=== PATIENT | male | born 1955 | race Caucasian/White ===

== ENCOUNTER 2016-11-17 07:57 | Day surgery (SDC) | payer MEDICARE, OTHER ==
[2016-10-07 10:50] VITALS: BMI 26.6
[2016-11-17 09:13] LABS: POTASSIUM 5.1 mmol/L (3.6-5.2)
[2016-11-17] MEDS ORDERED: Propofol 10 mg/ml Inj (20 ML) ONE ×3 (10:59→11:56)
[2016-11-17] MEDS ORDERED: Lactated Ringer's 1,000 ML IV ONE (11:00)
[2016-11-17] MEDS ORDERED: Sodium Chloride 0.9% 500 ML IV ONE ×2 (11:00→12:10)
[2016-11-17] MEDS ORDERED: HYDROmorphone 0.5 mg/0.5 ml ISec IVP PRN (11:05)
[2016-11-17] MEDS ORDERED: cefTRIAXone IV 1 gm in Dextros 50 ML IVPB ONE (11:06)
[2016-11-17] MEDS ORDERED: Iohexol 240 (50 ml) ONE (11:07)
[2016-11-17] MEDS ORDERED: Iodixanol 320 MG/ML 200 ML BOTTLE IV ONE (11:13)
[2016-11-17] MEDS: HYDROmorphone 0.5 mg/0.5 ml ISec IVP PRN ×3 (13:05→13:42)
[2016-11-17 13:51] VITALS: O2SAT 100
[2016-11-17 14:24] VITALS: BP 179/80; PULSE 90; RESP 18; TEMP 97.5
--- NOTE | 2016-11-17 14:39 | OP ---
PROCEDURE DATE: 11/17/2016 PREOPERATIVE DIAGNOSIS: Hematuria. POSTOPERATIVE DIAGNOSES: Hematuria, at least hemorrhagic cystitis. SURGEON: Dr. Angel ANESTHESIA: Local anesthesia plus IV sedation with . PROCEDURE: The patient was placed on the cystoscopy table in the dorsal lithotomy position and prepp ed and draped in usual sterile fashion with Betadine solution. Approximately 10 mL of 2% Xylocaine j danish were injected intraurethrally and allowed to be maintained for a few minutes. This was followed by insertion of a #22 Russian Storz cystoscope into the bladder under direct vision using the 30-degr ee lens. Sterile water was used as irrigation solution throughout the entire procedure. The anterio r urethra was completely normal without any stricture formation, foreign bodies, or suspicious lesion s seen. Posterior urethra and prostatic fossa showed a total prostatic length of about 6 cm and a bl adder neck to veru measurement of about 5 cm. The bladder was then examined in all 4 quadrants and w as completely inflamed and with appearance of hemorrhagic cystitis over the entire bladder. There wa s bullous edema around the entire trigone with hemorrhagic areas, making it more difficult to locate the ureteral orifices, which were eventually located and bilateral retrogrades were performed using 1 0 mL of contrast solution. The bilateral retrogrades appeared normal without any filling defects or hydronephrosis. Next, a bladder biopsy was performed after the ureteral 6 Russian open-ended catheter was removed, which was used during the bilateral retrograde pyelogram. Biopsy was taken from the ri ght trigone, which was completely inflamed and placed in a separate specimen cup and sent to patholog y. Also, a bladder irrigation for cytology was also sent to pathology. At the end of the procedure, there was bleeding noted, not only throughout the entire bladder, but also at the bladder neck. Thi s bladder neck area was fulgurated using the coagulating current set at 35 kim. Then, a 22 Russian 2-way Molina catheter was inserted into the bladder. The balloon inflated to about 15 mL and the cath eter was connected to gravity drainage with a light pink return. The patient tolerated the procedure well with about 50 mL of blood loss and was brought to recovery area in satisfactory condition. PLAN: For this patient will be to send the patient home with the Molina catheter for about 5 days and we will give the patient a trial of voiding in about 5 days in the office. The patient will be disc harged home on Ceftin 250 mg daily for 5 days. POSTOPERATIVE DIAGNOSTIC IMPRESSION: 1. Hemorrhagic cystitis. 2. Rule out neoplasm. Agustin Angel MD cc: [id number] TT: 11/17/2016 14:39:06 en
--- NOTE | 2016-11-17 14:59 | RAD ---
HISTORY: HEMATURIA COMPARISON: No prior. FINDINGS: BOWEL: Moderate right colonic stool retention. No obstruction. No free air. Motion artifact present. Left small bowel loops top-normal. BONES: Left L2-3 prominent marginal osteophytes OTHER FINDINGS: Partially visualized is contrast within a L left collecting system of the portions visualized no dilatation is noted. There are multiple nonspecific filling defects present ureter and pelvocaliceal system - correlation with the real-time procedure recommended IMPRESSION: Nonspecific filling defects left collecting system
--- NOTE | 2016-11-17 17:06 | RAD ---
PROCEDURE: HISTORY: Hematuria COMPARISON: None TECHNIQUE: Fluoroscopy of the upper abdomen was performed by the referring clinician for bilateral retrograde . 11 images obtained FINDINGS: Multiple nonspecific filling defects are present in the collecting system Please refer to the procedural report IMPRESSION: Fluoroscopy provided.
== END 2016-11-17 14:38 | disposition home or self-care (01) ==
LOC: C.SDS 07:57
PROVIDERS: ATTEND Urology
DX: N30.81 Other cystitis with hematuria (principal)
CPT/HCPCS: 36415; 52204; 74000; 76000; 80048; 82948; 88104; 88305; C1758; C1769; J0696; J1170; J7040; Q9966

== ENCOUNTER 2016-11-18 20:21 | Emergency (ER) | payer MEDICARE, OTHER ==
[2016-11-18 20:22] VITALS: BMI 26.6
[2016-11-18 20:34] VITALS: RESP 20; O2SAT 95
--- NOTE | 2016-11-18 21:55 | C.PDOC ---
History Of Present Illness Patient presents to the ED with complaints of penile pain following an cystoscopy yesterday. Patient states he wants pain medicine and denies any other physical complaints at this time. Time Seen by Provider: 11/18/16 21:55 Chief Complaint (Nursing): Male Genitourinary History Per: Patient History/Exam Limitations: no limitations Onset/Duration Of Symptoms: Hrs, Waxing/Waning Severity: Mild Pain Scale Rating Of: 4 Quality Of Discomfort: "Pain" Associated Symptoms: denies: Fever, Chills, Nausea, Vomiting, Diarrhea Recent travel outside of the [place]: No Past Medical History Reviewed: Historical Data, Nursing Documentation, Vital Signs Vital Signs: Last Vital Signs Temp 98 F 11/18/16 20:29 Pulse 92 H 11/18/16 20:29 Resp 20 11/18/16 20:29 BP 185/94 H 11/18/16 20:29 Pulse Ox 95 11/18/16 22:23 - Medical History PMH: CAD, Diabetes, HTN, Hypercholesterolemia, End Stage Renal Disease, Chronic Kidney Disease (ESRD on HD) Surgical History: Endoscopy - [place] Procedures ENDOSC POLYPECTOMY OF LG INTEST (10/09/13) PERFORMANCE OF URINARY FILTRATION, MULTIPLE (08/05/16) PERFORMANCE OF URINARY FILTRATION, SINGLE (04/17/16) Family History: States: No Known Family Hx - Social History Hx Tobacco Use: No Hx Alcohol Use: No Hx Substance Use: No - Immunization History Hx Tetanus Toxoid Vaccination: Yes Hx Influenza Vaccination: Yes Hx Pneumococcal Vaccination: Yes Review Of Systems Constitutional: Negative for: Fever, Chills, Sweats Cardiovascular: Negative for: Chest Pain, Palpitations Respiratory: Negative for: Cough, Shortness of Breath Gastrointestinal: Negative for: Nausea, Vomiting, Abdominal Pain, Diarrhea Genitourinary: Positive for: Hematuria, Penile Pain Skin: Negative for: Rash Neurological: Negative for: Weakness Psych: Negative for: Anxiety Physical Exam - Physical Exam Appears: Non-toxic, No Acute Distress Skin: Warm, Dry Head: Atraumatic Oral Mucosa: Moist Neck: Supple Chest: Symmetrical, No Deformity Cardiovascular: Rhythm Regular Respiratory: No Rales, No Rhonchi, No Stridor, No Wheezing Gastrointestinal/Abdominal: Soft, Tenderness (mild abdominal tenderness due to cunningham ), No Distention, No Guarding, No Rebound Male Genital: Other (in-dwelling cunningham draining bloody urine ) Extremity: Normal ROM, No Tenderness Neurological/Psych: Oriented x3 ED Course And Treatment O2 Sat by Pulse Oximetry: 95 Pulse Ox Interpretation: Normal Reevaluation Time: 23:19 Reassessment Condition: Improved Disposition Counseled Patient/Family Regarding: Studies Performed, Diagnosis, Need For Followup, Rx Given - Disposition Referrals: Agustin Angel MD [Staff Provider] - Disposition: HOME/ ROUTINE Disposition Time: 21:55 Condition: FAIR Prescriptions: traMADol [Ultram] 50 mg PO TID PRN #12 tab PRN Reason: Pain, Severe (8-10) Instructions: Urinary Leg Bag (GEN) - Clinical Impression Clinical Impression: Cunningham catheter in place - Scribe Statement The provider has reviewed the documentation as recorded by the Scribe Janice Spears All medical record entries made by the Scribe were at my direction and personally dictated by me. I have reviewed the chart and agree that the record accurately reflects my personal performance of the history, physical exam, medical decision making, and the department course for this patient. I have also personally directed, reviewed, and agree with the discharge instructions and disposition.
[2016-11-18] MEDS ORDERED: Oxycodone/Acetaminophen 5/325 mg Tab PO STA (22:17)
[2016-11-18] MEDS ORDERED: Oxycodone/Acetaminophen 5/325 mg Tab ONE (22:20)
[2016-11-18 23:23] VITALS: BP 172/89; PULSE 99; TEMP 97.9
== END 2016-11-18 23:24 | disposition home or self-care (01) ==
LOC: C.ER 20:21
DX: Z43.6 Encounter for attention to other artificial openings of urinary tract (principal)

== ENCOUNTER 2016-11-22 20:22 | Inpatient (IN) | payer MEDICARE, OTHER ==
[2016-11-22 20:23] VITALS: BMI 26.6
[2016-11-23 00:26] LABS: BASO # 0.1 K/uL (0.0-0.2); BASO % 0.7 % (0.0-2.0); EOS # 0.4 K/uL (0.0-0.7); EOS % 5.8 % (0.0-4.0); HEMATOCRIT 33.6 % (35.0-51.0); LYMPH # 0.7 K/uL (1.0-4.3); LYMPH % 8.9 % (20.0-40.0); MEAN CELL VOLUME 91.8 fL (80.0-94.0); MEAN CORPUSCULAR HEMOGLOBIN 29.8 pg (27.0-31.0); MEAN CORPUSCULAR HGB CONC 32.5 g/dL (33.0-37.0); MEAN PLATELET VOLUME 7.9 fL (7.2-11.7); MONO # 0.8 K/uL (0.0-0.8); MONO % 10.8 % (0.0-10.0); PLATELET COUNT 196 K/uL (130-400); RED CELL DISTRIBUTION WIDTH 18.9 % (11.5-14.5); WHITE BLOOD COUNT 7.7 K/uL (4.8-10.8)
[2016-11-23 00:30] LABS: INR 1.2
[2016-11-23 00:49] LABS: CHLORIDE 90 mmol/L (98-107)
[2016-11-23 00:50] LABS: POTASSIUM 4.8 mmol/L (3.6-5.2); SODIUM 137 mmol/L (132-148)
[2016-11-23 00:51] LABS: ALKALINE PHOSPHATASE 92 U/L (38-126); ALT/SGPT 17 U/L (21-72); AST/SGOT 32 U/L (17-59); BILIRUBIN,TOTAL 1.1 mg/dL (0.2-1.3); BLOOD UREA NITROGEN 39 mg/dL (9-20); CALCIUM 10.5 mg/dl (8.6-10.4); CARBON DIOXIDE 29 mmol/L (22-30); GFR AFRICAN-AMERICAN 10; GLUCOSE,RANDOM 141 mg/dL (75-110); TOTAL PROTEIN 9.2 g/dL (6.3-8.3)
--- NOTE | 2016-11-23 02:19 | C.PDOC ---
History Of Present Illness patient presents with b/l leg edema , some shortness of breath, penis carole from indwelling cunningham catheter. No cp or palpitations. No f/c/n/v. Time Seen by Provider: 11/23/16 02:11 Chief Complaint (Nursing): Male Genitourinary History Per: Patient History/Exam Limitations: no limitations Onset/Duration Of Symptoms: Days Current Symptoms Are (Timing): Still Present Severity: Moderate Pain Scale Rating Of: 4 Context: presents with cunningham cath irritation, shortness of breath an leg edema Past Medical History Reviewed: Historical Data, Nursing Documentation, Vital Signs Vital Signs: Last Vital Signs Temp 98.6 F 11/22/16 20:45 Pulse 81 11/22/16 20:45 Resp 20 11/22/16 20:45 BP 170/78 H 11/22/16 20:45 Pulse Ox 99 11/23/16 02:19 - Medical History PMH: CAD, Diabetes, HTN, Hypercholesterolemia, End Stage Renal Disease, Chronic Kidney Disease (ESRD on HD) Denies: Kidney Stones Surgical History: Endoscopy - [place] Procedures ENDOSC POLYPECTOMY OF LG INTEST (10/09/13) PERFORMANCE OF URINARY FILTRATION, MULTIPLE (08/05/16) PERFORMANCE OF URINARY FILTRATION, SINGLE (04/17/16) Family History: States: No Known Family Hx - Social History Hx Tobacco Use: No Hx Alcohol Use: No Hx Substance Use: No - Immunization History Hx Tetanus Toxoid Vaccination: Yes Hx Influenza Vaccination: Yes Hx Pneumococcal Vaccination: Yes Review Of Systems Constitutional: Negative for: Fever, Chills Eyes: Negative for: Redness ENT: Negative for: Throat Pain Cardiovascular: Negative for: Chest Pain, Palpitations Respiratory: Positive for: Shortness of Breath Gastrointestinal: Negative for: Nausea, Vomiting, Abdominal Pain Genitourinary: Positive for: Hematuria, Penile Pain, Other (indwelling cunningham) Musculoskeletal: Negative for: Back Pain Skin: Negative for: Rash Neurological: Negative for: Weakness Psych: Positive for: Anxiety Physical Exam - Physical Exam Appears: Non-toxic Skin: Warm, Dry Oral Mucosa: Dry Neck: Trachea Midline, Supple Chest: Symmetrical Cardiovascular: Rhythm Regular Respiratory: Decreased Breath Sounds, Rales, No Wheezing Gastrointestinal/Abdominal: Soft, No Tenderness, No Distention Back: No CVA Tenderness Male Genital: Inguinal Tenderness, Other (indwelling cunningham) Extremity: Pedal Edema (b/l) Extremity: Bilateral: Atraumatic Neurological/Psych: Oriented x3, Normal Speech Gait: Unable To Assess ED Course And Treatment - Laboratory Results Result Diagrams: 11/23/16 00:17 11/23/16 00:17 O2 Sat by Pulse Oximetry: 99 Disposition Discussed With : Lauren Rodas Comment: accepted the pt on his service and took over the care at 2:55AM Doctor Will See Patient In The: Hospital Counseled Patient/Family Regarding: Studies Performed, Diagnosis - Disposition Disposition: HOSPITALIZED Disposition Time: 02:15 Condition: FAIR - POA Present On Arrival: Poor Glycemic Control - Clinical Impression Clinical Impression: Dyspnea, CHF exacerbation, Cunningham catheter in place, Diabetes mellitus Decision To Admit - Pt Status Changed To: Hospital Disposition Of: Inpatient - Admit Certification Admit to Inpatient:: After my assessment, the patient will require hospitalization for at least two midnights. This is because of the severity of symptoms shown, intensity of services needed, and/or the medical risk in this patient being treated as an outpatient. - InPatient: Physician Admission Certification: I certify that this patient requires 2 or more midnights of care for the following reason:: After my assessment, the patient will require hospitalization for at least two midnights. This is because of the severity of symptoms shown, intensity of services needed, and/or the medical risk in this patient being treated as an outpatient. - . Bed Request Type: Telemetry Admitting Physician: Lauren Rodas Patient Diagnosis: Dyspnea, CHF exacerbation, Cunningham catheter in place, Diabetes mellitus
[2016-11-23 02:20] LABS: EOSINOPHIL 6 % (0-4); NEUTROPHIL 70 % (50-75); TOTAL CELLS COUNTED 100
[2016-11-23] MEDS: (Novolog) Insulin Aspart, Recombinant 100 u/ml 10 ml vial SC SCH ×2 (08:03→19:14)
--- NOTE | 2016-11-23 10:48 | RAD ---
PROCEDURE: CHEST RADIOGRAPH, 1 VIEW HISTORY: short of breath COMPARISON: Comparison made with prior chest radiograph 09/27/2016 FINDINGS: LUNGS: Pulmonary vascular congestive changes with what may represent early developing bilateral lower lobe alveolar-type infiltrates. PLEURA: No pneumothorax or pleural fluid seen. CARDIOVASCULAR: Sternotomy wires. Cardiomegaly. OSSEOUS STRUCTURES: No significant abnormalities. VISUALIZED UPPER ABDOMEN: Normal. OTHER FINDINGS: None. IMPRESSION: Mild pulmonary vascular congestive changes -pulmonary edema with suspected developing early bilateral lower lobe alveolar-type infiltrates. Cardiomegaly. Findings discussed with 5 anurager Nurse Eladio at approximately 10:45 a.m. with written down and read back verification
[2016-11-23] MEDS: Multiple Vitamins Tab PO SCH (11:03)
[2016-11-23] MEDS: (Lantus) Insulin Glargine, Recombinant SC SCH (11:11)
--- NOTE | 2016-11-23 15:18 | CP.PCM.CON ---
History of Present Illness - History of Present Illness History of Present Illness: 61 Y/O man admitted with gross hematuria, increased dyspnea s/p recent cysto- showed thick bladder wall- path results pending. Has had recurrent CHF- usually maintained on HD. PMH: ESRD OHT CHF RECURRENCES CAD DL HTN DM 2 WILL ARRANGE FOR HD NOW WITH INCREASED UF RATE MCCLOUD REMOVED BY AWAIT FULL RESULTS OF CYSTO CONTINUE IMMUNOSUPRESSANTS FOR HEART TRANSPLANT Past Patient History - Infectious Disease Hx of Infectious Diseases: None - Past Medical History & Family History Past Medical History?: Yes - Past Social History Smoking Status: Former Smoker - CARDIAC Hx Hypertension: Yes - PULMONARY Hx Respiratory Disorders: No - NEUROLOGICAL Hx Neurological Disorder: No - HEENT Hx HEENT Problems: No - RENAL Hx Chronic Kidney Disease: Yes (ESRD on HD) Hx Kidney Stones: No - ENDOCRINE/METABOLIC Hx Endocrine Disorders: Yes Hx Diabetes Mellitus Type 1: Yes - HEMATOLOGICAL/ONCOLOGICAL Hx Blood Disorders: No - INTEGUMENTARY Hx Dermatological Problems: No - MUSCULOSKELETAL/RHEUMATOLOGICAL Hx Musculoskeletal Disorders: No Hx Falls: No - GASTROINTESTINAL Hx Gastrointestinal Disorders: No - GENITOURINARY/GYNECOLOGICAL Hx Genitourinary Disorders: Yes Hx Hematuria: Yes Hx Urinary Tract Infection: Yes - PSYCHIATRIC Hx Substance Use: No - SURGICAL HISTORY Other/Comment: HEART TRANSPLANT - ANESTHESIA Hx Anesthesia: Yes Hx Anesthesia Reactions: No Hx Malignant Hyperthermia: No Meds Allergies/Adverse Reactions: Allergies Allergy/AdvReac Type Severity Reaction Status Date / Time morphine Allergy Verified 11/22/16 20:48 - Medications Medications: Current Medications Amlodipine Besylate (Norvasc) 10 mg PO DAILY [facility] Last Admin: 11/23/16 11:03 Dose: 10 mg Aspirin (Ecotrin) 81 mg PO DAILY [facility] Last Admin: 11/23/16 11:03 Dose: 81 mg Carvedilol (Coreg) 25 mg PO BID [facility] Last Admin: 11/23/16 11:10 Dose: 25 mg Ezetimibe (Zetia) 10 mg PO [facility] Heparin Sodium (Porcine) (Heparin) 5,000 units SC Q12 [facility] Last Admin: 11/23/16 11:11 Dose: 5,000 units Hydralazine HCl (Apresoline) 100 mg PO BID [facility] Last Admin: 11/23/16 11:04 Dose: 100 mg Ceftriaxone Sodium 500 mg/ (Sodium Chloride) 100 mls @ 100 mls/hr IVPB Q24H [facility] Last Admin: 11/23/16 13:11 Dose: 100 mls/hr Insulin Aspart (Novolog) 8 unit SC BIDAC [facility] Last Admin: 11/23/16 08:03 Dose: 8 unit Insulin Glargine (Lantus) 14 unit SC QAM [facility] Last Admin: 11/23/16 11:11 Dose: 14 unit Losartan Potassium (Cozaar) 100 mg PO DAILY [facility] Last Admin: 11/23/16 11:10 Dose: 100 mg Multivitamins (Hexavitamin) 1 tab PO DAILY [facility] Last Admin: 11/23/16 11:03 Dose: 1 tab Rosuvastatin Calcium (Crestor) 10 mg PO HS [facility] Sevelamer Carbonate (Renvela) 0.8 gm PO TIDCC [facility] Tacrolimus (Prograf Cap) 1 mg PO DAILY [facility] Last Admin: 11/23/16 11:03 Dose: 1 mg Tramadol HCl (Ultram) 50 mg PO TID PRN PRN Reason: Pain, severe (8-10) Results - Vital Signs Recent Vital Signs: Last Vital Signs Temp 98.3 F 11/23/16 08:31 Pulse 99 H 11/23/16 12:38 Resp 20 11/23/16 12:36 BP 178/86 H 11/23/16 11:10 Pulse Ox 97 11/23/16 12:38 - Labs Result Diagrams: 11/23/16 00:17 11/23/16 00:17 Labs: Laboratory Results - last 24 hr 11/23/16 11/23/16 07:51 11:49 POC Glucose (mg/dL) 189 H 78
--- NOTE | 2016-11-23 17:48 | CON ---
DATE: 11/23/2016 BRIEF HISTORY: The patient is recently status post cystoscopy, bilateral retrograde pyelograms, bladder biopsy and bladder washing for cytology last week done at [facility] for evaluation of microscopic and gross hematuria in a patient with end-stage renal disease on dialysis 3 times per week. Results are still pending from this procedure. The bilateral retrograde pyelogram however was relatively normal without any obstructive uropathy or filling defects seen in the collecting systems bilaterally. The patient went home with a 22-Ukrainian Molina catheter, which is currently draining luma urine well, but the patient was complaining of lower abdominal pain and bleeding around the penile meatus. The catheter was supposed to be removed in the office today, 11/23/2016, but the patient was admitted last evening with a complaint of lower abdominal pain and bleeding from the penile meatus. The patient is currently resting moderately comfortably at this point in time. PAST MEDICAL HISTORY: Includes hypertension, high cholesterol, GERD, end-stage renal disease on dialysis since 2014 three times per week, diabetes mellitus, and gross and microscopic hematuria. PAST SURGICAL HISTORY: Status post heart transplant in 2003. PREVIOUS HOME MEDICATIONS: Include hydralazine, amlodipine, valsartan, Lipitor , carvedilol, tacrolimus, pantoprazole sodium, Zetia, Catherine-Carmen, Lantus, SoloSTAR 100 units per mL, insulin and 81 mg aspirin daily. PAST SURGICAL HISTORY: Heart transplant in 2003. He is currently a nonsmoker and relatively no alcohol at this time. ALLERGIES: HE IS ALLERGIC TO MORPHINE WHICH CAUSES DIZZINESS AND LOSS OF APPETITE. PHYSICAL EXAMINATION: GENERAL: Today, patient is a well-developed, well-nourished black male. HEENT: Grossly within normal limits. NECK: Supple. Thyroid not palpable. ABDOMEN: Soft, not distended or tender. No CVA tenderness. No suprapubic tenderness. GENITALIA: Testicles are down bilaterally, nontender and a 22-Ukrainian Molina catheter was draining luma urine well without any clots. There was some blood around the penile meatus but only a very small amount. VITAL SIGNS: Today, temperature is 98.3, pulse rate is 101, blood pressure is 178/86. Respiratory rate is 20. Nasal cannula O2 is 94%. LABORATORY EVALUATION: Today 11/23/2016 shows a CBC with a WBC count of 7.7, hemoglobin of 10.9, hematocrit of 33.6 and a platelet count of 196,000. PT, PTT shows a PT of 13.2, INR of 1.2 and PTT of 39. Sodium is 137, potassium 4.8 , chloride 90, CO2 of 29. BUN and creatinine 39 and 7.1 respectively with a GFR of 10. Glucose was 189 early this morning, but currently is 78 at 8:00 a.m. today. Calcium is 10.5. AST is 32, ALT 17, alk phos 92. No urinalysis is on the chart and no urine culture is on the chart at this time. The patient was originally discharged home post-procedure on Ceftin 250 mg daily and we will restart this medication at this time for at least a few days until we get some cultures back. The urine will be sent for analysis and culture and sensitivity today. DIAGNOSTIC IMPRESSION: Gross and microscopic hematuria. Status post cystoscopy with bladder biopsies and bilateral retrograde pyelograms and bladder wash for urine cytology. The patient was noted on cystoscopy to have a grossly hemorrhagic bladder with inflammation consistent with hemorrhagic cystitis. The patient was currently scheduled to have the Ceftin 250 mg daily for 10 days. The patient is currently for a voiding trial today and the catheter was removed at the bedside this morning, roughly at 12 noon. Agustin Angel MD cc: [id number] TT: 11/23/2016 17:47:51 Confirmation # [id number] Dictation # [id number] MTDD
--- NOTE | 2016-11-23 18:35 | CP.PCM.HP ---
Past Patient History - Infectious Disease Hx of Infectious Diseases: None - Past Medical History & Family History Past Medical History?: Yes - Past Social History Smoking Status: Former Smoker - CARDIAC Hx Hypertension: Yes - PULMONARY Hx Respiratory Disorders: No - NEUROLOGICAL Hx Neurological Disorder: No - HEENT Hx HEENT Problems: No - RENAL Hx Chronic Kidney Disease: Yes (ESRD on HD) Hx Kidney Stones: No - ENDOCRINE/METABOLIC Hx Endocrine Disorders: Yes Hx Diabetes Mellitus Type 1: Yes - HEMATOLOGICAL/ONCOLOGICAL Hx Blood Disorders: No - INTEGUMENTARY Hx Dermatological Problems: No - MUSCULOSKELETAL/RHEUMATOLOGICAL Hx Musculoskeletal Disorders: No Hx Falls: No - GASTROINTESTINAL Hx Gastrointestinal Disorders: No - GENITOURINARY/GYNECOLOGICAL Hx Genitourinary Disorders: Yes Hx Hematuria: Yes Hx Urinary Tract Infection: Yes - PSYCHIATRIC Hx Substance Use: No - SURGICAL HISTORY Other/Comment: HEART TRANSPLANT - ANESTHESIA Hx Anesthesia: Yes Hx Anesthesia Reactions: No Hx Malignant Hyperthermia: No Meds Allergies/Adverse Reactions: Allergies Allergy/AdvReac Type Severity Reaction Status Date / Time morphine Allergy Verified 11/22/16 20:48 Results - Vital Signs Recent Vital Signs: Last Vital Signs Temp 98.1 F 11/23/16 15:00 Pulse 95 H 11/23/16 17:30 Resp 16 11/23/16 17:30 BP 177/93 H 11/23/16 17:30 Pulse Ox 98 11/23/16 17:30 - Labs Result Diagrams: 11/23/16 00:17 11/23/16 00:17 Labs: Laboratory Results - last 24 hr 11/23/16 11/23/16 11/23/16 07:51 11:49 15:57 POC Glucose (mg/dL) 189 H 78 123 H
--- NOTE | 2016-11-23 18:55 | CON ---
DATE: 11/23/2016 HISTORY OF PRESENT ILLNESS: The patient is a 61-year-old man admitted with gross hematuria, increas ed dyspnea. He is status post a recent cystoscopy which showed a thick bladder wall. Path results a re pending. He was diagnosed as hemorrhagic cystitis recently. He has had recurrent congestive hear t failure and that is usually managed with hemodialysis. PAST MEDICAL HISTORY: Orthotopic heart transplant in the remote past, I believe in 2003. He has end -stage renal disease due to diabetes mellitus, diabetes mellitus type 2, hypertension, dyslipidemia, coronary artery disease with a transplant kidney and he has CHF recurrences. PAST SURGICAL HISTORY: AV fistula and the aforementioned heart transplant. SOCIAL HISTORY: Negative for smoking, alcohol abuse or illicit drug use. FAMILY HISTORY: Noncontributory. REVIEW OF SYSTEMS: Significant for increasing dyspnea on exertion recently, chronic cough, no rashes . He is orthopneic. He has had moderate chest pains as well accompanying the shortness of breath. He has little urine output. He has got arthralgias and had some gout. He has no new rashes. He has had the bloody urine output recently. No hearing deficits or visual disturbances recently. Other r eview of systems are all negative. PHYSICAL EXAMINATION: GENERAL: He is a well-developed man. When seen he was dyspneic. VITAL SIGNS: Blood pressure 176/91, temp is 98.3, pulse 99, pulse ox 97% on room air. HEENT: He is anicteric. Mouth was clear. NECK: No JVD. LUNGS: Mejia showed increasing rales, but retirement up. HEART: Regular rhythm, no murmur. ABDOMEN: Soft, benign. No mass or organomegaly. He had an AV fistula in place. EXTREMITIES: He had 1+ pedal edema. NEUROLOGIC: No focal deficits. LABORATORY DATA: Blood work showed hemoglobin of 10.9. Sodium 137, potassium 4.8, BUN 39, creatinin e 7.1. ProBNP is 98,200. Chest x-ray showed congestive heart failure. 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 PLAN: Treatment of congestive heart failure. He is to go for dialysis today and will increase the u ltrafiltration rate. He will need more dialysis and he will be followed for this. Results of the cy sto are pending. Will resume his immunosuppressive medications for the maintenance of his heart montez splant. We will follow up. Zane Pulido MD cc: [id number] TT: 11/23/2016 18:54:21 Confirmation # [id number] Dictation # [id number] mn
[2016-11-23] MEDS: Sevelamer Carb 0.8 gm/Packet PO SCH (19:14)
[2016-11-24 08:54] LABS: POTASSIUM 4.7 mmol/L (3.6-5.2)
[2016-11-24 08:56] LABS: BILIRUBIN,TOTAL 0.8 mg/dL (0.2-1.3); PHOSPHOROUS 5.3 mg/dL (2.5-4.5); TOTAL PROTEIN 8.2 g/dL (6.3-8.3)
[2016-11-24 08:57] LABS: CALCIUM 9.4 mg/dl (8.6-10.4)
[2016-11-24] MEDS: (Novolog) Insulin Aspart, Recombinant 100 u/ml 10 ml vial SC SCH ×2 (10:00→16:52)
[2016-11-24] MEDS: Sevelamer Carb 0.8 gm/Packet PO SCH ×3 (10:01→16:52)
[2016-11-24] MEDS: (Lantus) Insulin Glargine, Recombinant SC SCH (10:05)
[2016-11-24] MEDS: Multiple Vitamins Tab PO SCH (10:05)
--- NOTE | 2016-11-24 10:09 | CP.PCM.PN ---
Subjective - Date & Time of Evaluation Date of Evaluation: 11/24/16 Time of Evaluation: 10:06 - Subjective Subjective: s/p dialysis 11/23- UF 3000ml Much less dyspneic, no CPs Molina removed- no more reports of hemsaturia BP still elevated Objective - Vital Signs/Intake and Output Vital Signs (last 24 hours): Temp Pulse Resp BP Pulse Ox 99 F 103 H 20 174/91 H 96 11/24/16 08:00 11/24/16 10:00 11/24/16 08:00 11/24/16 10:04 11/24/16 08:00 Intake and Output: 11/24/16 11/24/16 06:59 18:59 Intake Total 400 Balance 400 - Medications Medications: Current Medications Amlodipine Besylate (Norvasc) 10 mg PO DAILY [facility] Last Admin: 11/24/16 10:05 Dose: 10 mg Aspirin (Ecotrin) 81 mg PO DAILY [facility] Last Admin: 11/24/16 10:04 Dose: 81 mg Carvedilol (Coreg) 25 mg PO BID [facility] Last Admin: 11/24/16 10:04 Dose: 25 mg Ezetimibe (Zetia) 10 mg PO HS [facility] Last Admin: 11/23/16 21:56 Dose: 10 mg Heparin Sodium (Porcine) (Heparin) 5,000 units SC Q12 [facility] Last Admin: 11/24/16 10:05 Dose: 5,000 units Hydralazine HCl (Apresoline) 100 mg PO BID [facility] Last Admin: 11/24/16 10:05 Dose: 100 mg Ceftriaxone Sodium 500 mg/ (Sodium Chloride) 100 mls @ 100 mls/hr IVPB Q24H [facility] Last Admin: 11/23/16 13:11 Dose: 100 mls/hr Insulin Aspart (Novolog) 8 unit SC BIDAC [facility] Last Admin: 11/24/16 10:00 Dose: 8 unit Insulin Glargine (Lantus) 14 unit SC QAM [facility] Last Admin: 11/24/16 10:05 Dose: 14 unit Losartan Potassium (Cozaar) 100 mg PO DAILY [facility] Last Admin: 11/24/16 10:04 Dose: 100 mg Multivitamins (Hexavitamin) 1 tab PO DAILY [facility] Last Admin: 11/24/16 10:05 Dose: 1 tab Rosuvastatin Calcium (Crestor) 10 mg PO HS [facility] Last Admin: 11/23/16 21:57 Dose: 10 mg Sevelamer Carbonate (Renvela) 0.8 gm PO TIDCC [facility] Last Admin: 11/24/16 10:01 Dose: 0.8 gm Tacrolimus (Prograf Cap) 1 mg PO DAILY [facility] Last Admin: 11/24/16 10:04 Dose: 1 mg Tramadol HCl (Ultram) 50 mg PO TID PRN PRN Reason: Pain, severe (8-10) - Labs Labs: 11/24/16 08:20 PT 13.2 SECONDS (9.7-12.2) H 11/23/16 00:17 INR 1.2 11/23/16 00:17 APTT 39 SECONDS (21-34) H 11/23/16 00:17 - Constitutional Appears: No Acute Distress, Chronically Ill - Head Exam Head Exam: ATRAUMATIC, NORMAL INSPECTION - Eye Exam Eye Exam: EOMI, Normal appearance - Neck Exam Neck Exam: Normal Inspection. absent: Tenderness - Respiratory Exam Respiratory Exam: Clear to Ausculation Bilateral, NORMAL BREATHING PATTERN - Cardiovascular Exam Cardiovascular Exam: REGULAR RHYTHM, +S1 - GI/Abdominal Exam GI & Abdominal Exam: Soft. absent: Tenderness - Extremities Exam Extremities Exam: Pedal Edema. absent: Tenderness - Neurological Exam Neurological Exam: Altered, CN II-XII Intact - Skin Skin Exam: Dry, Warm Assessment and Plan (1) Hemorrhagic cystitis Status: Acute (2) CHF exacerbation Status: Acute (3) UTI (urinary tract infection) Status: Acute (4) End stage renal disease Status: Chronic (5) HTN (hypertension) Status: Chronic (6) Hx of heart transplant Status: Chronic - Assessment and Plan (Free Text) Plan: Increase BP meds Dialysis MWF Monitor for hematuria
--- NOTE | 2016-11-24 12:11 | PN ---
DATE: 11/24/2016 TIME OF FOLLOWUP: Roughly 11:45 a.m. The patient is currently voiding luma urine well after removal of his Molina catheter and is very com fortable at this time. He currently denies any dysuria, gross hematuria, renal colic, or abdominal p ain. 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 The patient is currently awaiting dialysis. VITAL SIGNS: He is afebrile, his temperature is 99 this morning, his pulse rate is 103. BLOOD WORK: Show a CBC with a WBC count of 7.7, hemoglobin of 10.9, hematocrit 33.6 and a platelet c ount of 196,000. His chem profile shows a BUN and creatinine of 24 and 5.4 respectively, with a gluc ose of 123. Sodium 135, potassium 4.7, chloride 92 and CO2 29. DIAGNOSTIC IMPRESSION: Hematuria, negative for bladder malignancy at this time, and cystitis. PLAN: Continue the patient on his oral antibiotics at home which will include Ceftin 250 mg p.o. jadon ly. The patient is currently on Rocephin IV 500 mg daily during his hospital stay. This antibiotic regimen was discussed with his orchestrator, Dr. Kristina Pulido, who agrees with the dosages for end-st age renal disease. Agustin Angel MD cc: [phone] TT: 11/24/2016 12:10:29 Confirmation # [id number] Dictation # [id number] mn
[2016-11-24 21:31] LABS: RBC URINE 49210 /hpf (0-3); URINE BACTERIA FEW (<OCC); URINE BILIRUBIN NEGATIVE (NEGATIVE); URINE BLOOD 3+ (NEGATIVE); URINE COLOR Red (YELLOW); URINE GLUCOSE (UA) 2+ mg/dL (Normal); URINE KETONE 1+ mg/dL (NEGATIVE); URINE LEUKOCYTE ESTERASE NEG Leu/uL (Negative); URINE PROTEIN 2+ mg/dL (NEGATIVE); URINE UROBILINOGEN NORMAL mg/dL (0.2-1.0); WBC URINE 2208 /hpf (0-5)
--- NOTE | 2016-11-24 21:37 | CP.PCM.PN ---
Subjective - Date & Time of Evaluation Date of Evaluation: 11/24/16 Time of Evaluation: 21:36 - Subjective Subjective: c/o sob hiccough noted spo2 98% no wheezing no fever episode of hematureia noted cunningham out had bm received HD Objective - Vital Signs/Intake and Output Vital Signs (last 24 hours): Temp Pulse Resp BP Pulse Ox 98.3 F 93 H 20 169/87 H 99 11/24/16 15:49 11/24/16 19:31 11/24/16 15:49 11/24/16 17:55 11/24/16 15:49 Intake and Output: 11/24/16 11/25/16 18:59 06:59 Intake Total 450 Output Total 15 Balance 450 -15 chest good air entry - Medications Medications: Current Medications Amlodipine Besylate (Norvasc) 10 mg PO DAILY [facility] Last Admin: 11/24/16 10:05 Dose: 10 mg Aspirin (Ecotrin) 81 mg PO DAILY [facility] Last Admin: 11/24/16 10:04 Dose: 81 mg Carvedilol (Coreg) 25 mg PO BID [facility] Last Admin: 11/24/16 17:45 Dose: 25 mg Clonidine HCl (Catapres) 0.1 mg PO BID [facility] Last Admin: 11/24/16 17:47 Dose: 0.1 mg Ezetimibe (Zetia) 10 mg PO HS [facility] Last Admin: 11/23/16 21:56 Dose: 10 mg Heparin Sodium (Porcine) (Heparin) 5,000 units SC Q12 [facility] Last Admin: 11/24/16 10:05 Dose: 5,000 units Hydralazine HCl (Apresoline) 100 mg PO BID [facility] Last Admin: 11/24/16 17:45 Dose: 100 mg Ceftriaxone Sodium 500 mg/ (Sodium Chloride) 100 mls @ 100 mls/hr IVPB Q24H [facility] Last Admin: 11/24/16 14:49 Dose: 100 mls/hr Insulin Aspart (Novolog) 8 unit SC BIDAC [facility] Last Admin: 11/24/16 16:52 Dose: 8 unit Insulin Glargine (Lantus) 14 unit SC QAM [facility] Last Admin: 11/24/16 10:05 Dose: 14 unit Losartan Potassium (Cozaar) 100 mg PO DAILY [facility] Last Admin: 11/24/16 10:04 Dose: 100 mg Multivitamins (Hexavitamin) 1 tab PO DAILY [facility] Last Admin: 11/24/16 10:05 Dose: 1 tab Rosuvastatin Calcium (Crestor) 10 mg PO HS [facility] Last Admin: 11/23/16 21:57 Dose: 10 mg Sevelamer Carbonate (Renvela) 0.8 gm PO TIDCC [facility] Last Admin: 11/24/16 16:52 Dose: 0.8 gm Tacrolimus (Prograf Cap) 1 mg PO DAILY [facility] Last Admin: 11/24/16 10:04 Dose: 1 mg Tramadol HCl (Ultram) 50 mg PO TID PRN PRN Reason: Pain, severe (8-10) - Labs Labs: 11/24/16 08:20 PT 13.2 SECONDS (9.7-12.2) H 11/23/16 00:17 INR 1.2 11/23/16 00:17 APTT 39 SECONDS (21-34) H 11/23/16 00:17 Assessment and Plan (1) CHF exacerbation Assessment & Plan: fluid over load getting hd hiccough will add thorazine Status: Acute (2) Cunningham catheter in place Status: Acute (3) Hemorrhagic cystitis Status: Acute (4) Diabetes mellitus Status: Chronic
[2016-11-25] MEDS: (Novolog) Insulin Aspart, Recombinant 100 u/ml 10 ml vial SC SCH ×2 (09:02→17:30)
[2016-11-25] MEDS: Sevelamer Carb 0.8 gm/Packet PO SCH ×4 (09:03→17:28)
[2016-11-25] MEDS: (Lantus) Insulin Glargine, Recombinant SC SCH (11:00)
[2016-11-25] MEDS: Multiple Vitamins Tab PO SCH ×2 (11:00→14:37)
--- NOTE | 2016-11-25 15:20 | CP.PCM.PN ---
Subjective - Date & Time of Evaluation Date of Evaluation: 11/25/16 Time of Evaluation: 15:18 - Subjective Subjective: Seen at dialysis Trying to increase UF rate Reported gross hematuria again Less dyspneic No CPs, n, v, diarrhea, HAs Objective - Vital Signs/Intake and Output Vital Signs (last 24 hours): Temp Pulse Resp BP Pulse Ox 98.5 F 91 H 18 176/83 H 98 11/25/16 14:31 11/25/16 14:31 11/25/16 14:31 11/25/16 14:31 11/25/16 14:31 Intake and Output: 11/25/16 11/25/16 06:59 18:59 Output Total 15 Balance -15 - Medications Medications: Current Medications Amlodipine Besylate (Norvasc) 10 mg PO DAILY [facility] Last Admin: 11/25/16 14:38 Dose: 10 mg Aspirin (Ecotrin) 81 mg PO DAILY [facility] Last Admin: 11/25/16 14:38 Dose: 81 mg Carvedilol (Coreg) 25 mg PO BID [facility] Last Admin: 11/25/16 11:00 Dose: Not Given Clonidine HCl (Catapres) 0.1 mg PO BID [facility] Last Admin: 11/25/16 14:38 Dose: 0.1 mg Ezetimibe (Zetia) 10 mg PO HS [facility] Last Admin: 11/24/16 21:57 Dose: 10 mg Heparin Sodium (Porcine) (Heparin) 5,000 units SC Q12 [facility] Last Admin: 11/25/16 11:00 Dose: Not Given Hydralazine HCl (Apresoline) 100 mg PO BID [facility] Last Admin: 11/25/16 14:38 Dose: 100 mg Ceftriaxone Sodium 500 mg/ (Sodium Chloride) 100 mls @ 100 mls/hr IVPB Q24H [facility] Last Admin: 11/25/16 14:37 Dose: 100 mls/hr Insulin Aspart (Novolog) 8 unit SC BIDAC [facility] Last Admin: 11/25/16 09:02 Dose: 8 unit Insulin Glargine (Lantus) 14 unit SC QAM [facility] Last Admin: 11/25/16 11:00 Dose: Not Given Losartan Potassium (Cozaar) 100 mg PO DAILY [facility] Last Admin: 11/25/16 14:38 Dose: 100 mg Multivitamins (Hexavitamin) 1 tab PO DAILY [facility] Last Admin: 11/25/16 14:37 Dose: 1 tab Rosuvastatin Calcium (Crestor) 10 mg PO HS [facility] Last Admin: 11/24/16 21:57 Dose: 10 mg Sevelamer Carbonate (Renvela) 0.8 gm PO TIDCC [facility] Last Admin: 11/25/16 14:38 Dose: 0.8 gm Tacrolimus (Prograf Cap) 1 mg PO DAILY [facility] Last Admin: 11/25/16 11:00 Dose: Not Given - Labs Labs: 11/24/16 08:20 PT 13.2 SECONDS (9.7-12.2) H 11/23/16 00:17 INR 1.2 11/23/16 00:17 APTT 39 SECONDS (21-34) H 11/23/16 00:17 - Constitutional Appears: No Acute Distress, Chronically Ill - Head Exam Head Exam: ATRAUMATIC, NORMAL INSPECTION - Eye Exam Eye Exam: EOMI, Normal appearance - Neck Exam Neck Exam: Normal Inspection. absent: Tenderness - Respiratory Exam Respiratory Exam: Clear to Ausculation Bilateral, NORMAL BREATHING PATTERN - Cardiovascular Exam Cardiovascular Exam: REGULAR RHYTHM, +S1 - GI/Abdominal Exam GI & Abdominal Exam: Soft. absent: Tenderness - Extremities Exam Extremities Exam: Normal Inspection. absent: Pedal Edema, Tenderness - Neurological Exam Neurological Exam: Alert, Awake, CN II-XII Intact - Skin Skin Exam: Dry, Warm Assessment and Plan (1) Hemorrhagic cystitis Status: Acute (2) CHF exacerbation Status: Acute (3) UTI (urinary tract infection) Status: Acute (4) End stage renal disease Status: Chronic (5) HTN (hypertension) Status: Chronic (6) Hx of heart transplant Status: Chronic - Assessment and Plan (Free Text) Plan: Increase UF with HD Dialysis MWF Same immunosuppressants Repeat UC+S Continue IV ABs
[2016-11-26] MEDS: Sevelamer Carb 0.8 gm/Packet PO SCH ×3 (08:04→18:01)
[2016-11-26] MEDS: (Novolog) Insulin Aspart, Recombinant 100 u/ml 10 ml vial SC SCH ×2 (08:04→18:01)
[2016-11-26] MEDS: Multiple Vitamins Tab PO SCH (09:14)
[2016-11-26] MEDS: (Lantus) Insulin Glargine, Recombinant SC SCH (09:15)
--- NOTE | 2016-11-26 10:01 | CP.PCM.PN ---
Subjective - Date & Time of Evaluation Date of Evaluation: 11/26/16 Time of Evaluation: 10:00 - Subjective Subjective: flat affect tolerated HD yesterday no chest pain no sob no headache no rash no nausea no sinus tenderness no increased thirst Objective - Vital Signs/Intake and Output Vital Signs (last 24 hours): Temp Pulse Resp BP Pulse Ox 98.5 F 101 H 20 170/86 H 94 L 11/26/16 07:00 11/26/16 07:00 11/26/16 07:00 11/26/16 09:13 11/26/16 07:00 Intake and Output: 11/26/16 11/26/16 06:59 18:59 Intake Total 340 Balance 340 - Medications Medications: Current Medications Amlodipine Besylate (Norvasc) 10 mg PO DAILY [facility] Last Admin: 11/26/16 09:13 Dose: 10 mg Aspirin (Ecotrin) 81 mg PO DAILY [facility] Last Admin: 11/26/16 09:14 Dose: 81 mg Carvedilol (Coreg) 25 mg PO BID [facility] Last Admin: 11/26/16 09:13 Dose: 25 mg Clonidine HCl (Catapres) 0.1 mg PO BID [facility] Last Admin: 11/26/16 09:14 Dose: 0.1 mg Ezetimibe (Zetia) 10 mg PO HS [facility] Last Admin: 11/25/16 21:52 Dose: 10 mg Heparin Sodium (Porcine) (Heparin) 5,000 units SC Q12 [facility] Last Admin: 11/26/16 09:15 Dose: 5,000 units Hydralazine HCl (Apresoline) 100 mg PO BID [facility] Last Admin: 11/26/16 09:15 Dose: 100 mg Ceftriaxone Sodium 500 mg/ (Sodium Chloride) 100 mls @ 100 mls/hr IVPB Q24H [facility] Last Admin: 11/25/16 14:37 Dose: 100 mls/hr Insulin Aspart (Novolog) 8 unit SC BIDAC [facility] Last Admin: 11/26/16 08:04 Dose: 8 unit Insulin Glargine (Lantus) 14 unit SC QAM [facility] Last Admin: 11/26/16 09:15 Dose: 14 unit Losartan Potassium (Cozaar) 100 mg PO DAILY [facility] Last Admin: 11/26/16 09:14 Dose: 100 mg Multivitamins (Hexavitamin) 1 tab PO DAILY [facility] Last Admin: 11/26/16 09:14 Dose: 1 tab Rosuvastatin Calcium (Crestor) 10 mg PO HS [facility] Last Admin: 11/25/16 21:52 Dose: 10 mg Sevelamer Carbonate (Renvela) 0.8 gm PO TIDCC [facility] Last Admin: 11/26/16 08:04 Dose: 0.8 gm Tacrolimus (Prograf Cap) 1 mg PO DAILY [facility] Last Admin: 11/26/16 09:13 Dose: 1 mg - Labs Labs: 11/24/16 08:20 PT 13.2 SECONDS (9.7-12.2) H 11/23/16 00:17 INR 1.2 11/23/16 00:17 APTT 39 SECONDS (21-34) H 11/23/16 00:17 - Constitutional Appears: Chronically Ill - Eye Exam Eye Exam: EOMI - ENT Exam ENT Exam: Mucous Membranes Moist - Neck Exam Neck Exam: Full ROM. absent: Lymphadenopathy - Respiratory Exam Respiratory Exam: Clear to Ausculation Bilateral. absent: Accessory Muscle Use - Cardiovascular Exam Cardiovascular Exam: REGULAR RHYTHM. absent: Rubs - GI/Abdominal Exam GI & Abdominal Exam: Distended Additional comments: mild suprapubic tenderness Assessment and Plan - Assessment and Plan (Free Text) Assessment: esrd oht chronic cystitis, Pseudomonas continue IV AB HD maint
[2016-11-27] MEDS: Multiple Vitamins Tab PO SCH (09:09)
[2016-11-27] MEDS: (Lantus) Insulin Glargine, Recombinant SC SCH (09:09)
[2016-11-27] MEDS: (Novolog) Insulin Aspart, Recombinant 100 u/ml 10 ml vial SC SCH ×2 (09:09→18:14)
[2016-11-27] MEDS: Sevelamer Carb 0.8 gm/Packet PO SCH ×3 (09:15→18:13)
--- NOTE | 2016-11-27 18:39 | CP.PCM.PN ---
Subjective - Date & Time of Evaluation Date of Evaluation: 11/26/16 Time of Evaluation: 18:39 Objective - Vital Signs/Intake and Output Vital Signs (last 24 hours): Temp Pulse Resp BP Pulse Ox 97.6 F 89 20 149/75 99 11/27/16 15:39 11/27/16 15:39 11/27/16 15:39 11/27/16 18:14 11/27/16 15:39 Intake and Output: 11/27/16 11/27/16 06:59 18:59 Intake Total 240 Balance 240 - Medications Medications: Current Medications Amlodipine Besylate (Norvasc) 10 mg PO DAILY [facility] Last Admin: 11/27/16 09:09 Dose: 10 mg Aspirin (Ecotrin) 81 mg PO DAILY [facility] Last Admin: 11/27/16 14:09 Dose: 81 mg Carvedilol (Coreg) 25 mg PO BID [facility] Last Admin: 11/27/16 18:14 Dose: 25 mg Clonidine HCl (Catapres) 0.1 mg PO BID [facility] Last Admin: 11/27/16 18:14 Dose: 0.1 mg Ezetimibe (Zetia) 10 mg PO HS [facility] Last Admin: 11/26/16 21:16 Dose: 10 mg Hydralazine HCl (Apresoline) 100 mg PO BID [facility] Last Admin: 11/27/16 18:13 Dose: 100 mg Ceftriaxone Sodium 500 mg/ (Sodium Chloride) 100 mls @ 100 mls/hr IVPB Q24H [facility] Last Admin: 11/27/16 14:01 Dose: 100 mls/hr Insulin Aspart (Novolog) 8 unit SC BIDAC [facility] Last Admin: 11/27/16 18:14 Dose: 8 unit Insulin Glargine (Lantus) 14 unit SC QAM [facility] Last Admin: 11/27/16 09:09 Dose: 14 unit Losartan Potassium (Cozaar) 100 mg PO DAILY [facility] Last Admin: 11/27/16 09:08 Dose: 100 mg Multivitamins (Hexavitamin) 1 tab PO DAILY [facility] Last Admin: 11/27/16 09:09 Dose: 1 tab Rosuvastatin Calcium (Crestor) 10 mg PO HS [facility] Last Admin: 11/26/16 21:16 Dose: 10 mg Sevelamer Carbonate (Renvela) 0.8 gm PO TIDCC [facility] Last Admin: 11/27/16 18:13 Dose: 0.8 gm Tacrolimus (Prograf Cap) 1 mg PO DAILY [facility] Last Admin: 11/27/16 09:15 Dose: 1 mg - Labs Labs: 11/24/16 08:20 PT 13.2 SECONDS (9.7-12.2) H 11/23/16 00:17 INR 1.2 11/23/16 00:17 APTT 39 SECONDS (21-34) H 11/23/16 00:17 Assessment and Plan (1) CHF exacerbation Status: Acute (2) Molina catheter in place Status: Acute (3) Hemorrhagic cystitis Status: Acute (4) Diabetes mellitus Status: Chronic
--- NOTE | 2016-11-27 18:39 | CP.PCM.PN ---
Subjective - Date & Time of Evaluation Date of Evaluation: 11/25/16 Time of Evaluation: 18:38 Objective - Vital Signs/Intake and Output Vital Signs (last 24 hours): Temp Pulse Resp BP Pulse Ox 97.6 F 89 20 149/75 99 11/27/16 15:39 11/27/16 15:39 11/27/16 15:39 11/27/16 18:14 11/27/16 15:39 Intake and Output: 11/27/16 11/27/16 06:59 18:59 Intake Total 240 Balance 240 - Medications Medications: Current Medications Amlodipine Besylate (Norvasc) 10 mg PO DAILY [facility] Last Admin: 11/27/16 09:09 Dose: 10 mg Aspirin (Ecotrin) 81 mg PO DAILY [facility] Last Admin: 11/27/16 14:09 Dose: 81 mg Carvedilol (Coreg) 25 mg PO BID [facility] Last Admin: 11/27/16 18:14 Dose: 25 mg Clonidine HCl (Catapres) 0.1 mg PO BID [facility] Last Admin: 11/27/16 18:14 Dose: 0.1 mg Ezetimibe (Zetia) 10 mg PO HS [facility] Last Admin: 11/26/16 21:16 Dose: 10 mg Hydralazine HCl (Apresoline) 100 mg PO BID [facility] Last Admin: 11/27/16 18:13 Dose: 100 mg Ceftriaxone Sodium 500 mg/ (Sodium Chloride) 100 mls @ 100 mls/hr IVPB Q24H [facility] Last Admin: 11/27/16 14:01 Dose: 100 mls/hr Insulin Aspart (Novolog) 8 unit SC BIDAC [facility] Last Admin: 11/27/16 18:14 Dose: 8 unit Insulin Glargine (Lantus) 14 unit SC QAM [facility] Last Admin: 11/27/16 09:09 Dose: 14 unit Losartan Potassium (Cozaar) 100 mg PO DAILY [facility] Last Admin: 11/27/16 09:08 Dose: 100 mg Multivitamins (Hexavitamin) 1 tab PO DAILY [facility] Last Admin: 11/27/16 09:09 Dose: 1 tab Rosuvastatin Calcium (Crestor) 10 mg PO HS [facility] Last Admin: 11/26/16 21:16 Dose: 10 mg Sevelamer Carbonate (Renvela) 0.8 gm PO TIDCC [facility] Last Admin: 11/27/16 18:13 Dose: 0.8 gm Tacrolimus (Prograf Cap) 1 mg PO DAILY [facility] Last Admin: 11/27/16 09:15 Dose: 1 mg - Labs Labs: 11/24/16 08:20 PT 13.2 SECONDS (9.7-12.2) H 11/23/16 00:17 INR 1.2 11/23/16 00:17 APTT 39 SECONDS (21-34) H 11/23/16 00:17 Assessment and Plan (1) CHF exacerbation Status: Acute (2) Molina catheter in place Status: Acute (3) Hemorrhagic cystitis Status: Acute (4) Diabetes mellitus Status: Chronic
--- NOTE | 2016-11-27 18:39 | CP.PCM.PN ---
Subjective - Date & Time of Evaluation Date of Evaluation: 11/27/16 Time of Evaluation: 18:39 Objective - Vital Signs/Intake and Output Vital Signs (last 24 hours): Temp Pulse Resp BP Pulse Ox 97.6 F 89 20 149/75 99 11/27/16 15:39 11/27/16 15:39 11/27/16 15:39 11/27/16 18:14 11/27/16 15:39 Intake and Output: 11/27/16 11/27/16 06:59 18:59 Intake Total 240 Balance 240 - Medications Medications: Current Medications Amlodipine Besylate (Norvasc) 10 mg PO DAILY [facility] Last Admin: 11/27/16 09:09 Dose: 10 mg Aspirin (Ecotrin) 81 mg PO DAILY [facility] Last Admin: 11/27/16 14:09 Dose: 81 mg Carvedilol (Coreg) 25 mg PO BID [facility] Last Admin: 11/27/16 18:14 Dose: 25 mg Clonidine HCl (Catapres) 0.1 mg PO BID [facility] Last Admin: 11/27/16 18:14 Dose: 0.1 mg Ezetimibe (Zetia) 10 mg PO HS [facility] Last Admin: 11/26/16 21:16 Dose: 10 mg Hydralazine HCl (Apresoline) 100 mg PO BID [facility] Last Admin: 11/27/16 18:13 Dose: 100 mg Ceftriaxone Sodium 500 mg/ (Sodium Chloride) 100 mls @ 100 mls/hr IVPB Q24H [facility] Last Admin: 11/27/16 14:01 Dose: 100 mls/hr Insulin Aspart (Novolog) 8 unit SC BIDAC [facility] Last Admin: 11/27/16 18:14 Dose: 8 unit Insulin Glargine (Lantus) 14 unit SC QAM [facility] Last Admin: 11/27/16 09:09 Dose: 14 unit Losartan Potassium (Cozaar) 100 mg PO DAILY [facility] Last Admin: 11/27/16 09:08 Dose: 100 mg Multivitamins (Hexavitamin) 1 tab PO DAILY [facility] Last Admin: 11/27/16 09:09 Dose: 1 tab Rosuvastatin Calcium (Crestor) 10 mg PO HS [facility] Last Admin: 11/26/16 21:16 Dose: 10 mg Sevelamer Carbonate (Renvela) 0.8 gm PO TIDCC [facility] Last Admin: 11/27/16 18:13 Dose: 0.8 gm Tacrolimus (Prograf Cap) 1 mg PO DAILY [facility] Last Admin: 11/27/16 09:15 Dose: 1 mg - Labs Labs: 11/24/16 08:20 PT 13.2 SECONDS (9.7-12.2) H 11/23/16 00:17 INR 1.2 11/23/16 00:17 APTT 39 SECONDS (21-34) H 11/23/16 00:17 Assessment and Plan (1) CHF exacerbation Status: Acute (2) Molina catheter in place Status: Acute (3) Hemorrhagic cystitis Status: Acute (4) Diabetes mellitus Status: Chronic
[2016-11-28] MEDS: (Novolog) Insulin Aspart, Recombinant 100 u/ml 10 ml vial SC SCH ×2 (08:55→16:49)
[2016-11-28] MEDS: Sevelamer Carb 0.8 gm/Packet PO SCH ×3 (08:55→16:48)
--- NOTE | 2016-11-28 10:48 | CP.PCM.PN ---
Subjective - Date & Time of Evaluation Date of Evaluation: 11/28/16 Time of Evaluation: 10:46 - Subjective Subjective: seen and examined on hd no events no complaints on antibiotics, pseudomonas uti high bp noted Objective - Vital Signs/Intake and Output Vital Signs (last 24 hours): Temp Pulse Resp BP Pulse Ox 97.9 F 89 19 173/91 H 95 11/28/16 07:52 11/28/16 07:52 11/28/16 07:52 11/28/16 07:52 11/28/16 07:52 - Medications Medications: Current Medications Amlodipine Besylate (Norvasc) 10 mg PO DAILY [facility] Last Admin: 11/27/16 09:09 Dose: 10 mg Aspirin (Ecotrin) 81 mg PO DAILY [facility] Last Admin: 11/27/16 14:09 Dose: 81 mg Carvedilol (Coreg) 25 mg PO BID [facility] Last Admin: 11/27/16 18:14 Dose: 25 mg Clonidine HCl (Catapres) 0.2 mg PO BID [facility] Ezetimibe (Zetia) 10 mg PO HS [facility] Last Admin: 11/27/16 22:19 Dose: 10 mg Hydralazine HCl (Apresoline) 100 mg PO BID [facility] Last Admin: 11/27/16 18:13 Dose: 100 mg Ceftriaxone Sodium 500 mg/ (Sodium Chloride) 100 mls @ 100 mls/hr IVPB Q24H [facility] Last Admin: 11/27/16 14:01 Dose: 100 mls/hr Insulin Aspart (Novolog) 8 unit SC BIDAC [facility] Last Admin: 11/28/16 08:55 Dose: 8 unit Insulin Glargine (Lantus) 14 unit SC QAM [facility] Last Admin: 11/27/16 09:09 Dose: 14 unit Losartan Potassium (Cozaar) 100 mg PO DAILY [facility] Last Admin: 11/27/16 09:08 Dose: 100 mg Multivitamins (Hexavitamin) 1 tab PO DAILY [facility] Last Admin: 11/27/16 09:09 Dose: 1 tab Rosuvastatin Calcium (Crestor) 10 mg PO HS [facility] Last Admin: 11/27/16 22:19 Dose: 10 mg Sevelamer Carbonate (Renvela) 0.8 gm PO TIDCC [facility] Last Admin: 11/28/16 08:55 Dose: 0.8 gm Tacrolimus (Prograf Cap) 1 mg PO DAILY [facility] Last Admin: 11/27/16 09:15 Dose: 1 mg - Labs Labs: 11/24/16 08:20 PT 13.2 SECONDS (9.7-12.2) H 11/23/16 00:17 INR 1.2 11/23/16 00:17 APTT 39 SECONDS (21-34) H 11/23/16 00:17 - Constitutional Appears: Non-toxic, No Acute Distress, Chronically Ill - Head Exam Head Exam: NORMAL INSPECTION - Eye Exam Eye Exam: Normal appearance Pupil Exam: NORMAL ACCOMODATION - ENT Exam ENT Exam: Mucous Membranes Moist, Normal Exam - Neck Exam Neck Exam: Normal Inspection - Respiratory Exam Respiratory Exam: Clear to Ausculation Bilateral, NORMAL BREATHING PATTERN - Cardiovascular Exam Cardiovascular Exam: REGULAR RHYTHM, RRR - GI/Abdominal Exam GI & Abdominal Exam: Distended, Soft - Extremities Exam Extremities Exam: Normal Inspection (chronic stasis) Assessment and Plan (1) CHF exacerbation Status: Acute (2) Diabetes mellitus Status: Chronic (3) Anemia Status: Acute (4) End stage renal disease Status: Chronic (5) HTN (hypertension) Status: Chronic (6) Hx of heart transplant Status: Chronic - Assessment and Plan (Free Text) Assessment: esrd oht chronic cystitis, Pseudomonas continue IV AB hd mwf increase cloinidine dose to 0.2mg bid
[2016-11-28] MEDS: Multiple Vitamins Tab PO SCH (14:39)
[2016-11-28] MEDS: (Lantus) Insulin Glargine, Recombinant SC SCH (14:40)
[2016-11-28 14:43] VITALS: RESP 20
[2016-11-28 15:20] VITALS: TEMP 98.2; O2SAT 95
--- NOTE | 2016-11-28 17:26 | PCM.HF ---
Heart Failure Core Measure Beta-Mari Prescribed: Carvedilol Angiotensin II Receptor Mari Prescribed: Yes Hydralazine Nitrate Prescribed: Yes
--- NOTE | 2016-11-28 17:31 | CP.PCM.PN ---
Subjective - Date & Time of Evaluation Date of Evaluation: 11/28/16 Time of Evaluation: 17:31 - Subjective Subjective: Alert, oriented, no sob or distress. Objective - Vital Signs/Intake and Output Vital Signs (last 24 hours): Temp Pulse Resp BP Pulse Ox 98.2 F 96 H 20 175/87 H 95 11/28/16 15:19 11/28/16 15:19 11/28/16 15:19 11/28/16 15:19 11/28/16 15:19 - Medications Medications: Current Medications Amlodipine Besylate (Norvasc) 10 mg PO DAILY [facility] Last Admin: 11/28/16 14:39 Dose: 10 mg Aspirin (Ecotrin) 81 mg PO DAILY [facility] Last Admin: 11/28/16 14:39 Dose: 81 mg Carvedilol (Coreg) 25 mg PO BID [facility] Last Admin: 11/28/16 14:39 Dose: Not Given Clonidine HCl (Catapres) 0.2 mg PO BID [facility] Ezetimibe (Zetia) 10 mg PO HS [facility] Last Admin: 11/27/16 22:19 Dose: 10 mg Hydralazine HCl (Apresoline) 100 mg PO BID [facility] Last Admin: 11/28/16 14:40 Dose: Not Given Insulin Aspart (Novolog) 8 unit SC BIDAC [facility] Last Admin: 11/28/16 16:49 Dose: 8 unit Insulin Glargine (Lantus) 14 unit SC QAM [facility] Last Admin: 11/28/16 14:40 Dose: 14 unit Losartan Potassium (Cozaar) 100 mg PO DAILY [facility] Last Admin: 11/28/16 14:39 Dose: 100 mg Multivitamins (Hexavitamin) 1 tab PO DAILY [facility] Last Admin: 11/28/16 14:39 Dose: 1 tab Rosuvastatin Calcium (Crestor) 10 mg PO HS [facility] Last Admin: 11/27/16 22:19 Dose: 10 mg Sevelamer Carbonate (Renvela) 0.8 gm PO TIDCC [facility] Last Admin: 11/28/16 16:48 Dose: 0.8 gm Tacrolimus (Prograf Cap) 1 mg PO DAILY [facility] Last Admin: 11/28/16 14:39 Dose: 1 mg - Labs Labs: 11/24/16 08:20 PT 13.2 SECONDS (9.7-12.2) H 11/23/16 00:17 INR 1.2 11/23/16 00:17 APTT 39 SECONDS (21-34) H 11/23/16 00:17 Assessment and Plan - Assessment and Plan (Free Text) Assessment: Patient back from HD, doing well , no sob or chest pains. Alert and oriented x3 , NAD, at the bedside. D/W DR Rodas , plan to discharge home today. Advised to follow up in the office in 1 week.
[2016-11-28 18:14] VITALS: BP 176/89
[2016-11-28 19:29] VITALS: PULSE 78
== END 2016-11-28 19:31 | disposition hospice, home (50) | DRG 291 ==
LOC: C.ER 20:22 → C.9E 11-23 02:55 → C.5T 11-23 06:51
PROVIDERS: ADMIT Internal Medicine; ATTEND Internal Medicine
PROC: 5A1D60Z (ICD-10-PCS; principal; 2016-11-23)
PROC: 0TPBX0Z Removal of Drainage Device from Bladder, External Approach (ICD-10-PCS; 2016-11-23)
DX: I13.2 Hypertensive heart and chronic kidney disease with heart failure and with stage 5 chronic kidney disease, or end stage renal disease (principal); N18.6 End stage renal disease; I25.811 Atherosclerosis of native coronary artery of transplanted heart without angina pectoris; Z94.1 Heart transplant status; T83.511A Infection and inflammatory reaction due to indwelling urethral catheter, initial encounter; E11.22 Type 2 diabetes mellitus with diabetic chronic kidney disease; N30.21 Other chronic cystitis with hematuria; B96.5 Pseudomonas (aeruginosa) (mallei) (pseudomallei) as the cause of diseases classified elsewhere; D64.9 Anemia, unspecified; I50.9 Heart failure, unspecified; K21.9 Gastro-esophageal reflux disease without esophagitis; E78.00 Pure hypercholesterolemia, unspecified; E78.5 Hyperlipidemia, unspecified; Z79.4 Long term (current) use of insulin; Z87.891 Personal history of nicotine dependence; Z99.2 Dependence on renal dialysis

== ENCOUNTER 2016-12-27 07:53 | Day surgery (SDC) | payer MEDICARE, OTHER ==
[2016-12-27 08:10] VITALS: BMI 25.0
--- NOTE | 2016-12-27 08:29 | CP.SDSHP ---
Same Day Surgery H & P - History Proposed Procedure: colonoscopy Pre-Op Diagnosis: h/o colon polyps - Previous Medical/Surgical History Cardiac: Hypertension, ASHD/CAD, Hx of CHF, Other (Cardiomyopathy, hyperlipidemia, ) Endocrine/Metabolic: Diabetes, Renal Disease, Other (ESRD on HD) Misc: Other (gerd, hiatal hernia, ) Previous Surgical History: Cardiac transplant - Allergies Allergies: Allergies meropenem Allergy (Verified 12/27/16 08:25) SWELLING GETTING RESTLESS morphine Allergy (Verified 12/27/16 08:25) ANGIOEDEMA - Physical Exam Mental Status: Alert & Oriented x3 Neuro: WNL Heart: Other (thoracotomy scar) Lungs: WNL GI: WNL - {Optional Preform as Required} Other Pertinent Findings: Cardiac clearance obtained from [facility] - Impression Impression: h/o colon polyps Pt. Evaluated Today:Candidate for Anesthesia & Procedure: Yes - Date & Time Date: 12/27/16 Time: 08:30 Short Stay Discharge - Short Stay Discharge Admitting Diagnosis/Reason for Visit: ENCOUNTER FOR OTHER PREPROCEDURAL EXAMINATION Disposition: HOME/ ROUTINE
[2016-12-27 09:42] VITALS: O2SAT 98
[2016-12-27 09:43] VITALS: PULSE 81
[2016-12-27 10:40] VITALS: BP 178/89; RESP 22; TEMP 98.6
== END 2016-12-27 10:30 | disposition home or self-care (01) ==
LOC: C.ENDO 07:53
PROVIDERS: ATTEND Internal Medicine Gastroenterology
DX: K64.1 Second degree hemorrhoids (principal); E78.5 Hyperlipidemia, unspecified; N18.6 End stage renal disease; I25.10 Atherosclerotic heart disease of native coronary artery without angina pectoris; I50.9 Heart failure, unspecified; I13.2 Hypertensive heart and chronic kidney disease with heart failure and with stage 5 chronic kidney disease, or end stage renal disease; Z86.010 Personal history of colon polyps; E11.9 Type 2 diabetes mellitus without complications
CPT/HCPCS: 45378; 82948; J7040

== ENCOUNTER 2016-12-30 15:53 | Emergency (ER) | payer MEDICARE, OTHER ==
[2016-12-30 15:53] VITALS: BMI 25.0
[2016-12-30 16:04] VITALS: BP 170/85; PULSE 80; RESP 20; TEMP 97.5; O2SAT 97
[2016-12-30] MEDS ORDERED: Lidocaine 1% Inj (20ml) INFIL ONE (16:28)
[2016-12-30] MEDS ORDERED: Lidocaine 1% Inj (20ml) ONE (16:46)
--- NOTE | 2016-12-30 17:31 | C.PDOC ---
History Of Present Illness 61 year old male who presents to the ER with a complaint of a dislodged left great toenail. Patient states he took his shoe off at dialysis today and the nail ripped off; he reports he did not feel pain due to his severe peripheral neuropathy. Denies active bleeding or pain. Time Seen by Provider: 12/30/16 16:09 Chief Complaint (Nursing): Abnormal Skin Integrity History Per: Patient History/Exam Limitations: no limitations Onset/Duration Of Symptoms: Hrs Current Symptoms Are (Timing): Still Present Location Of Injury: Left: Foot Quality Of Symptoms: denies: Painful Recent travel outside of the [place]: No Past Medical History Reviewed: Historical Data, Nursing Documentation, Vital Signs Vital Signs: Last Vital Signs Temp 97.5 F L 12/30/16 15:57 Pulse 80 12/30/16 15:57 Resp 20 12/30/16 15:57 BP 170/85 H 12/30/16 15:57 Pulse Ox 97 12/31/16 00:22 - Medical History PMH: CAD, Diabetes, HTN, Hypercholesterolemia, End Stage Renal Disease, Chronic Kidney Disease (ESRD on HD) Surgical History: Endoscopy - [facility] Procedures ENDOSC POLYPECTOMY OF LG INTEST (10/09/13) PERFORMANCE OF URINARY FILTRATION, MULTIPLE (11/23/16) PERFORMANCE OF URINARY FILTRATION, SINGLE (04/17/16) REMOVAL OF DRAINAGE DEVICE FROM BLADDER, EXTERNAL APPROACH (11/23/16) Family History: States: Unknown Family Hx - Social History Hx Tobacco Use: No Hx Alcohol Use: No Hx Substance Use: No - Immunization History Hx Tetanus Toxoid Vaccination: Yes Hx Influenza Vaccination: Yes Hx Pneumococcal Vaccination: Yes Review Of Systems Musculoskeletal: Negative for: Foot Pain Skin: Positive for: Other (Avulsed nail) Physical Exam - Physical Exam Appears: Non-toxic, No Acute Distress Skin: Normal Color, Warm, Dry Head: Atraumatic, Normacephalic Oral Mucosa: Moist Neck: Supple Chest: Symmetrical, No Deformity Cardiovascular: Rhythm Regular Respiratory: Normal Breath Sounds, No Rhonchi, No Wheezing Extremity: Normal ROM, No Tenderness, Capillary Refill (Good), Other (Partially avulsed left great toe nail still attached at matrix) Pulses: Left Dorsalis Pedis: Normal, Right Dorsalis Pedis: Normal Neurological/Psych: Oriented x3, Normal Speech, Normal Cognition ED Course And Treatment O2 Sat by Pulse Oximetry: 97 Procedure: Wound Repair - Consent Obtained Consent obtained: Verbal - Performed by Performed by: Attending Physician - Indications Indication(s):: Avulsion - Location Location:: Left, Foot Toe:: Left, 1 - Anesthetic Technique Anesthetic Technique: Regional block Local/Regional Anesthetic:: Lidocaine 1% - Wound Examination Wound Examination:: Other (Nail avulsion) - Irrigated Irrigated with ml of normal saline: 500 - Complexity Complexity:: Simple (one layer) - Wound repair method Sutures:: # (2), Size (2-0), Type (Nylon), Technique (Nail clipped in half and tacked down with sutures.) - Complications Complications: None - Patient tolerated procedure Patient Tolerated Procedure:: Well Medical Decision Making Medical Decision Making: accidental L great toenail pulled back but not disengaged from nail matrix cleaned and debrided trimmed down and stured in place defer abx for low susp of infection \ Daily bacitracin ointment. Disposition Doctor Will See Patient In The: Office Counseled Patient/Family Regarding: Studies Performed, Diagnosis - Disposition Referrals: Lauren Rodas MD [Staff Provider] - Disposition: HOME/ ROUTINE Disposition Time: 17:31 Condition: GOOD Additional Instructions: follow-up with Dr. Rodas in 2 days for wound re-evaluation keep clean and dry Bacitracin ointment 2x/day. Instructions: Nail Avulsion (ED) - Clinical Impression Clinical Impression: Nailbed avulsion - Scribe Statement The provider has reviewed the documentation as recorded by the Scribe Juaquin Wasserman All medical record entries made by the Scribe were at my direction and personally dictated by me. I have reviewed the chart and agree that the record accurately reflects my personal performance of the history, physical exam, medical decision making, and the department course for this patient. I have also personally directed, reviewed, and agree with the discharge instructions and disposition.
== END 2016-12-30 17:57 | disposition home or self-care (01) ==
LOC: C.ER 15:53
DX: S91.202A Unspecified open wound of left great toe with damage to nail, initial encounter (principal); X58.XXXA Exposure to other specified factors, initial encounter; Y92.89 Other specified places as the place of occurrence of the external cause

== ENCOUNTER 2017-04-01 09:38 | Inpatient (IN) | payer MEDICARE, OTHER ==
[2017-04-01 09:38] VITALS: BMI 25.0
--- NOTE | 2017-04-01 10:33 | C.PDOC ---
History Of Present Illness 61 y/o M c PMHx HTN, HLD, heart transplant, ESRD, DM p/w hypertension. Patient had high blood pressure yesterday after dialysis was completed and uncomplicated. Patient continued to have high blood pressure this morning so came to ED. Patient denies chest pain, dyspnea, abdominal pain, vomiting, headache, vision change, fever. Dr. Rodas spoke with family yesterday to come to ED for further evaluation and as per him, patient stated he felt unwell yesterday. Time Seen by Provider: 04/01/17 10:08 Chief Complaint (Nursing): High Blood Pressure Past Medical History Vital Signs: Last Vital Signs Temp 97.9 F 04/01/17 09:40 Pulse 92 H 04/01/17 12:29 Resp 18 04/01/17 12:29 BP 194/100 H 04/01/17 12:41 Pulse Ox 98 04/01/17 12:29 - Medical History PMH: CAD, Diabetes, HTN, Hypercholesterolemia, End Stage Renal Disease, Chronic Kidney Disease (ESRD on HD) Denies: Kidney Stones Surgical History: Endoscopy - [facility] Procedures ENDOSC POLYPECTOMY OF LG INTEST (10/09/13) PERFORMANCE OF URINARY FILTRATION, MULTIPLE (11/23/16) PERFORMANCE OF URINARY FILTRATION, SINGLE (04/17/16) REMOVAL OF DRAINAGE DEVICE FROM BLADDER, EXTERNAL APPROACH (11/23/16) Family History: States: Unknown Family Hx - Social History Hx Tobacco Use: No Hx Alcohol Use: No Hx Substance Use: No - Immunization History Hx Tetanus Toxoid Vaccination: Yes Hx Influenza Vaccination: Yes Hx Pneumococcal Vaccination: Yes Review Of Systems Except As Marked, All Systems Reviewed And Found Negative. Constitutional: Negative for: Fever Cardiovascular: Negative for: Chest Pain Respiratory: Negative for: Shortness of Breath Physical Exam - Physical Exam Additional Physical Exam Comments: Constitutional: No acute distress. Head: Normocephalic. Atraumatic. Eyes: PERRL. ENT: Moist mucous membranes. Neck: Supple. Cardiovascular: Regular rate. Radial pulse 2+ bilaterally. Chest: No tenderness. Respiratory: Clear to auscultation bilaterally. GI: Soft. Nontender. Non distended. Back: No CVA tenderness. Musculoskeletal: No tenderness or swelling of extremities. R arm fistula with palpable thrill. Skin: No rash. Neurologic: Alert, no focal deficit. ED Course And Treatment - Laboratory Results Result Diagrams: 04/01/17 10:49 04/01/17 10:49 O2 Sat by Pulse Oximetry: 98 Medical Decision Making Medical Decision Making: Dr. Rodas agrees with work up. CXR shows pulmonary congestion, proBNP 100K+. Lasix and nitroglycerin administered. EKG NSR 94 bpm, no ST elevations, nonspecific T wave changes. Dr. Rodas accepts patient to his service. Disposition - Disposition Disposition: HOSPITALIZED Disposition Time: 12:15 Condition: FAIR - Clinical Impression Clinical Impression: CHF exacerbation, Hx of heart transplant, HTN (hypertension)
[2017-04-01 10:53] LABS: BASO # 0.1 K/uL (0.0-0.2); BASO % 1.2 % (0.0-2.0); EOS # 0.2 K/uL (0.0-0.7); EOS % 3.1 % (0.0-4.0); HEMATOCRIT 30.7 % (35.0-51.0); LYMPH # 0.6 K/uL (1.0-4.3); LYMPH % 9.4 % (20.0-40.0); MEAN CELL VOLUME 92.1 fL (80.0-94.0); MEAN CORPUSCULAR HEMOGLOBIN 31.3 pg (27.0-31.0); MEAN PLATELET VOLUME 7.5 fL (7.2-11.7); MONO # 0.8 K/uL (0.0-0.8); MONO % 12.9 % (0.0-10.0); NRBC % 0.1 % (0.0-2.0); PLATELET COUNT 212 K/uL (130-400); RED CELL DISTRIBUTION WIDTH 17.9 % (11.5-14.5); WHITE BLOOD COUNT 6.3 K/uL (4.8-10.8)
[2017-04-01 11:02] LABS: POTASSIUM 3.9 mmol/L (3.6-5.2)
[2017-04-01 11:04] LABS: ALB/GLOB RATIO 0.9 (1.0-2.1); TOTAL PROTEIN 9.7 g/dL (6.3-8.3)
[2017-04-01 11:05] LABS: CALCIUM 10.4 mg/dl (8.6-10.4)
[2017-04-01 11:13] LABS: INR 1.2
[2017-04-01 11:17] LABS: TROPONIN I 0.02 ng/mL (0.00-0.120)
[2017-04-01 11:25] LABS: EOSINOPHIL 3 % (0-4); NEUTROPHIL 71 % (50-75); TOTAL CELLS COUNTED 100
--- NOTE | 2017-04-01 15:25 | RAD ---
HISTORY: HTN COMPARISON: Comparison chest 03/16/2017 FINDINGS: LUNGS: The central pulmonary vasculature is slightly increased ; rule out mild chronic compensated pulmonary edema/CHF. Suspect mild bibasilar atelectasis left greater than right. Questionable small effusion PLEURA: As above. No pneumothorax apparent. CARDIOVASCULAR: Sternotomy wires again noted. Heart remains enlarged. OSSEOUS STRUCTURES: No significant abnormalities. VISUALIZED UPPER ABDOMEN: Normal. OTHER FINDINGS: None. IMPRESSION: The central pulmonary vasculature is slightly increased ; rule out mild chronic compensated pulmonary edema/CHF. Suspect mild bibasilar atelectasis left greater than right. Questionable small effusion Cardiomegaly
[2017-04-02] MEDS: (Novolog) Insulin Aspart, Recombinant 100 u/ml 10 ml vial SC SCH ×2 (08:21→18:47)
[2017-04-02] MEDS: Multiple Vitamins Tab PO SCH (09:11)
[2017-04-02] MEDS: (Lantus) Insulin Glargine, Recombinant SC SCH (09:11)
--- NOTE | 2017-04-03 06:45 | CON ---
DATE: 04/01/2017 ATTENDING PHYSICIAN: Dr. Rodas. HISTORY OF PRESENT ILLNESS: Mr. Matteo Qureshi is a 61-year-old male who has been seen for management of end-stage renal disease. Mr. Matteo Qureshi has a history of diabetes and hypertension, on maintenance dialysis, his last treatment was 03/31/2017. Post dialysis, he was told to go to the emergency room for accelerated hypertension. He came to the emergency room today and was subsequently admitted. His white count was 6300, hemoglobin 10.5, hematocrit 30.7, platelet count 212,000. Sodium 134, potassium 3.9, chloride 91, CO2 of 32, BUN 29, creatinine 4.4. No glucose was reported. Calcium 10.4, total bilirubin 1. AST of 33, ALT of 35, alkaline phosphatase of 64 and CPK of 76. Troponin 0.02 and NT-BNP of 139, 000, albumin 4.5. Chest x-ray shows central pulmonary vasculature was slightly increased, which was compatible with pulmonary edema and bibasilar atelectasis left greater than the right. PAST MEDICAL HISTORY: Recurrent congestive heart failure, coronary artery disease, dyslipidemia, please see the above and heart transplant. ALLERGIES: HE HAS NO ALLERGY. He has been admitted to multiple times. MEDICATIONS: He does not remember his medicines, but old records revealed him to be on Norvasc, aspirin, Coreg, Zetia, Hydralazine, insulin, losartan, multivitamin, Crestor, Renagel and Prograf. FAMILY HISTORY: Positive for diabetes and hypertension. SOCIAL HISTORY: Former smoker. He denies alcohol or drug abuse. REVIEW OF SYSTEMS: He denies chills or fever, chest pain, cough or hemoptysis. He denies abdominal pain, nausea, vomiting or diarrhea and he denied dysuria or gross hematuria. He states that the ecchymosis periorbitally has been there for months and that he continues to have hand tremors. PHYSICAL EXAMINATION GENERAL: He was awake and alert with hand tremors. VITAL SIGNS: His blood pressure was 180/91, temperature was 97.4, his pulse was 79. NECK: There jugular venous distention from the low at 30 degrees. LUNGS: Revealed coarse sounds, prolonged inspiration and expiration and coarse rales mid way up, posterior chest. HEART: Rhythm is regular. ABDOMEN: Soft and nontender. There was no CVA tenderness or presacral edema and he had 2 to 3+ leg edema. IMPRESSION: End-stage renal disease, dialysis dependent. Post open heart surgery for coronary artery disease, hypertension, diabetes, congestive heart failure and uncontrolled hypertension. Tremors, etiology not clear. Recommend, we will schedule dialysis tonight with ultrafiltration. We will maintain present immunosuppression, antihypertensive as needed. Obtain blood and urine cultures. Thank you for your kind referral. We will continue to follow with you. Cooper Mai MD
[2017-04-03] MEDS: (Novolog) Insulin Aspart, Recombinant 100 u/ml 10 ml vial SC SCH ×2 (09:06→19:00)
[2017-04-03 11:12] LABS: HEMATOCRIT 29.4 % (35.0-51.0); MEAN CELL VOLUME 92.5 fL (80.0-94.0); MEAN CORPUSCULAR HEMOGLOBIN 31.1 pg (27.0-31.0); MEAN CORPUSCULAR HGB CONC 33.6 g/dL (33.0-37.0); MEAN PLATELET VOLUME 8.1 fL (7.2-11.7); RED CELL DISTRIBUTION WIDTH 18.3 % (11.5-14.5); WHITE BLOOD COUNT 8.2 K/uL (4.8-10.8)
[2017-04-03 11:22] LABS: CHLORIDE 91 mmol/L (98-107)
[2017-04-03 11:23] LABS: POTASSIUM 4.3 mmol/L (3.6-5.2); SODIUM 132 mmol/L (132-148)
[2017-04-03 11:25] LABS: BILIRUBIN,TOTAL 0.9 mg/dL (0.2-1.3); CARBON DIOXIDE 28 mmol/L (22-30); GFR AFRICAN-AMERICAN 11
--- NOTE | 2017-04-03 11:25 | CP.PCM.CON ---
History of Present Illness - History of Present Illness History of Present Illness: 61 y/o M c PMHx HTN, HLD, heart transplant, ESRD, DM p/w hypertension. Patient had high blood pressure yesterday after dialysis was completed and uncomplicated. Patient continued to have high blood pressure this morning so came to ED. Patient denies chest pain, dyspnea, abdominal pain, vomiting, headache, vision change, fever. Dr. Rodas spoke with family to come to ED for further evaluation and as per him, patient stated he felt unwell yesterday. Seen at dialysis and has uncontroolled HTN, severe CHANG sxs, likely with CHF. PMH: ESRD OHT HTN DM 2 PSH: OHT AV FISTULA Review of Systems - Review of Systems Systems not reviewed;Unavailable: Respiratory Distress Past Patient History - Infectious Disease Hx of Infectious Diseases: None - Past Medical History & Family History Past Medical History?: Yes Past Family History: Reviewed and not pertinent - Past Social History Smoking Status: Never Smoked Chewing Tobacco Use: No Cigar Use: No Alcohol: None Drugs: Denies - CARDIAC Hx Heart Transplant: Yes Hx Hypercholesterolemia: Yes Hx Hypertension: Yes - PULMONARY Hx Respiratory Disorders: No - NEUROLOGICAL Hx Neurological Disorder: No - HEENT Hx HEENT Problems: No - RENAL Hx Chronic Kidney Disease: Yes (ESRD on HD) Hx Kidney Stones: No - ENDOCRINE/METABOLIC Hx Diabetes Mellitus Type 1: Yes - HEMATOLOGICAL/ONCOLOGICAL Hx Blood Disorders: No - INTEGUMENTARY Hx Dermatological Problems: No - MUSCULOSKELETAL/RHEUMATOLOGICAL Hx Musculoskeletal Disorders: No Hx Falls: No - GASTROINTESTINAL Hx Gastrointestinal Disorders: No - GENITOURINARY/GYNECOLOGICAL Hx Genitourinary Disorders: Yes Hx Hematuria: Yes Hx Urinary Tract Infection: Yes - PSYCHIATRIC Hx Substance Use: No - SURGICAL HISTORY Hx Open Heart Surgery: Yes (OHT) Other/Comment: HEART TRANSPLANT - ANESTHESIA Hx Anesthesia: Yes Hx Anesthesia Reactions: No Hx Malignant Hyperthermia: No Meds Allergies/Adverse Reactions: Allergies Allergy/AdvReac Type Severity Reaction Status Date / Time meropenem Allergy Severe SWELLING Verified 04/01/17 09:39 morphine Allergy Severe ANGIOEDEMA Verified 04/01/17 09:39 - Medications Medications: Current Medications Amlodipine Besylate (Norvasc) 10 mg PO DAILY [facility] Last Admin: 04/02/17 09:11 Dose: 10 mg Aspirin (Ecotrin) 81 mg PO DAILY [facility] Last Admin: 04/02/17 09:10 Dose: 81 mg Calcium Acetate (Phoslo) 667 mg PO TIDAC [facility] Last Admin: 04/03/17 09:01 Dose: 667 mg Carvedilol (Coreg) 25 mg PO BID [facility] Last Admin: 04/02/17 18:47 Dose: 25 mg Ezetimibe (Zetia) 10 mg PO HS [facility] Last Admin: 04/02/17 21:59 Dose: 10 mg Hydralazine HCl (Apresoline) 50 mg PO TID [facility] Last Admin: 04/03/17 09:01 Dose: 50 mg Insulin Aspart (Novolog) 8 unit SC BIDAC [facility] Last Admin: 04/03/17 09:06 Dose: 8 unit Insulin Glargine (Lantus) 14 unit SC QAM [facility] Last Admin: 04/02/17 09:11 Dose: 14 unit Losartan Potassium (Cozaar) 100 mg PO DAILY [facility] Last Admin: 04/02/17 09:11 Dose: 100 mg Multivitamins (Hexavitamin) 1 tab PO DAILY [facility] Last Admin: 04/02/17 09:11 Dose: 1 tab Rosuvastatin Calcium (Crestor) 20 mg PO [facility] Last Admin: 04/02/17 21:59 Dose: 20 mg Tacrolimus (Prograf) 5 mg PO QPM [facility] Last Admin: 04/01/17 21:45 Dose: Not Given Tacrolimus (Prograf) 5 mg PO QAM [facility] Last Admin: 04/02/17 10:50 Dose: 5 mg Tacrolimus (Prograf Cap) 0.5 mg PO QAM [facility] Last Admin: 04/02/17 10:50 Dose: 0.5 mg Physical Exam - Constitutional Appears: In Acute Distress, Chronically Ill - Head Exam Head Exam: ATRAUMATIC, NORMAL INSPECTION - Eye Exam Eye Exam: EOMI, PERRL - Neck Exam Neck exam: Positive for: Normal Inspection. Negative for: Tenderness - Respiratory Exam Respiratory Exam: Rhonchi, Respiratory Distress - Cardiovascular Exam Cardiovascular Exam: Tachycardia, +S1 - GI/Abdominal Exam GI & Abdominal Exam: Soft. absent: Tenderness - Extremities Exam Extremities exam: Positive for: normal inspection. Negative for: pedal edema, tenderness - Neurological Exam Neurological exam: Alert, CN II-XII Intact - Skin Skin Exam: Dry, Warm Results - Vital Signs Recent Vital Signs: Last Vital Signs Temp 97.8 F 04/03/17 09:05 Pulse 105 H 04/03/17 09:05 Resp 20 04/03/17 09:05 BP 200/105 H 04/03/17 09:05 Pulse Ox 96 04/03/17 09:05 - Labs Result Diagrams: 04/03/17 11:01 04/01/17 10:49 Labs: Laboratory Results - last 24 hr 04/02/17 04/02/17 04/02/17 11:33 16:49 22:01 WBC RBC Hgb Hct MCV MCH MCHC RDW Plt Count MPV POC Glucose (mg/dL) 142 H 195 H 79 04/03/17 04/03/17 07:40 11:01 WBC 8.2 RBC 3.18 L Hgb 9.9 L Hct 29.4 L MCV 92.5 MCH 31.1 H MCHC 33.6 RDW 18.3 H Plt Count 221 MPV 8.1 POC Glucose (mg/dL) 163 H Assessment & Plan (1) Type 2 diabetes mellitus with diabetic nephropathy Status: Acute (2) CHF exacerbation Status: Acute (3) HTN (hypertension) Status: Chronic (4) Hx of heart transplant Status: Chronic - Assessment and Plan (Free Text) Plan: INCREASE UF WITH DIALYSIS Increase BP meds check tacro level follow up labs
[2017-04-03 11:26] LABS: ALB/GLOB RATIO 0.9 (1.0-2.1); ALKALINE PHOSPHATASE 64 U/L (38-126); ALT/SGPT 31 U/L (21-72); AST/SGOT 29 U/L (17-59); BLOOD UREA NITROGEN 45 mg/dL (9-20); CALCIUM 10.2 mg/dl (8.6-10.4); GLUCOSE,RANDOM 143 mg/dL (75-110)
--- NOTE | 2017-04-03 12:48 | CARD ---
APPROVED REPORT EKG Measurement Heart [id number] <Conclusion> Normal sinus rhythm Nonspecific T wave abnormality Abnormal ECG
[2017-04-03] MEDS: (Lantus) Insulin Glargine, Recombinant SC SCH (15:38)
[2017-04-03] MEDS: Multiple Vitamins Tab PO SCH (15:55)
--- NOTE | 2017-04-03 18:10 | CP.PCM.HP ---
History of Present Illness - History of Present Illness History of Present Illness: Chief complaint: Shortness of breath, elevated blood pressure History present illness: 61-year-old male with history of heart transplant, on immunosuppressive treatment, end-stage renal disease on dialysis, recent had a hematuria, also urinary tract infection, Patient came to the emergency room with recently elevated blood pressure. Also not feeling well. Complains of some chest discomfort. Also he was having increasing leg pain. Preoperative noted. Episodes of chest discomfort noted shortness of breath also present. Past medical history: Heart, transplant on immunosuppressive treatment, end-stage renal disease on dialysis, hypertension, diabetes, hypercholesterolemia, urinary tract infection. Allergy: No known drug allergy but imepenem causes AMS Personal history: Nonsmoker nonalcoholic disabled Family history noncontributory. Review of systems: Currently having some headache, complaining of episodes of hiccups, abdominal pain, shortness of breath and cough noted, bilateral leg swelling and a indwelling Molina catheter. On examination: HEENT PERRLA, neck supple No thyromegaly was noted and no cervical adenopathy noted Bilateral wheezing and rales noted CVS regular heart sound, no murmur Abdomen soft and no organomegaly Bilateral edema noted HEALTH ADVISOR alert awake oriented x3 no functional neurological deficit. Vital signs is stable. Labs reviewed. Chest x-ray CHF pattern noted. Assessment and recommendation: 61-year-old male with history of heart transplant, immunosuppressive treatment, end-stage renal disease on dialysis, hypertension, diabetes, peripheral vascular disease, pedal edema, and urinary tract infection. Patient possibly has uncontrolled hypertension, secondary to cardiomyopathy. Patient has a history of cardiac transplant. Patient is on immunosuppressive treatment. As the patient has hypertensive encephalopathy. Associated with headache. Closely monitor the patient. Monitor the blood pressure. Blood pressure controlled with medications addressed. Patient will be getting the hemodialysis. Nephrology evaluation, and follow-up. Present on Admission - Present on Admission Any Indicators Present on Admission: No History of DVT/PE: No History of Uncontrolled Diabetes: No Urinary Catheter: No Decubitus Ulcer Present: No Past Patient History - Infectious Disease Hx of Infectious Diseases: None - Past Medical History & Family History Past Medical History?: Yes Past Family History: Reviewed and not pertinent - Past Social History Smoking Status: Never Smoked Chewing Tobacco Use: No Cigar Use: No Alcohol: None Drugs: Denies - CARDIAC Hx Heart Transplant: Yes Hx Hypercholesterolemia: Yes Hx Hypertension: Yes - PULMONARY Hx Respiratory Disorders: No - NEUROLOGICAL Hx Neurological Disorder: No - HEENT Hx HEENT Problems: No - RENAL Hx Chronic Kidney Disease: Yes (ESRD on HD) Hx Kidney Stones: No - ENDOCRINE/METABOLIC Hx Diabetes Mellitus Type 1: Yes - HEMATOLOGICAL/ONCOLOGICAL Hx Blood Disorders: No - INTEGUMENTARY Hx Dermatological Problems: No - MUSCULOSKELETAL/RHEUMATOLOGICAL Hx Musculoskeletal Disorders: No Hx Falls: No - GASTROINTESTINAL Hx Gastrointestinal Disorders: No - GENITOURINARY/GYNECOLOGICAL Hx Genitourinary Disorders: Yes Hx Hematuria: Yes Hx Urinary Tract Infection: Yes - PSYCHIATRIC Hx Substance Use: No - SURGICAL HISTORY Hx Open Heart Surgery: Yes (OHT) Other/Comment: HEART TRANSPLANT - ANESTHESIA Hx Anesthesia: Yes Hx Anesthesia Reactions: No Hx Malignant Hyperthermia: No Meds Allergies/Adverse Reactions: Allergies Allergy/AdvReac Type Severity Reaction Status Date / Time meropenem Allergy Severe SWELLING Verified 04/01/17 09:39 morphine Allergy Severe ANGIOEDEMA Verified 04/01/17 09:39 Results - Vital Signs Recent Vital Signs: Last Vital Signs Temp 98.6 F 04/03/17 14:25 Pulse 97 H 04/03/17 15:50 Resp 18 04/03/17 14:25 BP 195/94 H 04/03/17 15:50 Pulse Ox 100 04/03/17 14:25 - Labs Result Diagrams: 04/04/17 07:37 04/04/17 07:37 Labs: Laboratory Results - last 24 hr 04/02/17 04/02/17 04/03/17 08:43 22:01 07:40 WBC RBC Hgb Hct MCV MCH MCHC RDW Plt Count MPV Sodium Potassium Chloride Carbon Dioxide Anion Gap BUN Creatinine Est GFR ( Amer) Est GFR (Non-Af Amer) POC Glucose (mg/dL) 79 163 H Random Glucose Calcium Total Bilirubin AST ALT Alkaline Phosphatase Total Protein Albumin Globulin Albumin/Globulin Ratio Tacrolimus (LC/MS/MS) 4.4 L Hep Bs Antigen 04/03/17 04/03/17 04/03/17 11:01 11:01 12:10 WBC 8.2 RBC 3.18 L Hgb 9.9 L Hct 29.4 L MCV 92.5 MCH 31.1 H MCHC 33.6 RDW 18.3 H Plt Count 221 MPV 8.1 Sodium 132 Potassium 4.3 Chloride 91 L Carbon Dioxide 28 Anion Gap 17 BUN 45 H Creatinine 6.3 H Est GFR ( Amer) 11 Est GFR (Non-Af Amer) 9 POC Glucose (mg/dL) 98 Random Glucose 143 H Calcium 10.2 Total Bilirubin 0.9 AST 29 ALT 31 Alkaline Phosphatase 64 Total Protein 9.0 H Albumin 4.2 Globulin 4.8 H Albumin/Globulin Ratio 0.9 L Tacrolimus (LC/MS/MS) Hep Bs Antigen Negative 04/03/17 16:45 WBC RBC Hgb Hct MCV MCH MCHC RDW Plt Count MPV Sodium Potassium Chloride Carbon Dioxide Anion Gap BUN Creatinine Est GFR ( Amer) Est GFR (Non-Af Amer) POC Glucose (mg/dL) 160 H Random Glucose Calcium Total Bilirubin AST ALT Alkaline Phosphatase Total Protein Albumin Globulin Albumin/Globulin Ratio Tacrolimus (LC/MS/MS) Hep Bs Antigen
--- NOTE | 2017-04-03 22:30 | CP.PCM.PN ---
Subjective - Date & Time of Evaluation Date of Evaluation: 04/03/17 Time of Evaluation: 22:30 - Subjective Subjective: Patient is not feeling well, complaining of abdominal pain. Feeling somewhat nauseated. 2 episodes of vomiting noted. Abdominal pain discomfort noted. He did not have any bowel movements 2 days. Vital signs stable. Chest good air entry regular heart and nontender abdomen Labs reviewed Patient issued hemodialysis today. We'll closely monitor the patient. for bowel movements. Laxative, will follow the patient. Objective - Vital Signs/Intake and Output Vital Signs (last 24 hours): Temp Pulse Resp BP Pulse Ox 98.6 F 97 H 18 195/91 H 100 04/03/17 14:25 04/03/17 15:50 04/03/17 14:25 04/03/17 18:58 04/03/17 14:25 - Medications Medications: Current Medications Amlodipine Besylate (Norvasc) 10 mg PO DAILY [facility] Last Admin: 04/03/17 15:56 Dose: 10 mg Aspirin (Ecotrin) 81 mg PO DAILY [facility] Last Admin: 04/03/17 15:54 Dose: 81 mg Calcium Acetate (Phoslo) 667 mg PO TIDAC [facility] Last Admin: 04/03/17 17:30 Dose: Not Given Carvedilol (Coreg) 25 mg PO BID [facility] Last Admin: 04/03/17 18:58 Dose: 25 mg Chlorpromazine (Thorazine) 25 mg PO BID [facility] Ezetimibe (Zetia) 10 mg PO HS [facility] Last Admin: 04/03/17 21:57 Dose: 10 mg Famotidine (Pepcid) 20 mg IVP Q12 [facility] Last Admin: 04/03/17 21:57 Dose: 20 mg Heparin Sodium (Porcine) (Heparin) 5,000 units SC Q12 [facility] Last Admin: 04/03/17 21:57 Dose: 5,000 units Hydralazine HCl (Apresoline) 100 mg PO TID [facility] Last Admin: 04/03/17 18:59 Dose: 100 mg Insulin Aspart (Novolog) 8 unit SC BIDAC [facility] Last Admin: 04/03/17 19:00 Dose: Not Given Insulin Glargine (Lantus) 14 unit SC QAM [facility] Last Admin: 04/03/17 15:38 Dose: Not Given Losartan Potassium (Cozaar) 100 mg PO DAILY [facility] Last Admin: 04/03/17 12:05 Dose: 100 mg Multivitamins (Hexavitamin) 1 tab PO DAILY [facility] Last Admin: 04/03/17 15:55 Dose: 1 tab Ondansetron HCl (Zofran Inj) 4 mg IVP Q6 PRN PRN Reason: Nausea/Vomiting Last Admin: 04/03/17 16:48 Dose: 4 mg Rosuvastatin Calcium (Crestor) 20 mg PO HS [facility] Last Admin: 04/03/17 21:57 Dose: 20 mg Tacrolimus (Prograf) 5 mg PO QPM [facility] Last Admin: 04/03/17 18:58 Dose: 5 mg Tacrolimus (Prograf) 5 mg PO QAM [facility] Last Admin: 04/03/17 16:17 Dose: 5 mg Tacrolimus (Prograf Cap) 0.5 mg PO QAM [facility] Last Admin: 04/03/17 15:57 Dose: 0.5 mg - Labs Labs: 04/03/17 11:01 04/03/17 11:01 PT 14.1 SECONDS (9.7-12.2) H 04/01/17 10:49 INR 1.2 04/01/17 10:49 APTT 36 SECONDS (21-34) H 04/01/17 10:49
[2017-04-04 08:14] LABS: HEMATOCRIT 30.2 % (35.0-51.0); MEAN CORPUSCULAR HEMOGLOBIN 31.8 pg (27.0-31.0); MEAN CORPUSCULAR HGB CONC 33.8 g/dL (33.0-37.0); MEAN PLATELET VOLUME 8.2 fL (7.2-11.7); RED CELL DISTRIBUTION WIDTH 18.1 % (11.5-14.5); WHITE BLOOD COUNT 7.7 K/uL (4.8-10.8)
[2017-04-04 08:27] LABS: POTASSIUM 4.3 mmol/L (3.6-5.2)
[2017-04-04] MEDS: (Novolog) Insulin Aspart, Recombinant 100 u/ml 10 ml vial SC SCH ×2 (08:30→17:43)
[2017-04-04 09:06] LABS: ALB/GLOB RATIO 0.9 (1.0-2.1); CALCIUM 9.8 mg/dl (8.6-10.4); PHOSPHOROUS 3.8 mg/dL (2.5-4.5); TOTAL PROTEIN 9.3 g/dL (6.3-8.3)
[2017-04-04] MEDS: Multiple Vitamins Tab PO SCH (09:31)
[2017-04-04] MEDS: (Lantus) Insulin Glargine, Recombinant SC SCH (09:33)
--- NOTE | 2017-04-04 11:33 | CT ---
PROCEDURE: CT HEAD WITHOUT CONTRAST. HISTORY: HTN encephalopathy COMPARISON: Unenhanced head CT 08/07/2016. TECHNIQUE: Axial computed tomography images were obtained through the head/brain without intravenous contrast. Radiation dose: Total exam DLP = 833.79 mGy-cm. This CT exam was performed using one or more of the following dose reduction techniques: Automated exposure control, adjustment of the mA and/or kV according to patient size, and/or use of iterative reconstruction technique. FINDINGS: HEMORRHAGE: No intracranial hemorrhage. BRAIN: Diffuse cerebral atrophy and chronic microangiopathy are reiterated appears stable in appearance with a chronic lobar infarction at the left occipital lobe again appreciated. No interval mass effect. No suspicious extra-axial fluid collection. VENTRICLES: Unremarkable. No hydrocephalus. CALVARIUM: Unremarkable. PARANASAL SINUSES: Unremarkable as visualized. No significant inflammatory changes. MASTOID AIR CELLS: Unremarkable as visualized. No inflammatory changes. OTHER FINDINGS: None. IMPRESSION: Stable age related neuro degenerative changes are identified as well as a chronic lobar infarction left occipital lobe. No interval acute findings by standard CT criteria. Follow-up CT or MRI can be performed if clinically warranted.
--- NOTE | 2017-04-04 13:01 | CP.PCM.PN ---
Subjective - Date & Time of Evaluation Date of Evaluation: 04/04/17 Time of Evaluation: 12:59 - Subjective Subjective: denies any chest pain sob dizziness palpitations headache nausea vomiting diarrhea rash fevers chills. hd yesterday bp noted, remain high Objective - Vital Signs/Intake and Output Vital Signs (last 24 hours): Temp Pulse Resp BP Pulse Ox 98.1 F 98 H 20 166/88 H 91 L 04/04/17 08:31 04/04/17 12:18 04/04/17 08:31 04/04/17 12:18 04/04/17 12:18 - Medications Medications: Current Medications Amlodipine Besylate (Norvasc) 10 mg PO DAILY [facility] Last Admin: 04/04/17 09:31 Dose: 10 mg Aspirin (Ecotrin) 81 mg PO DAILY [facility] Last Admin: 04/04/17 11:00 Dose: 81 mg Calcium Acetate (Phoslo) 667 mg PO TIDAC [facility] Last Admin: 04/04/17 11:14 Dose: 667 mg Carvedilol (Coreg) 25 mg PO BID [facility] Last Admin: 04/04/17 09:31 Dose: 25 mg Chlorpromazine (Thorazine) 25 mg PO BID [facility] Last Admin: 04/04/17 09:32 Dose: 25 mg Ezetimibe (Zetia) 10 mg PO HS [facility] Last Admin: 04/03/17 21:57 Dose: 10 mg Famotidine (Pepcid) 20 mg IVP Q12 [facility] Last Admin: 04/04/17 09:32 Dose: 20 mg Heparin Sodium (Porcine) (Heparin) 5,000 units SC Q12 [facility] Last Admin: 04/04/17 09:32 Dose: 5,000 units Hydralazine HCl (Apresoline) 100 mg PO TID [facility] Last Admin: 04/04/17 09:31 Dose: 100 mg Insulin Aspart (Novolog) 8 unit SC BIDAC [facility] Last Admin: 04/04/17 08:30 Dose: 8 unit Insulin Glargine (Lantus) 14 unit SC QAM [facility] Last Admin: 04/04/17 09:33 Dose: 14 unit Losartan Potassium (Cozaar) 100 mg PO DAILY [facility] Last Admin: 04/04/17 09:31 Dose: 100 mg Multivitamins (Hexavitamin) 1 tab PO DAILY [facility] Last Admin: 04/04/17 09:31 Dose: 1 tab Ondansetron HCl (Zofran Inj) 4 mg IVP Q6 PRN PRN Reason: Nausea/Vomiting Last Admin: 04/03/17 16:48 Dose: 4 mg Rosuvastatin Calcium (Crestor) 20 mg PO HS [facility] Last Admin: 04/03/17 21:57 Dose: 20 mg Tacrolimus (Prograf) 5 mg PO QPM [facility] Last Admin: 04/03/17 18:58 Dose: 5 mg Tacrolimus (Prograf) 5 mg PO QAM [facility] Last Admin: 04/04/17 09:34 Dose: 5 mg Tacrolimus (Prograf Cap) 0.5 mg PO QAM [facility] Last Admin: 04/04/17 09:31 Dose: 0.5 mg - Labs Labs: 04/04/17 07:37 04/04/17 07:37 PT 14.1 SECONDS (9.7-12.2) H 04/01/17 10:49 INR 1.2 04/01/17 10:49 APTT 36 SECONDS (21-34) H 04/01/17 10:49 - Constitutional Appears: Non-toxic, No Acute Distress, Chronically Ill - Head Exam Head Exam: NORMAL INSPECTION - Eye Exam Eye Exam: Normal appearance - ENT Exam ENT Exam: Mucous Membranes Moist, Normal Exam - Neck Exam Neck Exam: Normal Inspection - Respiratory Exam Respiratory Exam: Clear to Ausculation Bilateral, NORMAL BREATHING PATTERN - Cardiovascular Exam Cardiovascular Exam: REGULAR RHYTHM, RRR - GI/Abdominal Exam GI & Abdominal Exam: Distended, Soft, Normal Bowel Sounds - Extremities Exam Extremities Exam: Normal Inspection (lue avf w/ thrill) - Neurological Exam Neurological Exam: Alert, Awake, Oriented x3 - Psychiatric Exam Psychiatric exam: Normal Affect, Normal Mood - Skin Skin Exam: Normal Color, Warm Assessment and Plan (1) ESRD (end stage renal disease) Status: Acute (2) Type 2 diabetes mellitus with diabetic nephropathy Status: Acute (3) HTN (hypertension) Status: Chronic (4) Hx of heart transplant Status: Chronic - Assessment and Plan (Free Text) Assessment: hd tomorrow add low dose clonidine for bp
--- NOTE | 2017-04-04 19:49 | CP.PCM.PN ---
Subjective - Date & Time of Evaluation Date of Evaluation: 04/04/17 Time of Evaluation: 19:47 - Subjective Subjective: Patient is feeling well. Nontender abdomen. No nausea or vomiting today. Tolerating the food today Vital signs stable. Chest good air entry bilaterally regular Luis Antonio. Nontender abdomen. Pedal edema 1+ noted Patient's labs. He received hemodialysis yesterday. The blood pressure is better than yesterday. Medication adjusted. Currently on immunosuppressive treatment Assessment/plan: 61 male with a history of heart transplant, diabetes hypertension, end-stage renal disease on dialysis. Doing well at this time. Uncontrolled hypertension. Metabolic encephalopathy, hypertensive encephalopathy improving. Possibly discharge plan tomorrow. Objective - Vital Signs/Intake and Output Vital Signs (last 24 hours): Temp Pulse Resp BP Pulse Ox 97.5 F L 92 H 18 154/78 H 96 04/04/17 16:40 04/04/17 16:40 04/04/17 16:40 04/04/17 17:43 04/04/17 16:40 Intake and Output: 04/04/17 04/05/17 18:59 06:59 Intake Total 320 Balance 320 - Medications Medications: Current Medications Amlodipine Besylate (Norvasc) 10 mg PO DAILY [facility] Last Admin: 04/04/17 09:31 Dose: 10 mg Aspirin (Ecotrin) 81 mg PO DAILY [facility] Last Admin: 04/04/17 11:00 Dose: 81 mg Calcium Acetate (Phoslo) 667 mg PO TIDAC [facility] Last Admin: 04/04/17 17:44 Dose: 667 mg Carvedilol (Coreg) 25 mg PO BID [facility] Last Admin: 04/04/17 17:43 Dose: 25 mg Chlorpromazine (Thorazine) 25 mg PO BID [facility] Last Admin: 04/04/17 09:32 Dose: 25 mg Clonidine HCl (Catapres) 0.1 mg PO BID [facility] Last Admin: 04/04/17 17:44 Dose: 0.1 mg Ezetimibe (Zetia) 10 mg PO HS [facility] Last Admin: 04/03/17 21:57 Dose: 10 mg Famotidine (Pepcid) 20 mg IVP Q12 [facility] Last Admin: 04/04/17 09:32 Dose: 20 mg Heparin Sodium (Porcine) (Heparin) 5,000 units SC Q12 [facility] Last Admin: 04/04/17 09:32 Dose: 5,000 units Hydralazine HCl (Apresoline) 100 mg PO TID [facility] Last Admin: 04/04/17 17:43 Dose: 100 mg Insulin Aspart (Novolog) 8 unit SC BIDAC [facility] Last Admin: 04/04/17 17:43 Dose: 8 unit Insulin Glargine (Lantus) 14 unit SC QAM [facility] Last Admin: 04/04/17 09:33 Dose: 14 unit Losartan Potassium (Cozaar) 100 mg PO DAILY [facility] Last Admin: 04/04/17 09:31 Dose: 100 mg Multivitamins (Hexavitamin) 1 tab PO DAILY [facility] Last Admin: 04/04/17 09:31 Dose: 1 tab Ondansetron HCl (Zofran Inj) 4 mg IVP Q6 PRN PRN Reason: Nausea/Vomiting Last Admin: 04/03/17 16:48 Dose: 4 mg Rosuvastatin Calcium (Crestor) 20 mg PO HS [facility] Last Admin: 04/03/17 21:57 Dose: 20 mg Tacrolimus (Prograf) 5 mg PO QPM [facility] Last Admin: 04/04/17 17:44 Dose: 5 mg Tacrolimus (Prograf) 5 mg PO QAM [facility] Last Admin: 04/04/17 09:34 Dose: 5 mg Tacrolimus (Prograf Cap) 0.5 mg PO QAM [facility] Last Admin: 04/04/17 09:31 Dose: 0.5 mg - Labs Labs: 04/04/17 07:37 04/04/17 07:37 PT 14.1 SECONDS (9.7-12.2) H 04/01/17 10:49 INR 1.2 04/01/17 10:49 APTT 36 SECONDS (21-34) H 04/01/17 10:49
[2017-04-05] MEDS: (Novolog) Insulin Aspart, Recombinant 100 u/ml 10 ml vial SC SCH ×2 (08:42→18:44)
[2017-04-05] MEDS: (Lantus) Insulin Glargine, Recombinant SC SCH (10:25)
[2017-04-05] MEDS: Multiple Vitamins Tab PO SCH ×2 (10:25→15:19)
--- NOTE | 2017-04-05 13:37 | CP.PCM.PN ---
Subjective - Date & Time of Evaluation Date of Evaluation: 04/05/17 Time of Evaluation: 13:35 - Subjective Subjective: More alert Seen at dialysis - to UF 3500ml fluids HTN still uncontrolled Tacro level low for heart transplant recipient No other complaint Objective - Vital Signs/Intake and Output Vital Signs (last 24 hours): Temp Pulse Resp BP Pulse Ox 98.2 F 85 16 175/87 H 95 04/05/17 10:00 04/05/17 12:30 04/05/17 12:30 04/05/17 12:30 04/05/17 12:30 Intake and Output: 04/05/17 04/05/17 06:59 18:59 Intake Total 400 Balance 400 - Medications Medications: Current Medications Amlodipine Besylate (Norvasc) 10 mg PO DAILY [facility] Last Admin: 04/05/17 10:25 Dose: Not Given Aspirin (Ecotrin) 81 mg PO DAILY [facility] Last Admin: 04/05/17 10:25 Dose: Not Given Calcium Acetate (Phoslo) 667 mg PO TIDAC [facility] Last Admin: 04/05/17 06:46 Dose: 667 mg Carvedilol (Coreg) 25 mg PO BID [facility] Last Admin: 04/05/17 10:25 Dose: Not Given Chlorpromazine (Thorazine) 25 mg PO BID [facility] Last Admin: 04/05/17 10:25 Dose: Not Given Ezetimibe (Zetia) 10 mg PO HS [facility] Last Admin: 04/04/17 21:28 Dose: 10 mg Famotidine (Pepcid) 20 mg IVP Q12 [facility] Heparin Sodium (Porcine) (Heparin) 5,000 units SC Q12 [facility] Last Admin: 04/05/17 10:25 Dose: Not Given Hydralazine HCl (Apresoline) 100 mg PO TID [facility] Last Admin: 04/05/17 10:24 Dose: Not Given Insulin Aspart (Novolog) 8 unit SC BIDAC [facility] Last Admin: 04/05/17 08:42 Dose: Not Given Insulin Glargine (Lantus) 14 unit SC QAM [facility] Last Admin: 04/05/17 10:25 Dose: Not Given Losartan Potassium (Cozaar) 100 mg PO DAILY [facility] Last Admin: 04/05/17 10:25 Dose: Not Given Multivitamins (Hexavitamin) 1 tab PO DAILY [facility] Last Admin: 04/05/17 10:25 Dose: Not Given Ondansetron HCl (Zofran Inj) 4 mg IVP Q6 PRN PRN Reason: Nausea/Vomiting Last Admin: 04/03/17 16:48 Dose: 4 mg Rosuvastatin Calcium (Crestor) 20 mg PO HS [facility] Tacrolimus (Prograf) 5 mg PO QPM [facility] Last Admin: 04/04/17 17:44 Dose: 5 mg Tacrolimus (Prograf) 5 mg PO QAM [facility] Last Admin: 04/05/17 10:25 Dose: Not Given Tacrolimus (Prograf Cap) 0.5 mg PO BID [facility] - Labs Labs: 04/04/17 07:37 04/04/17 07:37 PT 14.1 SECONDS (9.7-12.2) H 04/01/17 10:49 INR 1.2 04/01/17 10:49 APTT 36 SECONDS (21-34) H 04/01/17 10:49 - Constitutional Appears: No Acute Distress, Chronically Ill - Head Exam Head Exam: ATRAUMATIC, NORMAL INSPECTION - Eye Exam Eye Exam: EOMI - Neck Exam Neck Exam: Normal Inspection. absent: Tenderness - Respiratory Exam Respiratory Exam: Clear to Ausculation Bilateral, NORMAL BREATHING PATTERN - Cardiovascular Exam Cardiovascular Exam: REGULAR RHYTHM, +S1 - GI/Abdominal Exam GI & Abdominal Exam: Soft. absent: Tenderness - Extremities Exam Extremities Exam: Normal Inspection. absent: Tenderness - Neurological Exam Neurological Exam: Alert, CN II-XII Intact - Skin Skin Exam: Dry, Warm Assessment and Plan (1) Type 2 diabetes mellitus with diabetic nephropathy Status: Acute (2) CHF exacerbation Status: Acute (3) HTN (hypertension) Status: Chronic (4) Hx of heart transplant Status: Chronic - Assessment and Plan (Free Text) Plan: Increase clonidine dose Increase tacro dose UF aggressively at dialysis
--- NOTE | 2017-04-05 16:25 | CP.PCM.PN ---
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 PER RN JAX HE RETURNED FROM HD AND WANDERED INTO ANOTHER PT'S ROOM. PT DENIES PAIN AND ADMITS TO FEELING "TIRED." CT HEAD DONE FEW DAYS AGO (SEE REPORT). IS NOT AT BEDSIDE TODAY TO DISCUSS SAFE D/C PLAN. WILL HOLD D/C FOR TOMORROW MORNING LONG PT'S BEHAVIOR IMPROVES. NOTIFIED DR. MOULTON. NO FURTHER ORDERS. Objective - Vital Signs/Intake and Output Vital Signs (last 24 hours): Temp Pulse Resp BP Pulse Ox 98.2 F 85 16 175/87 H 95 04/05/17 10:00 04/05/17 12:30 04/05/17 12:30 04/05/17 12:30 04/05/17 12:30 Intake and Output: 04/05/17 04/05/17 06:59 18:59 Intake Total 400 Balance 400 - Medications Medications: Current Medications Amlodipine Besylate (Norvasc) 10 mg PO DAILY [facility] Last Admin: 04/05/17 15:19 Dose: 10 mg Aspirin (Ecotrin) 81 mg PO DAILY [facility] Last Admin: 04/05/17 15:19 Dose: 81 mg Calcium Acetate (Phoslo) 667 mg PO TIDAC [facility] Last Admin: 04/05/17 15:11 Dose: Not Given Carvedilol (Coreg) 25 mg PO BID [facility] Last Admin: 04/05/17 10:25 Dose: Not Given Chlorpromazine (Thorazine) 25 mg PO BID [facility] Last Admin: 04/05/17 10:25 Dose: Not Given Clonidine HCl (Catapres) 0.2 mg PO BID [facility] Ezetimibe (Zetia) 10 mg PO HS [facility] Last Admin: 04/04/17 21:28 Dose: 10 mg Famotidine (Pepcid) 20 mg IVP DAILY [facility] Heparin Sodium (Porcine) (Heparin) 5,000 units SC Q12 [facility] Last Admin: 04/05/17 10:25 Dose: Not Given Hydralazine HCl (Apresoline) 100 mg PO TID [facility] Last Admin: 04/05/17 15:18 Dose: 100 mg Insulin Aspart (Novolog) 8 unit SC BIDAC [facility] Last Admin: 04/05/17 08:42 Dose: Not Given Insulin Glargine (Lantus) 14 unit SC QAM [facility] Last Admin: 04/05/17 10:25 Dose: Not Given Losartan Potassium (Cozaar) 100 mg PO DAILY [facility] Last Admin: 04/05/17 15:18 Dose: 100 mg Multivitamins (Hexavitamin) 1 tab PO DAILY [facility] Last Admin: 04/05/17 15:19 Dose: 1 tab Ondansetron HCl (Zofran Inj) 4 mg IVP Q6 PRN PRN Reason: Nausea/Vomiting Last Admin: 04/03/17 16:48 Dose: 4 mg Rosuvastatin Calcium (Crestor) 10 mg PO HS [facility] Tacrolimus (Prograf) 5 mg PO QPM [facility] Last Admin: 04/04/17 17:44 Dose: 5 mg Tacrolimus (Prograf) 5 mg PO QAM [facility] Last Admin: 04/05/17 10:25 Dose: Not Given Tacrolimus (Prograf Cap) 0.5 mg PO BID [facility] - Labs Labs: 04/04/17 07:37 04/04/17 07:37 PT 14.1 SECONDS (9.7-12.2) H 04/01/17 10:49 INR 1.2 04/01/17 10:49 APTT 36 SECONDS (21-34) H 04/01/17 10:49
--- NOTE | 2017-04-06 01:41 | CP.PCM.PN ---
Subjective - Date & Time of Evaluation Date of Evaluation: 04/05/17 Time of Evaluation: 19:00 Objective - Vital Signs/Intake and Output Vital Signs (last 24 hours): Temp Pulse Resp BP Pulse Ox 97.5 F L 83 20 145/72 96 04/05/17 23:56 04/05/17 23:56 04/05/17 23:56 04/05/17 23:56 04/05/17 23:56 Intake and Output: 04/05/17 04/06/17 18:59 06:59 Intake Total 300 400 Balance 300 400 - Medications Medications: Current Medications Amlodipine Besylate (Norvasc) 10 mg PO DAILY [facility] Last Admin: 04/05/17 15:19 Dose: 10 mg Aspirin (Ecotrin) 81 mg PO DAILY [facility] Last Admin: 04/05/17 15:19 Dose: 81 mg Calcium Acetate (Phoslo) 667 mg PO TIDAC [facility] Last Admin: 04/05/17 18:43 Dose: 667 mg Carvedilol (Coreg) 25 mg PO BID [facility] Last Admin: 04/05/17 18:44 Dose: 25 mg Chlorpromazine (Thorazine) 25 mg PO BID [facility] Last Admin: 04/05/17 10:25 Dose: Not Given Clonidine HCl (Catapres) 0.2 mg PO BID [facility] Last Admin: 04/05/17 18:44 Dose: 0.2 mg Ezetimibe (Zetia) 10 mg PO HS [facility] Last Admin: 04/05/17 21:09 Dose: 10 mg Famotidine (Pepcid) 20 mg IVP DAILY [facility] Last Admin: 04/05/17 21:09 Dose: 20 mg Heparin Sodium (Porcine) (Heparin) 5,000 units SC Q12 [facility] Last Admin: 04/05/17 21:15 Dose: Not Given Hydralazine HCl (Apresoline) 100 mg PO TID [facility] Last Admin: 04/05/17 18:43 Dose: 100 mg Insulin Aspart (Novolog) 8 unit SC BIDAC [facility] Last Admin: 04/05/17 18:44 Dose: 8 unit Insulin Glargine (Lantus) 14 unit SC QAM [facility] Last Admin: 04/05/17 10:25 Dose: Not Given Losartan Potassium (Cozaar) 100 mg PO DAILY [facility] Last Admin: 04/05/17 15:18 Dose: 100 mg Multivitamins (Hexavitamin) 1 tab PO DAILY [facility] Last Admin: 04/05/17 15:19 Dose: 1 tab Rosuvastatin Calcium (Crestor) 10 mg PO HS [facility] Last Admin: 04/05/17 21:09 Dose: 10 mg Tacrolimus (Prograf) 5 mg PO QPM [facility] Last Admin: 04/05/17 18:46 Dose: 5 mg Tacrolimus (Prograf) 5 mg PO QAM [facility] Last Admin: 04/05/17 10:25 Dose: Not Given Tacrolimus (Prograf Cap) 0.5 mg PO BID [facility] Last Admin: 04/05/17 18:46 Dose: 0.5 mg - Labs Labs: 04/04/17 07:37 04/04/17 07:37 PT 14.1 SECONDS (9.7-12.2) H 04/01/17 10:49 INR 1.2 04/01/17 10:49 APTT 36 SECONDS (21-34) H 04/01/17 10:49
[2017-04-06] MEDS: (Novolog) Insulin Aspart, Recombinant 100 u/ml 10 ml vial SC SCH ×2 (08:45→17:07)
[2017-04-06] MEDS: Multiple Vitamins Tab PO SCH (09:29)
[2017-04-06] MEDS: (Lantus) Insulin Glargine, Recombinant SC SCH (09:36)
--- NOTE | 2017-04-06 10:55 | CP.PCM.PN ---
Subjective - Date & Time of Evaluation Date of Evaluation: 04/06/17 Time of Evaluation: 10:51 - Subjective Subjective: s/p dialysis 04/05- UF 3200ml arousable now but sleepy BP moderatrely elevated despite several meds Will try to increase fluid removal further with HD Tacro level better- acceptable for heart transplant recipient Objective - Vital Signs/Intake and Output Vital Signs (last 24 hours): Temp Pulse Resp BP Pulse Ox 98.3 F 84 20 172/81 H 93 L 04/06/17 08:55 04/06/17 09:00 04/06/17 08:55 04/06/17 09:28 04/06/17 08:55 Intake and Output: 04/06/17 04/06/17 06:59 18:59 Intake Total 400 Balance 400 - Medications Medications: Current Medications Amlodipine Besylate (Norvasc) 10 mg PO DAILY [facility] Last Admin: 04/06/17 09:29 Dose: 10 mg Aspirin (Ecotrin) 81 mg PO DAILY [facility] Last Admin: 04/06/17 09:36 Dose: 81 mg Calcium Acetate (Phoslo) 667 mg PO TIDAC [facility] Last Admin: 04/06/17 08:45 Dose: 667 mg Carvedilol (Coreg) 25 mg PO BID [facility] Last Admin: 04/06/17 09:28 Dose: 25 mg Chlorpromazine (Thorazine) 25 mg PO BID [facility] Last Admin: 04/05/17 10:25 Dose: Not Given Clonidine HCl (Catapres) 0.2 mg PO BID [facility] Last Admin: 04/06/17 09:29 Dose: 0.2 mg Ezetimibe (Zetia) 10 mg PO HS [facility] Last Admin: 04/05/17 21:09 Dose: 10 mg Famotidine (Pepcid) 20 mg IVP DAILY [facility] Last Admin: 04/06/17 09:29 Dose: 20 mg Heparin Sodium (Porcine) (Heparin) 5,000 units SC Q12 [facility] Last Admin: 04/06/17 09:29 Dose: 5,000 units Hydralazine HCl (Apresoline) 100 mg PO TID [facility] Last Admin: 04/06/17 09:28 Dose: 100 mg Insulin Aspart (Novolog) 8 unit SC BIDAC [facility] Last Admin: 04/06/17 08:45 Dose: 8 unit Insulin Glargine (Lantus) 14 unit SC QAM [facility] Last Admin: 04/06/17 09:36 Dose: 14 unit Losartan Potassium (Cozaar) 100 mg PO DAILY [facility] Last Admin: 04/06/17 09:29 Dose: 100 mg Multivitamins (Hexavitamin) 1 tab PO DAILY [facility] Last Admin: 04/06/17 09:29 Dose: 1 tab Rosuvastatin Calcium (Crestor) 10 mg PO HS [facility] Last Admin: 04/05/17 21:09 Dose: 10 mg Tacrolimus (Prograf) 5 mg PO QPM [facility] Last Admin: 04/05/17 18:46 Dose: 5 mg Tacrolimus (Prograf) 5 mg PO QAM [facility] Last Admin: 04/06/17 09:31 Dose: 5 mg Tacrolimus (Prograf Cap) 0.5 mg PO BID [facility] Last Admin: 04/06/17 09:32 Dose: 0.5 mg - Labs Labs: 04/04/17 07:37 04/04/17 07:37 PT 14.1 SECONDS (9.7-12.2) H 04/01/17 10:49 INR 1.2 04/01/17 10:49 APTT 36 SECONDS (21-34) H 04/01/17 10:49 - Constitutional Appears: No Acute Distress, Chronically Ill - Head Exam Head Exam: ATRAUMATIC, NORMAL INSPECTION - Eye Exam Eye Exam: EOMI, Normal appearance - Neck Exam Neck Exam: Normal Inspection. absent: Tenderness - Respiratory Exam Respiratory Exam: Clear to Ausculation Bilateral, NORMAL BREATHING PATTERN - Cardiovascular Exam Cardiovascular Exam: REGULAR RHYTHM, +S1 - GI/Abdominal Exam GI & Abdominal Exam: Soft. absent: Tenderness - Neurological Exam Neurological Exam: Altered, CN II-XII Intact - Skin Skin Exam: Dry, Warm Assessment and Plan (1) Type 2 diabetes mellitus with diabetic nephropathy Status: Acute (2) CHF exacerbation Status: Acute (3) HTN (hypertension) Status: Chronic (4) Hx of heart transplant Status: Chronic - Assessment and Plan (Free Text) Plan: Monitor sluggishness Can decrease clonidine dose if still sluggish Monitor BP Dialysis MWF with aggressive UF dose Same tacro dose
--- NOTE | 2017-04-06 16:32 | CP.PCM.PN ---
Subjective - Date & Time of Evaluation Date of Evaluation: 04/06/17 Time of Evaluation: 16:32 - Subjective Subjective: PT SEEN SEVERAL TIMES TODAY. SLUGGISH TODAY BUT AROUSABLE AND ANSWERING QUESTIONS. WILL KEEP PT UNTIL TOMORROW TO MONITOR SLUGGISHNESS. IF BACK TO BASELINE WILL D/C AFTER HD TOMORROW. DR. MOULTON AWARE. NO FURTHER ORDERS. Objective - Vital Signs/Intake and Output Vital Signs (last 24 hours): Temp Pulse Resp BP Pulse Ox 98.7 F 78 20 128/66 100 04/06/17 15:43 04/06/17 15:43 04/06/17 15:43 04/06/17 15:43 04/06/17 15:43 Intake and Output: 04/06/17 04/06/17 06:59 18:59 Intake Total 400 Balance 400 - Medications Medications: Current Medications Amlodipine Besylate (Norvasc) 10 mg PO DAILY [facility] Last Admin: 04/06/17 09:29 Dose: 10 mg Aspirin (Ecotrin) 81 mg PO DAILY [facility] Last Admin: 04/06/17 09:36 Dose: 81 mg Calcium Acetate (Phoslo) 667 mg PO TIDAC [facility] Last Admin: 04/06/17 12:41 Dose: 667 mg Carvedilol (Coreg) 25 mg PO BID [facility] Last Admin: 04/06/17 09:28 Dose: 25 mg Chlorpromazine (Thorazine) 25 mg PO BID [facility] Last Admin: 04/05/17 10:25 Dose: Not Given Clonidine HCl (Catapres) 0.2 mg PO BID [facility] Last Admin: 04/06/17 09:29 Dose: 0.2 mg Ezetimibe (Zetia) 10 mg PO HS [facility] Last Admin: 04/05/17 21:09 Dose: 10 mg Famotidine (Pepcid) 20 mg IVP DAILY [facility] Last Admin: 04/06/17 09:29 Dose: 20 mg Heparin Sodium (Porcine) (Heparin) 5,000 units SC Q12 [facility] Last Admin: 04/06/17 09:29 Dose: 5,000 units Hydralazine HCl (Apresoline) 100 mg PO TID [facility] Last Admin: 04/06/17 13:24 Dose: 100 mg Insulin Aspart (Novolog) 8 unit SC BIDAC [facility] Last Admin: 04/06/17 08:45 Dose: 8 unit Insulin Glargine (Lantus) 14 unit SC QAM [facility] Last Admin: 04/06/17 09:36 Dose: 14 unit Losartan Potassium (Cozaar) 100 mg PO DAILY [facility] Last Admin: 04/06/17 09:29 Dose: 100 mg Multivitamins (Hexavitamin) 1 tab PO DAILY [facility] Last Admin: 04/06/17 09:29 Dose: 1 tab Rosuvastatin Calcium (Crestor) 10 mg PO HS [facility] Last Admin: 04/05/17 21:09 Dose: 10 mg Tacrolimus (Prograf) 5 mg PO QPM [facility] Last Admin: 04/05/17 18:46 Dose: 5 mg Tacrolimus (Prograf) 5 mg PO QAM [facility] Last Admin: 04/06/17 09:31 Dose: 5 mg Tacrolimus (Prograf Cap) 0.5 mg PO BID [facility] Last Admin: 04/06/17 09:32 Dose: 0.5 mg - Labs Labs: 04/04/17 07:37 04/04/17 07:37 PT 14.1 SECONDS (9.7-12.2) H 04/01/17 10:49 INR 1.2 04/01/17 10:49 APTT 36 SECONDS (21-34) H 04/01/17 10:49
[2017-04-07] MEDS: (Novolog) Insulin Aspart, Recombinant 100 u/ml 10 ml vial SC SCH (09:00)
[2017-04-07] MEDS: (Lantus) Insulin Glargine, Recombinant SC SCH (10:00)
--- NOTE | 2017-04-07 14:04 | CP.PCM.PN ---
Subjective - Date & Time of Evaluation Date of Evaluation: 04/07/17 Time of Evaluation: 14:01 - Subjective Subjective: seen at dialysis now UF 2700ml BP still moderately elevtaed More alert; better appetite No CPs, nausea, vomiting, CPs, SOB, fever, chills Objective - Vital Signs/Intake and Output Vital Signs (last 24 hours): Temp Pulse Resp BP Pulse Ox 98.3 F 82 20 163/91 H 97 04/07/17 09:55 04/07/17 12:55 04/07/17 09:55 04/07/17 12:55 04/07/17 09:55 Intake and Output: 04/07/17 04/07/17 06:59 18:59 Intake Total 400 Balance 400 - Medications Medications: Current Medications Amlodipine Besylate (Norvasc) 10 mg PO DAILY [facility] Last Admin: 04/06/17 09:29 Dose: 10 mg Aspirin (Ecotrin) 81 mg PO DAILY [facility] Last Admin: 04/06/17 09:36 Dose: 81 mg Calcium Acetate (Phoslo) 667 mg PO TIDAC [facility] Last Admin: 04/07/17 11:41 Dose: Not Given Carvedilol (Coreg) 25 mg PO BID [facility] Last Admin: 04/07/17 10:00 Dose: Not Given Chlorpromazine (Thorazine) 25 mg PO BID [facility] Last Admin: 04/07/17 11:42 Dose: Not Given Clonidine HCl (Catapres) 0.3 mg PO BID [facility] Ezetimibe (Zetia) 10 mg PO HS [facility] Last Admin: 04/06/17 21:15 Dose: 10 mg Famotidine (Pepcid) 20 mg IVP DAILY [facility] Last Admin: 04/06/17 09:29 Dose: 20 mg Heparin Sodium (Porcine) (Heparin) 5,000 units SC Q12 [facility] Last Admin: 04/07/17 10:00 Dose: Not Given Hydralazine HCl (Apresoline) 100 mg PO TID [facility] Last Admin: 04/07/17 10:00 Dose: Not Given Insulin Aspart (Novolog) 8 unit SC BIDAC [facility] Last Admin: 04/07/17 09:00 Dose: 8 unit Insulin Glargine (Lantus) 14 unit SC QAM [facility] Last Admin: 04/07/17 10:00 Dose: Not Given Losartan Potassium (Cozaar) 100 mg PO DAILY [facility] Last Admin: 04/06/17 09:29 Dose: 100 mg Multivitamins (Hexavitamin) 1 tab PO DAILY [facility] Last Admin: 04/06/17 09:29 Dose: 1 tab Rosuvastatin Calcium (Crestor) 10 mg PO HS [facility] Last Admin: 04/06/17 21:15 Dose: 10 mg Tacrolimus (Prograf) 5 mg PO QPM [facility] Last Admin: 04/06/17 18:43 Dose: 5 mg Tacrolimus (Prograf) 5 mg PO QAM [facility] Last Admin: 04/07/17 11:41 Dose: Not Given Tacrolimus (Prograf Cap) 0.5 mg PO BID [facility] Last Admin: 04/07/17 11:42 Dose: Not Given - Labs Labs: 04/04/17 07:37 04/04/17 07:37 PT 14.1 SECONDS (9.7-12.2) H 04/01/17 10:49 INR 1.2 04/01/17 10:49 APTT 36 SECONDS (21-34) H 04/01/17 10:49 - Constitutional Appears: No Acute Distress, Chronically Ill - Head Exam Head Exam: ATRAUMATIC, NORMAL INSPECTION - Eye Exam Eye Exam: EOMI, Normal appearance - Neck Exam Neck Exam: Normal Inspection. absent: Tenderness - Respiratory Exam Respiratory Exam: Clear to Ausculation Bilateral, NORMAL BREATHING PATTERN - Cardiovascular Exam Cardiovascular Exam: REGULAR RHYTHM, +S1 - GI/Abdominal Exam GI & Abdominal Exam: Soft. absent: Tenderness - Extremities Exam Extremities Exam: Normal Inspection. absent: Tenderness - Neurological Exam Neurological Exam: Alert, CN II-XII Intact - Skin Skin Exam: Dry, Warm Assessment and Plan (1) Type 2 diabetes mellitus with diabetic nephropathy Status: Acute (2) CHF exacerbation Status: Acute (3) HTN (hypertension) Status: Chronic (4) Hx of heart transplant Status: Chronic - Assessment and Plan (Free Text) Plan: Increase clonidine dose Can increase UF goal if TN still severe Dialysis MWF Monitor mental status
[2017-04-07 14:19] VITALS: RESP 20
--- NOTE | 2017-04-07 14:30 | CP.PCM.PN ---
Subjective - Date & Time of Evaluation Date of Evaluation: 04/07/17 Time of Evaluation: 14:30 - Subjective Subjective: PT CLEARED FOR D/C HOME TODAY. DR. MOULTON IN AGREEMENT. HAD HD AND TOLERATED WELL. [employer] [employer] [employer] DISCUSSED THIS MORNING D/C PLAN WITH PT AND AND THEY ARE IN AGREEMENT. HE WILL F/U WITH DR. MOULTON IN THE OFFICE AND DR. CHE FOR HD. RX SENT TO PT'S PHARMACY PER NEPHRO RECOMMENDATIONS. PT AND UNDERSTAND CHANGES MADE TO MEDS. SW TO ARRANGE TRANSPORTATION HOME THIS AFTERNOON., NO FURTHER ORDERS. Objective - Vital Signs/Intake and Output Vital Signs (last 24 hours): Temp Pulse Resp BP Pulse Ox 98.4 F 81 20 175/86 H 95 04/07/17 14:18 04/07/17 14:18 04/07/17 14:18 04/07/17 14:18 04/07/17 14:18 Intake and Output: 04/07/17 04/07/17 06:59 18:59 Intake Total 400 Balance 400 - Medications Medications: Current Medications Amlodipine Besylate (Norvasc) 10 mg PO DAILY [facility] Last Admin: 04/06/17 09:29 Dose: 10 mg Aspirin (Ecotrin) 81 mg PO DAILY [facility] Last Admin: 04/06/17 09:36 Dose: 81 mg Calcium Acetate (Phoslo) 667 mg PO TIDAC [facility] Last Admin: 04/07/17 11:41 Dose: Not Given Carvedilol (Coreg) 25 mg PO BID [facility] Last Admin: 04/07/17 10:00 Dose: Not Given Chlorpromazine (Thorazine) 25 mg PO BID [facility] Last Admin: 04/07/17 11:42 Dose: Not Given Clonidine HCl (Catapres) 0.3 mg PO BID [facility] Ezetimibe (Zetia) 10 mg PO HS [facility] Last Admin: 04/06/17 21:15 Dose: 10 mg Famotidine (Pepcid) 20 mg IVP DAILY [facility] Last Admin: 04/06/17 09:29 Dose: 20 mg Heparin Sodium (Porcine) (Heparin) 5,000 units SC Q12 [facility] Last Admin: 04/07/17 10:00 Dose: Not Given Hydralazine HCl (Apresoline) 100 mg PO TID [facility] Last Admin: 04/07/17 10:00 Dose: Not Given Insulin Aspart (Novolog) 8 unit SC BIDAC [facility] Last Admin: 04/07/17 09:00 Dose: 8 unit Insulin Glargine (Lantus) 14 unit SC QAM [facility] Last Admin: 04/07/17 10:00 Dose: Not Given Losartan Potassium (Cozaar) 100 mg PO DAILY [facility] Last Admin: 04/06/17 09:29 Dose: 100 mg Multivitamins (Hexavitamin) 1 tab PO DAILY [facility] Last Admin: 04/06/17 09:29 Dose: 1 tab Rosuvastatin Calcium (Crestor) 10 mg PO HS [facility] Last Admin: 04/06/17 21:15 Dose: 10 mg Tacrolimus (Prograf) 5 mg PO QPM [facility] Last Admin: 04/06/17 18:43 Dose: 5 mg Tacrolimus (Prograf) 5 mg PO QAM [facility] Last Admin: 04/07/17 11:41 Dose: Not Given Tacrolimus (Prograf Cap) 0.5 mg PO BID [facility] Last Admin: 04/07/17 11:42 Dose: Not Given - Labs Labs: 04/04/17 07:37 04/04/17 07:37 PT 14.1 SECONDS (9.7-12.2) H 04/01/17 10:49 INR 1.2 04/01/17 10:49 APTT 36 SECONDS (21-34) H 04/01/17 10:49
--- NOTE | 2017-04-07 14:30 | PCM.HF ---
Heart Failure Core Measure - Heart Failure Ejection Fraction: 40 % or Greater (RECENT ECHO DONE OP) BRIANA Inhibitor Prescribed: No Contraindication/Reason for not providing: ON ARB Beta-Mari Prescribed: Carvedilol Angiotensin II Receptor Mari Prescribed: Yes AnticoagulationTherapy for Atrial Fibrillation/Atrialflutter: No Contraindication/Reason for not providing: NO AFIB Aldosterone Antagonist Prescribed: No Contraindication/Reason for not providing: ESRD Hydralazine Nitrate Prescribed: Yes Implantable Cardioverter Defibrillator Therapy: No Contraindication/Reason for not providing: HEART TRANSPLANT; EF > 40 Cardiac Resynchronization Therapy Prescribed: No Contraindication/Reason for not providing: HEART TRANSPLANT; EF > 40 - Follow up Will be discharged to: Home Follow Up Date (must be within 7 days from discharge): 04/13/17 Follow Up Time: 09:00
[2017-04-07] MEDS: Multiple Vitamins Tab PO SCH (14:38)
[2017-04-07 16:28] VITALS: BP 148/79; PULSE 89; TEMP 98.8; O2SAT 96
== END 2017-04-07 17:25 | disposition home or self-care (01) | DRG 77 ==
LOC: C.ER 09:38 → C.9E 12:27 → C.5S 16:21
PROVIDERS: ADMIT Internal Medicine; ATTEND Internal Medicine
PROC: 5A1D70Z Performance of Urinary Filtration, Intermittent, Less than 6 Hours Per Day (ICD-10-PCS; principal; 2017-04-03)
DX: I67.4 Hypertensive encephalopathy (principal); N18.6 End stage renal disease; I13.2 Hypertensive heart and chronic kidney disease with heart failure and with stage 5 chronic kidney disease, or end stage renal disease; I42.9 Cardiomyopathy, unspecified; Z94.1 Heart transplant status; E11.22 Type 2 diabetes mellitus with diabetic chronic kidney disease; I50.9 Heart failure, unspecified; Z99.2 Dependence on renal dialysis; I25.10 Atherosclerotic heart disease of native coronary artery without angina pectoris; E78.00 Pure hypercholesterolemia, unspecified; Z87.891 Personal history of nicotine dependence; R25.1 Tremor, unspecified

== ENCOUNTER 2017-06-27 05:35 | Day surgery (SDC) | payer MEDICARE, OTHER ==
[2017-06-27] MEDS ORDERED: Phenylephrine 2.5% Opht Soln OS SCH (06:00)
[2017-06-27] MEDS ORDERED: Lactated Ringer's 500 ML IV ONE (06:00)
[2017-06-27] MEDS ORDERED: Tropicamide 1% Opht SOLUTION OS SCH (06:00)
[2017-06-27] MEDS ORDERED: Ciprofloxacin 0.3% OPTH SOLN OS SCH (06:00)
[2017-06-27] MEDS ORDERED: Flurbiprofen 0.03% Opht SOLN OS SCH (06:00)
[2017-06-27] MEDS ORDERED: Cyclopentolate 1% Opth (2 ml) OS SCH (06:00)
[2017-06-27] MEDS ORDERED: Dextrose 5%/0.45% NS 500 ML IV ONE (06:46)
[2017-06-27 07:13] LABS: CALCIUM 9.2 mg/dl (8.6-10.4)
[2017-06-27] MEDS ORDERED: Povidone Iodine Ophthalmic 5% Soln ONE (07:33)
[2017-06-27] MEDS ORDERED: Tetracaine 0.5% Ophth (OR ONLY) ONE (07:34)
[2017-06-27] MEDS ORDERED: Tobramycin/Dexamethasone OPHT OINT ONE (07:34)
[2017-06-27] MEDS ORDERED: Lidocaine 2% Inj (20ml) ONE (07:34)
[2017-06-27] MEDS ORDERED: Carbachol 0.01% IO ONE (07:34)
[2017-06-27] MEDS ORDERED: Chondroitin/Hyaluronate Opth Syringe KIT (0.55 ml-0.5 ml) IO ONE (07:35)
[2017-06-27] MEDS ORDERED: Hyaluronidase Human, Recombi 150 U/ML VIAL ONE (07:35)
[2017-06-27] MEDS ORDERED: Midazolam 2 MG/2 ML VIAL ONE (07:59)
[2017-06-27] MEDS ORDERED: Chondroitin/Hyaluronate 40 mg/ml-30 mg/ml Ophth Syringe (0.5 ml) IO ONE (08:40)
[2017-06-27] MEDS ORDERED: Triamcinolone Acetonide 40 mg/mL Inj ONE (09:01)
[2017-06-27] MEDS ORDERED: Propofol 10 mg/ml Inj (20 ML) ONE (09:03)
[2017-06-27 09:56] VITALS: RESP 20
[2017-06-27 10:01] VITALS: O2SAT 95
[2017-06-27 11:24] VITALS: BP 145/75; PULSE 91; TEMP 98.4
--- NOTE | 2017-06-30 07:38 | OP ---
PROCEDURE DATE: 06/27/2017 PROCEDURE: Complex cataract extraction with anterior vitrectomy. COMPLICATIONS: Include a capsular rupture and vitreous prolapse. DESCRIPTION OF PROCEDURE: The procedure is as follows. The patient was premedicated and brought to the operating room and placed on the operating table in the supine position. Topical tetracaine was instilled. After adequate anesthesia, the eye was prepped and draped in the usual sterile ophthalmic fashion. A lid speculum was inserted and the microscope was positioned. A temporal paracentesis was created followed by injection of intracameral solution. There was noted to be a poor red reflex, so Trypan blue was instilled to stain the anterior capsule followed by BSS. Viscoat was then injected into the eye. A temporal biplanar clear corneal incision was then created. A complete curvilinear capsulorhexis was created with a Utrata forceps. Balanced salt solution hydrodissection was then performed. The lens was phacoemulsified. At the end of the phacoemulsification, and vitreous was visualized in the anterior chamber. Viscoat was then injected into the eye, and the anterior vitrectomy was performed. Miostat was injected into the eye. The pupil constricted, and at the end of the case it was small and round. The wounds were hydrated, and the main wound was closed using a 10-0 nylon suture. There was noted to be no leakage and no vitreous in the anterior chamber. The eyelid speculum removed, antibiotic and several drops of ointment to the eye. The eye was patched and shielded, and the patient was wheeled to the recovery room in stable condition. Jacky Matias MD
== END 2017-06-27 11:23 | disposition home or self-care (01) ==
LOC: C.SDS 05:35
PROVIDERS: ATTEND Ophthalmology
DX: H26.9 Unspecified cataract (principal)
CPT/HCPCS: 36415; 66984; 80048; 82948; J1120; J2250; J2704; J3010; J3470; J7042

== ENCOUNTER 2017-12-11 18:42 | Observation (INO) | payer MEDICARE, OTHER ==
[2017-12-11 18:42] VITALS: BMI 25.0
[2017-12-11 21:34] LABS: BASO # 0.1 K/uL (0.0-0.2); BASO % 1.2 % (0.0-2.0); EOS # 0.1 K/uL (0.0-0.7); EOS % 1.1 % (0.0-4.0); HEMOGLOBIN 11.1 g/dL (12.0-18.0); LYMPH # 0.6 K/uL (1.0-4.3); MEAN CELL VOLUME 89.6 fL (80.0-94.0); MEAN CORPUSCULAR HEMOGLOBIN 30.1 pg (27.0-31.0); MEAN CORPUSCULAR HGB CONC 33.6 g/dL (33.0-37.0); MEAN PLATELET VOLUME 7.3 fL (7.2-11.7); MONO # 0.9 K/uL (0.0-0.8); MONO % 10.9 % (0.0-10.0); NEUT # 6.9 K/uL (1.8-7.0); NEUT % 79.8 % (50.0-75.0); NRBC % 0.1 % (0.0-2.0); PLATELET COUNT 232 K/uL (130-400); RED CELL DISTRIBUTION WIDTH 16.4 % (11.5-14.5); WHITE BLOOD COUNT 8.7 K/uL (4.8-10.8)
--- NOTE | 2017-12-11 21:39 | C.PDOC ---
History Of Present Illness 62 y/o male presents to ED with c/o not having bowel movement today. As per he rectalized him and noticed hard stool. Patient denies fever, chills, nausea, vomiting, back pain or any other complaints at this time. Time Seen by Provider: 12/11/17 20:07 Chief Complaint (Nursing): GI Problem History Per: Patient History/Exam Limitations: no limitations Onset/Duration Of Symptoms: Days Current Symptoms Are (Timing): Still Present Past Medical History Reviewed: Historical Data, Nursing Documentation, Vital Signs Vital Signs: Last Vital Signs Temp 98.6 F 12/11/17 21:30 Pulse 86 12/11/17 21:30 Resp 20 12/11/17 21:30 BP 190/87 H 12/11/17 21:39 Pulse Ox 95 12/11/17 22:15 - Medical History PMH: CAD, Diabetes, HTN, Hypercholesterolemia, End Stage Renal Disease, Chronic Kidney Disease (ESRD on HD) Surgical History: Endoscopy - [facility] Procedures (04/01/17) ENDOSC POLYPECTOMY OF LG INTEST (10/09/13) PERFORMANCE OF URINARY FILTRATION, MULTIPLE (11/23/16) PERFORMANCE OF URINARY FILTRATION, SINGLE (04/17/16) REMOVAL OF DRAINAGE DEVICE FROM BLADDER, EXTERNAL APPROACH (11/23/16) Family History: States: No Known Family Hx - Social History Hx Tobacco Use: No Hx Alcohol Use: No Hx Substance Use: No - Immunization History Hx Tetanus Toxoid Vaccination: Yes Hx Influenza Vaccination: Yes Hx Pneumococcal Vaccination: Yes Review Of Systems Constitutional: Negative for: Fever, Chills Gastrointestinal: Positive for: Constipation. Negative for: Nausea, Vomiting Skin: Negative for: Rash Physical Exam - Physical Exam Appears: Non-toxic, No Acute Distress Skin: Warm, Dry, No Rash Head: Atraumatic, Normacephalic Eye(s): bilateral: Normal Inspection Oral Mucosa: Moist Neck: Normal ROM, Supple Cardiovascular: Rhythm Regular Respiratory: Normal Breath Sounds, No Rales, No Rhonchi, No Wheezing Gastrointestinal/Abdominal: Soft, No Tenderness, No Guarding, No Rebound Back: No CVA Tenderness, No Paraspinal Tenderness Extremity: Normal ROM, Capillary Refill (<2 seconds) Neurological/Psych: Oriented x3, Normal Speech, Normal Cognition ED Course And Treatment - Laboratory Results Result Diagrams: 12/11/17 21:30 12/11/17 21:30 Lab Interpretation: Abnormal (c/w ESRD) ECG: Interpreted By Me ECG Rhythm: Sinus Rhythm ECG Interpretation: Normal Rate From EC O2 Sat by Pulse Oximetry: 95 (RA) Pulse Ox Interpretation: Normal - Radiology CXR: Interpreted by Me CXR Interpretation: Yes: Other (+ moderate L pleural effusion) Progress Note: Fleets Enema with large voume hard julián-like formed stools. No disempaction required. Reevaluation Time: 22:13 Reassessment Condition: Improved - Physician Consult Information Outcome Of Conversation: 2119 and 2214, d/w Dr. Varner- PMD, ok to adm Medical Decision Making Medical Decision Making: constipation, +FOS moderate L pleural effusion Disposition Doctor Will See Patient In The: Hospital Counseled Patient/Family Regarding: Studies Performed, Diagnosis - Disposition Disposition: HOSPITALIZED Disposition Time: 22:14 Condition: GOOD - Clinical Impression Clinical Impression: Pleural effusion, Constipation - Scribe Statement The provider has reviewed the documentation as recorded by the Sendy Bravo All medical record entries made by the Sendy were at my direction and personally dictated by me. I have reviewed the chart and agree that the record accurately reflects my personal performance of the history, physical exam, medical decision making, and the department course for this patient. I have also personally directed, reviewed, and agree with the discharge instructions and disposition.
[2017-12-11 21:56] LABS: ALB/GLOB RATIO 0.8 (1.0-2.1); ALBUMIN 4.6 g/dL (3.5-5.0)
[2017-12-11 22:03] LABS: TROPONIN I 0.022 ng/mL (0.00-0.120)
[2017-12-11] MEDS ORDERED: Lidocaine 2% Jelly (Uro-Jet) TOP ONE (23:06)
[2017-12-12 00:13] LABS: LYMPHOCYTE 9 % (20-40); MONOCYTE 12 % (0-10); NEUTROPHIL 79 % (50-75); TOTAL CELLS COUNTED 100
[2017-12-12 00:14] LABS: ANISOCYTOSIS SLIGHT
[2017-12-12 00:21] LABS: PLATELET ESTIMATE NORMAL (NORMAL)
--- NOTE | 2017-12-12 10:26 | RAD ---
PROCEDURE: Radiographs of the chest and abdomen (obstructive series) HISTORY: no bm ? rectal impacted COMPARISON: Chest radiograph dated 04/01/2017; abdominal radiograph dated 11/17/2016. TECHNIQUE: AP radiograph of the chest, with upright and supine radiographs of the abdomen. FINDINGS: CHEST: Lungs: Pulmonary vascular congestion. Bibasilar atelectasis. Cardiovascular: Prior sternotomy with sternal wires and surgical clips redemonstrated. Atherosclerotic aortic calcifications. Cardiomediastinal silhouette stably prominent. Pleura: Small to moderate left and trace right pleural effusions. No pneumothorax. Other findings: Unchanged. ABDOMEN AND PELVIS: Bowel: Unremarkable bowel gas pattern. Prominent amount of retained colonic stool. No evidence of mechanical obstruction. Free air: None. Bones: Unchanged. Other findings: None. IMPRESSION: Pulmonary vascular congestion with small to moderate left and trace right pleural effusions. Prominent amount of retained colonic stool.
--- NOTE | 2017-12-12 11:02 | CP.PCM.CON ---
History of Present Illness - History of Present Illness History of Present Illness: 62 y/o man admitted via ED with AMS. Cannot provide hx as pt very lethargic; CXR shows CHF. PMH: ESRD OHT CARDIOMYOPATHY HTN DL PSH: HEART TRANSPLANT AV FISTULA Review of Systems - Constitutional Constitutional: Fatigue, Weight Gain, Weakness - EENT Eyes: Blurred Vision Ears: absent: As Per HPI, Decreased Hearing, Ear Discharge, Ear Pain, Tinnitus, Abnormal Hearing, Disequilibrium, Dizziness, Other Nose/Mouth/Throat: absent: As Per HPI, Epistaxis, Nasal Congestion, Nasal Discharge, Nasal Obstruction, Nasal Trauma, Nose Pain, Post Nasal Drip, Sinus Pain, Sinus Pressure, Bleeding Gums, Change in Voice, Dental Pain, Dry Mouth, Dysphagia, Halitosis, Hoarsness, Lip Swelling, Mouth Lesions, Mouth Pain, Odynophagia, Sore Throat, Throat Swelling, Tongue Swelling, Facial Pain, Neck Pain, Neck Mass, Other - Cardiovascular Cardiovascular: Dyspnea on Exertion, Pedal Edema - Respiratory Respiratory: Cough, Dyspnea on Exertion - Gastrointestinal Gastrointestinal: Constipation - Genitourinary Genitourinary: As Per HPI - Musculoskeletal Musculoskeletal: Muscle Cramps, Muscle Weakness, Myalgias - Neurological Neurological: Weakness Past Patient History - Infectious Disease Hx of Infectious Diseases: None - Past Medical History & Family History Past Medical History?: Yes Past Family History: Reviewed and not pertinent - Past Social History Smoking Status: Never Smoked Chewing Tobacco Use: No Cigar Use: No Alcohol: None Drugs: Denies - CARDIAC Hx Hypercholesterolemia: Yes Hx Hypertension: Yes - PULMONARY Hx Respiratory Disorders: No - NEUROLOGICAL Hx Neurological Disorder: No - HEENT Hx HEENT Problems: Yes Hx Cataracts: Yes - RENAL Hx Chronic Kidney Disease: Yes (ESRD on HD) - ENDOCRINE/METABOLIC Hx Endocrine Disorders: Yes Hx Diabetes Mellitus Type 1: Yes - HEMATOLOGICAL/ONCOLOGICAL Hx Blood Disorders: No - INTEGUMENTARY Hx Dermatological Problems: No - MUSCULOSKELETAL/RHEUMATOLOGICAL Hx Musculoskeletal Disorders: No Hx Falls: No - GASTROINTESTINAL Hx Gastrointestinal Disorders: No - GENITOURINARY/GYNECOLOGICAL Hx Genitourinary Disorders: Yes Hx Hematuria: Yes Hx Urinary Tract Infection: Yes - PSYCHIATRIC Hx Substance Use: No - SURGICAL HISTORY Hx Surgeries: Yes Hx Arteriovenous Shunt: Yes (right arm) Hx Open Heart Surgery: Yes (OHT) Other/Comment: HEART TRANSPLANT - ANESTHESIA Hx Anesthesia: Yes Hx Anesthesia Reactions: No Hx Malignant Hyperthermia: No Meds Allergies/Adverse Reactions: Allergies Allergy/AdvReac Type Severity Reaction Status Date / Time meropenem Allergy Severe SWELLING Verified 04/01/17 09:39 morphine Allergy Severe ANGIOEDEMA Verified 04/01/17 09:39 - Medications Medications: Current Medications Amlodipine Besylate (Norvasc) 10 mg PO DAILY [facility] Last Admin: 12/12/17 09:12 Dose: 10 mg Calcium Acetate (Phoslo) 667 mg PO TIDCC [facility] Last Admin: 12/12/17 08:49 Dose: 667 mg Docusate Sodium (Colace) 100 mg PO BID [facility] Last Admin: 12/12/17 09:11 Dose: 100 mg Ezetimibe (Zetia) 10 mg PO HS [facility] Lactulose (Enulose) 20 gm PO HS [facility] Rosuvastatin Calcium (Crestor) 20 mg PO HS [facility] Tacrolimus (Prograf) 5 mg PO QAM [facility] Last Admin: 12/12/17 09:12 Dose: 5 mg Tacrolimus (Prograf) 5 mg PO QPM [facility] Physical Exam - Constitutional Appears: Confused, Chronically Ill - Head Exam Head Exam: ATRAUMATIC, NORMAL INSPECTION - Eye Exam Eye Exam: EOMI, Normal appearance - Neck Exam Neck exam: Positive for: Normal Inspection. Negative for: Tenderness - Respiratory Exam Respiratory Exam: Rhonchi, NORMAL BREATHING PATTERN - Cardiovascular Exam Cardiovascular Exam: REGULAR RHYTHM, +S1 - GI/Abdominal Exam GI & Abdominal Exam: Soft. absent: Tenderness - Extremities Exam Extremities exam: Positive for: pedal edema, tenderness - Neurological Exam Neurological exam: Alert, CN II-XII Intact - Skin Skin Exam: Dry, Warm Results - Vital Signs Recent Vital Signs: Last Vital Signs Temp 97.8 F 12/12/17 07:00 Pulse 93 H 12/12/17 09:10 Resp 20 12/12/17 07:00 BP 177/83 H 12/12/17 09:10 Pulse Ox 96 12/12/17 07:00 - Labs Result Diagrams: 12/11/17 21:30 12/11/17 21:30 Labs: Laboratory Results - last 24 hr 12/11/17 12/11/17 12/12/17 21:30 21:30 06:45 WBC 8.7 RBC 3.70 L Hgb 11.1 L Hct 33.2 L MCV 89.6 D MCH 30.1 MCHC 33.6 RDW 16.4 H Plt Count 232 MPV 7.3 Neut % (Auto) 79.8 H Lymph % (Auto) 7.0 L [place] % (Auto) 10.9 H Eos % (Auto) 1.1 Baso % (Auto) 1.2 Neut # (Auto) 6.9 Lymph # (Auto) 0.6 L [place] # (Auto) 0.9 H Eos # (Auto) 0.1 Baso # (Auto) 0.1 Neutrophils % (Manual) 79 H Lymphocytes % (Manual) 9 L Monocytes % (Manual) 12 H Platelet Estimate Normal Anisocytosis (manual) Slight Sodium 140 Potassium 3.9 Chloride 94 L Carbon Dioxide 33 H Anion Gap 17 BUN 20 Creatinine 4.2 H Est GFR ( Amer) 17 Est GFR (Non-Af Amer) 14 POC Glucose (mg/dL) 180 H Random Glucose 134 H Calcium 10.0 Total Bilirubin 1.3 AST 49 ALT 28 Alkaline Phosphatase 108 Troponin I 0.0220 NT-Pro-B Natriuret Pep 37950 H Total Protein 10.0 H Albumin 4.6 Globulin 5.4 H Albumin/Globulin Ratio 0.8 L Assessment & Plan (1) CHF (congestive heart failure) Status: Acute (2) Heart transplant recipient Status: Acute (3) ESRD (end stage renal disease) Status: Acute (4) Cardiomyopathy Status: Acute (5) HTN (hypertension) Status: Acute - Assessment and Plan (Free Text) Plan: DIALYSIS ANURADHA EXTRA UF CONTINUE [employer]MM[employer]OSUPPRESSANTS- CHECK FK LEVELS
--- NOTE | 2017-12-12 21:05 | CP.PCM.HP ---
History of Present Illness - History of Present Illness History of Present Illness: Chief complaint: Constipation History present illness: 61-year-old male with history of heart transplant, on immunosuppressive treatment, end-stage renal disease on dialysis, recent had a hematuria, also urinary tract infection, Patient came to the emergency room with the significant problem and going to the bathroom. He was not having BM at all, obstipation noted for almost a few days. He was trying to go to the bathroom, but unable to do it. So he came into the emergency room because of the severe constipation. While he was being evaluated in the emergency room, she he was noted to have large pleural effusion on the left lung, neither monitoring, and management. Patient was evaluated, and manually disimpacted large stools last night, following that he started having bowel movements. This morning he was having regular bowel movement. He is feeling slightly better now. He received hemodialysis today. He denies any chest pain, no shortness of breath noted, no cough noted, no fever. Past medical history: Heart, transplant on immunosuppressive treatment, end-stage renal disease on dialysis, hypertension, diabetes, hypercholesterolemia, urinary tract infection. Allergy: No known drug allergy but imepenem causes AMS Personal history: Nonsmoker nonalcoholic disabled Family history noncontributory. Review of systems: Currently having some headache, complaining of episodes of hiccups, abdominal pain, shortness of breath and cough noted, bilateral leg swelling On examination: HEENT PERRLA, neck supple No thyromegaly was noted and no cervical adenopathy noted Bilateral wheezing and rales noted CVS regular heart sound, no murmur Abdomen soft and no organomegaly Bilateral edema noted [employer] alert awake oriented x3 no functional neurological deficit. Vital signs is stable. Labs reviewed. Chest x-ray CHF pattern noted. Assessment and recommendation: 61-year-old male with history of heart transplant, immunosuppressive treatment, end-stage renal disease on dialysis, hypertension, diabetes, peripheral vascular disease, pedal edema, and urinary tract infection. Nephrology evaluation, and follow-up. Patient possibly has acute severe constipation. We will get a GI evaluation. Continue the Colace, and lactulose. The patient is currently having also large moderate to large pleural effusion on the left lung. Underlying atelectasis, and pneumonia cannot be ruled out. But will hold off antibiotic as the patient does not have any signs of infection at this time. We will get a CAT scan of the chest. If needed may need a thoracentesis. We will follow the patient. DVT GI prophylaxis Present on Admission - Present on Admission Any Indicators Present on Admission: No History of DVT/PE: No History of Uncontrolled Diabetes: No Urinary Catheter: No Decubitus Ulcer Present: No Past Patient History - Infectious Disease Hx of Infectious Diseases: None - Past Medical History & Family History Past Medical History?: Yes Past Family History: Reviewed and not pertinent - Past Social History Smoking Status: Never Smoked Chewing Tobacco Use: No Cigar Use: No Alcohol: None Drugs: Denies - CARDIAC Hx Hypercholesterolemia: Yes Hx Hypertension: Yes - PULMONARY Hx Respiratory Disorders: No - NEUROLOGICAL Hx Neurological Disorder: No - HEENT Hx HEENT Problems: Yes Hx Cataracts: Yes - RENAL Hx Chronic Kidney Disease: Yes (ESRD on HD) - ENDOCRINE/METABOLIC Hx Endocrine Disorders: Yes Hx Diabetes Mellitus Type 1: Yes - HEMATOLOGICAL/ONCOLOGICAL Hx Blood Disorders: No - INTEGUMENTARY Hx Dermatological Problems: No - MUSCULOSKELETAL/RHEUMATOLOGICAL Hx Musculoskeletal Disorders: No Hx Falls: No - GASTROINTESTINAL Hx Gastrointestinal Disorders: No - GENITOURINARY/GYNECOLOGICAL Hx Genitourinary Disorders: Yes Hx Hematuria: Yes Hx Urinary Tract Infection: Yes - PSYCHIATRIC Hx Substance Use: No - SURGICAL HISTORY Hx Surgeries: Yes Hx Arteriovenous Shunt: Yes (right arm) Hx Open Heart Surgery: Yes (OHT) Other/Comment: HEART TRANSPLANT - ANESTHESIA Hx Anesthesia: Yes Hx Anesthesia Reactions: No Hx Malignant Hyperthermia: No Meds Allergies/Adverse Reactions: Allergies Allergy/AdvReac Type Severity Reaction Status Date / Time meropenem Allergy Severe SWELLING Verified 04/01/17 09:39 morphine Allergy Severe ANGIOEDEMA Verified 04/01/17 09:39 Results - Vital Signs Recent Vital Signs: Last Vital Signs Temp 97.9 F 12/12/17 19:59 Pulse 84 12/12/17 19:59 Resp 20 12/12/17 19:59 BP 176/91 H 12/12/17 19:59 Pulse Ox 96 12/12/17 19:59 - Labs Result Diagrams: 12/11/17 21:30 12/11/17 21:30 Labs: Laboratory Results - last 24 hr 12/11/17 12/11/17 12/12/17 21:30 21:30 06:45 WBC 8.7 RBC 3.70 L Hgb 11.1 L Hct 33.2 L MCV 89.6 D MCH 30.1 MCHC 33.6 RDW 16.4 H Plt Count 232 MPV 7.3 Neut % (Auto) 79.8 H Lymph % (Auto) 7.0 L [place] % (Auto) 10.9 H Eos % (Auto) 1.1 Baso % (Auto) 1.2 Neut # (Auto) 6.9 Lymph # (Auto) 0.6 L [place] # (Auto) 0.9 H Eos # (Auto) 0.1 Baso # (Auto) 0.1 Neutrophils % (Manual) 79 H Lymphocytes % (Manual) 9 L Monocytes % (Manual) 12 H Platelet Estimate Normal Anisocytosis (manual) Slight Sodium 140 Potassium 3.9 Chloride 94 L Carbon Dioxide 33 H Anion Gap 17 BUN 20 Creatinine 4.2 H Est GFR ( Amer) 17 Est GFR (Non-Af Amer) 14 POC Glucose (mg/dL) 180 H Random Glucose 134 H Calcium 10.0 Total Bilirubin 1.3 AST 49 ALT 28 Alkaline Phosphatase 108 Troponin I 0.0220 NT-Pro-B Natriuret Pep 30489 H Total Protein 10.0 H Albumin 4.6 Globulin 5.4 H Albumin/Globulin Ratio 0.8 L 12/12/17 12/12/17 11:48 17:24 WBC RBC Hgb Hct MCV MCH MCHC RDW Plt Count MPV Neut % (Auto) Lymph % (Auto) [place] % (Auto) Eos % (Auto) Baso % (Auto) Neut # (Auto) Lymph # (Auto) [place] # (Auto) Eos # (Auto) Baso # (Auto) Neutrophils % (Manual) Lymphocytes % (Manual) Monocytes % (Manual) Platelet Estimate Anisocytosis (manual) Sodium Potassium Chloride Carbon Dioxide Anion Gap BUN Creatinine Est GFR ( Amer) Est GFR (Non-Af Amer) POC Glucose (mg/dL) 309 H 205 H Random Glucose Calcium Total Bilirubin AST ALT Alkaline Phosphatase Troponin I NT-Pro-B Natriuret Pep Total Protein Albumin Globulin Albumin/Globulin Ratio
--- NOTE | 2017-12-12 23:22 | CARD ---
APPROVED REPORT EKG Measurement Heart [id number] DC [id number] <Conclusion> Normal sinus rhythm Nonspecific ST and T wave abnormality Abnormal ECG
--- NOTE | 2017-12-13 08:53 | CP.PCM.PN ---
Subjective - Date & Time of Evaluation Date of Evaluation: 12/13/17 Time of Evaluation: 08:50 - Subjective Subjective: s/p dialysis 7/3- UF 2500ml feels much better less dypnea; no CPs, f, chills, n, v HTN still uncontrolled Objective - Vital Signs/Intake and Output Vital Signs (last 24 hours): Temp Pulse Resp BP Pulse Ox 98.1 F 94 H 20 180/69 H 97 12/13/17 07:00 12/13/17 07:00 12/13/17 07:00 12/13/17 07:00 12/13/17 08:02 - Medications Medications: Current Medications Amlodipine Besylate (Norvasc) 10 mg PO DAILY [facility] Last Admin: 12/12/17 09:12 Dose: 10 mg Calcium Acetate (Phoslo) 667 mg PO TIDCC [facility] Last Admin: 12/13/17 07:56 Dose: 667 mg Carvedilol (Coreg) 6.25 mg PO BID [facility] Last Admin: 12/13/17 07:56 Dose: 6.25 mg Docusate Sodium (Colace) 100 mg PO BID [facility] Last Admin: 12/12/17 19:35 Dose: 100 mg Ezetimibe (Zetia) 10 mg PO [facility] Last Admin: 12/12/17 21:13 Dose: 10 mg Lactulose (Enulose) 20 gm PO [facility] Last Admin: 12/12/17 21:13 Dose: 20 gm Rosuvastatin Calcium (Crestor) 20 mg PO [facility] Last Admin: 12/12/17 21:14 Dose: 20 mg Tacrolimus (Prograf) 5 mg PO QAM [facility] Last Admin: 12/12/17 09:12 Dose: 5 mg Tacrolimus (Prograf) 5 mg PO QPM [facility] Last Admin: 12/12/17 19:35 Dose: 5 mg - Labs Labs: 12/11/17 21:30 12/11/17 21:30 - Constitutional Appears: No Acute Distress, Chronically Ill - Head Exam Head Exam: ATRAUMATIC, NORMAL INSPECTION - Eye Exam Eye Exam: EOMI, Normal appearance - Neck Exam Neck Exam: Normal Inspection. absent: Tenderness - Respiratory Exam Respiratory Exam: Clear to Ausculation Bilateral, NORMAL BREATHING PATTERN - Cardiovascular Exam Cardiovascular Exam: REGULAR RHYTHM, +S1 - GI/Abdominal Exam GI & Abdominal Exam: Soft. absent: Tenderness - Extremities Exam Extremities Exam: Normal Inspection. absent: Tenderness - Neurological Exam Neurological Exam: Alert, CN II-XII Intact - Skin Skin Exam: Dry, Warm Assessment and Plan (1) CHF (congestive heart failure) Status: Acute (2) Heart transplant recipient Status: Acute (3) ESRD (end stage renal disease) Status: Acute (4) Cardiomyopathy Status: Acute (5) HTN (hypertension) Status: Acute - Assessment and Plan (Free Text) Plan: increase BP meds HD TTS with adequate UF check phos, PTH check FK level
--- NOTE | 2017-12-13 12:06 | CT ---
PROCEDURE: CT Chest without contrast HISTORY: empyema COMPARISON: Chest radiograph dated 12/11/2017. TECHNIQUE: Contiguous axial images were obtained through the chest without intravenous contrast enhancement. Sagittal and coronal reconstructions were performed. Radiation dose (DLP): 454.8 mGy-cm. This CT exam was performed using one or more of the following dose reduction techniques: Automated exposure control, adjustment of the mA and/or kV according to patient size, and/or use of iterative reconstruction technique. FINDINGS: LUNGS: Left lower lobe, lingula and right lower lobe subsegmental atelectasis. Visualized airway clear. MEDIASTINUM: Unremarkable thoracic aorta. No aneurysm. Prior CABG. Normal sized heart. Main pulmonary artery unremarkable. No vascular congestion. No lymphadenopathy. PLEURA: Large left and small right pleural effusion. No pneumothorax. BONES: No fracture. No destructive lesion. UPPER ABDOMEN: Atrophic kidneys. OTHER FINDINGS: None. IMPRESSION: Large left and small right pleural effusions with subjacent atelectasis. Lingula subsegmental atelectasis.
[2017-12-13] MEDS: (Novolog) Insulin Aspart, Recombinant 100 u/ml 10 ml vial SC SCH ×2 (12:13→17:24)
--- NOTE | 2017-12-14 00:11 | CP.PCM.PN ---
Subjective - Date & Time of Evaluation Date of Evaluation: 12/13/17 Time of Evaluation: 22:00 - Subjective Subjective: Patient today feeling slightly better. Blood pressure on the high side. Last night the patient had an episode of shortness of breath, palpitation. Chest pain negative On examination: Vital signs stable. Chest good air entry bilaterally, especially on the left lower lung decreased air entry noted irregular heart sound nontender abdomen no pedal edema CAT scan of the chest is showing evidence of bilateral pleural effusion, but large effusion on the left side noted Assessment and recommendation: 62-year-old male with a history of hypertension diabetes hypercholesteremia end- stage renal disease on dialysis of heart transplant. Patient is now having localized to pleural effusion involving the left lung. Hypoxia noted. In my opinion patient will need a thoracentesis, after that will follow the patient for possible discharge plan if stable tomorrow. Objective - Vital Signs/Intake and Output Vital Signs (last 24 hours): Temp Pulse Resp BP Pulse Ox 98.5 F 94 H 20 180/86 H 96 12/13/17 23:25 12/13/17 23:25 12/13/17 23:25 12/13/17 23:25 12/13/17 23:25 - Medications Medications: Current Medications Amlodipine Besylate (Norvasc) 10 mg PO DAILY [facility] Last Admin: 12/13/17 09:25 Dose: 10 mg Calcium Acetate (Phoslo) 667 mg PO TIDCC [facility] Last Admin: 12/13/17 17:23 Dose: 667 mg Carvedilol (Coreg) 12.5 mg PO BID [facility] Last Admin: 12/13/17 17:24 Dose: 12.5 mg Docusate Sodium (Colace) 100 mg PO BID [facility] Last Admin: 12/13/17 17:23 Dose: 100 mg Ezetimibe (Zetia) 10 mg PO HS [facility] Last Admin: 12/13/17 21:47 Dose: 10 mg Insulin Aspart (Novolog) 0 unit SC ACTID [facility] PRN Reason: Protocol Last Admin: 12/13/17 17:24 Dose: 2 u Lactulose (Enulose) 20 gm PO HS [facility] Last Admin: 12/13/17 21:48 Dose: Not Given Rosuvastatin Calcium (Crestor) 20 mg PO HS [facility] Last Admin: 12/13/17 21:46 Dose: 20 mg Tacrolimus (Prograf) 5 mg PO QAM [facility] Last Admin: 12/13/17 09:26 Dose: 5 mg Tacrolimus (Prograf) 5 mg PO QPM [facility] Last Admin: 12/13/17 17:23 Dose: 5 mg - Labs Labs: 12/11/17 21:30 12/11/17 21:30
[2017-12-14 07:52] LABS: HEMOGLOBIN 12.1 g/dL (12.0-18.0); MEAN CELL VOLUME 89.6 fL (80.0-94.0); MEAN CORPUSCULAR HEMOGLOBIN 30.8 pg (27.0-31.0); MEAN CORPUSCULAR HGB CONC 34.4 g/dL (33.0-37.0); MEAN PLATELET VOLUME 8.5 fL (7.2-11.7); RBC 3.92 Mil/uL (4.40-5.90); RED CELL DISTRIBUTION WIDTH 16.1 % (11.5-14.5); WHITE BLOOD COUNT 8.4 K/uL (4.8-10.8)
[2017-12-14 08:01] LABS: INR 1.3; PROTHROMBIN TIME 14.6 SECONDS (9.7-12.2)
[2017-12-14 08:14] LABS: ALBUMIN 4.9 g/dL (3.5-5.0); CALCIUM 10.7 mg/dl (8.6-10.4)
[2017-12-14 08:42] LABS: ALB/GLOB RATIO 0.8 (1.0-2.1)
[2017-12-14] MEDS: (Novolog) Insulin Aspart, Recombinant 100 u/ml 10 ml vial SC SCH ×3 (08:43→16:30)
--- NOTE | 2017-12-14 09:52 | CP.PCM.PN ---
Subjective - Date & Time of Evaluation Date of Evaluation: 12/14/17 Time of Evaluation: 09:50 - Subjective Subjective: less dypneic stable dialysis 12/13- 2500ml fluid removed possible thoracentesis planned Ca elevated- on phoslo Objective - Vital Signs/Intake and Output Vital Signs (last 24 hours): Temp Pulse Resp BP Pulse Ox 98.7 F 100 H 20 199/99 H 96 12/14/17 08:00 12/14/17 08:00 12/14/17 08:00 12/14/17 08:44 12/14/17 08:00 - Medications Medications: Current Medications Amlodipine Besylate (Norvasc) 10 mg PO DAILY [facility] Last Admin: 12/13/17 09:25 Dose: 10 mg Carvedilol (Coreg) 12.5 mg PO BID [facility] Last Admin: 12/14/17 08:44 Dose: 12.5 mg Docusate Sodium (Colace) 100 mg PO BID [facility] Last Admin: 12/13/17 17:23 Dose: 100 mg Ezetimibe (Zetia) 10 mg PO [facility] Last Admin: 12/13/17 21:47 Dose: 10 mg Insulin Aspart (Novolog) 0 unit SC ACTID [facility] PRN Reason: Protocol Last Admin: 12/14/17 08:43 Dose: 4 u Lactulose (Enulose) 20 gm PO [facility] Last Admin: 12/13/17 21:48 Dose: Not Given Rosuvastatin Calcium (Crestor) 20 mg PO HS [facility] Last Admin: 12/13/17 21:46 Dose: 20 mg Tacrolimus (Prograf) 5 mg PO QAM [facility] Last Admin: 12/13/17 09:26 Dose: 5 mg Tacrolimus (Prograf) 5 mg PO QPM [facility] Last Admin: 12/13/17 17:23 Dose: 5 mg - Labs Labs: 12/14/17 07:15 12/14/17 07:15 PT 14.6 SECONDS (9.7-12.2) H 12/14/17 07:15 INR 1.3 12/14/17 07:15 APTT 38 SECONDS (21-34) H 12/14/17 07:15 - Constitutional Appears: No Acute Distress, Chronically Ill - Head Exam Head Exam: ATRAUMATIC, NORMAL INSPECTION - Eye Exam Eye Exam: EOMI, Normal appearance - Neck Exam Neck Exam: Normal Inspection. absent: Tenderness - Respiratory Exam Respiratory Exam: Decreased Breath Sounds, Clear to Ausculation Bilateral, NORMAL BREATHING PATTERN - Cardiovascular Exam Cardiovascular Exam: REGULAR RHYTHM, +S1 - GI/Abdominal Exam GI & Abdominal Exam: Soft. absent: Tenderness - Extremities Exam Extremities Exam: Normal Inspection. absent: Tenderness - Neurological Exam Neurological Exam: Awake, CN II-XII Intact - Skin Skin Exam: Dry, Warm Assessment and Plan (1) CHF (congestive heart failure) Status: Acute (2) Heart transplant recipient Status: Acute (3) ESRD (end stage renal disease) Status: Acute (4) Cardiomyopathy Status: Acute (5) HTN (hypertension) Status: Acute - Assessment and Plan (Free Text) Plan: dialysis MWF, adequate UF possible thoracentesis stop ca acetate- change to renvela; check PTH monitor BP
--- NOTE | 2017-12-14 11:53 | PCM.SURG1 ---
Surgeon's Initial Post Op Note - Surgeon's Notes Surgeon: Johan Walker MD Dot Compliance Manager: NONE Type of Anesthesia: Local Pre-Operative Diagnosis: Left pleural effusion Operative Findings: US showed large left effusion Post-Operative Diagnosis: Left pleural effusion Operation Performed: US guided left thoracentesis Specimen/Specimens Removed: 1100 cc of luma colored fluid Estimated Blood Loss: EBL {In ML}: 0 Blood Products Given: N/A Drains Used: No Drains Post-Op Condition: Fair Date of Surgery/Procedure: 12/14/17 Time of Surgery/Procedure: 11:50
--- NOTE | 2017-12-14 12:14 | RAD ---
HISTORY: Status post left thoracentesis COMPARISON: CT chest dated 12/13/2017. FINDINGS: LUNGS: Pulmonary vascular congestion and bibasilar atelectasis. Superimposed left lower lobe consolidation not excluded. PLEURA: Small residual left pleural effusion post thoracentesis. Stable small right pleural effusion. No pneumothorax apparent. CARDIOVASCULAR: Prior sternotomy with sternal wires and surgical clips redemonstrated. Atherosclerotic aortic calcifications. Cardiomediastinal silhouette stably enlarged. OSSEOUS STRUCTURES: Unchanged. VISUALIZED UPPER ABDOMEN: Normal. OTHER FINDINGS: None. IMPRESSION: Small residual left pleural effusion post thoracentesis. Stable small right pleural effusion. No appreciable pneumothorax.
--- NOTE | 2017-12-14 12:29 | US ---
PROCEDURE: Date of procedure: 12/14/2017 Procedure: 1. Ultrasound-guided left thoracentesis, CPT 75205 Medications: 3cc 1% Lidocaine HISTORY: Left pleural effusion, shortness of breath TECHNIQUE: Following informed consent ,the Patients' left chest was marked. Procedure time-out was called, and the patient was placed in the sitting position and limited ultrasound showed a large left effusion. The patient's left back was prepped and draped in the usual sterile fashion. After the skin was anesthetized with lidocaine, a drainage catheter was advanced under ultrasound guidance into the pleural space. Ultrasound-guided thoracentesis was performed. A total of 1000 cubic centimeters of straw-colored fluid removed without complication. A Xeroform dressing was applied. IMPRESSION: Ultrasound guided left thoracentesis. There were no immediate complications.
--- NOTE | 2017-12-14 19:32 | CP.PCM.PN ---
Subjective - Date & Time of Evaluation Date of Evaluation: 12/14/17 Time of Evaluation: 19:30 - Subjective Subjective: Patient is awake this morning. Comfortable. But some confusion noted. Patient was asking about the procedure. Patient underwent a left-sided thoracentesis, 1.1 L of luma colored fluid removed. Postoperatively patient is doing well. He received hemodialysis On examination: Vital signs stable. Oxygen saturation is 96%. Chest bilateral good air entry. Regular heart sound. Abdomen tenderness negative Chest x-ray initial post thoracentesis negative for pneumothorax Assessment and recognition: 62-year-old male with a history of diabetes hypertension hypercholesterolemia end-stage renal disease on dialysis status post heart transplant. Currently underwent a left-sided thoracentesis, for nonhealing pleural effusion. Most likely transudative pleural fluid. We will continue the current treatment. If stable tomorrow will be discharged home Objective - Vital Signs/Intake and Output Vital Signs (last 24 hours): Temp Pulse Resp BP Pulse Ox 98.2 F 83 20 142/89 96 12/14/17 18:45 12/14/17 18:45 12/14/17 18:45 12/14/17 18:45 12/14/17 18:45 - Medications Medications: Current Medications Amlodipine Besylate (Norvasc) 10 mg PO DAILY [facility] Last Admin: 12/14/17 10:41 Dose: 10 mg Carvedilol (Coreg) 25 mg PO BID [facility] Last Admin: 12/14/17 12:56 Dose: Not Given Docusate Sodium (Colace) 100 mg PO BID [facility] Last Admin: 12/14/17 10:41 Dose: 100 mg Ezetimibe (Zetia) 10 mg PO [facility] Last Admin: 12/13/17 21:47 Dose: 10 mg Insulin Aspart (Novolog) 0 unit SC ACTID [facility] PRN Reason: Protocol Last Admin: 12/14/17 16:30 Dose: Not Given Lactulose (Enulose) 20 gm PO [facility] Last Admin: 12/13/17 21:48 Dose: Not Given Rosuvastatin Calcium (Crestor) 20 mg PO [facility] Last Admin: 12/13/17 21:46 Dose: 20 mg Sevelamer Carbonate (Renvela) 800 mg PO TIDCC [facility] Last Admin: 12/14/17 12:58 Dose: 800 mg Tacrolimus (Prograf) 5 mg PO QAM [facility] Last Admin: 12/14/17 10:42 Dose: 5 mg Tacrolimus (Prograf) 5 mg PO QPM [facility] Last Admin: 12/13/17 17:23 Dose: 5 mg - Labs Labs: 12/14/17 07:15 12/14/17 07:15 PT 14.6 SECONDS (9.7-12.2) H 12/14/17 07:15 INR 1.3 12/14/17 07:15 APTT 38 SECONDS (21-34) H 12/14/17 07:15
[2017-12-15 06:23] LABS: MEAN CELL VOLUME 89.5 fL (80.0-94.0); MEAN CORPUSCULAR HEMOGLOBIN 30.1 pg (27.0-31.0); MEAN CORPUSCULAR HGB CONC 33.6 g/dL (33.0-37.0); MEAN PLATELET VOLUME 8.8 fL (7.2-11.7); RBC 3.97 Mil/uL (4.40-5.90); RED CELL DISTRIBUTION WIDTH 16.3 % (11.5-14.5); WHITE BLOOD COUNT 6.8 K/uL (4.8-10.8)
[2017-12-15 06:47] LABS: ALB/GLOB RATIO 0.9 (1.0-2.1); ALBUMIN 4.6 g/dL (3.5-5.0); CALCIUM 10.1 mg/dl (8.6-10.4)
--- NOTE | 2017-12-15 08:25 | RAD ---
HISTORY: PTX COMPARISON: 12/14/2017 at 11:55 a.m.. FINDINGS: LUNGS: There is moderate pulmonary venous congestion. Left lower lobe airspace disease. PLEURA: Small pleural effusions, larger on the left. No pneumothorax apparent. CARDIOVASCULAR: The heart is enlarged. Status post CABG. OSSEOUS STRUCTURES: No significant abnormalities. VISUALIZED UPPER ABDOMEN: Normal. OTHER FINDINGS: None. IMPRESSION: Bilateral small pleural effusions, larger on the left. Left lower lobe airspace disease may represent atelectasis or pneumonia. No appreciable pneumothorax.
[2017-12-15] MEDS: (Novolog) Insulin Aspart, Recombinant 100 u/ml 10 ml vial SC SCH ×3 (12:31→17:27)
--- NOTE | 2017-12-15 14:05 | CP.PCM.PN ---
Subjective - Date & Time of Evaluation Date of Evaluation: 12/15/17 Time of Evaluation: 14:03 - Subjective Subjective: s/p thoracentesis- 1100ml fluid drained s/p dialysis 7/5- UF 3000ml HTN still elevated feels better; less dyspneic; no CPs Objective - Vital Signs/Intake and Output Vital Signs (last 24 hours): Temp Pulse Resp BP Pulse Ox 97.7 F 98 H 20 185/92 H 98 12/15/17 07:20 12/15/17 07:20 12/15/17 07:20 12/15/17 11:24 12/15/17 07:20 - Medications Medications: Current Medications Amlodipine Besylate (Norvasc) 10 mg PO DAILY [facility] Last Admin: 12/15/17 11:23 Dose: 10 mg Carvedilol (Coreg) 25 mg PO BID [facility] Last Admin: 12/15/17 11:24 Dose: 25 mg Docusate Sodium (Colace) 100 mg PO BID [facility] Last Admin: 12/15/17 11:24 Dose: 100 mg Ezetimibe (Zetia) 10 mg PO [facility] Last Admin: 12/14/17 23:21 Dose: Not Given Insulin Aspart (Novolog) 0 unit SC ACTID [facility] PRN Reason: Protocol Last Admin: 12/15/17 12:32 Dose: Not Given Lactulose (Enulose) 20 gm PO [facility] Last Admin: 12/14/17 23:18 Dose: Not Given Rosuvastatin Calcium (Crestor) 20 mg PO HS [facility] Last Admin: 12/14/17 23:18 Dose: Not Given Sevelamer Carbonate (Renvela) 800 mg PO TIDCC [facility] Last Admin: 12/15/17 12:31 Dose: 800 mg Tacrolimus (Prograf) 5 mg PO QAM [facility] Last Admin: 12/15/17 11:25 Dose: 5 mg Tacrolimus (Prograf) 5 mg PO QPM [facility] Last Admin: 12/14/17 19:38 Dose: 5 mg - Labs Labs: 12/15/17 06:11 12/15/17 06:11 PT 14.6 SECONDS (9.7-12.2) H 12/14/17 07:15 INR 1.3 12/14/17 07:15 APTT 38 SECONDS (21-34) H 12/14/17 07:15 - Constitutional Appears: No Acute Distress, Chronically Ill - Head Exam Head Exam: ATRAUMATIC, NORMAL INSPECTION - Eye Exam Eye Exam: EOMI, Normal appearance - Neck Exam Neck Exam: Normal Inspection. absent: Tenderness - Respiratory Exam Respiratory Exam: Decreased Breath Sounds, Clear to Ausculation Bilateral, NORMAL BREATHING PATTERN - Cardiovascular Exam Cardiovascular Exam: REGULAR RHYTHM, +S1 - GI/Abdominal Exam GI & Abdominal Exam: Soft. absent: Tenderness - Extremities Exam Extremities Exam: Normal Inspection. absent: Tenderness - Neurological Exam Neurological Exam: Awake, CN II-XII Intact - Skin Skin Exam: Dry, Warm Assessment and Plan (1) CHF (congestive heart failure) Status: Acute (2) Heart transplant recipient Status: Acute (3) ESRD (end stage renal disease) Status: Acute (4) Cardiomyopathy Status: Acute (5) HTN (hypertension) Status: Acute - Assessment and Plan (Free Text) Plan: repeat dialysis in AM; then revert to MWF- his regular schedule add clonidine same other meds
--- NOTE | 2017-12-15 22:11 | CP.PCM.PN ---
Subjective - Date & Time of Evaluation Date of Evaluation: 12/15/17 Time of Evaluation: 22:11 - Subjective Subjective: Patient is morning was awake and responding. He was having slight confusion. His comfortable otherwise. The blood pressure was noted to be elevated On examination: Vital signs noted, elevated blood pressure noted. Oxygen saturation is 98% room air. Chest bilateral expiratory wheezing noted. Regular heart sound noted. Abdominal tenderness negative Chest x-ray showing no evidence of any pneumothorax Assessment/recommendation: 62-year-old male with history of diabetes, hypertension, hypercholesterolemia, end-stage renal disease on dialysis, status post heart transplant. Status post left-sided thoracentesis. Patient is currently feeling better. We will possibly discharge him home tomorrow after the dialysis. Will follow- up the patient Objective - Vital Signs/Intake and Output Vital Signs (last 24 hours): Temp Pulse Resp BP Pulse Ox 97.9 F 85 20 172/83 H 98 12/15/17 16:00 12/15/17 16:00 12/15/17 16:00 12/15/17 18:40 12/15/17 16:00 - Medications Medications: Current Medications Amlodipine Besylate (Norvasc) 10 mg PO DAILY [facility] Last Admin: 12/15/17 11:23 Dose: 10 mg Carvedilol (Coreg) 25 mg PO BID [facility] Last Admin: 12/15/17 18:40 Dose: 25 mg Clonidine HCl (Catapres) 0.1 mg PO BID [facility] Last Admin: 12/15/17 18:37 Dose: 0.1 mg Docusate Sodium (Colace) 100 mg PO BID [facility] Last Admin: 12/15/17 18:37 Dose: 100 mg Ezetimibe (Zetia) 10 mg PO [facility] Last Admin: 12/15/17 21:39 Dose: 10 mg Insulin Aspart (Novolog) 0 unit SC ACTID [facility] PRN Reason: Protocol Last Admin: 12/15/17 17:27 Dose: Not Given Lactulose (Enulose) 20 gm PO [facility] Last Admin: 12/15/17 21:44 Dose: Not Given Rosuvastatin Calcium (Crestor) 20 mg PO [facility] Last Admin: 12/15/17 21:39 Dose: 20 mg Sevelamer Carbonate (Renvela) 800 mg PO TIDCC [facility] Last Admin: 12/15/17 17:38 Dose: 800 mg Tacrolimus (Prograf) 5 mg PO QAM [facility] Last Admin: 12/15/17 11:25 Dose: 5 mg Tacrolimus (Prograf) 5 mg PO QPM [facility] Last Admin: 12/15/17 18:38 Dose: 5 mg - Labs Labs: 12/15/17 06:11 12/15/17 06:11 PT 14.6 SECONDS (9.7-12.2) H 12/14/17 07:15 INR 1.3 12/14/17 07:15 APTT 38 SECONDS (21-34) H 12/14/17 07:15
[2017-12-16] MEDS: (Novolog) Insulin Aspart, Recombinant 100 u/ml 10 ml vial SC SCH ×2 (08:30→12:30)
--- NOTE | 2017-12-16 10:16 | CP.PCM.PN ---
Subjective - Date & Time of Evaluation Date of Evaluation: 12/16/17 Time of Evaluation: 10:13 - Subjective Subjective: alert; in NAD BP still elevated, better though for dialysis now tacro level acceptable Objective - Vital Signs/Intake and Output Vital Signs (last 24 hours): Temp Pulse Resp BP Pulse Ox 98.0 F 91 H 20 163/81 H 96 12/16/17 07:20 12/16/17 07:20 12/16/17 07:20 12/16/17 07:20 12/16/17 07:20 - Medications Medications: Current Medications Amlodipine Besylate (Norvasc) 10 mg PO DAILY [facility] Last Admin: 12/15/17 11:23 Dose: 10 mg Carvedilol (Coreg) 25 mg PO BID [facility] Last Admin: 12/15/17 18:40 Dose: 25 mg Clonidine HCl (Catapres) 0.1 mg PO BID [facility] Last Admin: 12/15/17 18:37 Dose: 0.1 mg Docusate Sodium (Colace) 100 mg PO BID [facility] Last Admin: 12/15/17 18:37 Dose: 100 mg Ezetimibe (Zetia) 10 mg PO [facility] Last Admin: 12/15/17 21:39 Dose: 10 mg Insulin Aspart (Novolog) 0 unit SC ACTID [facility] PRN Reason: Protocol Last Admin: 12/15/17 17:27 Dose: Not Given Lactulose (Enulose) 20 gm PO [facility] Last Admin: 12/15/17 21:44 Dose: Not Given Rosuvastatin Calcium (Crestor) 20 mg PO HS [facility] Last Admin: 12/15/17 21:39 Dose: 20 mg Sevelamer Carbonate (Renvela) 800 mg PO TIDCC [facility] Last Admin: 12/15/17 17:38 Dose: 800 mg Tacrolimus (Prograf) 5 mg PO QAM [facility] Last Admin: 12/15/17 11:25 Dose: 5 mg Tacrolimus (Prograf) 5 mg PO QPM [facility] Last Admin: 12/15/17 18:38 Dose: 5 mg - Labs Labs: 12/15/17 06:11 12/15/17 06:11 PT 14.6 SECONDS (9.7-12.2) H 12/14/17 07:15 INR 1.3 12/14/17 07:15 APTT 38 SECONDS (21-34) H 12/14/17 07:15 - Constitutional Appears: No Acute Distress, Chronically Ill - Head Exam Head Exam: ATRAUMATIC, NORMAL INSPECTION - Eye Exam Eye Exam: EOMI, Normal appearance - Neck Exam Neck Exam: Normal Inspection. absent: Tenderness - Respiratory Exam Respiratory Exam: Clear to Ausculation Bilateral, NORMAL BREATHING PATTERN - Cardiovascular Exam Cardiovascular Exam: REGULAR RHYTHM, +S1 - GI/Abdominal Exam GI & Abdominal Exam: Soft. absent: Tenderness - Extremities Exam Extremities Exam: Normal Inspection. absent: Tenderness - Neurological Exam Neurological Exam: Alert, CN II-XII Intact - Skin Skin Exam: Dry, Warm Assessment and Plan (1) CHF (congestive heart failure) Status: Acute (2) Heart transplant recipient Status: Acute (3) ESRD (end stage renal disease) Status: Acute (4) Cardiomyopathy Status: Acute (5) HTN (hypertension) Status: Acute - Assessment and Plan (Free Text) Plan: dialysis now then return to [facility] dialysis schedule monitor HTN
--- NOTE | 2017-12-16 15:55 | CP.PCM.DIS ---
Provider - Provider Date of Admission: 12/11/17 22:12 Attending physician: Lauren Rodas MD Time Spent in preparation of Discharge (in minutes): 45 Hospital Course - Lab Results Lab Results: Most Recent Lab Values WBC 6.8 K/uL (4.8-10.8) 12/15/17 06:11 RBC 3.97 Mil/uL (4.40-5.90) L 12/15/17 06:11 Hgb 12.0 g/dL (12.0-18.0) 12/15/17 06:11 Hct 35.5 % (35.0-51.0) 12/15/17 06:11 MCV 89.5 fL (80.0-94.0) 12/15/17 06:11 MCH 30.1 pg (27.0-31.0) 12/15/17 06:11 MCHC 33.6 g/dL (33.0-37.0) 12/15/17 06:11 RDW 16.3 % (11.5-14.5) H 12/15/17 06:11 Plt Count 235 K/uL (130-400) 12/15/17 06:11 MPV 8.8 fL (7.2-11.7) 12/15/17 06:11 Neut % (Auto) 79.8 % (50.0-75.0) H 12/11/17 21:30 Lymph % (Auto) 7.0 % (20.0-40.0) L 12/11/17 21:30 [place] % (Auto) 10.9 % (0.0-10.0) H 12/11/17 21:30 Eos % (Auto) 1.1 % (0.0-4.0) 12/11/17 21:30 Baso % (Auto) 1.2 % (0.0-2.0) 12/11/17 21:30 Neut # (Auto) 6.9 K/uL (1.8-7.0) 12/11/17 21:30 Lymph # (Auto) 0.6 K/uL (1.0-4.3) L 12/11/17 21:30 [place] # (Auto) 0.9 K/uL (0.0-0.8) H 12/11/17 21:30 Eos # (Auto) 0.1 K/uL (0.0-0.7) 12/11/17 21:30 Baso # (Auto) 0.1 K/uL (0.0-0.2) 12/11/17 21:30 Neutrophils % (Manual) 79 % (50-75) H 12/11/17 21:30 Lymphocytes % (Manual) 9 % (20-40) L 12/11/17 21:30 Monocytes % (Manual) 12 % (0-10) H 12/11/17 21:30 Platelet Estimate Normal (NORMAL) 12/11/17 21:30 Anisocytosis (manual) Slight 12/11/17 21:30 PT 14.6 SECONDS (9.7-12.2) H 12/14/17 07:15 INR 1.3 12/14/17 07:15 APTT 38 SECONDS (21-34) H 12/14/17 07:15 Sodium 143 mmol/L (132-148) 12/15/17 06:11 Potassium 4.3 mmol/L (3.6-5.2) 12/15/17 06:11 Chloride 96 mmol/L (98-107) L 12/15/17 06:11 Carbon Dioxide 31 mmol/L (22-30) H 12/15/17 06:11 Anion Gap 20 (10-20) 12/15/17 06:11 BUN 26 mg/dL (9-20) H 12/15/17 06:11 Creatinine 4.3 mg/dL (0.8-1.5) H 12/15/17 06:11 Est GFR ( Amer) 17 12/15/17 06:11 Est GFR (Non-Af Amer) 14 12/15/17 06:11 POC Glucose (mg/dL) 181 mg/dL (65-110) H 12/16/17 11:59 Random Glucose 259 mg/dL (75-110) H 12/15/17 06:11 Calcium 10.1 mg/dl (8.6-10.4) 12/15/17 06:11 Phosphorus 3.1 mg/dL (2.5-4.5) 12/15/17 06:11 Total Bilirubin 1.5 mg/dL (0.2-1.3) H 12/15/17 06:11 AST 36 U/L (17-59) 12/15/17 06:11 ALT 22 U/L (21-72) 12/15/17 06:11 Alkaline Phosphatase 113 U/L (38-126) 12/15/17 06:11 Troponin I 0.0220 ng/mL (0.00-0.120) 12/11/17 21:30 NT-Pro-B Natriuret Pep 04623 pg/mL (0-900) H 12/11/17 21:30 Total Protein 9.9 g/dL (6.3-8.3) H 12/15/17 06:11 Total Protein (PEP) 10.2 g/dL (6.1-8.1) H 12/15/17 10:16 Albumin 4.6 g/dL (3.5-5.0) 12/15/17 06:11 Globulin 5.3 gm/dL (2.2-3.9) H 12/15/17 06:11 Albumin/Globulin Ratio 0.9 (1.0-2.1) L 12/15/17 06:11 PTH Intact Whole Molec 103 pg/mL (14-64) H 12/14/17 07:15 Tacrolimus (LC/MS/MS) 6.8 mcg/L (5.0-20.0) 12/13/17 06:51 Hep Bs Antigen Negative (NEGATIVE) 12/14/17 18:49 - Hospital Course Hospital Course: Chief complaint: Constipation History present illness: 61-year-old male with history of heart transplant, on immunosuppressive treatment, end-stage renal disease on dialysis, recent had a hematuria, also urinary tract infection, Patient came to the emergency room with the significant problem and going to the bathroom. He was not having BM at all, obstipation noted for almost a few days. He was trying to go to the bathroom, but unable to do it. So he came into the emergency room because of the severe constipation. While he was being evaluated in the emergency room, she he was noted to have large pleural effusion on the left lung, neither monitoring, and management. Patient was evaluated, and manually disimpacted large stools last night, following that he started having bowel movements. This morning he was having regular bowel movement. He is feeling slightly better now. He received hemodialysis today. He denies any chest pain, no shortness of breath noted, no cough noted, no fever. Past medical history: Heart, transplant on immunosuppressive treatment, end-stage renal disease on dialysis, hypertension, diabetes, hypercholesterolemia, urinary tract infection. Allergy: No known drug allergy but imepenem causes AMS Personal history: Nonsmoker nonalcoholic disabled Family history noncontributory. Review of systems: Currently having some headache, complaining of episodes of hiccups, abdominal pain, shortness of breath and cough noted, bilateral leg swelling On examination: HEENT PERRLA, neck supple No thyromegaly was noted and no cervical adenopathy noted Bilateral wheezing and rales noted CVS regular heart sound, no murmur Abdomen soft and no organomegaly Bilateral edema noted [employer] alert awake oriented x3 no functional neurological deficit. Vital signs is stable. Labs reviewed. Chest x-ray CHF pattern noted. Assessment and recommendation: 61-year-old male with history of heart transplant, immunosuppressive treatment, end-stage renal disease on dialysis, hypertension, diabetes, peripheral vascular disease, pedal edema, and urinary tract infection. Nephrology evaluation, and follow-up. Patient possibly has acute severe constipation. We will get a GI evaluation. Continue the Colace, and lactulose. The patient is currently having also large moderate to large pleural effusion on the left lung. Underlying atelectasis, and pneumonia cannot be ruled out. But will hold off antibiotic as the patient does not have any signs of infection at this time. We will get a CAT scan of the chest. If needed may need a thoracentesis. We will follow the patient. DVT GI prophylaxis Course in the hospital: Patient admitted to the hospital. Enema was given Disimpacted. Patient started having BM now. Patient also having some shortness of breath. Patient underwent left lung thoracentesis on 12/14/2017. Patient tolerated the procedure well. He had 1.1 L of luma colored fluid was removed from the left chest. He did have a dialysis yesterday. Today again he got dialysis. He is feeling much better. He will be discharged home. He will continue his home medication. He will continue his immunosuppressive treatment. We will follow the patient as an outpatient. Final diagnosis: Acute respiratory failure, secondary to pleural effusion, most likely fluid overload state and heart failure. Patient also has a history of transplant for the heart. End-stage renal disease on dialysis. Hypertension. We will follow the patient. Discharge Exam - Head Exam Head Exam: ATRAUMATIC, NORMAL INSPECTION Discharge Plan - Follow Up Plan Condition: GOOD Disposition: HOME/ ROUTINE Instructions: Dialysis Diet , Heart Failure, Adult (DC), Constipation, Adult ( DC), Pleural Effusion (DC), End Stage Kidney Disease (DC), Thoracentesis (DC) Referrals: Lauren Rodas MD [Staff Provider] -
--- NOTE | 2017-12-16 16:58 | RAD ---
HISTORY: fever, r/o pneumonia COMPARISON: Comparison chest dated 12/14/2017 the TECHNIQUE: Chest PA and lateral FINDINGS: LUNGS: Mild pulmonary vascular congestive changes with bilateral lower lobe alveolar-type infiltrates and bilateral effusions left larger than right. . PLEURA: No significant pleural effusion identified. No pneumothorax apparent. CARDIOVASCULAR: Cardiomegaly OSSEOUS STRUCTURES: No significant abnormalities. VISUALIZED UPPER ABDOMEN: Normal. OTHER FINDINGS: None. IMPRESSION: Mild pulmonary vascular congestive changes with bilateral lower lobe alveolar-type infiltrates and bilateral effusions left larger than right. .
[2017-12-16 17:27] VITALS: BP 191/93; PULSE 91; RESP 20; TEMP 99; O2SAT 94
[2017-12-19 05:06] LABS: ALBUMIN (PEP) 4.6 g/dL (3.8-4.8); ALPHA-1-GLOBULIN (PEP) 0.5 g/dL (0.2-0.3)
== END 2017-12-16 20:30 | disposition home or self-care (01) ==
LOC: C.ER 18:42 → C.9E 22:12 → C.6T 12-12 00:54
PROVIDERS: ADMIT Internal Medicine; ATTEND Internal Medicine
DX: I13.2 Hypertensive heart and chronic kidney disease with heart failure and with stage 5 chronic kidney disease, or end stage renal disease (principal); J96.01 Acute respiratory failure with hypoxia; K59.09 Other constipation; J90 Pleural effusion, not elsewhere classified; E11.22 Type 2 diabetes mellitus with diabetic chronic kidney disease; I50.9 Heart failure, unspecified; N18.6 End stage renal disease; Z99.2 Dependence on renal dialysis; E78.00 Pure hypercholesterolemia, unspecified; I25.10 Atherosclerotic heart disease of native coronary artery without angina pectoris; Z94.1 Heart transplant status; I42.9 Cardiomyopathy, unspecified; N39.0 Urinary tract infection, site not specified; E11.51 Type 2 diabetes mellitus with diabetic peripheral angiopathy without gangrene; Z79.4 Long term (current) use of insulin
CPT/HCPCS: 32555; 36415; 71045; 71046; 71250; 74022; 80053; 80197; 82948; 83880; 83970; 84100; 84155; 84165; 84484; 85025; 85027; 85610; 85730; 87340; 90970; 93005; 99285; G0257; G0378; J7507

== ENCOUNTER 2018-02-13 13:51 | Inpatient (IN) | payer MEDICARE, OTHER ==
[2018-02-13 14:18] VITALS: BMI 24.1
--- NOTE | 2018-02-13 14:53 | RAD ---
Date of service: 02/13/2018 PROCEDURE: CHEST RADIOGRAPH, 1 VIEW HISTORY: SOB COMPARISON: 02/01/2018 FINDINGS: LUNGS: Left pleural effusion with inferred compressive left basal atelectasis. Concomitant underlying infiltrate not excluded. PLEURA: Left pleural effusion as above. No pneumothorax appreciated CARDIOVASCULAR: Cardiomegaly-midline sternotomy.Mild-moderate pulmonary venous congestion -similar. OSSEOUS STRUCTURES: No significant abnormalities. VISUALIZED UPPER ABDOMEN: Normal. OTHER FINDINGS: None. IMPRESSION: Left pleural effusion with inferred compressive passive atelectasis. Concomitant underlying infiltrate left lung base not excluded. No significant change in degree appreciated. Cardiomegaly and pulmonary venous congestion also both similar.
[2018-02-13 15:02] LABS: BASO # 0.1 K/uL (0.0-0.2); BASO % 1.3 % (0.0-2.0); EOS # 0.2 K/uL (0.0-0.7); EOS % 3.4 % (0.0-4.0); HEMOGLOBIN 10.7 g/dL (12.0-18.0); LYMPH # 0.4 K/uL (1.0-4.3); LYMPH % 9.6 % (20.0-40.0); MEAN CORPUSCULAR HEMOGLOBIN 31.1 pg (27.0-31.0); MEAN CORPUSCULAR HGB CONC 33.4 g/dL (33.0-37.0); MEAN PLATELET VOLUME 7.7 fL (7.2-11.7); MONO # 0.6 K/uL (0.0-0.8); MONO % 12.2 % (0.0-10.0); NEUT # 3.3 K/uL (1.8-7.0); NEUT % 73.5 % (50.0-75.0); NRBC % 0.1 % (0.0-2.0); PLATELET COUNT 207 K/uL (130-400); RBC 3.42 Mil/uL (4.40-5.90); RED CELL DISTRIBUTION WIDTH 17.2 % (11.5-14.5); WHITE BLOOD COUNT 4.5 K/uL (4.8-10.8)
[2018-02-13 15:05] LABS: MEAN CELL VOLUME 93.3 fL (80.0-94.0)
[2018-02-13 15:09] LABS: INR 1.4; PROTHROMBIN TIME 15.5 SECONDS (9.7-12.2)
--- NOTE | 2018-02-13 15:29 | C.PDOC ---
History Of Present Illness 62yo male with history of CAD, Diabetes, HTN, Hypercholesterolemia, End Stage Renal Disease, Chronic Kidney Disease, sent to ER by Dr. Rodas for evaluation due to possible fluid retention and increasing shortness of breath. Patient denies any associated chest pain. He had a dialysis session yesterday which he completed. Patient denies any associated cough, fever or chills. Time Seen by Provider: 02/13/18 14:20 Chief Complaint (Nursing): Lower Extremity Problem/Injury History Per: Patient History/Exam Limitations: no limitations Onset/Duration Of Symptoms: Days Current Symptoms Are (Timing): Still Present Additional History Per: Patient Past Medical History Reviewed: Historical Data, Nursing Documentation, Vital Signs Vital Signs: Last Vital Signs Temp 98.5 F 02/15/18 15:00 Pulse 86 02/15/18 15:00 Resp 18 02/15/18 15:00 BP 163/80 H 02/15/18 15:00 Pulse Ox 98 02/15/18 15:00 - Medical History PMH: CAD, Diabetes, HTN, Hypercholesterolemia, End Stage Renal Disease, Chronic Kidney Disease (ESRD on HD) Denies: Kidney Stones Surgical History: Endoscopy - [facility] Procedures (04/01/17) ENDOSC POLYPECTOMY OF LG INTEST (10/09/13) PERFORMANCE OF URINARY FILTRATION, MULTIPLE (11/23/16) PERFORMANCE OF URINARY FILTRATION, SINGLE (04/17/16) REMOVAL OF DRAINAGE DEVICE FROM BLADDER, EXTERNAL APPROACH (11/23/16) Family History: States: No Known Family Hx - Social History Hx Tobacco Use: No Hx Alcohol Use: No Hx Substance Use: No - Immunization History Hx Tetanus Toxoid Vaccination: Yes Hx Influenza Vaccination: Yes Hx Pneumococcal Vaccination: Yes Review Of Systems Except As Marked, All Systems Reviewed And Found Negative. Constitutional: Negative for: Fever, Chills Cardiovascular: Negative for: Chest Pain Respiratory: Positive for: Shortness of Breath. Negative for: Cough Musculoskeletal: Positive for: Other (lower extremity swelling) Physical Exam - Physical Exam Appears: Non-toxic Skin: Normal Color, Warm Head: Atraumatic, Normacephalic Eye(s): bilateral: Normal Inspection, EOMI Neck: Normal ROM, Supple Chest: Symmetrical Cardiovascular: Rhythm Regular, No Murmur Respiratory: Decreased Breath Sounds (bases bilaterally), No Wheezing Extremity: Pedal Edema (2+ pitting edema bilateral lower extremities), No Calf Tenderness, No Deformity, Other (Right arm with AV fistula) Neurological/Psych: Oriented x3 ED Course And Treatment - Laboratory Results Result Diagrams: 02/13/18 14:55 02/13/18 14:55 ECG: Interpreted By Me, Viewed By Me ECG Rhythm: Sinus Rhythm ECG Interpretation: Normal Interpretation Of ECG: Normal axis, normal intervals, nonspecific T-wave changes Rate From EC Medical Decision Making Medical Decision Making: Assessment: Fluid overload Plan: * EKG * Labs * CXR [address] Rodas and patient admitted under his service. Disposition - Disposition Disposition: HOSPITALIZED Disposition Time: 16:37 Condition: GOOD - Clinical Impression Clinical Impression: Fluid overload, ESRD (end stage renal disease) - Scribe Statement The provider has reviewed the documentation as recorded by the Sendy Larsen Provider Attestation: All medical record entries made by the Analisaibselwyn were at my direction and personally dictated by me. I have reviewed the chart and agree that the record accurately reflects my personal performance of the history, physical exam, medical decision making, and the department course for this patient. I have also personally directed, reviewed, and agree with the discharge instructions and disposition.
[2018-02-13 15:33] LABS: ANISOCYTOSIS SLIGHT; EOSINOPHIL 3 % (0-4); HYPOCHROMIC SLIGHT; LYMPHOCYTE 11 % (20-40); MONOCYTE 13 % (0-10); NEUTROPHIL 73 % (50-75); PLATELET ESTIMATE NORMAL (NORMAL); POIKILOCYTOSIS SLIGHT; TOTAL CELLS COUNTED 100
[2018-02-13 15:37] LABS: TARGET CELLS SLIGHT
[2018-02-13 15:42] LABS: ALB/GLOB RATIO 0.9 (1.0-2.1); ALBUMIN 4.2 g/dL (3.5-5.0); CALCIUM 9.6 mg/dl (8.6-10.4)
[2018-02-13 15:54] LABS: TROPONIN I 0.015 ng/mL (0.00-0.120)
[2018-02-13] MEDS ORDERED: Pantoprazole 40 mg EC Tab PO PRN (19:43)
--- NOTE | 2018-02-13 19:43 | CP.PCM.HP ---
History of Present Illness - History of Present Illness History of Present Illness: Came to the office with the shortness of breath bilateral leg swelling patient was sent emergency room with hypoxia History present illness: 61-year-old male with history of heart transplant, on immunosuppressive treatment, end-stage renal disease on dialysis, recent had a hematuria, also urinary tract infection, Patient had a few hospitalization in the past. Recently hospitalized with the pleural effusion, underwent a thoracentesis, and also evaluation and management, especially for the heart disease and heart failure. Patient came to the office today, comparing of bilateral worsening leg swelling. Swelling got more worse recently. Also he was having severe exertional dyspnea. Cough noted. No mucus noted. No fever or chills. But worsening in the leg swelling, and SOB. Patient had few days ago x-ray chest which was showing increasing left lung fluids noted And also in my office patient was hypoxic SPO2 was 86 saturation in room air Past medical history: Heart, transplant on immunosuppressive treatment, end-stage renal disease on dialysis, hypertension, diabetes, hypercholesterolemia, urinary tract infection. Allergy: No known drug allergy but imepenem causes AMS Personal history: Nonsmoker nonalcoholic disabled Family history noncontributory. Review of systems: Currently having some headache, complaining of episodes of hiccups, abdominal pain, shortness of breath and cough noted, bilateral leg swelling On examination: HEENT PERRLA, neck supple No thyromegaly was noted and no cervical adenopathy noted Bilateral wheezing and rales noted CVS regular heart sound, no murmur Abdomen soft and no organomegaly Bilateral edema noted [employer] WORKER alert awake oriented x3 no functional neurological deficit. Labs reviewed Chest x-ray showing worsening left lower lung pleural effusion. Also pleural effusion tracking in the major fissure Assessment and recommendation: 61-year-old male with history of heart transplant, immunosuppressive treatment, end-stage renal disease on dialysis, hypertension, diabetes, peripheral vascular disease, pedal edema, and urinary tract infection. Now admitted with the worsening congestive heart failure. Diastolic heart failure possible. Pleural effusion. Worsening pulmonary edema. Nephrology evaluation, and follow-up. The patient is currently having also large moderate to large pleural effusion on the left lung. Underlying atelectasis, and pneumonia cannot be ruled out. We will get a CAT scan of the chest. If needed may need a thoracentesis. We will follow the patient. DVT GI prophylaxis Present on Admission - Present on Admission Any Indicators Present on Admission: No History of DVT/PE: No History of Uncontrolled Diabetes: No Urinary Catheter: No Decubitus Ulcer Present: No Past Patient History - Infectious Disease Hx of Infectious Diseases: None - Past Medical History & Family History Past Medical History?: Yes - Past Social History Smoking Status: Never Smoked - CARDIAC Hx Hypercholesterolemia: Yes Hx Hypertension: Yes - PULMONARY Hx Respiratory Disorders: No - NEUROLOGICAL Hx Neurological Disorder: No - HEENT Hx HEENT Problems: Yes Hx Cataracts: Yes - RENAL Hx Chronic Kidney Disease: Yes (ESRD on HD) Hx Kidney Stones: No - ENDOCRINE/METABOLIC Hx Endocrine Disorders: Yes Hx Diabetes Mellitus Type 1: Yes - HEMATOLOGICAL/ONCOLOGICAL Hx Blood Disorders: No - INTEGUMENTARY Hx Dermatological Problems: No - MUSCULOSKELETAL/RHEUMATOLOGICAL Hx Musculoskeletal Disorders: No Hx Falls: No - GASTROINTESTINAL Hx Gastrointestinal Disorders: No - GENITOURINARY/GYNECOLOGICAL Hx Genitourinary Disorders: Yes Hx Hematuria: Yes Hx Urinary Tract Infection: Yes - PSYCHIATRIC Hx Substance Use: No - SURGICAL HISTORY Hx Surgeries: Yes Hx Arteriovenous Shunt: Yes (right arm) Hx Open Heart Surgery: Yes (OHT) Other/Comment: HEART TRANSPLANT - ANESTHESIA Hx Anesthesia: Yes Hx Anesthesia Reactions: No Hx Malignant Hyperthermia: No Meds Allergies/Adverse Reactions: Allergies Allergy/AdvReac Type Severity Reaction Status Date / Time meropenem Allergy Severe SWELLING Verified 02/13/18 14:14 morphine Allergy Severe ANGIOEDEMA Verified 02/13/18 14:14 Results - Vital Signs Recent Vital Signs: Last Vital Signs Temp Pulse 78 02/13/18 18:55 Resp 22 02/13/18 18:55 BP 168/81 H 02/13/18 18:55 Pulse Ox 96 02/13/18 18:55 - Labs Result Diagrams: 02/13/18 14:55 02/13/18 14:55 Labs: Laboratory Results - last 24 hr 02/13/18 02/13/18 02/13/18 14:55 14:55 14:55 WBC 4.5 L RBC 3.42 L Hgb 10.7 L Hct 31.9 L MCV 93.3 D MCH 31.1 H MCHC 33.4 RDW 17.2 H Plt Count 207 MPV 7.7 Neut % (Auto) 73.5 Lymph % (Auto) 9.6 L Grimes % (Auto) 12.2 H Eos % (Auto) 3.4 Baso % (Auto) 1.3 Neut # (Auto) 3.3 Lymph # (Auto) 0.4 L Grimes # (Auto) 0.6 Eos # (Auto) 0.2 Baso # (Auto) 0.1 Neutrophils % (Manual) 73 Lymphocytes % (Manual) 11 L Monocytes % (Manual) 13 H Eosinophils % (Manual) 3 Platelet Estimate Normal Hypochromasia (manual) Slight Poikilocytosis (manual Slight Anisocytosis (manual) Slight Target Cells Slight PT 15.5 H INR 1.4 APTT 40 H Sodium 137 Potassium 5.0 Chloride 91 L Carbon Dioxide 32 H Anion Gap 19 BUN 25 H Creatinine 5.0 H Est GFR ( Amer) 14 Est GFR (Non-Af Amer) 12 Random Glucose 305 H Calcium 9.6 Magnesium 2.1 Total Bilirubin 0.9 AST 33 ALT 30 Alkaline Phosphatase 88 Troponin I 0.0150 NT-Pro-B Natriuret Pep 83715 H Total Protein 8.8 H Albumin 4.2 Globulin 4.6 H Albumin/Globulin Ratio 0.9 L
[2018-02-14] MEDS: Albuterol-Ipratrop 3 mg / 0.5 (3 ml) UD INH SCH ×4 (02:25→20:00)
--- NOTE | 2018-02-14 09:36 | PCM.SURG1 ---
Surgeon's Initial Post Op Note - Surgeon's Notes Surgeon: Johan Walker MD Software Configuration Specialist: NONE Type of Anesthesia: Local Pre-Operative Diagnosis: Left pleural effusion Operative Findings: US showed large left effusion Post-Operative Diagnosis: Left pleural effusion Operation Performed: US guided left thoracentesis Specimen/Specimens Removed: 1 liter of luma colored fluid Estimated Blood Loss: EBL {In ML}: 0 Drains Used: No Drains Post-Op Condition: Fair Date of Surgery/Procedure: 02/14/18 Time of Surgery/Procedure: 09:35
[2018-02-14] MEDS: (Lantus) Insulin Glargine, Recombinant SC SCH (10:50)
--- NOTE | 2018-02-14 11:56 | RAD ---
Date of service: 02/14/2018 PROCEDURE: CHEST RADIOGRAPH, 1 VIEW HISTORY: Status post left thoracentesis. COMPARISON: 02/13/2018. FINDINGS: LUNGS: There is moderate pulmonary venous congestion. PLEURA: No pneumothorax. Small right and moderate left pleural effusions. No change in moderate left pleural effusion CARDIOVASCULAR: Severe cardiomegaly. Status post CABG. OSSEOUS STRUCTURES: No significant abnormalities. VISUALIZED UPPER ABDOMEN: Normal. OTHER FINDINGS: None. IMPRESSION: Worsening congestive heart failure. Persistent moderate left pleural effusion and interval development of small right pleural effusion.
--- NOTE | 2018-02-14 12:33 | CT ---
Date of Service: 02/13/18 CT chest without IV contrast Indication: Effusion Technique: Contiguous axial images were obtained through the chest without intravenous contrast enhancement. Sagittal and coronal reconstructions were generated and reviewed. This CT exam was performed using 1 or more of the following dose reduction techniques: Automated exposure control, adjustment of the MAA and/or kV according to patient size, and/or use of iterative reconstruction technique. Radiation dose (DLP): 279.06 MGy-cm. Comparison: Chest x-ray performed 02/13/18 Findings: Examination limited by motion. Visualized portions of the inferior thyroid gland appear unremarkable. The unenhanced mediastinal and hilar vascular structures appear grossly unremarkable. Cardiomegaly. Dense coronary artery calcifications. Atherosclerotic calcifications of the aorta and branches. Prominent sub cm mediastinal lymph nodes, nonspecific. Moderate left pleural effusion and associated compressive consolidation. Small right pleural effusion and right scattered atelectasis. Suspect partial loculation of the effusions. No pneumothorax. Marked distal esophageal wall thickening. Small hiatal hernia. Limited visualization of the noncontrast upper abdomen appears grossly unremarkable. Median sternotomy wires. Degenerative changes of the spine. Impression: Moderate left pleural effusion and associated compressive consolidation. Small right pleural effusion and right scattered atelectasis. Suspect partial loculation of the effusions. Marked distal esophageal wall thickening. Small hiatal hernia. Preliminary impression was provided by virtual radiologic.
--- NOTE | 2018-02-14 14:08 | US ---
PROCEDURE: Date of procedure: 02/14/2018 Procedure: 1. Ultrasound-guided left thoracentesis, CPT 11419 Medications: 5cc 1% Lidocaine HISTORY: Left pleural effusion, shortness of breath TECHNIQUE: Following informed consent ,the Patients' left chest was marked. Procedure time-out was called, and the patient was placed in the sitting position and limited ultrasound showed a large left effusion. The patient's left back was prepped and draped in the usual sterile fashion. After the skin was anesthetized with lidocaine, a drainage catheter was advanced under ultrasound guidance into the pleural space. Ultrasound-guided thoracentesis was performed. A total of 1000 cubic centimeters of straw-colored fluid removed without complication. A Xeroform dressing was applied. IMPRESSION: Ultrasound guided left thoracentesis. There were no immediate complications.
--- NOTE | 2018-02-14 14:14 | CP.PCM.CON ---
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 Has h/o fluid overload managed with dialysis ultrafiltration. Admitted post thoracentesis Recently hospitalized with the pleural effusion, underwent a thoracentesis, and also evaluation and management, especially for the heart disease and heart failure. Patient came toPMD, comparing of bilateral worsening leg swelling. Swelling got more worse recently. Also he was having severe exertional dyspnea. Cough worsened. No mucus noted. No fever or chills. But worsening in the leg swelling, and SOB. Patient had few days ago x-ray chest which was showing increasing left lung fluids noted Due for dialysis MWF Review of Systems - Constitutional Constitutional: Fatigue, Weakness - EENT Eyes: Blurred Vision, Change in Vision Ears: absent: As Per HPI, Decreased Hearing, Ear Discharge, Ear Pain, Tinnitus, Abnormal Hearing, Disequilibrium, Dizziness, Other Nose/Mouth/Throat: absent: As Per HPI, Epistaxis, Nasal Congestion, Nasal Discharge, Nasal Obstruction, Nasal Trauma, Nose Pain, Post Nasal Drip, Sinus Pain, Sinus Pressure, Bleeding Gums, Change in Voice, Dental Pain, Dry Mouth, Dysphagia, Halitosis, Hoarsness, Lip Swelling, Mouth Lesions, Mouth Pain, Odynophagia, Sore Throat, Throat Swelling, Tongue Swelling, Facial Pain, Neck Pain, Neck Mass, Other - Cardiovascular Cardiovascular: Dyspnea on Exertion, Orthopnea - Respiratory Respiratory: Cough, Dyspnea on Exertion - Gastrointestinal Gastrointestinal: absent: As Per HPI, Abdominal Pain, Belching, Bloating, Change in Bowel Habits, Change in Stool Character, Coffee Ground Emesis, Constipation, Cramping, Diarrhea, Dyspepsia, Dysphagia, Early Satiety, Excessive Flatus, Fecal Incontinence, Heartburn, Hematemesis, Hematochezia, Loose Stools, Melena, Nausea, Odynophagia, Temesmus, Vomiting, Other - Genitourinary Genitourinary: As Per HPI - Musculoskeletal Musculoskeletal: Muscle Cramps, Muscle Weakness, Myalgias - Neurological Neurological: Weakness Past Patient History - Infectious Disease Hx of Infectious Diseases: None - Past Medical History & Family History Past Medical History?: Yes - Past Social History Smoking Status: Former Smoker Chewing Tobacco Use: No Cigar Use: No Alcohol: None Drugs: Denies Home Situation {Lives}: With Family - CARDIAC Hx Cardiac Disorders: Yes Hx Congestive Heart Failure: Yes Hx Hypercholesterolemia: Yes Hx Hypertension: Yes - PULMONARY Hx Respiratory Disorders: No - NEUROLOGICAL Hx Neurological Disorder: No - HEENT Hx HEENT Problems: Yes Hx Cataracts: Yes - RENAL Hx Chronic Kidney Disease: Yes (ESRD on HD) Hx Dialysis: Yes Date of Last Dialysis Treatment: 02/12/18 - ENDOCRINE/METABOLIC Hx Endocrine Disorders: Yes Hx Diabetes Mellitus Type 1: Yes - HEMATOLOGICAL/ONCOLOGICAL Hx Blood Disorders: No - INTEGUMENTARY Hx Dermatological Problems: No - MUSCULOSKELETAL/RHEUMATOLOGICAL Hx Musculoskeletal Disorders: No Hx Falls: No - GASTROINTESTINAL Hx Gastrointestinal Disorders: No - GENITOURINARY/GYNECOLOGICAL Hx Genitourinary Disorders: Yes Hx Hematuria: Yes Hx Urinary Tract Infection: Yes - PSYCHIATRIC Hx Psychophysiologic Disorder: No Hx Substance Use: No - SURGICAL HISTORY Hx Surgeries: Yes Hx Arteriovenous Shunt: Yes (right arm) Hx Open Heart Surgery: Yes (OHT) Other/Comment: HEART TRANSPLANT - ANESTHESIA Hx Anesthesia: Yes Hx Anesthesia Reactions: No Hx Malignant Hyperthermia: No Has any member of the family had a problem w/ anesthesia?: No Meds Allergies/Adverse Reactions: Allergies Allergy/AdvReac Type Severity Reaction Status Date / Time meropenem Allergy Severe SWELLING Verified 02/13/18 14:14 morphine Allergy Severe ANGIOEDEMA Verified 02/13/18 14:14 - Medications Medications: Current Medications Albuterol/Ipratropium (Duoneb 3 Mg/0.5 Mg (3 Ml) Ud) 3 ml INH RQ6 [facility] Last Admin: 02/14/18 07:54 Dose: 3 ml Amlodipine Besylate (Norvasc) 10 mg PO DAILY [facility] Aspirin (Ecotrin) 81 mg PO DAILY [facility] Last Admin: 02/14/18 10:57 Dose: 81 mg Calcium Acetate (Phoslo) 667 mg PO TIDAC [facility] Last Admin: 02/14/18 12:30 Dose: 667 mg Carvedilol (Coreg) 25 mg PO BID [facility] Last Admin: 02/14/18 10:49 Dose: 25 mg Clonidine HCl (Catapres) 0.2 mg PO BID [facility] Last Admin: 02/14/18 10:49 Dose: 0.2 mg Ezetimibe (Zetia) 10 mg PO HS [facility] Last Admin: 02/13/18 22:37 Dose: 10 mg Heparin Sodium (Porcine) (Heparin) 5,000 units SC Q12 [facility] Last Admin: 02/14/18 10:49 Dose: 5,000 units Hydralazine HCl (Apresoline) 50 mg PO TID [facility] Last Admin: 02/14/18 13:21 Dose: 50 mg Insulin Glargine (Lantus) 14 unit SC QAM [facility] Last Admin: 02/14/18 10:50 Dose: 14 units Pantoprazole Sodium (Protonix Ec Tab) 40 mg PO DAILY PRN PRN Reason: Indigestion Last Admin: 02/14/18 10:49 Dose: 40 mg Rosuvastatin Calcium (Crestor) 20 mg PO HS [facility] Last Admin: 02/13/18 22:37 Dose: 20 mg Tacrolimus (Prograf) 5 mg PO QAM [facility] Last Admin: 02/14/18 10:48 Dose: 5 mg Tacrolimus (Prograf) 5 mg PO QPM [facility] Physical Exam - Constitutional Appears: No Acute Distress, Chronically Ill - Head Exam Head Exam: ATRAUMATIC, NORMAL INSPECTION - Eye Exam Eye Exam: EOMI, Normal appearance - Neck Exam Neck exam: Positive for: Normal Inspection. Negative for: Tenderness - Respiratory Exam Respiratory Exam: Rhonchi, NORMAL BREATHING PATTERN - Cardiovascular Exam Cardiovascular Exam: REGULAR RHYTHM, +S1 - GI/Abdominal Exam GI & Abdominal Exam: Soft. absent: Tenderness - Extremities Exam Extremities exam: Positive for: normal inspection. Negative for: tenderness - Neurological Exam Neurological exam: Alert, CN II-XII Intact - Skin Skin Exam: Dry, Warm Results - Vital Signs Recent Vital Signs: Last Vital Signs Temp 98.5 F 02/14/18 10:44 Pulse 78 02/14/18 13:20 Resp 18 02/14/18 10:44 BP 169/85 H 02/14/18 13:20 Pulse Ox 95 02/14/18 10:44 - Labs Result Diagrams: 02/13/18 14:55 02/13/18 14:55 Labs: Laboratory Results - last 24 hr 02/13/18 02/13/18 02/13/18 14:55 14:55 14:55 WBC 4.5 L RBC 3.42 L Hgb 10.7 L Hct 31.9 L MCV 93.3 D MCH 31.1 H MCHC 33.4 RDW 17.2 H Plt Count 207 MPV 7.7 Neut % (Auto) 73.5 Lymph % (Auto) 9.6 L Barren % (Auto) 12.2 H Eos % (Auto) 3.4 Baso % (Auto) 1.3 Neut # (Auto) 3.3 Lymph # (Auto) 0.4 L Barren # (Auto) 0.6 Eos # (Auto) 0.2 Baso # (Auto) 0.1 Neutrophils % (Manual) 73 Lymphocytes % (Manual) 11 L Monocytes % (Manual) 13 H Eosinophils % (Manual) 3 Platelet Estimate Normal Hypochromasia (manual) Slight Poikilocytosis (manual Slight Anisocytosis (manual) Slight Target Cells Slight PT 15.5 H INR 1.4 APTT 40 H Sodium 137 Potassium 5.0 Chloride 91 L Carbon Dioxide 32 H Anion Gap 19 BUN 25 H Creatinine 5.0 H Est GFR ( Amer) 14 Est GFR (Non-Af Amer) 12 POC Glucose (mg/dL) Random Glucose 305 H Calcium 9.6 Magnesium 2.1 Total Bilirubin 0.9 AST 33 ALT 30 Alkaline Phosphatase 88 Troponin I 0.0150 NT-Pro-B Natriuret Pep 39014 H Total Protein 8.8 H Albumin 4.2 Globulin 4.6 H Albumin/Globulin Ratio 0.9 L 02/13/18 02/14/18 02/14/18 21:43 06:23 11:14 WBC RBC Hgb Hct MCV MCH MCHC RDW Plt Count MPV Neut % (Auto) Lymph % (Auto) Barren % (Auto) Eos % (Auto) Baso % (Auto) Neut # (Auto) Lymph # (Auto) Barren # (Auto) Eos # (Auto) Baso # (Auto) Neutrophils % (Manual) Lymphocytes % (Manual) Monocytes % (Manual) Eosinophils % (Manual) Platelet Estimate Hypochromasia (manual) Poikilocytosis (manual Anisocytosis (manual) Target Cells PT INR APTT Sodium Potassium Chloride Carbon Dioxide Anion Gap BUN Creatinine Est GFR ( Amer) Est GFR (Non-Af Amer) POC Glucose (mg/dL) 260 H 121 H 248 H Random Glucose Calcium Magnesium Total Bilirubin AST ALT Alkaline Phosphatase Troponin I NT-Pro-B Natriuret Pep Total Protein Albumin Globulin Albumin/Globulin Ratio Assessment & Plan (1) Heart recipient Status: Acute (2) ESRD (end stage renal disease) Status: Acute (3) CHF (congestive heart failure) Status: Acute (4) Pleural effusion Status: Acute - Assessment and Plan (Free Text) Plan: dialysis with adequate fluid removal
--- NOTE | 2018-02-14 16:59 | CARD ---
APPROVED REPORT Date of service: 02/13/2018 EKG Measurement Heart [id number] <Conclusion> Normal sinus rhythm Nonspecific T wave abnormality Prolonged QT Abnormal ECG
--- NOTE | 2018-02-14 23:07 | CP.PCM.PN ---
Subjective - Date & Time of Evaluation Date of Evaluation: 02/14/18 Time of Evaluation: 23:07 Objective - Vital Signs/Intake and Output Vital Signs (last 24 hours): Temp Pulse Resp BP Pulse Ox 98.4 F 83 20 173/89 H 95 02/14/18 19:09 02/14/18 21:29 02/14/18 18:15 02/14/18 19:18 02/14/18 19:09 Intake and Output: 02/14/18 02/15/18 18:59 06:59 Intake Total 120 Balance 120 - Medications Medications: Current Medications Albuterol/Ipratropium (Duoneb 3 Mg/0.5 Mg (3 Ml) Ud) 3 ml INH RQ6 [facility] Last Admin: 02/14/18 20:00 Dose: Not Given Amlodipine Besylate (Norvasc) 10 mg PO DAILY [facility] Aspirin (Ecotrin) 81 mg PO DAILY [facility] Last Admin: 02/14/18 10:57 Dose: 81 mg Calcium Acetate (Phoslo) 667 mg PO TIDAC [facility] Last Admin: 02/14/18 19:19 Dose: 667 mg Carvedilol (Coreg) 25 mg PO BID [facility] Last Admin: 02/14/18 19:18 Dose: 25 mg Clonidine HCl (Catapres) 0.2 mg PO BID [facility] Last Admin: 02/14/18 19:20 Dose: 0.2 mg Ezetimibe (Zetia) 10 mg PO HS [facility] Last Admin: 02/14/18 21:15 Dose: 10 mg Heparin Sodium (Porcine) (Heparin) 5,000 units SC Q12 [facility] Last Admin: 02/14/18 21:16 Dose: 5,000 units Hydralazine HCl (Apresoline) 50 mg PO TID [facility] Last Admin: 02/14/18 19:19 Dose: 50 mg Insulin Glargine (Lantus) 14 unit SC QAM [facility] Last Admin: 02/14/18 10:50 Dose: 14 units Pantoprazole Sodium (Protonix Ec Tab) 40 mg PO DAILY PRN PRN Reason: Indigestion Last Admin: 02/14/18 10:49 Dose: 40 mg Rosuvastatin Calcium (Crestor) 20 mg PO [facility] Last Admin: 02/14/18 21:15 Dose: 20 mg Tacrolimus (Prograf) 5 mg PO QAM [facility] Last Admin: 02/14/18 10:48 Dose: 5 mg Tacrolimus (Prograf) 5 mg PO QPM [facility] Last Admin: 02/14/18 19:19 Dose: 5 mg - Labs Labs: 02/13/18 14:55 02/13/18 14:55 PT 15.5 SECONDS (9.7-12.2) H 02/13/18 14:55 INR 1.4 02/13/18 14:55 APTT 40 SECONDS (21-34) H 02/13/18 14:55
[2018-02-15] MEDS: Albuterol-Ipratrop 3 mg / 0.5 (3 ml) UD INH SCH ×3 (01:32→13:31)
--- NOTE | 2018-02-15 09:15 | CP.PCM.PN ---
Subjective - Date & Time of Evaluation Date of Evaluation: 02/15/18 Time of Evaluation: 09:12 - Subjective Subjective: Stable dialysis 02/14- UF 2800ml Not dyspneic now c/o back pain- near site thoracentesis No noted back lesions BP elevated still labs acceptable Objective - Vital Signs/Intake and Output Vital Signs (last 24 hours): Temp Pulse Resp BP Pulse Ox 98.0 F 92 H 20 172/88 H 95 02/15/18 07:00 02/15/18 07:32 02/15/18 07:00 02/15/18 07:00 02/15/18 07:00 Intake and Output: 02/15/18 02/15/18 06:59 18:59 Intake Total 120 Balance 120 - Medications Medications: Current Medications Albuterol/Ipratropium (Duoneb 3 Mg/0.5 Mg (3 Ml) Ud) 3 ml INH RQ6 [facility] Last Admin: 02/15/18 07:43 Dose: Not Given Amlodipine Besylate (Norvasc) 10 mg PO DAILY [facility] Aspirin (Ecotrin) 81 mg PO DAILY [facility] Last Admin: 02/14/18 10:57 Dose: 81 mg Calcium Acetate (Phoslo) 667 mg PO TIDAC [facility] Last Admin: 02/15/18 08:16 Dose: 667 mg Carvedilol (Coreg) 25 mg PO BID [facility] Last Admin: 02/14/18 19:18 Dose: 25 mg Clonidine HCl (Catapres) 0.2 mg PO BID [facility] Last Admin: 02/14/18 19:20 Dose: 0.2 mg Ezetimibe (Zetia) 10 mg PO HS [facility] Last Admin: 02/14/18 21:15 Dose: 10 mg Heparin Sodium (Porcine) (Heparin) 5,000 units SC Q12 [facility] Last Admin: 02/14/18 21:16 Dose: 5,000 units Hydralazine HCl (Apresoline) 100 mg PO TID [facility] Insulin Glargine (Lantus) 14 unit SC QAM [facility] Last Admin: 02/14/18 10:50 Dose: 14 units Pantoprazole Sodium (Protonix Ec Tab) 40 mg PO DAILY PRN PRN Reason: Indigestion Last Admin: 02/14/18 10:49 Dose: 40 mg Rosuvastatin Calcium (Crestor) 20 mg PO HS [facility] Tacrolimus (Prograf) 5 mg PO QAM [facility] Last Admin: 02/14/18 10:48 Dose: 5 mg Tacrolimus (Prograf) 5 mg PO QPM [facility] Last Admin: 02/14/18 19:19 Dose: 5 mg - Labs Labs: 02/13/18 14:55 02/13/18 14:55 PT 15.5 SECONDS (9.7-12.2) H 02/13/18 14:55 INR 1.4 02/13/18 14:55 APTT 40 SECONDS (21-34) H 02/13/18 14:55 - Constitutional Appears: No Acute Distress, Chronically Ill - Head Exam Head Exam: NORMAL INSPECTION, NORMOCEPHALIC - Eye Exam Eye Exam: EOMI, Normal appearance - Neck Exam Neck Exam: Normal Inspection. absent: Tenderness - Respiratory Exam Respiratory Exam: Decreased Breath Sounds, NORMAL BREATHING PATTERN - Cardiovascular Exam Cardiovascular Exam: REGULAR RHYTHM, +S1 - GI/Abdominal Exam GI & Abdominal Exam: Soft. absent: Tenderness - Extremities Exam Extremities Exam: Normal Inspection. absent: Tenderness - Neurological Exam Neurological Exam: Awake, CN II-XII Intact - Skin Skin Exam: Dry, Warm Assessment and Plan (1) Heart recipient Status: Acute (2) ESRD (end stage renal disease) Status: Acute (3) CHF (congestive heart failure) Status: Acute (4) Pleural effusion Status: Acute - Assessment and Plan (Free Text) Plan: Increase BP meds Dialysis MWF with adequate UF rate check phos
[2018-02-15] MEDS: (Lantus) Insulin Glargine, Recombinant SC SCH (09:18)
--- NOTE | 2018-02-15 12:51 | CP.PCM.PN ---
Subjective - Date & Time of Evaluation Date of Evaluation: 02/15/18 Time of Evaluation: 12:50 Objective - Vital Signs/Intake and Output Vital Signs (last 24 hours): Temp Pulse Resp BP Pulse Ox 98.0 F 92 H 20 169/87 H 95 02/15/18 07:00 02/15/18 07:32 02/15/18 07:00 02/15/18 09:17 02/15/18 07:00 Intake and Output: 02/15/18 02/15/18 06:59 18:59 Intake Total 120 Balance 120 - Medications Medications: Current Medications Albuterol/Ipratropium (Duoneb 3 Mg/0.5 Mg (3 Ml) Ud) 3 ml INH RQ6 [facility] Last Admin: 02/15/18 07:43 Dose: Not Given Amlodipine Besylate (Norvasc) 10 mg PO DAILY [facility] Last Admin: 02/15/18 09:36 Dose: 10 mg Aspirin (Ecotrin) 81 mg PO DAILY [facility] Last Admin: 02/15/18 09:17 Dose: 81 mg Calcium Acetate (Phoslo) 667 mg PO TIDAC [facility] Last Admin: 02/15/18 12:30 Dose: 667 mg Carvedilol (Coreg) 25 mg PO BID [facility] Last Admin: 02/15/18 09:17 Dose: 25 mg Clonidine HCl (Catapres) 0.2 mg PO BID [facility] Last Admin: 02/15/18 09:16 Dose: 0.2 mg Ezetimibe (Zetia) 10 mg PO [facility] Last Admin: 02/14/18 21:15 Dose: 10 mg Heparin Sodium (Porcine) (Heparin) 5,000 units SC Q12 [facility] Last Admin: 02/15/18 09:17 Dose: 5,000 units Hydralazine HCl (Apresoline) 100 mg PO TID [facility] Last Admin: 02/15/18 09:32 Dose: 100 mg Insulin Glargine (Lantus) 14 [facility] [place] [facility] Last Admin: 02/15/18 09:18 Dose: 14 units Pantoprazole Sodium (Protonix Ec Tab) 40 mg PO DAILY PRN PRN Reason: Indigestion Last Admin: 02/14/18 10:49 Dose: 40 mg Rosuvastatin Calcium (Crestor) 20 mg PO [facility] Tacrolimus (Prograf) 5 mg PO QAM [facility] Last Admin: 02/15/18 09:16 Dose: 5 mg Tacrolimus (Prograf) 5 mg PO QPM [facility] Last Admin: 02/14/18 19:19 Dose: 5 mg - Labs Labs: 02/13/18 14:55 02/13/18 14:55 PT 15.5 SECONDS (9.7-12.2) H 02/13/18 14:55 INR 1.4 02/13/18 14:55 APTT 40 SECONDS (21-34) H 02/13/18 14:55 Assessment and Plan - Assessment and Plan (Free Text) Assessment: FOLLOW UP WITH DR MOULTON IN HIS OFFICE IN 1-2 WEEKS ---CALL FOR APPOINTMENT FOLLOW UP WITH DR CHE IN HIS OFFICE -----CALL FOR APPOINTMENT CONTINUE TAKING HOME MEDICATION NEW PRESCRIPTION GIVEN HYDRALAZINE DOSE INCREASE TO 100 MG PO TID CHLORPROMAZINE 25 MG PO TWICE A DAY FOR HICCUPS ACTIVITY TOLERATED CALL DR MOULTON OR GO TO THE EMERGENCY ROOM IF SYMPTOMS RETURN OR WORSENING
[2018-02-15 16:01] VITALS: BP 163/80; PULSE 86; RESP 18; TEMP 98.5; O2SAT 98
== END 2018-02-15 16:16 | disposition home or self-care (01) | DRG 291 ==
LOC: C.ER 13:51 → C.9E 16:37 → C.5S 20:15
PROVIDERS: ADMIT Internal Medicine; ATTEND Internal Medicine
PROC: 0W9B3ZX Drainage of Left Pleural Cavity, Percutaneous Approach, Diagnostic (ICD-10-PCS; principal; 2018-02-14)
PROC: 5A1D70Z Performance of Urinary Filtration, Intermittent, Less than 6 Hours Per Day (ICD-10-PCS; 2018-02-14)
DX: I13.2 Hypertensive heart and chronic kidney disease with heart failure and with stage 5 chronic kidney disease, or end stage renal disease (principal); N18.6 End stage renal disease; Z94.1 Heart transplant status; I50.30 Unspecified diastolic (congestive) heart failure; J98.11 Atelectasis; J90 Pleural effusion, not elsewhere classified; E11.22 Type 2 diabetes mellitus with diabetic chronic kidney disease; Z99.2 Dependence on renal dialysis; E78.00 Pure hypercholesterolemia, unspecified; E11.51 Type 2 diabetes mellitus with diabetic peripheral angiopathy without gangrene; R09.02 Hypoxemia; I25.10 Atherosclerotic heart disease of native coronary artery without angina pectoris; Z79.4 Long term (current) use of insulin

== ENCOUNTER 2018-03-24 06:04 | Inpatient (IN) | payer MEDICARE, OTHER ==
[2018-03-24 06:05] VITALS: BMI 25.0
--- NOTE | 2018-03-24 06:24 | C.PDOC ---
Addendum entered and electronically signed by Linda Medina MD 03/24/18 08:14: ED Course And Treatment - Laboratory Results Result Diagrams: 03/24/18 06:33 03/24/18 06:33 ECG: Interpreted By Me ECG Rhythm: Sinus Rhythm ECG Interpretation: Abnormal Interpretation Of ECG: NEW TWI V2-V4 NO ST CHANGES. NEW COMPARED TO PRIOR Rate From EC O2 Sat by Pulse Oximetry: 96 Pulse Ox Interpretation: Normal Addendum entered and electronically signed by Linda Medina MD 03/24/18 08:07: Progress Note - Review of Symptoms Events since last encounter: PERSIST HYPOTHERMIA. MS UNCH PRIOR EVAL. VSS D/W PMD WILL ADMIT Disposition Counseled Patient/Family Regarding: Studies Performed, Diagnosis Clinical Impression: Hypoglycemia, Hypothermia Disposition: HOSPITALIZED Disposition Time: 08:07 Condition: SERIOUS - POA Present On Arrival: Poor Glycemic Control Addendum entered and electronically signed by Linda Medina MD 03/24/18 07:42: Radiology Interpretation - Computational Mathematician Computational Mathematician:: ED Physician - Study type Study type:: Plain films - Body Region Body Region:: Chest - Interpretation Interpretation:: Normal, Unchanged from prior Addendum entered and electronically signed by Linda Medina MD 03/24/18 07:23: Progress Note - Review of Symptoms Events since last encounter: AWAKE ALERT INTERACTIVE. PER , PT NOW AT BASELINE TOOK ROUTINE INSULIN AND HAD DINNER LAST NIGHT BUT PER "HE DIDNT WAKE UP TO HAVE HIS 10 PM SNACK". LAST HD YEST. DENIES PT W RECENT ILLNESS, OTHERWISE AT BASELINE. MAKES "VERY LITTLE" URINE. VSS, +JEAN CARLOS HUGGER NEURO INTACT NO FOCAL DEF. CXR, VBG PENDING Original Note: History Of Present Illness found patient diaphoretic , confused in bed. Pt is an insulin dependent diabetic. ems found a very low accucheck, a amp D50 given, with return to baseline. No cp or palpitations. Pt is on -- HD Time Seen by Provider: 03/24/18 06:23 Chief Complaint (Nursing): Altered Mental Status History Per: EMS, Family History/Exam Limitations: Clinical Condition Onset/Duration Of Symptoms: Unknown Onset Of Symptoms: Cannot Confirm Onset Current Symptoms Are (Timing): Better Usual Baseline: Alert Oriented Exacerbating Factor(s): Diabetic Use Of Anticoag/Antiplatelets: Yes Speech Is: Normal Severity: Moderate Pain Scale Rating Of: 4 Recent travel outside of the [place]: No Additional History Per: EMS, Family Associated Symptoms: Chills, Sweating. denies: Fever, Chest Pain Past Medical History Reviewed: Historical Data, Nursing Documentation, Vital Signs Vital Signs: Last Vital Signs Temp 87.7 F L 03/24/18 06:10 Pulse 111 H 03/24/18 06:10 Resp 16 03/24/18 06:10 BP Pulse Ox 95 03/24/18 06:10 - Medical History PMH: CAD, CHF, Diabetes, HTN, Hypercholesterolemia, End Stage Renal Disease, Chronic Kidney Disease (ESRD on HD) Denies: Kidney Stones Surgical History: Endoscopy - [facility] Procedures (02/13/18) DRAINAGE OF LEFT PLEURAL CAVITY, PERC APPROACH, DIAGN (02/13/18) ENDOSC POLYPECTOMY OF LG INTEST (10/09/13) PERFORMANCE OF URINARY FILTRATION, MULTIPLE (11/23/16) PERFORMANCE OF URINARY FILTRATION, SINGLE (04/17/16) REMOVAL OF DRAINAGE DEVICE FROM BLADDER, EXTERNAL APPROACH (11/23/16) Family History: States: No Known Family Hx - Social History Hx Tobacco Use: No Hx Alcohol Use: No Hx Substance Use: No - Immunization History Hx Tetanus Toxoid Vaccination: Yes Hx Influenza Vaccination: Yes Hx Pneumococcal Vaccination: Yes Review Of Systems Constitutional: Positive for: Chills. Negative for: Fever ENT: Negative for: Throat Pain Cardiovascular: Negative for: Chest Pain Respiratory: Negative for: Shortness of Breath Gastrointestinal: Negative for: Nausea, Vomiting, Abdominal Pain Musculoskeletal: Negative for: Back Pain Skin: Negative for: Rash Neurological: Positive for: Weakness, Confusion Psych: Negative for: Anxiety Physical Exam - Physical Exam Appears: In Acute Distress Skin: Warm, Dry, Other (cold) Head: Normacephalic Eye(s): bilateral: Normal Inspection Oral Mucosa: Moist Neck: Supple Chest: Symmetrical Cardiovascular: Rhythm Regular Respiratory: No Rales, Rhonchi, No Wheezing Gastrointestinal/Abdominal: Soft, No Tenderness, No Distention Back: No CVA Tenderness Extremity: Normal ROM, Other (hd graft right arm with good thrill and bruit) Extremity: Bilateral: Atraumatic Pulses: Left Dorsalis Pedis: Normal, Right Dorsalis Pedis: Normal Neurological/Psych: Oriented x3 (now) ED Course And Treatment ECG: Interpreted By Me, Viewed By Me O2 Sat by Pulse Oximetry: 95 Pulse Ox Interpretation: Normal Progress Note: pt found to be hypothermic and placed unde a warming blanket Critical Care Time - Critical Care Note Total Time (in mins): 30 Documented critical care: time excludes all time spent performing seperately billable procedures. Disposition Counseled Patient/Family Regarding: Studies Performed, Diagnosis - Disposition Disposition Time: 06:24 Condition: GUARDED Forms: [employer] (Georgian) - Clinical Impression Clinical Impression: Hypoglycemia, Hypothermia Physician Patient Turnover Patient Signed Over To: Linda Medina Handoff Comments: pending labs, re-eval and disposition
[2018-03-24 06:36] LABS: BASO # 0.1 K/uL (0.0-0.2); BASO % 1.1 % (0.0-2.0); EOS # 0.2 K/uL (0.0-0.7); EOS % 4.2 % (0.0-4.0); HEMOGLOBIN 12.7 g/dL (12.0-18.0); LYMPH # 0.5 K/uL (1.0-4.3); LYMPH % 8.9 % (20.0-40.0); MEAN CELL VOLUME 91.9 fL (80.0-94.0); MEAN CORPUSCULAR HEMOGLOBIN 30.4 pg (27.0-31.0); MEAN CORPUSCULAR HGB CONC 33.1 g/dL (33.0-37.0); MEAN PLATELET VOLUME 7.9 fL (7.2-11.7); MONO # 0.6 K/uL (0.0-0.8); MONO % 10.2 % (0.0-10.0); NEUT # 4.1 K/uL (1.8-7.0); NEUT % 75.6 % (50.0-75.0); NRBC % 0.1 % (0.0-2.0); PLATELET COUNT 272 K/uL (130-400); RBC 4.18 Mil/uL (4.40-5.90); RED CELL DISTRIBUTION WIDTH 18.6 % (11.5-14.5); WHITE BLOOD COUNT 5.4 K/uL (4.8-10.8)
[2018-03-24 06:54] LABS: BLOOD UREA NITROGEN 21 mg/dL (9-20); CALCIUM 10.3 mg/dl (8.6-10.4); GFR NON-AFRICAN AMERICAN 17; LIPASE 286 U/L (23-300)
[2018-03-24 06:58] LABS: ALB/GLOB RATIO 0.8 (1.0-2.1); ALBUMIN 4.6 g/dL (3.5-5.0); ALT/SGPT < 6 U/L (21-72); AST/SGOT 51 U/L (17-59)
[2018-03-24 07:32] LABS: VENOUS BLOOD GAS BASE EXCESS 7.6 mmol/L (0.0-2.0); VENOUS BLOOD GAS PCO2 57 mmHg (40-60); VENOUS BLOOD GAS PO2 29 mm/Hg (30-55); VENOUS BLOOD PH 7.39 (7.32-7.43)
--- NOTE | 2018-03-24 09:18 | RAD ---
HISTORY: Diabetic COMPARISON: Chest x-ray performed 02/14/18 TECHNIQUE: Chest, one view. FINDINGS: Examination limited by habitus. LUNGS: Mild pulmonary venous congestion. Patchy left lower lobe consolidation and/or pleural effusion. No definite pneumothorax. Please note that chest x-ray has limited sensitivity for the detection of pulmonary masses. CARDIOVASCULAR: Median sternotomy wires. Marked cardiomegaly. Dense atherosclerotic calcifications of the aorta. OSSEOUS STRUCTURES: Degenerative changes. High-riding humeral heads may be seen in the setting of chronic rotator cuff injuries. VISUALIZED UPPER ABDOMEN: Unremarkable. OTHER FINDINGS: None. IMPRESSION: Patchy left lower lobe consolidation and/or pleural effusion. Mild pulmonary venous congestion. Median sternotomy wires. Cardiomegaly. Atherosclerotic calcification of the aorta. Study marked for PA review.
[2018-03-24 09:35] LABS: ANISOCYTOSIS MODERATE; EOSINOPHIL 3 % (0-4); LYMPHOCYTE 9 % (20-40); MONOCYTE 7 % (0-10); NEUTROPHIL 81 % (50-75); PLATELET ESTIMATE NORMAL (NORMAL); TOTAL CELLS COUNTED 100
[2018-03-24 09:36] LABS: HYPOCHROMIC SLIGHT; LARGE PLATELETS PRESENT; POLYCHROMIC SLIGHT; SCHISTOCYTES SLIGHT; TOXIC GRANULATION PRESENT
[2018-03-24 09:37] LABS: GIANT PLATELETS PRESENT
[2018-03-24 10:37] LABS: VENOUS BLOOD GAS BASE EXCESS 10.6 mmol/L (0.0-2.0); VENOUS BLOOD GAS PCO2 51 mmHg (40-60); VENOUS BLOOD GAS PO2 42 mm/Hg (30-55); VENOUS BLOOD PH 7.46 (7.32-7.43)
[2018-03-24] MEDS ORDERED: (Novolog) Insulin Aspart, Recombinant 100 u/ml 10 ml vial ONE (16:21)
[2018-03-24] MEDS: (Novolog) Insulin Aspart, Recombinant 100 u/ml 10 ml vial SC SCH (16:33)
[2018-03-25] MEDS: (Novolog) Insulin Aspart, Recombinant 100 u/ml 10 ml vial SC SCH ×2 (08:27→16:30)
[2018-03-25] MEDS: Pantoprazole 40 mg EC Tab PO PRN (10:47)
--- NOTE | 2018-03-25 18:26 | CP.PCM.HP ---
History of Present Illness - History of Present Illness History of Present Illness: The patient's who brought the patient to the emergency room because of the increasing lethargic, very low blood sugar, and patient was not arousable. Patient yesterday went to the dialysis. He came from dialysis, he was THE time. But the night he was sleeping, not clear he become more lethargic and weak. Patient's called ambulance. While the ambulance was checking the blood sugar it was less than 50. Patient was brought to the emergency room, at the time he was also hypothermic, unarousable, very low blood sugar noted. He was immediately treated for hypoglycemia. Hyperthermic blanket was applied. Slowly patient condition got better. Now patient is more awake and responding. He has no chest pain, but complaining of cough. Chills. Weakness. History present illness: 61-year-old male with history of heart transplant, on immunosuppressive treatment, end-stage renal disease on dialysis, recent had a hematuria, also urinary tract infection, Patient was evaluated, and manually disimpacted large stools last night, following that he started having bowel movements. This morning he was having regular bowel movement. He is feeling slightly better now. He received hemodialysis today. He denies any chest pain, no shortness of breath noted, no cough noted, no fever. Past medical history: Heart, transplant on immunosuppressive treatment, end-stage renal disease on dialysis, hypertension, diabetes, hypercholesterolemia, urinary tract infection. Allergy: No known drug allergy but imepenem causes AMS Personal history: Nonsmoker nonalcoholic disabled Family history noncontributory. Review of systems: Currently having some headache, complaining of episodes of hiccups, abdominal pain, shortness of breath and cough noted, bilateral leg swelling On examination: HEENT PERRLA, neck supple No thyromegaly was noted and no cervical adenopathy noted Bilateral wheezing and rales noted CVS regular heart sound, no murmur Abdomen soft and no organomegaly Bilateral edema noted [employer] alert awake oriented x3 no functional neurological deficit. Vital signs is stable. Labs reviewed. Chest x-ray CHF pattern noted. Assessment and recommendation: 61-year-old male with history of heart transplant, immunosuppressive treatment, end-stage renal disease on dialysis, hypertension, diabetes, peripheral vascular disease, pedal edema, and urinary tract infection. He'll admitted to the hospital with the acute hypoglycemia, acute hypoglycemic shock. Severe hypothermia. Secondary to possibly low blood sugar. Patient currently improving. Underlying infection cannot be ruled out. Continue to monitor for any fever. Blood cultures are pending. We will closely monitor blood glucose. Renal evaluation. Possible dialysis. Will continue the current treatment. Present on Admission - Present on Admission Any Indicators Present on Admission: No History of DVT/PE: No History of Uncontrolled Diabetes: No Urinary Catheter: No Decubitus Ulcer Present: No Past Patient History - Infectious Disease Hx of Infectious Diseases: None - Past Medical History & Family History Past Medical History?: Yes - Past Social History Smoking Status: Former Smoker - CARDIAC Hx Congestive Heart Failure: Yes Hx Hypercholesterolemia: Yes Hx Hypertension: Yes - PULMONARY Hx Respiratory Disorders: No - NEUROLOGICAL Hx Neurological Disorder: No - HEENT Hx HEENT Problems: Yes Hx Cataracts: Yes - RENAL Hx Chronic Kidney Disease: Yes (ESRD on HD) Hx Kidney Stones: No - ENDOCRINE/METABOLIC Hx Diabetes Mellitus Type 2: Yes - HEMATOLOGICAL/ONCOLOGICAL Hx Blood Disorders: No - INTEGUMENTARY Hx Dermatological Problems: No - MUSCULOSKELETAL/RHEUMATOLOGICAL Hx Musculoskeletal Disorders: No Hx Falls: No - GASTROINTESTINAL Hx Gastrointestinal Disorders: No - GENITOURINARY/GYNECOLOGICAL Hx Genitourinary Disorders: Yes Hx Hematuria: Yes Hx Urinary Tract Infection: Yes - PSYCHIATRIC Hx Substance Use: No - SURGICAL HISTORY Other/Comment: Heart transplant 2013 - ANESTHESIA Hx Anesthesia: Yes Hx Anesthesia Reactions: No Hx Malignant Hyperthermia: No Meds Allergies/Adverse Reactions: Allergies Allergy/AdvReac Type Severity Reaction Status Date / Time meropenem Allergy Severe SWELLING Verified 02/13/18 14:14 morphine Allergy Severe ANGIOEDEMA Verified 02/13/18 14:14 Results - Vital Signs Recent Vital Signs: Last Vital Signs Temp 98 F 03/25/18 15:00 Pulse 71 03/25/18 16:59 Resp 20 03/25/18 15:00 BP 149/65 03/25/18 18:04 Pulse Ox 96 03/25/18 17:00 - Labs Result Diagrams: 03/24/18 06:33 03/24/18 06:33 Labs: Laboratory Results - last 24 hr 03/24/18 03/25/18 03/25/18 20:44 06:30 11:41 POC Glucose (mg/dL) 142 H 245 H 75
--- NOTE | 2018-03-25 18:30 | CP.PCM.PN ---
Subjective - Date & Time of Evaluation Date of Evaluation: 03/25/18 Time of Evaluation: 18:29 - Subjective Subjective: Patient is a 62-year-old male with a history of heart transplant. End-stage renal disease on dialysis. Diabetes. Patient admitted to the hospital with the hypothermia, hypoglycemia. Now the blood culture showing evidence of gram-positive, staph coagulase negative. But given the patient's immunocompromised status, and also on transplant treatment. I suggested that patient will need antibiotic. Will give the antibiotic during the dialysis. Labs tomorrow. Will follow the patient Objective - Vital Signs/Intake and Output Vital Signs (last 24 hours): Temp Pulse Resp BP Pulse Ox 98 F 71 20 149/65 96 03/25/18 15:00 03/25/18 16:59 03/25/18 15:00 03/25/18 18:04 03/25/18 17:00 - Medications Medications: Current Medications Amlodipine Besylate (Norvasc) 10 mg PO DAILY [facility] Last Admin: 03/25/18 10:47 Dose: 10 mg Aspirin (Ecotrin) 81 mg PO DAILY [facility] Last Admin: 03/25/18 10:56 Dose: 81 mg Calcium Acetate (Phoslo) 667 mg PO TIDAC [facility] Last Admin: 03/25/18 18:01 Dose: 667 mg Carvedilol (Coreg) 25 mg PO BID [facility] Last Admin: 03/25/18 18:04 Dose: 25 mg Clonidine HCl (Catapres) 0.2 mg PO BID [facility] Last Admin: 03/25/18 18:02 Dose: Not Given Ezetimibe (Zetia) 10 mg PO HS [facility] Last Admin: 03/24/18 21:50 Dose: 10 mg Heparin Sodium (Porcine) (Heparin) 5,000 units SC Q12 [facility] Hydralazine HCl (Apresoline) 100 mg PO TID [facility] Last Admin: 03/25/18 18:01 Dose: 100 mg Insulin Aspart (Novolog) 8 unit SC BIDAC [facility] Last Admin: 03/25/18 08:27 Dose: 8 units Pantoprazole Sodium (Protonix Ec Tab) 40 mg PO DAILY PRN PRN Reason: Indigestion Last Admin: 03/25/18 10:47 Dose: 40 mg Rosuvastatin Calcium (Crestor) 20 mg PO [facility] Last Admin: 03/24/18 21:50 Dose: 20 mg Tacrolimus (Prograf) 5 mg PO QAM [facility] Last Admin: 03/25/18 10:49 Dose: 5 mg Tacrolimus (Prograf) 5 mg PO QPM [facility] Last Admin: 03/25/18 18:01 Dose: 5 mg - Labs Labs: 03/24/18 06:33 03/24/18 06:33
[2018-03-25] MEDS ORDERED: Vancomycin 500mg/D5W 100 ml 500 MG/100 ML BAG IVPB STA (18:31)
[2018-03-26 06:27] LABS: BASO % 0.8 % (0.0-2.0); EOS # 0.3 K/uL (0.0-0.7); EOS % 5.1 % (0.0-4.0); HEMOGLOBIN 10.8 g/dL (12.0-18.0); LYMPH # 0.4 K/uL (1.0-4.3); LYMPH % 7.2 % (20.0-40.0); MEAN CELL VOLUME 90.6 fL (80.0-94.0); MEAN CORPUSCULAR HEMOGLOBIN 29.9 pg (27.0-31.0); MEAN PLATELET VOLUME 7.5 fL (7.2-11.7); MONO # 0.8 K/uL (0.0-0.8); NEUT # 4.3 K/uL (1.8-7.0); NEUT % 73.9 % (50.0-75.0); NRBC % 0.1 % (0.0-2.0); PLATELET COUNT 236 K/uL (130-400); RBC 3.63 Mil/uL (4.40-5.90); RED CELL DISTRIBUTION WIDTH 17.9 % (11.5-14.5); WHITE BLOOD COUNT 5.8 K/uL (4.8-10.8)
[2018-03-26 06:51] LABS: ALB/GLOB RATIO 0.9 (1.0-2.1); ALBUMIN 3.6 g/dL (3.5-5.0); CALCIUM 9.3 mg/dl (8.6-10.4)
[2018-03-26] MEDS: (Novolog) Insulin Aspart, Recombinant 100 u/ml 10 ml vial SC SCH ×2 (08:30→18:49)
[2018-03-26 09:23] LABS: BANDS 1 % (0-2); EOSINOPHIL 2 % (0-4); LYMPHOCYTE 4 % (20-40); MONOCYTE 11 % (0-10); NEUTROPHIL 82 % (50-75); TOTAL CELLS COUNTED 100
[2018-03-26 09:24] LABS: ANISOCYTOSIS SLIGHT; HYPOCHROMIC SLIGHT; PLATELET ESTIMATE NORMAL (NORMAL); POLYCHROMIC SLIGHT
[2018-03-26] MEDS: Pantoprazole 40 mg EC Tab PO PRN (11:05)
--- NOTE | 2018-03-26 12:23 | CP.PCM.CON ---
History of Present Illness - History of Present Illness History of Present Illness: 62 yo male w/ hx of esrd on hd mwf, hx of heart transplant, htn, dm, brought in by for ams/ lethargy. Found to be hypoglycemic and hypothermic. Pts symptoms imptovement once hypoglycemia treated. still tremulous, shaking Blood cultures growing [facility] Last HD monday Past medical history: Heart, transplant on immunosuppressive treatment, end-stage renal disease on dialysis, hypertension, diabetes, hypercholesterolemia, urinary tract infection. Allergy: No known drug allergy but imepenem causes AMS Personal history: Nonsmoker nonalcoholic disabled Family history noncontributory. Review of Systems - Review of Systems All systems: reviewed and no additional remarkable complaints except (as per HPI) Past Patient History - Infectious Disease Hx of Infectious Diseases: None - Past Medical History & Family History Past Medical History?: Yes - Past Social History Smoking Status: Former Smoker - CARDIAC Hx Cardiac Disorders: Yes Hx Congestive Heart Failure: Yes Hx Hypercholesterolemia: Yes Hx Hypertension: Yes - PULMONARY Hx Respiratory Disorders: No - NEUROLOGICAL Hx Neurological Disorder: No - HEENT Hx HEENT Problems: Yes Hx Cataracts: Yes - RENAL Hx Chronic Kidney Disease: Yes (ESRD on HD) Hx Kidney Stones: No - ENDOCRINE/METABOLIC Hx Diabetes Mellitus Type 2: Yes - HEMATOLOGICAL/ONCOLOGICAL Hx Blood Disorders: No - INTEGUMENTARY Hx Dermatological Problems: No - MUSCULOSKELETAL/RHEUMATOLOGICAL Hx Musculoskeletal Disorders: No Hx Falls: No - GASTROINTESTINAL Hx Gastrointestinal Disorders: No - GENITOURINARY/GYNECOLOGICAL Hx Genitourinary Disorders: Yes Hx Hematuria: Yes Hx Urinary Tract Infection: Yes - PSYCHIATRIC Hx Substance Use: No - SURGICAL HISTORY Other/Comment: Heart transplant 2014 - ANESTHESIA Hx Anesthesia: Yes Hx Anesthesia Reactions: No Hx Malignant Hyperthermia: No Meds Allergies/Adverse Reactions: Allergies Allergy/AdvReac Type Severity Reaction Status Date / Time meropenem Allergy Severe SWELLING Verified 02/13/18 14:14 morphine Allergy Severe ANGIOEDEMA Verified 02/13/18 14:14 - Medications Medications: Current Medications Amlodipine Besylate (Norvasc) 10 mg PO DAILY [facility] Last Admin: 03/26/18 11:05 Dose: 10 mg Aspirin (Ecotrin) 81 mg PO DAILY [facility] Last Admin: 03/26/18 11:05 Dose: 81 mg Calcium Acetate (Phoslo) 667 mg PO TIDAC [facility] Last Admin: 03/26/18 08:30 Dose: 667 mg Carvedilol (Coreg) 25 mg PO BID [facility] Last Admin: 03/26/18 11:05 Dose: 25 mg Clonidine HCl (Catapres) 0.2 mg PO BID [facility] Last Admin: 03/26/18 11:05 Dose: 0.2 mg Ezetimibe (Zetia) 10 mg PO [facility] Last Admin: 03/25/18 21:58 Dose: 10 mg Heparin Sodium (Porcine) (Heparin) 5,000 units SC Q12 [facility] Last Admin: 03/26/18 11:05 Dose: 5,000 units Hydralazine HCl (Apresoline) 100 mg PO TID [facility] Last Admin: 03/26/18 11:05 Dose: 100 mg Insulin Aspart (Novolog) 8 unit SC BIDAC [facility] Last Admin: 03/26/18 08:30 Dose: 8 units Pantoprazole Sodium (Protonix Ec Tab) 40 mg PO DAILY PRN PRN Reason: Indigestion Last Admin: 03/26/18 11:05 Dose: 40 mg Rosuvastatin Calcium (Crestor) 20 mg PO [facility] Last Admin: 03/25/18 21:58 Dose: 20 mg Tacrolimus (Prograf) 5 mg PO QAM [facility] Last Admin: 03/26/18 11:05 Dose: 5 mg Tacrolimus (Prograf) 5 mg PO QPM [facility] Last Admin: 03/25/18 18:01 Dose: 5 mg Physical Exam - Constitutional Appears: In Acute Distress, Confused, Chronically Ill - Head Exam Head Exam: NORMAL INSPECTION, NORMOCEPHALIC - Eye Exam Eye Exam: Normal appearance, PERRL - ENT Exam ENT Exam: Mucous Membranes Moist, Normal Exam - Neck Exam Neck exam: Positive for: Normal Inspection - Respiratory Exam Respiratory Exam: Clear to Auscultation Bilateral, NORMAL BREATHING PATTERN - Cardiovascular Exam Cardiovascular Exam: REGULAR RHYTHM, RRR - GI/Abdominal Exam GI & Abdominal Exam: Distended, Normal Bowel Sounds, Soft - Extremities Exam Extremities exam: Positive for: normal inspection (lue avf w/ thrill) - Neurological Exam Neurological exam: Alert, Oriented x3 - Psychiatric Exam Psychiatric exam: Normal Affect, Normal Mood - Skin Skin Exam: Dry, Intact Results - Vital Signs Recent Vital Signs: Last Vital Signs Temp 98.4 F 03/26/18 08:10 Pulse 72 03/26/18 08:10 Resp 20 03/26/18 08:10 BP 127/63 03/26/18 11:05 Pulse Ox 95 03/26/18 08:10 - Labs Result Diagrams: 03/26/18 06:23 03/26/18 06:23 Labs: Laboratory Results - last 24 hr 03/25/18 03/25/18 03/25/18 06:30 11:41 17:45 WBC RBC Hgb Hct MCV MCH MCHC RDW Plt Count MPV Neut % (Auto) Lymph % (Auto) [place] % (Auto) Eos % (Auto) Baso % (Auto) Neut # (Auto) Lymph # (Auto) [place] # (Auto) Eos # (Auto) Baso # (Auto) Neutrophils % (Manual) Band Neutrophils % Lymphocytes % (Manual) Monocytes % (Manual) Eosinophils % (Manual) Platelet Estimate Polychromasia Hypochromasia (manual) Anisocytosis (manual) Sodium Potassium Chloride Carbon Dioxide Anion Gap BUN Creatinine Est GFR ( Amer) Est GFR (Non-Af Amer) POC Glucose (mg/dL) 245 H 75 224 H Random Glucose Calcium Phosphorus Magnesium Total Bilirubin AST ALT Alkaline Phosphatase Total Protein Albumin Globulin Albumin/Globulin Ratio 03/26/18 03/26/18 06:23 06:23 WBC 5.8 RBC 3.63 L Hgb 10.8 L Hct 32.9 L MCV 90.6 MCH 29.9 MCHC 33.0 RDW 17.9 H Plt Count 236 MPV 7.5 Neut % (Auto) 73.9 Lymph % (Auto) 7.2 L [place] % (Auto) 13.0 H Eos % (Auto) 5.1 H Baso % (Auto) 0.8 Neut # (Auto) 4.3 Lymph # (Auto) 0.4 L [place] # (Auto) 0.8 Eos # (Auto) 0.3 Baso # (Auto) 0.0 Neutrophils % (Manual) 82 H Band Neutrophils % 1 Lymphocytes % (Manual) 4 L Monocytes % (Manual) 11 H Eosinophils % (Manual) 2 Platelet Estimate Normal Polychromasia Slight Hypochromasia (manual) Slight Anisocytosis (manual) Slight Sodium 130 L Potassium 5.7 H Chloride 90 L Carbon Dioxide 28 Anion Gap 18 BUN 56 H Creatinine 6.7 H Est GFR ( Amer) 10 Est GFR (Non-Af Amer) 8 POC Glucose (mg/dL) Random Glucose 261 H Calcium 9.3 Phosphorus 3.9 Magnesium 2.2 Total Bilirubin 0.6 AST 18 ALT 14 L D Alkaline Phosphatase 99 Total Protein 7.6 Albumin 3.6 Globulin 4.0 H Albumin/Globulin Ratio 0.9 L Assessment & Plan (1) Hypoglycemia Status: Acute (2) Hypothermia Status: Acute (3) Acute metabolic encephalopathy Status: Acute (4) Anemia Status: Acute (5) Constipation Status: Acute (6) ESRD (end stage renal disease) Status: Acute (7) HTN (hypertension) Status: Acute (8) Heart transplant recipient Status: Acute - Assessment and Plan (Free Text) Assessment: hd today and mwf on vancomycin, recommend ID evaluation. bp acceptable maintain prograf for immunosuppression, check trough levels
--- NOTE | 2018-03-26 21:40 | CARD ---
APPROVED REPORT Date of service: 03/24/2018 EKG Measurement Heart [id number] <Conclusion> Normal sinus rhythm ST & T wave abnormality, consider anterior ischemia Prolonged QT Abnormal ECG
[2018-03-27] MEDS: (Novolog) Insulin Aspart, Recombinant 100 u/ml 10 ml vial SC SCH ×2 (08:46→17:26)
[2018-03-27] MEDS: Pantoprazole 40 mg EC Tab PO PRN (09:33)
--- NOTE | 2018-03-27 09:59 | CP.PCM.PN ---
Subjective - Date & Time of Evaluation Date of Evaluation: 03/27/18 Time of Evaluation: 09:57 - Subjective Subjective: s/p hd yesterday unremarkable blood cx x 1 set - coag neg staph bp stable, afebrile appears comfortable denies any pain, n/v/d/dizziness/sob/cough/rash/headache Objective - Vital Signs/Intake and Output Vital Signs (last 24 hours): Temp Pulse Resp BP Pulse Ox 98.5 F 80 20 140/75 100 03/27/18 08:14 03/27/18 08:14 03/27/18 08:14 03/27/18 09:33 03/27/18 08:14 - Medications Medications: Current Medications Amlodipine Besylate (Norvasc) 10 mg PO DAILY [facility] Last Admin: 03/27/18 09:33 Dose: 10 mg Aspirin (Ecotrin) 81 mg PO DAILY [facility] Last Admin: 03/27/18 09:34 Dose: 81 mg Calcium Acetate (Phoslo) 667 mg PO TIDAC [facility] Last Admin: 03/27/18 08:47 Dose: 667 mg Carvedilol (Coreg) 25 mg PO BID [facility] Last Admin: 03/27/18 09:33 Dose: 25 mg Clonidine HCl (Catapres) 0.2 mg PO BID [facility] Last Admin: 03/27/18 09:34 Dose: 0.2 mg Ezetimibe (Zetia) 10 mg PO HS [facility] Last Admin: 03/26/18 23:07 Dose: 10 mg Heparin Sodium (Porcine) (Heparin) 5,000 units SC Q12 [facility] Last Admin: 03/27/18 09:34 Dose: 5,000 units Hydralazine HCl (Apresoline) 100 mg PO TID [facility] Last Admin: 03/27/18 09:33 Dose: 100 mg Insulin Aspart (Novolog) 8 unit SC BIDAC [facility] Last Admin: 03/27/18 08:46 Dose: 8 units Pantoprazole Sodium (Protonix Ec Tab) 40 mg PO DAILY PRN PRN Reason: Indigestion Last Admin: 03/27/18 09:33 Dose: 40 mg Rosuvastatin Calcium (Crestor) 20 mg PO HS [facility] Last Admin: 03/26/18 23:07 Dose: 20 mg Tacrolimus (Prograf) 5 mg PO BID [facility] Last Admin: 03/27/18 09:34 Dose: 5 mg Tacrolimus (Prograf Cap) 0.5 mg PO BID [facility] Last Admin: 03/27/18 09:34 Dose: 0.5 mg - Labs Labs: 03/26/18 06:23 03/26/18 06:23 - Constitutional Appears: No Acute Distress, Older Than Stated Age, Chronically Ill - Head Exam Head Exam: NORMAL INSPECTION, NORMOCEPHALIC - Eye Exam Eye Exam: Normal appearance, PERRL - ENT Exam ENT Exam: Mucous Membranes Moist, Normal Exam, Normal Oropharynx - Neck Exam Neck Exam: Full ROM, Normal Inspection - Respiratory Exam Respiratory Exam: Clear to Ausculation Bilateral, NORMAL BREATHING PATTERN - Cardiovascular Exam Cardiovascular Exam: REGULAR RHYTHM, RRR - GI/Abdominal Exam GI & Abdominal Exam: Distended, Soft, Normal Bowel Sounds - Extremities Exam Extremities Exam: Full ROM, Normal Inspection (rue avf w/ thrill) - Neurological Exam Neurological Exam: Alert, Awake, Oriented x3 - Psychiatric Exam Psychiatric exam: Normal Affect, Normal Mood - Skin Skin Exam: Dry, Intact Assessment and Plan (1) Hypoglycemia Status: Acute (2) Hypothermia Status: Acute (3) Acute metabolic encephalopathy Status: Acute (4) Anemia Status: Acute (5) Constipation Status: Acute (6) ESRD (end stage renal disease) Status: Acute (7) HTN (hypertension) Status: Acute (8) Heart transplant recipient Status: Acute - Assessment and Plan (Free Text) Assessment: maintain HD MWF repeat blood cultures, recommend ID evaluation maintain prograf, level pending bp acceptable
--- NOTE | 2018-03-27 19:56 | CP.PCM.PN ---
Subjective - Date & Time of Evaluation Date of Evaluation: 03/27/18 Time of Evaluation: 19:55 - Subjective Subjective: feeling well cough no sugar better eating better no chest pain vitals noted Temp Pulse Resp BP Pulse Ox 98.4 F 72 20 123/56 L 96 03/27/18 15:02 03/27/18 15:02 03/27/18 15:02 03/27/18 18:19 03/27/18 15:02 chest good air entry regular hs abd soft pt will get HD in am no need for antibiotic possible d/c in am after hd if sugar stable and no fever Objective - Vital Signs/Intake and Output Vital Signs (last 24 hours): Temp Pulse Resp BP Pulse Ox 98.4 F 72 20 123/56 L 96 03/27/18 15:02 03/27/18 15:02 03/27/18 15:02 03/27/18 18:19 03/27/18 15:02 Intake and Output: 03/27/18 03/28/18 18:59 06:59 Intake Total 400 Balance 400 - Medications Medications: Current Medications Amlodipine Besylate (Norvasc) 10 mg PO DAILY [facility] Last Admin: 03/27/18 09:33 Dose: 10 mg Aspirin (Ecotrin) 81 mg PO DAILY [facility] Last Admin: 03/27/18 09:34 Dose: 81 mg Calcium Acetate (Phoslo) 667 mg PO TIDAC [facility] Last Admin: 03/27/18 17:27 Dose: 667 mg Carvedilol (Coreg) 25 mg PO BID [facility] Last Admin: 03/27/18 18:19 Dose: 25 mg Clonidine HCl (Catapres) 0.2 mg PO BID [facility] Last Admin: 03/27/18 17:27 Dose: 0.2 mg Ezetimibe (Zetia) 10 mg PO HS [facility] Last Admin: 03/26/18 23:07 Dose: 10 mg Heparin Sodium (Porcine) (Heparin) 5,000 units SC Q12 [facility] Last Admin: 03/27/18 09:34 Dose: 5,000 units Hydralazine HCl (Apresoline) 100 mg PO TID [facility] Last Admin: 03/27/18 17:27 Dose: 100 mg Insulin Aspart (Novolog) 8 unit SC BIDAC [facility] Last Admin: 03/27/18 17:26 Dose: 8 units Pantoprazole Sodium (Protonix Ec Tab) 40 mg PO DAILY PRN PRN Reason: Indigestion Last Admin: 03/27/18 09:33 Dose: 40 mg Rosuvastatin Calcium (Crestor) 20 mg PO HS [facility] Last Admin: 03/26/18 23:07 Dose: 20 mg Tacrolimus (Prograf) 5 mg PO BID [facility] Last Admin: 03/27/18 17:27 Dose: 5 mg Tacrolimus (Prograf Cap) 0.5 mg PO BID [facility] Last Admin: 03/27/18 17:27 Dose: 0.5 mg - Labs Labs: 03/26/18 06:23 03/26/18 06:23
--- NOTE | 2018-03-28 07:28 | CP.PCM.PN ---
Subjective - Date & Time of Evaluation Date of Evaluation: 03/28/18 Time of Evaluation: 07:26 - Subjective Subjective: more alert knows he is in hospital flat affect HD today unable to obtain ROS due to above Objective - Vital Signs/Intake and Output Vital Signs (last 24 hours): Temp Pulse Resp BP Pulse Ox 98.7 F 71 20 132/64 96 03/27/18 23:35 03/28/18 04:12 03/27/18 23:35 03/27/18 23:35 03/27/18 23:35 Intake and Output: 03/28/18 03/28/18 06:59 18:59 Intake Total 450 Balance 450 - Medications Medications: Current Medications Amlodipine Besylate (Norvasc) 10 mg PO DAILY [facility] Last Admin: 03/27/18 09:33 Dose: 10 mg Aspirin (Ecotrin) 81 mg PO DAILY [facility] Last Admin: 03/27/18 09:34 Dose: 81 mg Calcium Acetate (Phoslo) 667 mg PO TIDAC [facility] Last Admin: 03/27/18 17:27 Dose: 667 mg Carvedilol (Coreg) 25 mg PO BID [facility] Last Admin: 03/27/18 18:19 Dose: 25 mg Clonidine HCl (Catapres) 0.2 mg PO BID [facility] Last Admin: 03/27/18 17:27 Dose: 0.2 mg Ezetimibe (Zetia) 10 mg PO HS [facility] Last Admin: 03/27/18 21:22 Dose: 10 mg Heparin Sodium (Porcine) (Heparin) 5,000 units SC Q12 [facility] Last Admin: 03/27/18 21:22 Dose: 5,000 units Hydralazine HCl (Apresoline) 100 mg PO TID [facility] Last Admin: 03/27/18 17:27 Dose: 100 mg Insulin Aspart (Novolog) 8 unit SC BIDAC [facility] Last Admin: 03/27/18 17:26 Dose: 8 units Pantoprazole Sodium (Protonix Ec Tab) 40 mg PO DAILY PRN PRN Reason: Indigestion Last Admin: 03/27/18 09:33 Dose: 40 mg Rosuvastatin Calcium (Crestor) 20 mg PO HS [facility] Last Admin: 03/27/18 21:22 Dose: 20 mg Tacrolimus (Prograf) 5 mg PO BID [facility] Last Admin: 03/27/18 17:27 Dose: 5 mg Tacrolimus (Prograf Cap) 0.5 mg PO BID [facility] Last Admin: 03/27/18 17:27 Dose: 0.5 mg - Labs Labs: 03/26/18 06:23 03/26/18 06:23 - Constitutional Appears: Non-toxic, No Acute Distress, Chronically Ill - Head Exam Head Exam: ATRAUMATIC, NORMAL INSPECTION - Eye Exam Eye Exam: EOMI, Periorbital swelling - ENT Exam ENT Exam: Mucous Membranes Moist - Neck Exam Neck Exam: Full ROM. absent: Lymphadenopathy - Respiratory Exam Respiratory Exam: Decreased Breath Sounds, Rales - Cardiovascular Exam Cardiovascular Exam: REGULAR RHYTHM. absent: Rubs - GI/Abdominal Exam GI & Abdominal Exam: Distended, Soft. absent: Tenderness - Extremities Exam Extremities Exam: absent: Pedal Edema - Neurological Exam Neurological Exam: Alert. absent: Oriented x3 - Psychiatric Exam Psychiatric exam: Flat Affect Assessment and Plan - Assessment and Plan (Free Text) Assessment: maint HD, scheduled for today UF for fluid overload monitor glucose one +blood cx, staph epi, ?contaminant ?ID eval
--- NOTE | 2018-03-28 11:09 | CP.PCM.PN ---
Subjective - Date & Time of Evaluation Date of Evaluation: 03/28/18 Time of Evaluation: 11:08 - Subjective Subjective: PER DR. MOULTON PT CAN BE D/C HOME TODAY AFTER HD. NO NEW RX; NO ABX. PT TO F/U WITH DR. MAE IN THE OFFICE WITHIN 5-7 DAYS. TO CONTINUE USUAL HD SCHEDULE. NO FURTHER ORDERS. -FOLLOW UP WITH DR. MOULTON IN THE OFFICE WITHIN 5-7 DAYS---CALL FOR AN APPOINTMENT TIME. -CONTINUE HOME MEDICATIONS USUAL. STOP TAKING [place] ([place]AN). -NO NEW PRESCRIPTIONS. -FOR FURTHER QUESTIONS OR CONCERNS, CONTACT DR. MOULTON'S OFFICE. Objective - Vital Signs/Intake and Output Vital Signs (last 24 hours): Temp Pulse Resp BP Pulse Ox 97.5 F L 76 18 144/77 95 03/28/18 09:20 03/28/18 09:20 03/28/18 09:10 03/28/18 09:50 03/28/18 08:16 Intake and Output: 03/28/18 03/28/18 06:59 18:59 Intake Total 450 Balance 450 - Medications Medications: Current Medications Amlodipine Besylate (Norvasc) 10 mg PO DAILY [facility] Last Admin: 03/27/18 09:33 Dose: 10 mg Aspirin (Ecotrin) 81 mg PO DAILY [facility] Last Admin: 03/27/18 09:34 Dose: 81 mg Calcium Acetate (Phoslo) 667 mg PO TIDAC [facility] Last Admin: 03/27/18 17:27 Dose: 667 mg Carvedilol (Coreg) 25 mg PO BID [facility] Last Admin: 03/27/18 18:19 Dose: 25 mg Clonidine HCl (Catapres) 0.2 mg PO BID [facility] Last Admin: 03/27/18 17:27 Dose: 0.2 mg Ezetimibe (Zetia) 10 mg PO HS [facility] Last Admin: 03/27/18 21:22 Dose: 10 mg Heparin Sodium (Porcine) (Heparin) 5,000 units SC Q12 [facility] Last Admin: 03/27/18 21:22 Dose: 5,000 units Hydralazine HCl (Apresoline) 100 mg PO TID [facility] Last Admin: 03/27/18 17:27 Dose: 100 mg Insulin Aspart (Novolog) 8 unit SC BIDAC [facility] Last Admin: 03/27/18 17:26 Dose: 8 units Pantoprazole Sodium (Protonix Ec Tab) 40 mg PO DAILY PRN PRN Reason: Indigestion Last Admin: 03/27/18 09:33 Dose: 40 mg Rosuvastatin Calcium (Crestor) 20 mg PO HS [facility] Last Admin: 03/27/18 21:22 Dose: 20 mg Tacrolimus (Prograf) 5 mg PO BID [facility] Last Admin: 03/27/18 17:27 Dose: 5 mg Tacrolimus (Prograf Cap) 0.5 mg PO BID [facility] Last Admin: 03/27/18 17:27 Dose: 0.5 mg - Labs Labs: 03/26/18 06:23 03/26/18 06:23
[2018-03-28] MEDS: (Novolog) Insulin Aspart, Recombinant 100 u/ml 10 ml vial SC SCH (12:01)
[2018-03-28 13:20] VITALS: O2SAT 97
[2018-03-28 16:21] VITALS: BP 147/73; PULSE 88; RESP 18; TEMP 98.4
== END 2018-03-28 16:45 | disposition home or self-care (01) | DRG 637 ==
LOC: C.ER 06:04 → C.9E 08:53 → C.6T 19:42 → OBSVTOIN 03-26 16:32
PROVIDERS: ADMIT Internal Medicine; ATTEND Internal Medicine
PROC: 5A1D70Z Performance of Urinary Filtration, Intermittent, Less than 6 Hours Per Day (ICD-10-PCS; principal; 2018-03-26)
PROC: 5A1D70Z Performance of Urinary Filtration, Intermittent, Less than 6 Hours Per Day (ICD-10-PCS; 2018-03-28)
DX: E11.649 Type 2 diabetes mellitus with hypoglycemia without coma (principal); G93.41 Metabolic encephalopathy; I25.811 Atherosclerosis of native coronary artery of transplanted heart without angina pectoris; I13.2 Hypertensive heart and chronic kidney disease with heart failure and with stage 5 chronic kidney disease, or end stage renal disease; R57.9 Shock, unspecified; Z94.1 Heart transplant status; N18.6 End stage renal disease; I50.9 Heart failure, unspecified; Z79.4 Long term (current) use of insulin; E11.22 Type 2 diabetes mellitus with diabetic chronic kidney disease; Z87.891 Personal history of nicotine dependence; Z99.2 Dependence on renal dialysis; D64.9 Anemia, unspecified; K59.00 Constipation, unspecified; E11.51 Type 2 diabetes mellitus with diabetic peripheral angiopathy without gangrene

== ENCOUNTER 2018-05-07 09:35 | Inpatient (IN) | payer MEDICARE, OTHER ==
[2018-05-07 09:36] VITALS: BMI 25.0
--- NOTE | 2018-05-07 11:57 | C.PDOC ---
History Of Present Illness 63 years old male presents to ED for complaint of right leg pain that began today s/p slipping and falling while trying to get on his wheel chair before his dialysis appointment today. Patient reports pain worsens when trying to str aighten his right leg. Denies LOC, head injury, or any other complaints. Time Seen by Provider: 05/07/18 09:40 Chief Complaint (Nursing): Trauma History Per: Patient History/Exam Limitations: no limitations Onset/Duration Of Symptoms: Hrs Current Symptoms Are (Timing): Still Present Recent travel outside of the [place]: No Past Medical History Reviewed: Historical Data, Nursing Documentation, Vital Signs Vital Signs: Last Vital Signs Temp 98.5 F 05/07/18 11:23 Pulse 68 05/07/18 11:23 Resp 19 05/07/18 11:23 BP 194/95 H 05/07/18 11:23 Pulse Ox 98 05/07/18 11:23 - Medical History PMH: CAD, CHF, Diabetes, HTN, Hypercholesterolemia, End Stage Renal Disease, Chronic Kidney Disease (ESRD on HD) Surgical History: Cholecystectomy, Endoscopy - [facility] Procedures (03/26/18) DRAINAGE OF LEFT PLEURAL CAVITY, PERC APPROACH, DIAGN (02/13/18) ENDOSC POLYPECTOMY OF LG INTEST (10/09/13) PERFORMANCE OF URINARY FILTRATION, MULTIPLE (11/23/16) PERFORMANCE OF URINARY FILTRATION, SINGLE (04/17/16) REMOVAL OF DRAINAGE DEVICE FROM BLADDER, EXTERNAL APPROACH (11/23/16) Family History: States: Unknown Family Hx - Social History Hx Tobacco Use: No Hx Alcohol Use: No Hx Substance Use: No - Immunization History Hx Tetanus Toxoid Vaccination: No Hx Influenza Vaccination: Yes Hx Pneumococcal Vaccination: Yes Review Of Systems Constitutional: Negative for: Fever, Chills ENT: Negative for: Ear Pain Cardiovascular: Negative for: Chest Pain, Edema, Light Headedness Gastrointestinal: Negative for: Nausea, Vomiting, Diarrhea Genitourinary: Negative for: Dysuria Musculoskeletal: Positive for: Leg Pain (Right ). Negative for: Neck Pain Skin: Negative for: Rash Neurological: Negative for: Weakness, Numbness Physical Exam - Physical Exam Appears: Non-toxic, No Acute Distress Skin: Normal Color, Warm, Dry, No Rash Head: Atraumatic, Normacephalic Eye(s): bilateral: Normal Inspection, PERRL, EOMI Oral Mucosa: Moist Neck: Normal ROM, Supple Chest: Symmetrical, No Tenderness Cardiovascular: Rhythm Regular, No Murmur Respiratory: Normal Breath Sounds, No Rales, No Rhonchi, No Wheezing Gastrointestinal/Abdominal: Normal Exam, Bowel Sounds (Active), Soft, No Tenderness, No Distention, No Guarding, No Rebound Extremity: Tenderness (Right leg, hip, and knee ), Capillary Refill (< 2 sec), No Deformity, No Swelling, Other ((+) contracted hip and knee. Both in flexion) Extremity: Bilateral: Normal Color And Temperature Pulses: Left Radial: Normal, Right Radial: Normal, Left Dorsalis Pedis: Normal, Right Dorsalis Pedis: Normal Neurological/Psych: Oriented x3, Normal Speech ED Course And Treatment - Laboratory Results Result Diagrams: 05/07/18 13:25 05/07/18 13:25 O2 Sat by Pulse Oximetry: 98 (RA) Pulse Ox Interpretation: Normal - Other Rad Femur X-Ray X-Ray: Viewed By Me, Read By Radiologist Interpretation: Date of service: 05/07/2018. PROCEDURE: Right Femur Radiographs. HISTORY: fall, injury. COMPARISON: None. TECHNIQUE: AP and Lateral Radiographs of the right femur. FINDINGS: FEMUR: Normal. No fracture. SOFT TISSUES: Femoral arterial calcification is noted. OTHER FINDINGS: None. IMPRESSION: No acute fracture. Him/Pelvis X-Ray X-Ray: Viewed By Me, Read By Radiologist Interpretation: PROCEDURE: Right Hip Radiographs. HISTORY: fall, pain. COMPARISON: None. FINDINGS: BONES: Normal. No fracture. JOINTS: Normal. SOFT TISSUES: Normal. OTHER FINDINGS: None. IMPRESSION: Normal radiographs of right hip. Knee X-Ray X-Ray: Viewed By Me, Read By Radiologist Interpretation: Date of service: 05/07/2018. PROCEDURE: Right Knee Radiographs. HISTORY: Status post fall with knee pain. COMPARISON: Correlation made with concurrent radiographs of the left femur. FINDINGS: BONES: No evidence of acute displaced fracture nor dislocation. The osseous structures appear intact. JOINTS: Small anterior superior patella enthesophyte. JOINT EFFUSION: No significant joint effusion is identified. OTHER FINDINGS: Fairly extensive vascular calcifications again seen. IMPRESSION: No evidence of acute displaced fracture nor dislocation Medical Decision Making Medical Decision Making: Plan: * Tylenol * Knee X-Ray * Femur X-Ray * Hip X-Ray The patient was also found to have low O2 sat. Was 86-88% on RA. Patient was placed on 2L NC. The case was discussed with Dr. Rodas who states that the patient has decreased O2 sat when the patient is due or misses dialysis. Patient fell out of bed and missed dialysis. 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 - Scribe Statement The provider has reviewed the documentation as recorded by the Scribe Lea Lara All medical record entries made by the Sendy were at my direction and personally dictated by me. I have reviewed the chart and agree that the record accurately reflects my personal performance of the history, physical exam, medical decision making, and the department course for this patient. I have also personally directed, reviewed, and agree with the discharge instructions and di sposition.
--- NOTE | 2018-05-07 12:30 | RAD ---
Date of service: 05/07/2018 PROCEDURE: Right Femur Radiographs. HISTORY: fall, injury COMPARISON: None. TECHNIQUE: AP and Lateral Radiographs of the right femur. FINDINGS: FEMUR: Normal. No fracture. SOFT TISSUES: Femoral arterial calcification is noted. OTHER FINDINGS: None. IMPRESSION: No acute fracture.
--- NOTE | 2018-05-07 13:25 | RAD ---
Date of service: 05/07/2018 PROCEDURE: Right Knee Radiographs. HISTORY: Status post fall with knee pain. COMPARISON: Correlation made with concurrent radiographs of the left femur. FINDINGS: BONES: No evidence of acute displaced fracture nor dislocation. The osseous structures appear intact. JOINTS: Small anterior superior patella enthesophyte. JOINT EFFUSION: No significant joint effusion is identified. OTHER FINDINGS: Fairly extensive vascular calcifications again seen IMPRESSION: No evidence of acute displaced fracture nor dislocation
[2018-05-07 13:30] LABS: BASO # 0.1 K/uL (0.0-0.2); BASO % 1.2 % (0.0-2.0); EOS # 0.2 K/uL (0.0-0.7); EOS % 2.6 % (0.0-4.0); HEMOGLOBIN 12.5 g/dL (12.0-18.0); LYMPH # 0.5 K/uL (1.0-4.3); LYMPH % 7.7 % (20.0-40.0); MEAN CELL VOLUME 89.2 fL (80.0-94.0); MEAN CORPUSCULAR HEMOGLOBIN 29.6 pg (27.0-31.0); MEAN CORPUSCULAR HGB CONC 33.2 g/dL (33.0-37.0); MEAN PLATELET VOLUME 8.2 fL (7.2-11.7); MONO # 0.5 K/uL (0.0-0.8); MONO % 9.1 % (0.0-10.0); NEUT # 4.8 K/uL (1.8-7.0); NEUT % 79.4 % (50.0-75.0); PLATELET COUNT 142 K/uL (130-400); RBC 4.22 Mil/uL (4.40-5.90); RED CELL DISTRIBUTION WIDTH 20.3 % (11.5-14.5)
--- NOTE | 2018-05-07 13:30 | RAD ---
PROCEDURE: Right Hip Radiographs. HISTORY: fall, pain COMPARISON: None. FINDINGS: BONES: Normal. No fracture. JOINTS: Normal. SOFT TISSUES: Normal. OTHER FINDINGS: None. IMPRESSION: Normal radiographs of right hip.
--- NOTE | 2018-05-07 13:39 | CP.PCM.CON ---
History of Present Illness - History of Present Illness History of Present Illness: laint of right leg pain that began today s/p slipping and falling while trying to get on his wheel chair before his dialysis appointment today. Patient reports pain worsens when trying to straighten his right leg. Denies LOC, head injury, or any other complaints. XRs negative will need HD today for fluid overload - Medical History PMH: CAD, CHF, Diabetes, HTN, Hypercholesterolemia, End Stage Renal Disease, Chronic Kidney Disease (ESRD on HD), orthotopic heart transplant Surgical History: Cholecystectomy, Endoscopy, heart transplant - [facility] Procedures (03/26/18) DRAINAGE OF LEFT PLEURAL CAVITY, PERC APPROACH, DIAGN (02/13/18) ENDOSC POLYPECTOMY OF LG INTEST (10/09/13) PERFORMANCE OF URINARY FILTRATION, MULTIPLE (11/23/16) PERFORMANCE OF URINARY FILTRATION, SINGLE (04/17/16) REMOVAL OF DRAINAGE DEVICE FROM BLADDER, EXTERNAL APPROACH (11/23/16) Family History: States: Unknown Family Hx - Social History Hx Tobacco Use: No Hx Alcohol Use: No Hx Substance Use: No - Immunization History Hx Tetanus Toxoid Vaccination: No Hx Influenza Vaccination: Yes Hx Pneumococcal Vaccination: Yes Review Of Systems Constitutional: Negative for: Fever, Chills Gastrointestinal: Negative for: Nausea, Vomiting, Diarrhea Musculoskeletal: Positive for: Leg Pain (Right ) Skin: Negative for: Rash Neurological: Negative for: Weakness, Numbness Physical Exam - Physical Exam Appears: Non-toxic, No Acute Distress Skin: Normal Color, Warm, Dry, No Rash Head: Atraumatic, Normacephalic Eye(s): bilateral: Normal Inspection, PERRL, EOMI Oral Mucosa: Moist Neck: Normal ROM, Supple Chest: Symmetrical, No Tenderness Cardiovascular: Rhythm Regular, No Murmur Respiratory: Normal Breath Sounds, No Rales, No Rhonchi, No Wheezing Gastrointestinal/Abdominal: Normal Exam, Bowel Sounds (Active), Soft, No Tenderness, No Distention, No Guarding, No Rebound Extremity: Tenderness (Right leg, hip, and knee ), No Deformity, No Swelling, Other (Positive contracted inflection of hip and knee ) Extremity: Bilateral: Normal Color And Temperature Pulses: Left Radial: Normal, Right Radial: Normal Neurological/Psych: Oriented x3, Normal Speech Review of Systems - Constitutional Constitutional: Frequent Falls, Weakness - EENT Eyes: Blurred Vision Ears: absent: As Per HPI, Decreased Hearing, Ear Discharge, Ear Pain, Tinnitus, Abnormal Hearing, Disequilibrium, Dizziness, Other Nose/Mouth/Throat: absent: As Per HPI, Epistaxis, Nasal Congestion, Nasal Discharge, Nasal Obstruction, Nasal Trauma, Nose Pain, Post Nasal Drip, Sinus Pain, Sinus Pressure, Bleeding Gums, Change in Voice, Dental Pain, Dry Mouth, Dysphagia, Halitosis, Hoarsness, Lip Swelling, Mouth Lesions, Mouth Pain, Odynophagia, Sore Throat, Throat Swelling, Tongue Swelling, Facial Pain, Neck Pain, Neck Mass, Other - Cardiovascular Cardiovascular: Dyspnea on Exertion, Edema - Respiratory Respiratory: Cough, Dyspnea - Gastrointestinal Gastrointestinal: absent: As Per HPI, Abdominal Pain, Belching, Bloating, Change in Bowel Habits, Change in Stool Character, Coffee Ground Emesis, Constipation, Cramping, Diarrhea, Dyspepsia, Dysphagia, Early Satiety, Excessive Flatus, Fecal Incontinence, Heartburn, Hematemesis, Hematochezia, Loose Stools, Melena, Na usea, Odynophagia, Temesmus, Vomiting, Other - Genitourinary Genitourinary: As Per HPI - Musculoskeletal Musculoskeletal: Muscle Weakness, Myalgias - Neurological Neurological: Weakness Past Patient History - Infectious Disease Hx of Infectious Diseases: None - Past Medical History & Family History Past Medical History?: Yes Past Family History: Reviewed and not pertinent - Past Social History Smoking Status: Never Smoked Chewing Tobacco Use: No Cigar Use: No Alcohol: None Drugs: Denies Home Situation {Lives}: Alone - CARDIAC Hx Congestive Heart Failure: Yes Hx Hypercholesterolemia: Yes Hx Hypertension: Yes - PULMONARY Hx Respiratory Disorders: No - NEUROLOGICAL Hx Neurological Disorder: No - HEENT Hx HEENT Problems: Yes Hx Cataracts: Yes - RENAL Hx Chronic Kidney Disease: Yes (ESRD on HD) - ENDOCRINE/METABOLIC Hx Endocrine Disorders: Yes Hx Diabetes Mellitus Type 2: Yes - HEMATOLOGICAL/ONCOLOGICAL Hx Blood Disorders: No - INTEGUMENTARY Hx Dermatological Problems: No - MUSCULOSKELETAL/RHEUMATOLOGICAL Hx Falls: No - GASTROINTESTINAL Hx Gastrointestinal Disorders: No - GENITOURINARY/GYNECOLOGICAL Hx Genitourinary Disorders: Yes Hx Hematuria: Yes Hx Urinary Tract Infection: Yes - PSYCHIATRIC Hx Substance Use: No - SURGICAL HISTORY Hx Cholecystectomy: Yes - ANESTHESIA Hx Anesthesia: Yes Hx Anesthesia Reactions: No Hx Malignant Hyperthermia: No Meds Allergies/Adverse Reactions: Allergies Allergy/AdvReac Type Severity Reaction Status Date / Time meropenem Allergy Severe SWELLING Verified 05/07/18 09:52 morphine Allergy Severe ANGIOEDEMA Verified 05/07/18 09:52 Physical Exam - Constitutional Appears: No Acute Distress, Chronically Ill - Head Exam Head Exam: ATRAUMATIC, NORMAL INSPECTION - Eye Exam Eye Exam: EOMI, Normal appearance - Neck Exam Neck exam: Positive for: Normal Inspection. Negative for: Tenderness - Respiratory Exam Respiratory Exam: Clear to Auscultation Bilateral, NORMAL BREATHING PATTERN - Cardiovascular Exam Cardiovascular Exam: REGULAR RHYTHM, +S1 - GI/Abdominal Exam GI & Abdominal Exam: Soft. absent: Tenderness - Extremities Exam Extremities exam: Positive for: normal inspection. Negative for: tenderness - Neurological Exam Neurological exam: Alert, CN II-XII Intact - Skin Skin Exam: Dry, Warm Results - Vital Signs Recent Vital Signs: Last Vital Signs Temp 98.5 F 05/07/18 11:23 Pulse 68 05/07/18 11:23 Resp 19 05/07/18 11:23 BP 194/95 H 05/07/18 11:23 Pulse Ox 98 05/07/18 13:34 - Labs Result Diagrams: 05/07/18 13:25 Labs: Laboratory Results - last 24 hr 05/07/18 13:25 WBC 6.0 RBC 4.22 L Hgb 12.5 Hct 37.7 MCV 89.2 MCH 29.6 MCHC 33.2 RDW 20.3 H Plt Count 142 MPV 8.2 Neut % (Auto) 79.4 H Lymph % (Auto) 7.7 L [place] % (Auto) 9.1 Eos % (Auto) 2.6 Baso % (Auto) 1.2 Neut # (Auto) 4.8 Lymph # (Auto) 0.5 L [place] # (Auto) 0.5 Eos # (Auto) 0.2 Baso # (Auto) 0.1 Assessment & Plan (1) Contusion, hip and thigh Status: Acute (2) Heart transplant recipient Status: Acute (3) Fluid overload Status: Acute (4) Type 2 diabetes mellitus with diabetic nephropathy Status: Acute (5) End stage renal disease Status: Chronic - Assessment and Plan (Free Text) Plan: schedule dialysis today
[2018-05-07 14:00] LABS: ALB/GLOB RATIO 0.8 (1.0-2.1); ALBUMIN 4.1 g/dL (3.5-5.0); CALCIUM 9.5 mg/dl (8.6-10.4)
[2018-05-07 14:01] LABS: LYMPHOCYTE 9 % (20-40); MONOCYTE 11 % (0-10); NEUTROPHIL 78 % (50-75); PLATELET ESTIMATE NORMAL (NORMAL); TOTAL CELLS COUNTED 100
[2018-05-07 14:02] LABS: EOSINOPHIL 2 % (0-4)
--- NOTE | 2018-05-07 14:02 | RAD ---
Date of service: 05/07/2018 HISTORY: SOB COMPARISON: None available. FINDINGS: LUNGS: Mild pulmonary venous congestive changes with bilateral lower lobe alveolar-type infiltrates and bilateral effusions left larger than right. PLEURA: As above. No pneumothorax apparent. CARDIOVASCULAR: Aortic atherosclerotic calcification present. Sternotomy wires again noted. Marked cardiomegaly.. OSSEOUS STRUCTURES: No significant abnormalities. VISUALIZED UPPER ABDOMEN: Normal. OTHER FINDINGS: None. IMPRESSION: Mild pulmonary venous congestive changes with bilateral lower lobe alveolar-type infiltrates and bilateral effusions left larger than right. Marked cardiomegaly.
--- NOTE | 2018-05-07 20:36 | CP.PCM.HP ---
History of Present Illness - History of Present Illness History of Present Illness: Chief complaint: Fall HPI: Patient is a 63-year-old male with a history of heart transplant on immunosuppressive treatment end-stage renal disease on dialysis and diabetes. This morning he was about to get dressed and go to the dialysis Center further hemodialysis. But a he was trying to get out of the bed to the chair he was not able to, he was sliding and fell on the floor, unable to get a by the . And called ambulance. And he was picked up from the floor and brought him to the emergency room. In the emergency room patient underwent extensive skeletal survey as the patient does not have a clear idea what happened. He is complaining of pain in the right leg. Also some pain in the right calf. Patient denies any chest pain or shortness of breath. Currently he is getting the hemodialysis. He is awake and responding and comfortable otherwise. Blood sugar is stable. He has no chest pain minimal shortness of breath noted, in the emergency room patient was also noted to have hypoxia. History present illness: 61-year-old male with history of heart transplant, on immunosuppressive treatment, end-stage renal disease on dialysis, recent had a hematuria, also urinary tract infection, Past medical history: Heart, transplant on immunosuppressive treatment, end-stage renal disease on dialysis, hypertension, diabetes, hypercholesterolemia, urinary tract infection. Allergy: No known drug allergy but imepenem causes AMS Personal history: Nonsmoker nonalcoholic disabled Family history noncontributory. Review of systems: Currently having some headache, complaining of episodes of hiccups, abdominal pain, shortness of breath and cough noted, bilateral leg swelling On examination: HEENT PERRLA, neck supple No thyromegaly was noted and no cervical adenopathy noted Bilateral wheezing and rales noted CVS regular heart sound, no murmur Abdomen soft and no organomegaly Bilateral edema noted [employer] alert awake oriented x3 no functional neurological deficit. CXR: bilateral effusion noted Assessment and recommendation: 61-year-old male with history of heart transplant, immunosuppressive treatment, end-stage renal disease on dialysis, hypertension, diabetes, peripheral vascular disease, pedal edema, and urinary tract infection. Patient had a recurrent fall, likely secondary to weakness. Hypoxia can't be ruled out. Patient has a worsening bilateral pleural effusion. Suggested renal consultation for possible effective dialysis. Patient may need a thoracentesis. Will get the CAT scan and ABG. Patient may need oxygen at home. Will monitor and will follow-up the patient Present on Admission - Present on Admission Any Indicators Present on Admission: No History of DVT/PE: No History of Uncontrolled Diabetes: No Urinary Catheter: No Decubitus Ulcer Present: No Past Patient History - Infectious Disease Hx of Infectious Diseases: None - Past Medical History & Family History Past Medical History?: Yes Past Family History: Reviewed and not pertinent - Past Social History Smoking Status: Never Smoked Chewing Tobacco Use: No Cigar Use: No Alcohol: None Drugs: Denies Home Situation {Lives}: Alone - CARDIAC Hx Congestive Heart Failure: Yes Hx Hypercholesterolemia: Yes Hx Hypertension: Yes - PULMONARY Hx Respiratory Disorders: No - NEUROLOGICAL Hx Neurological Disorder: No - HEENT Hx HEENT Problems: Yes Hx Cataracts: Yes - RENAL Hx Chronic Kidney Disease: Yes (ESRD on HD) - ENDOCRINE/METABOLIC Hx Endocrine Disorders: Yes Hx Diabetes Mellitus Type 2: Yes - HEMATOLOGICAL/ONCOLOGICAL Hx Blood Disorders: No - INTEGUMENTARY Hx Dermatological Problems: No - MUSCULOSKELETAL/RHEUMATOLOGICAL Hx Falls: No - GASTROINTESTINAL Hx Gastrointestinal Disorders: No - GENITOURINARY/GYNECOLOGICAL Hx Genitourinary Disorders: Yes Hx Hematuria: Yes Hx Urinary Tract Infection: Yes - PSYCHIATRIC Hx Substance Use: No - SURGICAL HISTORY Hx Cholecystectomy: Yes - ANESTHESIA Hx Anesthesia: Yes Hx Anesthesia Reactions: No Hx Malignant Hyperthermia: No Meds Allergies/Adverse Reactions: Allergies Allergy/AdvReac Type Severity Reaction Status Date / Time meropenem Allergy Severe SWELLING Verified 05/07/18 09:52 morphine Allergy Severe ANGIOEDEMA Verified 05/07/18 09:52 Results - Vital Signs Recent Vital Signs: Last Vital Signs Temp 97.6 F 05/07/18 20:33 Pulse 75 05/07/18 20:33 Resp 18 05/07/18 20:33 BP 192/92 H 05/07/18 20:33 Pulse Ox 91 L 05/07/18 20:33 - Labs Result Diagrams: 05/07/18 13:25 05/07/18 13:25 Labs: Laboratory Results - last 24 hr 05/07/18 05/07/18 05/07/18 13:25 13:25 16:05 WBC 6.0 RBC 4.22 L Hgb 12.5 Hct 37.7 MCV 89.2 MCH 29.6 MCHC 33.2 RDW 20.3 H Plt Count 142 MPV 8.2 Neut % (Auto) 79.4 H Lymph % (Auto) 7.7 L [place] % (Auto) 9.1 Eos % (Auto) 2.6 Baso % (Auto) 1.2 Neut # (Auto) 4.8 Lymph # (Auto) 0.5 L [place] # (Auto) 0.5 Eos # (Auto) 0.2 Baso # (Auto) 0.1 Neutrophils % (Manual) 78 H Lymphocytes % (Manual) 9 L Monocytes % (Manual) 11 H Eosinophils % (Manual) 2 Platelet Estimate Normal Sodium 133 Potassium 4.6 Chloride 89 L Carbon Dioxide 29 Anion Gap 19 BUN 51 H Creatinine 7.5 H* Est GFR ( Amer) 9 Est GFR (Non-Af Amer) 7 Random Glucose 174 H Calcium 9.5 Total Bilirubin 1.5 H AST 32 ALT 13 L Alkaline Phosphatase 124 Total Protein 9.0 H Albumin 4.1 Globulin 4.9 H Albumin/Globulin Ratio 0.8 L Hep Bs Antigen Negative
--- NOTE | 2018-05-08 10:11 | CP.PCM.PN ---
Subjective - Date & Time of Evaluation Date of Evaluation: 05/08/18 Time of Evaluation: 10:09 - Subjective Subjective: patient seen and examined s/p hd yesterday high bp noted c/o pain in left entire leg, unable to move it Objective - Vital Signs/Intake and Output Vital Signs (last 24 hours): Temp Pulse Resp BP Pulse Ox 97.9 F 72 18 197/92 H 96 05/08/18 07:00 05/08/18 07:00 05/08/18 07:00 05/08/18 07:00 05/08/18 07:00 - Medications Medications: Current Medications Amlodipine Besylate (Norvasc) 10 mg PO DAILY [facility] Aspirin (Ecotrin) 81 mg PO DAILY [facility] Calcium Acetate (Phoslo) 667 mg PO TIDAC [facility] Last Admin: 05/08/18 08:30 Dose: 667 mg Carvedilol (Coreg) 25 mg PO BID [facility] Clonidine HCl (Catapres) 0.2 mg PO BID [facility] Ezetimibe (Zetia) 10 mg PO HS [facility] Last Admin: 05/07/18 21:56 Dose: 10 mg Heparin Sodium (Porcine) (Heparin) 5,000 units SC Q12 [facility] Last Admin: 05/07/18 21:56 Dose: 5,000 units Hydralazine HCl (Apresoline) 100 mg PO TID [facility] Insulin Glargine (Lantus) 14 unit SC QAM [facility] Losartan Potassium (Cozaar) 25 mg PO DAILY [facility] Pantoprazole Sodium (Protonix Ec Tab) 40 mg PO DAILY PRN PRN Reason: Indigestion Rosuvastatin Calcium (Crestor) 20 mg PO HS [facility] Last Admin: 05/07/18 21:56 Dose: 20 mg Tacrolimus (Prograf) 5 mg PO QAM [facility] Tacrolimus (Prograf) 5 mg PO QPM [facility] - Labs Labs: 05/07/18 13:25 05/07/18 13:25 - Constitutional Appears: Non-toxic, No Acute Distress, Chronically Ill - Head Exam Head Exam: NORMAL INSPECTION, NORMOCEPHALIC - Eye Exam Eye Exam: Normal appearance, PERRL - ENT Exam ENT Exam: Mucous Membranes Moist, Normal Exam - Neck Exam Neck Exam: Full ROM, Normal Inspection - Respiratory Exam Respiratory Exam: Decreased Breath Sounds (bases), Clear to Ausculation Bilateral, NORMAL BREATHING PATTERN - Cardiovascular Exam Cardiovascular Exam: REGULAR RHYTHM, RRR - GI/Abdominal Exam GI & Abdominal Exam: Distended, Soft - Extremities Exam Extremities Exam: Normal Inspection - Neurological Exam Neurological Exam: Alert, Awake, Oriented x3 - Psychiatric Exam Psychiatric exam: Normal Affect, Normal Mood - Skin Skin Exam: Dry, Intact Assessment and Plan (1) Contusion, hip Status: Acute (2) Fluid overload Status: Acute (3) Heart transplant recipient Status: Acute (4) Anemia Status: Acute (5) CHF (congestive heart failure) Status: Acute (6) ESRD (end stage renal disease) Status: Acute - Assessment and Plan (Free Text) Assessment: maintain hd mwf fluid restriction increase clonidine dose, add low dose losartan pt/ot
[2018-05-08] MEDS: (Lantus) Insulin Glargine, Recombinant SC SCH (11:00)
[2018-05-08] MEDS ORDERED: Losartan 12.5 MG TAB PO SCH (11:30)
[2018-05-08] MEDS: (Novolog) Insulin Aspart, Recombinant 100 u/ml 10 ml vial SC SCH ×3 (12:59→21:36)
--- NOTE | 2018-05-08 17:53 | CP.PCM.PN ---
Subjective - Date & Time of Evaluation Date of Evaluation: 05/08/18 Time of Evaluation: 17:53 - Subjective Subjective: see note Objective - Vital Signs/Intake and Output Vital Signs (last 24 hours): Temp Pulse Resp BP Pulse Ox 98.0 F 75 18 162/75 H 96 05/08/18 15:00 05/08/18 16:00 05/08/18 15:00 05/08/18 15:00 05/08/18 15:00 - Medications Medications: Current Medications Amlodipine Besylate (Norvasc) 10 mg PO DAILY [facility] Last Admin: 05/08/18 10:55 Dose: 10 mg Aspirin (Ecotrin) 81 mg PO DAILY [facility] Last Admin: 05/08/18 11:00 Dose: 81 mg Calcium Acetate (Phoslo) 667 mg PO TIDAC [facility] Last Admin: 05/08/18 11:14 Dose: 667 mg Carvedilol (Coreg) 25 mg PO BID [facility] Last Admin: 05/08/18 10:50 Dose: 25 mg Clonidine HCl (Catapres) 0.2 mg PO BID [facility] Last Admin: 05/08/18 11:00 Dose: 0.2 mg Ezetimibe (Zetia) 10 mg PO HS [facility] Last Admin: 05/07/18 21:56 Dose: 10 mg Heparin Sodium (Porcine) (Heparin) 5,000 units SC Q12 [facility] Last Admin: 05/08/18 11:00 Dose: 5,000 units Hydralazine HCl (Apresoline) 100 mg PO TID [facility] Last Admin: 05/08/18 13:00 Dose: 100 mg Insulin Aspart (Novolog) 0 unit SC [facility]; Protocol Last Admin: 05/08/18 12:59 Dose: 6 units [facility]ulin [facility]argine (Lantus) [facility] Last Admin: 05/08/18 11:00 Dose: 14 units Losartan Potassium (Cozaar) 25 mg PO DAILY [facility] Last Admin: 05/08/18 11:40 Dose: 25 mg Pantoprazole Sodium (Protonix Ec Tab) 40 mg PO DAILY PRN PRN Reason: Indigestion Rosuvastatin Calcium (Crestor) 20 mg PO HS [facility] Last Admin: 05/07/18 21:56 Dose: 20 mg Tacrolimus (Prograf) 5 mg PO QAM [facility] Last Admin: 11/27/18 11:00 Dose: 5 mg Tacrolimus (Prograf) 5 mg PO QPM [facility] - Labs Labs: 05/07/18 13:25 05/07/18 13:25
--- NOTE | 2018-05-08 23:15 | PN ---
DATE: 05/08/2018 TIME: 5:30 p.m. SUBJECTIVE: The patient is now feeling slightly cold. He has some shivering, but temperature is normal. The room is also slightly on the cold side. He has no chest pain. He has hemodialysis done yesterday. The patient's at bedside. Spoke to the patient's in detail. PHYSICAL EXAMINATION: VITAL SIGNS: Temperature is 98, pulse 78, blood pressure 162/75, nasal cannula oxygen 96%. CHEST: Bilateral minimal expiratory wheezing noted. ABDOMEN: Soft. Right arm AV fistula noted. EXTREMITIES: Legs, in the right calf, the patient has a tender calf noted, but less than before. Patient underwent Doppler of the lower extremities. Results are pending, but unlikely there is any DVT noted. Mild hypoxia noted. Supplemented oxygen is improving. ASSESSMENT AND PLAN: A 63-year-old male with history of kidney transplant, end-stage renal disease, on dialysis, on immunosuppressive treatment, diabetes, admitted with fall, weakness, debility. The patient probably has a hypoxia. We will get a CT scan of the chest to rule out underlying worsening pleural effusion which may need thoracentesis. We will repeat the blood gas analysis. If low, we will arrange for home oxygen. Lauren Rodas MD
[2018-05-09] MEDS: (Novolog) Insulin Aspart, Recombinant 100 u/ml 10 ml vial SC SCH ×4 (08:38→21:50)
--- NOTE | 2018-05-09 11:13 | CT ---
Date of service: 05/08/2018 CT chest without IV contrast Indication: pleural effusion Technique: Contiguous axial images were obtained through the chest without intravenous contrast enhancement. Sagittal and coronal reconstructions were generated and reviewed. This CT exam was performed using 1 or more of the following dose reduction techniques: Automated exposure control, adjustment of the MAA and/or kV according to patient size, and/or use of iterative reconstruction technique. Radiation dose (DLP): 294.88 MGy-cm. Comparison: Chest x-ray performed 05/07/18, CT chest without IV contrast performed 02/13/18 Findings: Examination limited by respiratory artifact. Visualized portions of the inferior thyroid gland appear unremarkable. The unenhanced mediastinal and hilar vascular structures appear grossly unremarkable. Cardiomegaly. Dense coronary artery calcifications. Dense atherosclerotic calcifications of the aorta. Sub cm mediastinal adenopathy, nonspecific. Bilateral small to moderate pleural effusions evident. Left-sided pleural fluid contains air fluid collections, debris, and air worrisome for loculated hydropneumothorax versus empyema. On the right, fluid tracks along the fissure. Bilateral dependent consolidations. Thick-walled esophagus which contains fluid likely related to gastroesophageal reflux. Fluid also evident within the trachea. Limited visualization of the noncontrast upper abdomen; gallbladder wall thickening versus pericholecystic edema. Right upper quadrant mesenteric edema; peripancreatic nam hepatis inflammatory stranding. Correlate clinically including amylase and lipase in order to exclude possibility of pancreatitis. Sub cm upper mediastinal adenopathy, nonspecific. Median sternotomy wires. Mild degenerative changes. Impression: Bilateral small to moderate pleural effusions evident. Left-sided pleural fluid contains air fluid collections, debris, and air worrisome for loculated hydropneumothorax versus empyema. On the right, fluid tracks along the fissure. Bilateral dependent consolidations. Thick-walled esophagus which contains fluid likely related to gastroesophageal reflux. Fluid also evident within the trachea. Limited visualization of the noncontrast upper abdomen; gallbladder wall thickening versus pericholecystic edema. Right upper quadrant mesenteric edema; peripancreatic nam hepatis inflammatory stranding. Correlate clinically including amylase and lipase in order to exclude possibility of pancreatitis. Sub cm upper mediastinal adenopathy, nonspecific. Cardiomegaly. Additional findings as above. Preliminary impression was provided by [facility]. Findings discussed with the patient's RN Michelle on 05/09/18 at 10:55 a.m.
[2018-05-09] MEDS: (Lantus) Insulin Glargine, Recombinant SC SCH (11:14)
--- NOTE | 2018-05-09 11:43 | VASCLAB ---
Date of service: 05/08/2018 PROCEDURE: Lower Extremity Venous Duplex Exam. HISTORY: DVT PRIORS: None. TECHNIQUE: Bilateral common femoral, femoral, popliteal and posterior tibial, peroneal and great saphenous veins were evaluated. Flow was assessed with color Doppler, compressibility, assessment of phasic flow and augmentation response. Report prepared by EUGENIO Telles, RVT FINDINGS: RIGHT: 1. Common Femoral Vein: 1.1. Compressibility - Fully compressible: Thrombus - None : Flow - Phasic: Augmentation -Normal: Reflux - None. 2. Femoral Vein: 2.1. Compressibility - Fully compressible: Thrombus - None : Flow - Phasic: Augmentation -Normal: Reflux - None. 3. Popliteal Vein: 3.1. Compressibility - Fully compressible: Thrombus - None : Flow - Phasic: Augmentation -Normal: Reflux - None. 4. Posterior Tibial Vein: 4.1. Compressibility - Fully compressible: Thrombus - None: Flow - Phasic: Augmentation -Normal: Reflux - None. 5. Peroneal Vein: 5.1. Compressibility - Fully compressible: Thrombus - None: Flow - Phasic: Augmentation -Normal: Reflux - None. 6. Great Saphenous Vein: 6.1. Compressibility - Fully compressible: Thrombus - None: Flow - Phasic: Augmentation - Normal: Reflux - None. LEFT: 1. Common Femoral Vein: 1.1. Compressibility - Fully compressible: Thrombus - None: Flow - Phasic: Augmentation -Normal: Reflux - None. 2. Femoral Vein: 2.1. Compressibility - Fully compressible: Thrombus - None: Flow - Phasic: Augmentation -Normal: Reflux - None. 3. Popliteal Vein: 3.1. Compressibility - Fully compressible: Thrombus - None : Flow - Phasic: Augmentation -Normal: Reflux - None. 4. Posterior Tibial Vein: 4.1. Compressibility - Fully compressible: Thrombus - None: Flow - Phasic: Augmentation -Normal: Reflux - None. 5. Peroneal Vein: 5.1. Compressibility - Fully compressible: Thrombus - None: Flow - Phasic: Augmentation -Normal: Reflux - None. 6. Great Saphenous Vein: 6.1. Compressibility - Fully compressible: Thrombus - None: Flow - Phasic: Augmentation - Normal: Reflux - None. OTHER FINDINGS: Right: None significant. Left: None significant. IMPRESSION: Right: No evidence of deep or superficial vein thrombosis of the right lower extremity. Normal valve function noted of the right side. Left: No evidence of deep or superficial vein thrombosis of the left lower extremity. Normal valve function noted of the left side.
[2018-05-09 12:06] LABS: ABG ALLEN TEST PO; ARTERIAL BLOOD GAS HCO3 29.2 mmol/L (21-28); ARTERIAL BLOOD GAS HEMOGLOBIN 11.7 g/dL (11.7-17.4); ARTERIAL BLOOD GAS O2 SAT 90.6 % (95-98); ARTERIAL BLOOD GAS PCO2 40 mm/Hg (35-45); ARTERIAL BLOOD GAS PH 7.48 (7.35-7.45); ARTERIAL BLOOD GAS PO2 59 mm/Hg (80-100)
--- NOTE | 2018-05-09 12:44 | PN ---
DATE: 05/09/2018 SUBJECTIVE: The patient was seen by me today on 05/09/2018 at 08:16 a.m. The patient is sitting up comfortably. He is eating his breakfast at this time. He has no chest pain. Mild wheezing noted. Coughing was slightly present. PHYSICAL EXAMINATION: VITAL SIGNS: Blood pressure is 173/77, pulse 71, saturation is 94% in nasal cannula 2 L. CHEST: Bilateral diffuse wheezing and rhonchi in the lower lung scott noted. HEART: Regular heart sound. ABDOMEN: Soft. EXTREMITIES: Edema noted. Minimal tenderness in the right calf noted. LABORATORY DATA: The patient had a venous Doppler done yesterday, which was reported as no evidence of any DVT, but official report currently pending. CT scan of the chest was done last night, which was showing evidence of bilateral pleural effusion, but small amount. No need for any thoracentesis. ASSESSMENT: A 63-year-old male with a history of heart transplant, history of end-stage renal disease, on dialysis, admitted with fall, hypoxia. PLAN: I recommended to get an ABG today. The patient may need home oxygen. We will get the blood gas analysis in the room air. He will be getting the hemodialysis and the possible discharge plan after that. Lauren Rodas MD
--- NOTE | 2018-05-09 13:59 | CP.PCM.PN ---
Subjective - Date & Time of Evaluation Date of Evaluation: 05/09/18 Time of Evaluation: 13:56 - Subjective Subjective: Seen at dialysis Feels better To UF 3500ml with HD No sequella from fall HTN elevated Objective - Vital Signs/Intake and Output Vital Signs (last 24 hours): Temp Pulse Resp BP Pulse Ox 98 F 73 18 173/77 H 94 L 05/09/18 07:57 05/09/18 08:00 05/09/18 07:57 05/09/18 07:57 05/09/18 07:57 Intake and Output: 05/09/18 05/09/18 06:59 18:59 Intake Total 120 Balance 120 - Medications Medications: Current Medications Amlodipine Besylate (Norvasc) 10 mg PO DAILY [facility] Last Admin: 05/09/18 12:30 Dose: Not Given Aspirin (Ecotrin) 81 mg PO DAILY [facility] Last Admin: 05/09/18 10:04 Dose: 81 mg Calcium Acetate (Phoslo) 667 mg PO TIDAC [facility] Last Admin: 05/09/18 12:33 Dose: 667 mg Carvedilol (Coreg) 25 mg PO BID [facility] Last Admin: 05/09/18 12:29 Dose: Not Given Clonidine HCl (Catapres) 0.2 mg PO BID [facility] Last Admin: 05/09/18 12:29 Dose: Not Given Ezetimibe (Zetia) 10 mg PO HS [facility] Last Admin: 05/08/18 21:36 Dose: 10 mg Heparin Sodium (Porcine) (Heparin) 5,000 units SC Q12 [facility] Last Admin: 05/09/18 10:04 Dose: 5,000 units Hydralazine HCl (Apresoline) 100 mg PO TID [facility] Last Admin: 05/09/18 10:04 Dose: Not Given Insulin Aspart (Novolog) 0 unit SC ACHS [facility]; Protocol Last Admin: 05/09/18 12:33 Dose: 2 units Insulin Glargine (Lantus) 14 unit SC QAM [facility] Last Admin: 05/09/18 11:14 Dose: 14 units Losartan Potassium (Cozaar) 25 mg PO DAILY [facility] Last Admin: 05/09/18 12:30 Dose: Not Given Pantoprazole Sodium (Protonix Ec Tab) 40 mg PO DAILY PRN PRN Reason: Indigestion Rosuvastatin Calcium (Crestor) 20 mg PO [facility] Last Admin: 05/08/18 21:36 Dose: 20 mg Tacrolimus (Prograf) 5 mg PO QAM [facility] Last Admin: 05/09/18 10:03 Dose: 5 mg Tacrolimus (Prograf) 5 mg PO QPM [facility] Last Admin: 05/08/18 18:34 Dose: 5 mg - Labs Labs: 05/07/18 13:25 05/07/18 13:25 - Constitutional Appears: No Acute Distress, Chronically Ill - Head Exam Head Exam: ATRAUMATIC, NORMAL INSPECTION - Eye Exam Eye Exam: EOMI, Normal appearance - Neck Exam Neck Exam: Normal Inspection. absent: Tenderness - Respiratory Exam Respiratory Exam: Clear to Ausculation Bilateral, NORMAL BREATHING PATTERN - Cardiovascular Exam Cardiovascular Exam: REGULAR RHYTHM, +S1 - GI/Abdominal Exam GI & Abdominal Exam: Soft. absent: Tenderness - Extremities Exam Extremities Exam: Normal Inspection. absent: Tenderness - Neurological Exam Neurological Exam: Awake, CN II-XII Intact - Skin Skin Exam: Dry, Warm Assessment and Plan (1) Contusion, hip and thigh Status: Acute (2) Heart transplant recipient Status: Acute (3) Fluid overload Status: Acute (4) Type 2 diabetes mellitus with diabetic nephropathy Status: Acute (5) End stage renal disease Status: Chronic - Assessment and Plan (Free Text) Plan: Increase BP meds UF as much as possible follow up labs
[2018-05-10] MEDS: (Novolog) Insulin Aspart, Recombinant 100 u/ml 10 ml vial SC SCH ×4 (08:30→21:24)
[2018-05-10 09:24] LABS: HEMOGLOBIN 12.6 g/dL (12.0-18.0); MEAN CELL VOLUME 88.2 fL (80.0-94.0); MEAN CORPUSCULAR HEMOGLOBIN 29.8 pg (27.0-31.0); MEAN CORPUSCULAR HGB CONC 33.8 g/dL (33.0-37.0); MEAN PLATELET VOLUME 8.7 fL (7.2-11.7); RBC 4.25 Mil/uL (4.40-5.90); WHITE BLOOD COUNT 5.7 K/uL (4.8-10.8)
[2018-05-10 09:41] LABS: ALB/GLOB RATIO 0.8 (1.0-2.1); ALBUMIN 4.5 g/dL (3.5-5.0); CALCIUM 9.6 mg/dl (8.6-10.4)
[2018-05-10] MEDS: (Lantus) Insulin Glargine, Recombinant SC SCH (09:58)
[2018-05-10] MEDS: Pantoprazole 40 mg EC Tab PO PRN (09:59)
--- NOTE | 2018-05-10 10:38 | CP.PCM.PN ---
Subjective - Date & Time of Evaluation Date of Evaluation: 05/10/18 Time of Evaluation: 10:36 - Subjective Subjective: Stable HD 05/09- UF 3400ml HTN still elevated appears same otherwise not dyspneic Objective - Vital Signs/Intake and Output Vital Signs (last 24 hours): Temp Pulse Resp BP Pulse Ox 98.8 F 70 21 176/87 H 96 05/10/18 08:08 05/10/18 09:57 05/10/18 08:08 05/10/18 09:59 05/10/18 08:08 - Medications Medications: Current Medications Amlodipine Besylate (Norvasc) 10 mg PO DAILY [facility] Last Admin: 05/10/18 09:59 Dose: 10 mg Aspirin (Ecotrin) 81 mg PO DAILY [facility] Last Admin: 05/10/18 09:58 Dose: 81 mg Calcium Acetate (Phoslo) 667 mg PO TIDAC [facility] Last Admin: 05/10/18 08:30 Dose: 667 mg Carvedilol (Coreg) 25 mg PO BID [facility] Last Admin: 05/10/18 09:59 Dose: 25 mg Clonidine HCl (Catapres) 0.2 mg PO TID [facility] Last Admin: 05/10/18 09:59 Dose: 0.2 mg Ezetimibe (Zetia) 10 mg PO HS [facility] Last Admin: 05/09/18 21:53 Dose: 10 mg Heparin Sodium (Porcine) (Heparin) 5,000 units SC Q12 [facility] Last Admin: 05/10/18 09:59 Dose: 5,000 units Hydralazine HCl (Apresoline) 100 mg PO TID [facility] Last Admin: 05/10/18 09:59 Dose: 100 mg Insulin Aspart (Novolog) 0 unit SC ACHS [facility]; Protocol Last Admin: 05/10/18 08:30 Dose: 2 units Insulin Glargine (Lantus) 14 unit SC QAM [facility] Last Admin: 05/10/18 09:58 Dose: 14 units Losartan Potassium (Cozaar) 100 mg PO DAILY [facility] Pantoprazole Sodium (Protonix Ec Tab) 40 mg PO DAILY PRN PRN Reason: Indigestion Last Admin: 05/10/18 09:59 Dose: 40 mg Rosuvastatin Calcium (Crestor) 10 mg PO HS [facility] Last Admin: 05/09/18 21:52 Dose: 10 mg Tacrolimus (Prograf) 5 mg PO QAM [facility] Last Admin: 05/10/18 09:58 Dose: 5 mg Tacrolimus (Prograf) 5 mg PO QPM [facility] Last Admin: 05/09/18 17:19 Dose: 5 mg - Labs Labs: 05/10/18 08:58 05/10/18 08:58 - Constitutional Appears: No Acute Distress, Cachectic, Chronically Ill - Head Exam Head Exam: ATRAUMATIC, NORMAL INSPECTION - Eye Exam Eye Exam: EOMI, Normal appearance - Neck Exam Neck Exam: Normal Inspection. absent: Tenderness - Respiratory Exam Respiratory Exam: Clear to Ausculation Bilateral, NORMAL BREATHING PATTERN - Cardiovascular Exam Cardiovascular Exam: REGULAR RHYTHM, +S1 - GI/Abdominal Exam GI & Abdominal Exam: Soft. absent: Tenderness - Extremities Exam Extremities Exam: Normal Inspection. absent: Tenderness - Neurological Exam Neurological Exam: Awake, CN II-XII Intact - Skin Skin Exam: Dry, Warm Assessment and Plan (1) Contusion, hip and thigh Status: Acute (2) Heart transplant recipient Status: Acute (3) Fluid overload Status: Acute (4) Type 2 diabetes mellitus with diabetic nephropathy Status: Acute (5) End stage renal disease Status: Chronic - Assessment and Plan (Free Text) Plan: Dialysis MWF Adequate UF Increase BP meds
[2018-05-11] MEDS: (Novolog) Insulin Aspart, Recombinant 100 u/ml 10 ml vial SC SCH ×4 (08:50→22:36)
[2018-05-11] MEDS: (Lantus) Insulin Glargine, Recombinant SC SCH (09:53)
--- NOTE | 2018-05-11 13:56 | CP.PCM.PN ---
Subjective - Date & Time of Evaluation Date of Evaluation: 05/11/18 Time of Evaluation: 13:54 - Subjective Subjective: s/p dialysis now- UF 3200ml feels better overall still lethargic most of time BP better controlled now Objective - Vital Signs/Intake and Output Vital Signs (last 24 hours): Temp Pulse Resp BP Pulse Ox 98.5 F 75 16 155/78 H 100 05/11/18 12:55 05/11/18 12:55 05/11/18 12:55 05/11/18 12:55 05/11/18 12:55 Intake and Output: 05/11/18 05/11/18 06:59 18:59 Intake Total 240 Balance 240 - Medications Medications: Current Medications Amlodipine Besylate (Norvasc) 10 mg PO DAILY [facility] Last Admin: 05/11/18 09:54 Dose: Not Given Aspirin (Ecotrin) 81 mg PO DAILY [facility] Last Admin: 05/11/18 09:53 Dose: Not Given Calcium Acetate (Phoslo) 667 mg PO TIDAC [facility] Last Admin: 05/11/18 11:32 Dose: Not Given Carvedilol (Coreg) 25 mg PO BID [facility] Last Admin: 05/11/18 09:53 Dose: Not Given Clonidine HCl (Catapres) 0.2 mg PO TID [facility] Last Admin: 05/11/18 13:49 Dose: 0.2 mg Ezetimibe (Zetia) 10 mg PO HS [facility] Last Admin: 05/10/18 22:16 Dose: 10 mg Heparin Sodium (Porcine) (Heparin) 5,000 units SC Q12 [facility] Last Admin: 05/11/18 09:53 Dose: Not Given Hydralazine HCl (Apresoline) 100 mg PO TID [facility] Last Admin: 05/11/18 13:49 Dose: 100 mg Insulin Aspart (Novolog) 0 unit SC ACHS [facility]; Protocol Last Admin: 05/11/18 11:32 Dose: Not Given Insulin Glargine (Lantus) 14 unit SC QAM [facility] Last Admin: 05/11/18 09:53 Dose: Not Given Losartan Potassium (Cozaar) 100 mg PO DAILY [facility] Last Admin: 05/11/18 09:53 Dose: Not Given Pantoprazole Sodium (Protonix Ec Tab) 40 mg PO DAILY PRN PRN Reason: Indigestion Last Admin: 05/10/18 09:59 Dose: 40 mg Rosuvastatin Calcium (Crestor) 10 mg PO HS [facility] Last Admin: 05/10/18 22:16 Dose: 10 mg Tacrolimus (Prograf) 5 mg PO QAM [facility] Last Admin: 05/11/18 09:54 Dose: Not Given Tacrolimus (Prograf) 5 mg PO QPM [facility] Last Admin: 05/10/18 17:06 Dose: 5 mg - Labs Labs: 05/10/18 08:58 05/10/18 08:58 - Constitutional Appears: No Acute Distress, Chronically Ill - Head Exam Head Exam: ATRAUMATIC, NORMAL INSPECTION - Eye Exam Eye Exam: EOMI, Normal appearance, Periorbital swelling - Neck Exam Neck Exam: Normal Inspection. absent: Tenderness - Respiratory Exam Respiratory Exam: Clear to Ausculation Bilateral, NORMAL BREATHING PATTERN - Cardiovascular Exam Cardiovascular Exam: REGULAR RHYTHM, +S1 - GI/Abdominal Exam GI & Abdominal Exam: Soft. absent: Tenderness - Extremities Exam Extremities Exam: Normal Inspection. absent: Tenderness - Neurological Exam Neurological Exam: Awake, CN II-XII Intact - Skin Skin Exam: Dry, Warm Assessment and Plan (1) Contusion, hip and thigh Status: Acute (2) Heart transplant recipient Status: Acute (3) Fluid overload Status: Acute (4) Type 2 diabetes mellitus with diabetic nephropathy Status: Acute (5) End stage renal disease Status: Chronic - Assessment and Plan (Free Text) Plan: Dialysis MWF Same meds Monitor HTN
--- NOTE | 2018-05-11 22:40 | CP.PCM.PN ---
Subjective - Date & Time of Evaluation Date of Evaluation: 05/11/18 Time of Evaluation: 22:40 - Subjective Subjective: Patient is currently feeling weak. Tightness present. Comparing of right calf pain. But DVT study is negative On examination: Vital signs stable. Chest good air entry. Regular heart sound. Patient will possibly getting the dialysis tomorrow. Oxygen. Physical therapy. Rehabilitation evaluation. Will follow-up the patient Objective - Vital Signs/Intake and Output Vital Signs (last 24 hours): Temp Pulse Resp BP Pulse Ox 98.5 F 76 20 148/75 96 05/11/18 15:00 05/11/18 15:00 05/11/18 15:00 05/11/18 18:10 05/11/18 15:00 - Medications Medications: Current Medications Amlodipine Besylate (Norvasc) 10 mg PO DAILY [facility] Last Admin: 05/11/18 09:54 Dose: Not Given Aspirin (Ecotrin) 81 mg PO DAILY [facility] Last Admin: 05/11/18 09:53 Dose: Not Given Calcium Acetate (Phoslo) 667 mg PO TIDAC [facility] Last Admin: 05/11/18 18:08 Dose: 667 mg Carvedilol (Coreg) 25 mg PO BID [facility] Last Admin: 05/11/18 18:10 Dose: 25 mg Clonidine HCl (Catapres) 0.2 mg PO TID [facility] Last Admin: 05/11/18 18:09 Dose: 0.2 mg Ezetimibe (Zetia) 10 mg PO HS [facility] Last Admin: 05/11/18 21:26 Dose: 10 mg Heparin Sodium (Porcine) (Heparin) 5,000 units SC Q12 [facility] Last Admin: 05/11/18 21:26 Dose: 5,000 units Hydralazine HCl (Apresoline) 100 mg PO TID [facility] Last Admin: 05/11/18 18:09 Dose: 100 mg Insulin Aspart (Novolog) 0 unit SC ACHS [facility]; Protocol Last Admin: 05/11/18 22:36 Dose: Not Given Insulin Glargine (Lantus) 14 unit SC QAM [facility] Last Admin: 05/11/18 09:53 Dose: Not Given Losartan Potassium (Cozaar) 100 mg PO DAILY [facility] Last Admin: 05/11/18 09:53 Dose: Not Given Pantoprazole Sodium (Protonix Ec Tab) 40 mg PO DAILY PRN PRN Reason: Indigestion Last Admin: 05/10/18 09:59 Dose: 40 mg Rosuvastatin Calcium (Crestor) 10 mg PO HS [facility] Last Admin: 05/11/18 21:26 Dose: 10 mg Tacrolimus (Prograf) 5 mg PO QAM [facility] Last Admin: 05/11/18 09:54 Dose: Not Given Tacrolimus (Prograf) 5 mg PO QPM [facility] Last Admin: 05/11/18 18:09 Dose: 5 mg - Labs Labs: 05/10/18 08:58 05/10/18 08:58
[2018-05-12 09:10] LABS: BASO # 0.1 K/uL (0.0-0.2); BASO % 1.1 % (0.0-2.0); EOS # 0.2 K/uL (0.0-0.7); EOS % 5.1 % (0.0-4.0); HEMOGLOBIN 10.9 g/dL (12.0-18.0); LYMPH # 0.4 K/uL (1.0-4.3); MEAN CORPUSCULAR HEMOGLOBIN 29.6 pg (27.0-31.0); MEAN CORPUSCULAR HGB CONC 33.3 g/dL (33.0-37.0); MEAN PLATELET VOLUME 8.6 fL (7.2-11.7); MONO # 0.6 K/uL (0.0-0.8); MONO % 13.1 % (0.0-10.0); NEUT # 3.3 K/uL (1.8-7.0); NEUT % 71.7 % (50.0-75.0); PLATELET COUNT 143 K/uL (130-400); RBC 3.68 Mil/uL (4.40-5.90); RED CELL DISTRIBUTION WIDTH 19.6 % (11.5-14.5); WHITE BLOOD COUNT 4.6 K/uL (4.8-10.8)
[2018-05-12 09:22] LABS: ALB/GLOB RATIO 0.8 (1.0-2.1); ALBUMIN 3.7 g/dL (3.5-5.0); CALCIUM 9.1 mg/dl (8.6-10.4)
[2018-05-12] MEDS: (Lantus) Insulin Glargine, Recombinant SC SCH (09:37)
[2018-05-12] MEDS: (Novolog) Insulin Aspart, Recombinant 100 u/ml 10 ml vial SC SCH ×4 (09:38→21:07)
[2018-05-12] MEDS: Pantoprazole 40 mg EC Tab PO PRN (09:39)
--- NOTE | 2018-05-12 09:50 | CP.PCM.PN ---
Subjective - Date & Time of Evaluation Date of Evaluation: 05/12/18 Time of Evaluation: 09:50 - Subjective Subjective: bp mildly elevated afebrile comfortable in bed ROS no sob no chest pain no abd pain,no n/v/d anuric Objective - Vital Signs/Intake and Output Vital Signs (last 24 hours): Temp Pulse Resp BP Pulse Ox 97.4 F L 72 20 197/91 H 92 L 05/12/18 07:30 05/12/18 07:30 05/12/18 07:30 05/12/18 09:40 05/12/18 07:30 - Medications Medications: Current Medications Amlodipine Besylate (Norvasc) 10 mg PO DAILY [facility] Last Admin: 05/12/18 09:39 Dose: 10 mg Aspirin (Ecotrin) 81 mg PO DAILY [facility] Last Admin: 05/12/18 09:39 Dose: 81 mg Calcium Acetate (Phoslo) 667 mg PO TIDAC [facility] Last Admin: 05/12/18 09:39 Dose: 667 mg Carvedilol (Coreg) 25 mg PO BID [facility] Last Admin: 05/12/18 09:40 Dose: 25 mg Clonidine HCl (Catapres) 0.2 mg PO TID [facility] Last Admin: 05/12/18 09:39 Dose: 0.2 mg Ezetimibe (Zetia) 10 mg PO HS [facility] Last Admin: 05/11/18 21:26 Dose: 10 mg Heparin Sodium (Porcine) (Heparin) 5,000 units SC Q12 [facility] Last Admin: 05/11/18 21:26 Dose: 5,000 units Hydralazine HCl (Apresoline) 100 mg PO TID [facility] Last Admin: 05/12/18 09:39 Dose: 100 mg Insulin Aspart (Novolog) 0 unit SC ACHS [facility]; Protocol Last Admin: 05/12/18 09:38 Dose: 4 units Insulin Glargine (Lantus) 14 unit SC QAM [facility] Last Admin: 05/12/18 09:37 Dose: 14 units Losartan Potassium (Cozaar) 100 mg PO DAILY [facility] Last Admin: 05/12/18 09:40 Dose: 100 mg Pantoprazole Sodium (Protonix Ec Tab) 40 mg PO DAILY PRN PRN Reason: Indigestion Last Admin: 05/12/18 09:39 Dose: 40 mg Rosuvastatin Calcium (Crestor) 10 mg PO HS [facility] Last Admin: 05/11/18 21:26 Dose: 10 mg Tacrolimus (Prograf) 5 mg PO QAM [facility] Last Admin: 05/12/18 09:38 Dose: 5 mg Tacrolimus (Prograf) 5 mg PO QPM [facility] Last Admin: 05/11/18 18:09 Dose: 5 mg - Labs Labs: 05/12/18 08:57 05/12/18 08:57 - Constitutional Appears: No Acute Distress - ENT Exam ENT Exam: Mucous Membranes Moist - Respiratory Exam Respiratory Exam: Clear to Ausculation Bilateral, NORMAL BREATHING PATTERN - Cardiovascular Exam Cardiovascular Exam: REGULAR RHYTHM, JVD - GI/Abdominal Exam GI & Abdominal Exam: Soft. absent: Distended, Tenderness - Extremities Exam Extremities Exam: absent: Calf Tenderness - Back Exam Back Exam: absent: CVA tenderness (L), CVA tenderness (R) - Psychiatric Exam Psychiatric exam: Depressed - Skin Skin Exam: Dry Assessment and Plan (1) Fluid overload Status: Acute (2) Heart transplant recipient Status: Acute (3) CHF (congestive heart failure) Status: Acute (4) ESRD (end stage renal disease) Status: Acute - Assessment and Plan (Free Text) Plan: next dialysis tentatively 05/14 contniue supportive care
[2018-05-12 11:06] LABS: LYMPHOCYTE 9 % (20-40); MONOCYTE 15 % (0-10); NEUTROPHIL 76 % (50-75); PLATELET ESTIMATE NORMAL (NORMAL); TOTAL CELLS COUNTED 100
[2018-05-12 11:07] LABS: ANISOCYTOSIS MODERATE; HYPOCHROMIC SLIGHT; POIKILOCYTOSIS SLIGHT; POLYCHROMIC SLIGHT; SCHISTOCYTES SLIGHT; TOXIC GRANULATION PRESENT
[2018-05-12 11:09] LABS: LARGE PLATELETS PRESENT
[2018-05-13] MEDS: (Novolog) Insulin Aspart, Recombinant 100 u/ml 10 ml vial SC SCH ×4 (08:09→22:01)
[2018-05-13] MEDS: (Lantus) Insulin Glargine, Recombinant SC SCH (09:20)
[2018-05-13] MEDS: Pantoprazole 40 mg EC Tab PO PRN (09:21)
--- NOTE | 2018-05-13 23:59 | CP.PCM.PN ---
Subjective - Date & Time of Evaluation Date of Evaluation: 05/12/18 Time of Evaluation: 23:59 - Subjective Subjective: eating very poorly feeling weak no chest pain no distress needs pt c/o rt calf pain but study for dvt negative continue the bp med for possible rehab Objective - Vital Signs/Intake and Output Vital Signs (last 24 hours): Temp Pulse Resp BP Pulse Ox 98.3 F 65 20 111/58 L 97 05/13/18 16:00 05/13/18 16:00 05/13/18 16:00 05/13/18 19:44 05/13/18 16:00 Intake and Output: 05/13/18 05/14/18 18:59 06:59 Intake Total 500 Balance 500 - Medications Medications: Current Medications Amlodipine Besylate (Norvasc) 10 mg PO DAILY [facility] Last Admin: 05/13/18 09:24 Dose: 10 mg Aspirin (Ecotrin) 81 mg PO DAILY [facility] Last Admin: 05/13/18 09:21 Dose: 81 mg Calcium Acetate (Phoslo) 667 mg PO TIDAC [facility] Last Admin: 05/13/18 17:24 Dose: 667 mg Carvedilol (Coreg) 25 mg PO BID [facility] Last Admin: 05/13/18 17:26 Dose: 25 mg Clonidine HCl (Catapres) 0.2 mg PO TID [facility] Last Admin: 05/13/18 19:46 Dose: Not Given Ezetimibe (Zetia) 10 mg PO HS [facility] Last Admin: 05/13/18 21:42 Dose: 10 mg Heparin Sodium (Porcine) (Heparin) 5,000 units SC Q12 [facility] Last Admin: 05/13/18 21:42 Dose: 5,000 units Hydralazine HCl (Apresoline) 100 mg PO TID [facility] Last Admin: 05/13/18 17:26 Dose: 100 mg Insulin Aspart (Novolog) 0 unit SC ACHS [facility]; Protocol Last Admin: 05/13/18 22:01 Dose: Not Given Insulin Glargine (Lantus) 14 unit SC QAM [facility] Last Admin: 05/13/18 09:20 Dose: 14 units Losartan Potassium (Cozaar) 100 mg PO DAILY [facility] Last Admin: 05/13/18 09:22 Dose: 100 mg Pantoprazole Sodium (Protonix Ec Tab) 40 mg PO DAILY PRN PRN Reason: Indigestion Last Admin: 05/13/18 09:21 Dose: 40 mg Rosuvastatin Calcium (Crestor) 10 mg PO HS [facility] Last Admin: 05/13/18 21:42 Dose: 10 mg Tacrolimus (Prograf) 5 mg PO QAM [facility] Last Admin: 05/13/18 09:23 Dose: 5 mg Tacrolimus (Prograf) 5 mg PO QPM [facility] Last Admin: 05/13/18 17:25 Dose: 5 mg - Labs Labs: 05/12/18 08:57 05/12/18 08:57
--- NOTE | 2018-05-13 23:59 | CP.PCM.PN ---
Subjective - Date & Time of Evaluation Date of Evaluation: 05/13/18 Time of Evaluation: 23:59 - Subjective Subjective: pt vitals stable but feeling hot nause noted did not eat much at bed side sitting up with some distress nurse notice c/o nausea but no vomiting no abd pain will get ct abd zofran labs in am will f/u Objective - Vital Signs/Intake and Output Vital Signs (last 24 hours): Temp Pulse Resp BP Pulse Ox 98.3 F 65 20 111/58 L 97 05/13/18 16:00 05/13/18 16:00 05/13/18 16:00 05/13/18 19:44 05/13/18 16:00 Intake and Output: 05/13/18 05/14/18 18:59 06:59 Intake Total 500 Balance 500 - Medications Medications: Current Medications Amlodipine Besylate (Norvasc) 10 mg PO DAILY [facility] Last Admin: 05/13/18 09:24 Dose: 10 mg Aspirin (Ecotrin) 81 mg PO DAILY [facility] Last Admin: 05/13/18 09:21 Dose: 81 mg Calcium Acetate (Phoslo) 667 mg PO TIDAC [facility] Last Admin: 05/13/18 17:24 Dose: 667 mg Carvedilol (Coreg) 25 mg PO BID [facility] Last Admin: 05/13/18 17:26 Dose: 25 mg Clonidine HCl (Catapres) 0.2 mg PO TID [facility] Last Admin: 05/13/18 19:46 Dose: Not Given Ezetimibe (Zetia) 10 mg PO HS [facility] Last Admin: 05/13/18 21:42 Dose: 10 mg Heparin Sodium (Porcine) (Heparin) 5,000 units SC Q12 [facility] Last Admin: 05/13/18 21:42 Dose: 5,000 units Hydralazine HCl (Apresoline) 100 mg PO TID [facility] Last Admin: 05/13/18 17:26 Dose: 100 mg Insulin Aspart (Novolog) 0 unit SC ACHS [facility]; Protocol Last Admin: 05/13/18 22:01 Dose: Not Given Insulin Glargine (Lantus) 14 unit SC QAM [facility] Last Admin: 05/13/18 09:20 Dose: 14 units Losartan Potassium (Cozaar) 100 mg PO DAILY [facility] Last Admin: 05/13/18 09:22 Dose: 100 mg Pantoprazole Sodium (Protonix Ec Tab) 40 mg PO DAILY PRN PRN Reason: Indigestion Last Admin: 05/13/18 09:21 Dose: 40 mg Rosuvastatin Calcium (Crestor) 10 mg PO HS [facility] Last Admin: 05/13/18 21:42 Dose: 10 mg Tacrolimus (Prograf) 5 mg PO QAM [facility] Last Admin: 05/13/18 09:23 Dose: 5 mg Tacrolimus (Prograf) 5 mg PO QPM [facility] Last Admin: 05/13/18 17:25 Dose: 5 mg - Labs Labs: 05/12/18 08:57 05/12/18 08:57
--- NOTE | 2018-05-14 02:35 | CP.PCM.PCO ---
<Kennedy Bailon - Last Filed: 05/14/18 02:35> Physician Communication Note - Physician Communication Note Physician Communication Note: please see note above <Jamie Ty - Last Filed: 06/05/18 12:20> Attending/Attestation - Attestation I have personally seen and examined this patient.: Yes I have fully participated in the care of the patient.: Yes I have reviewed all pertinent clinical information: Yes
[2018-05-14] MEDS: (Novolog) Insulin Aspart, Recombinant 100 u/ml 10 ml vial SC SCH ×4 (08:41→21:52)
[2018-05-14] MEDS: (Lantus) Insulin Glargine, Recombinant SC SCH (09:51)
[2018-05-14 11:18] LABS: BASO # 0.1 K/uL (0.0-0.2); BASO % 1.3 % (0.0-2.0); EOS # 0.3 K/uL (0.0-0.7); EOS % 5.9 % (0.0-4.0); HEMOGLOBIN 10.4 g/dL (12.0-18.0); LYMPH # 0.4 K/uL (1.0-4.3); LYMPH % 8.2 % (20.0-40.0); MEAN CELL VOLUME 87.6 fL (80.0-94.0); MEAN CORPUSCULAR HEMOGLOBIN 29.2 pg (27.0-31.0); MEAN CORPUSCULAR HGB CONC 33.3 g/dL (33.0-37.0); MEAN PLATELET VOLUME 8.9 fL (7.2-11.7); MONO # 0.4 K/uL (0.0-0.8); MONO % 8.8 % (0.0-10.0); NEUT # 3.5 K/uL (1.8-7.0); NEUT % 75.8 % (50.0-75.0); PLATELET COUNT 140 K/uL (130-400); RBC 3.56 Mil/uL (4.40-5.90); RED CELL DISTRIBUTION WIDTH 18.7 % (11.5-14.5); WHITE BLOOD COUNT 4.6 K/uL (4.8-10.8)
--- NOTE | 2018-05-14 11:37 | CP.PCM.PN ---
Subjective - Date & Time of Evaluation Date of Evaluation: 05/14/18 Time of Evaluation: 11:35 - Subjective Subjective: seen in dialysis To UF 3500ml BP controlled had prior abdominal pains- better now No fevers, chills, n, v Objective - Vital Signs/Intake and Output Vital Signs (last 24 hours): Temp Pulse Resp BP Pulse Ox 97.8 F 69 22 166/58 H 98 05/14/18 09:40 05/14/18 09:40 05/14/18 09:40 05/14/18 11:10 05/14/18 08:00 - Medications Medications: Current Medications Amlodipine Besylate (Norvasc) 10 mg PO DAILY [facility] Last Admin: 05/14/18 09:51 Dose: Not Given Aspirin (Ecotrin) 81 mg PO DAILY [facility] Last Admin: 05/14/18 09:51 Dose: Not Given Calcium Acetate (Phoslo) 667 mg PO TIDAC [facility] Last Admin: 05/14/18 11:23 Dose: Not Given Carvedilol (Coreg) 25 mg PO BID [facility] Last Admin: 05/14/18 09:50 Dose: Not Given Clonidine HCl (Catapres) 0.2 mg PO TID [facility] Last Admin: 05/14/18 09:50 Dose: Not Given Ezetimibe (Zetia) 10 mg PO HS [facility] Last Admin: 05/13/18 21:42 Dose: 10 mg Heparin Sodium (Porcine) (Heparin) 5,000 units SC Q12 [facility] Last Admin: 05/14/18 09:51 Dose: Not Given Hydralazine HCl (Apresoline) 100 mg PO TID [facility] Last Admin: 05/14/18 09:50 Dose: Not Given Insulin Aspart (Novolog) 0 unit SC ACHS [facility]; Protocol Last Admin: 05/14/18 11:22 Dose: Not Given Insulin Glargine (Lantus) 14 unit SC QAM [facility] Last Admin: 05/14/18 09:51 Dose: Not Given Losartan Potassium (Cozaar) 100 mg PO DAILY [facility] Last Admin: 05/14/18 09:51 Dose: Not Given Pantoprazole Sodium (Protonix Ec Tab) 40 mg PO DAILY PRN PRN Reason: Indigestion Last Admin: 05/13/18 09:21 Dose: 40 mg Rosuvastatin Calcium (Crestor) 10 mg PO HS [facility] Last Admin: 05/13/18 21:42 Dose: 10 mg Tacrolimus (Prograf) 5 mg PO QAM [facility] Last Admin: 05/14/18 09:51 Dose: Not Given Tacrolimus (Prograf) 5 mg PO QPM [facility] Last Admin: 05/13/18 17:25 Dose: 5 mg - Labs Labs: 05/14/18 11:01 05/12/18 08:57 - Constitutional Appears: No Acute Distress, Chronically Ill - Head Exam Head Exam: ATRAUMATIC, NORMAL INSPECTION - Eye Exam Eye Exam: EOMI, Normal appearance - Neck Exam Neck Exam: Normal Inspection. absent: Tenderness - Respiratory Exam Respiratory Exam: Clear to Ausculation Bilateral, NORMAL BREATHING PATTERN - Cardiovascular Exam Cardiovascular Exam: REGULAR RHYTHM, +S1 - GI/Abdominal Exam GI & Abdominal Exam: Soft. absent: Tenderness - Extremities Exam Extremities Exam: Normal Inspection. absent: Tenderness - Neurological Exam Neurological Exam: Awake, CN II-XII Intact - Skin Skin Exam: Dry, Warm Assessment and Plan (1) Contusion, hip and thigh Status: Acute (2) Heart transplant recipient Status: Acute (3) Fluid overload Status: Acute (4) Type 2 diabetes mellitus with diabetic nephropathy Status: Acute (5) End stage renal disease Status: Chronic - Assessment and Plan (Free Text) Plan: dialysis MWF Adequate UF Monitor abdominal pains
[2018-05-14 11:42] LABS: ALB/GLOB RATIO 0.8 (1.0-2.1); ALBUMIN 3.7 g/dL (3.5-5.0); CALCIUM 8.9 mg/dl (8.6-10.4)
[2018-05-14 11:45] LABS: EOSINOPHIL 6 % (0-4); LYMPHOCYTE 6 % (20-40); MONOCYTE 4 % (0-10); NEUTROPHIL 84 % (50-75); TOTAL CELLS COUNTED 100
[2018-05-14 11:46] LABS: ANISOCYTOSIS SLIGHT; PLATELET ESTIMATE NORMAL (NORMAL)
[2018-05-14 11:48] LABS: HYPOCHROMIC SLIGHT
[2018-05-14 11:49] LABS: POLYCHROMIC SLIGHT
--- NOTE | 2018-05-14 13:38 | CT ---
PROCEDURE: CT Abdomen and Pelvis without Oral or IV contrast. HISTORY: abd pain COMPARISON: CT abdomen and pelvis without contrast performed 08/04/16 TECHNIQUE: Contiguous axial images of the abdomen and pelvis. No oral or IV contrast administered. Coronal and Sagittal reformats generated and reviewed. Radiation dose: Total exam DLP = 462.98 mGy-cm. This CT exam was performed using one or more of the following dose reduction techniques: Automated exposure control, adjustment of the mA and/or kV according to patient size, and/or use of iterative reconstruction technique. FINDINGS: There is limited evaluation of the solid organs without the administration of IV contrast. LOWER THORAX: Small bilateral pleural effusions and associated consolidations. Improving left hydropneumothorax versus empyema. Partially imaged cardiomegaly. Dense coronary artery calcifications. Median sternotomy wires. Thick-walled distal esophagus/small hiatal hernia. LIVER: Hepatomegaly. GALLBLADDER AND BILE DUCTS: Pericholecystic edema/gallbladder-wall thickening. PANCREAS: The pancreas appears edematous. Mild peripancreatic inflammatory stranding. SPLEEN: Unremarkable unenhanced appearance. ADRENALS: Unremarkable unenhanced appearance. KIDNEYS AND URETERS: No hydronephrosis or obstructing renal calculus. Bilateral cortical thinning. BLADDER: Diffuse thickening of the urinary bladder. Associated inflammatory changes. REPRODUCTIVE: The prostate gland measures approximately 3.9 x 4.6 cm. Prostate calcifications. APPENDIX: No secondary signs of acute appendicitis. BOWEL: The stomach is nondistended. Lack of oral contrast limits evaluation for bowel pathology. The bowel loops appear within normal limits of caliber without evidence of intestinal obstruction. Moderate constipation. Mild rectal wall thickening. PERITONEUM: No significant free fluid. No definite free air. LYMPH NODES: No bulky lymphadenopathy identified. VASCULATURE: Dilated supra hepatic IVC. Dense atherosclerotic calcifications of the aorta. BONES: Degenerative changes. OTHER FINDINGS: Subcutaneous edema and soft tissue nodularity within the anterior soft tissues of the abdomen. IMPRESSION: The pancreas appears edematous. Mild peripancreatic inflammatory stranding. Appearance consistent with acute pancreatitis. Correlate clinically including amylase and lipase. Generalized anasarca. Gallbladder wall thickening/pericholecystic edema. Correlate clinically. Suggest right upper quadrant ultrasound if indicated. Multifocal changes involving the anterior abdominal wall subcutaneous fat/panniculitis. Thick-walled urinary bladder with associated inflammatory changes. Correlate clinically including urinalysis. Prostate gland enlargement and calcifications. Recommend correlation with PSA. Mild rectal wall thickening. Bilateral renal cortical thinning. Hepatomegaly. Thick-walled distal esophagus/small hiatal hernia. Bilateral gynecomastia. Small bilateral pleural effusions and associated consolidations. Improving left hydropneumothorax versus empyema. Additional findings as above. Preliminary impression was provided by [email or web address]. Findings discussed with MATA Funk on 05/14/18 at 1:33 p.m.
--- NOTE | 2018-05-14 23:16 | PN ---
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 He was eating lunch with his . The patient is having some hard time in swallowing. He has no vomiting today. He has no abdominal pain noted. Bowel movements were okay today. The patient had a CAT scan of the abdomen and pelvis last night, showing evidence of diffuse anasarca, edema, cholelithiasis, and also possibility of pancreatic inflammation, but we will get the labs also. We will get a sonogram of the abdomen again. We will get a GI evaluation if needed. ASSESSMENT AND PLAN: The patient is a 63-year-old male with multiple medical problems, admitted with weakness and fall, now having generalized anasarca, fluid overload, renal failure, on dialysis, heart transplant and we will continue the current treatment and we will follow up the patient. Lauren Rodas MD
[2018-05-15] MEDS: (Novolog) Insulin Aspart, Recombinant 100 u/ml 10 ml vial SC SCH ×4 (08:41→22:26)
--- NOTE | 2018-05-15 09:47 | CP.PCM.CON ---
History of Present Illness - History of Present Illness History of Present Illness: 63 yo I male well known to me from many years with CHF, CRF, S/P Cardiac transplant who I have been following for GERD and colon polyps, Gastritis and GI blood loss. Admitted and found to have diffuse abdominal pain and some vomiting. Appears to be much better today with less pain and no vomiting after last dialysis session. No bleeding or melena. LFTS and Lipase, amylase are normal. CT SCan shows edema of pancreas, GB, GB bed as well as ascites and anasarca. No definite stones. No h/o hepatitis or known liver disease. Review of Systems - Review of Systems Systems not reviewed;Unavailable: Dementia, Altered Mental Status - Cardiovascular Cardiovascular: Dyspnea on Exertion, Edema. absent: Chest Pain - Respiratory Respiratory: Cough - Gastrointestinal Gastrointestinal: As Per HPI Past Patient History - Infectious Disease Hx of Infectious Diseases: None - Past Medical History & Family History Past Medical History?: Yes - Past Social History Smoking Status: Never Smoked Alcohol: None Drugs: Denies - CARDIAC Hx Cardiac Disorders: Yes Hx Congestive Heart Failure: Yes Hx Hypercholesterolemia: Yes Hx Hypertension: Yes - PULMONARY Hx Respiratory Disorders: No - NEUROLOGICAL Hx Neurological Disorder: No - HEENT Hx HEENT Problems: Yes Hx Cataracts: Yes - RENAL Hx Dialysis: Yes Date of Last Dialysis Treatment: 05/09/18 - ENDOCRINE/METABOLIC Hx Diabetes Mellitus Type 2: Yes - HEMATOLOGICAL/ONCOLOGICAL Hx Blood Disorders: No Hx Cirrhosis: No Hx Hepatitis A: No Hx Hepatitis B: No Hx Hepatitis C: No Hx Human Immunodeficiency Virus (HIV): No - INTEGUMENTARY Hx Dermatological Problems: No - MUSCULOSKELETAL/RHEUMATOLOGICAL Hx Musculoskeletal Disorders: Yes Hx Falls: Yes - GASTROINTESTINAL Hx Gastrointestinal Disorders: Yes Hx Diverticulitis: Yes Hx Gastritis: Yes Hx Gastroesophageal Reflux: Yes Other/Comment: colon polyps - GENITOURINARY/GYNECOLOGICAL Hx Genitourinary Disorders: Yes Hx Hematuria: Yes Hx Urinary Tract Infection: Yes - PSYCHIATRIC Hx Substance Use: No - SURGICAL HISTORY Hx Surgeries: Yes Hx Arteriovenous Shunt: Yes Hx Cholecystectomy: Yes - ANESTHESIA Hx Anesthesia: Yes Hx Anesthesia Reactions: No Hx Malignant Hyperthermia: No Has any member of the family had a problem w/ anesthesia?: No Meds Allergies/Adverse Reactions: Allergies Allergy/AdvReac Type Severity Reaction Status Date / Time meropenem Allergy Severe SWELLING Verified 05/07/18 09:52 morphine Allergy Severe ANGIOEDEMA Verified 05/07/18 09:52 - Medications Medications: Current Medications Acetaminophen (Tylenol 325mg Tab) 650 mg PO Q6 PRN PRN Reason: Pain, moderate (4-7) Last Admin: 05/14/18 21:21 Dose: 650 mg Amlodipine Besylate (Norvasc) 10 mg PO DAILY [facility] Last Admin: 05/14/18 09:51 Dose: Not Given Aspirin (Ecotrin) 81 mg PO DAILY [facility] Last Admin: 05/14/18 09:51 Dose: Not Given Calcium Acetate (Phoslo) 667 mg PO TIDAC [facility] Last Admin: 05/15/18 08:43 Dose: 667 mg Carvedilol (Coreg) 25 mg PO BID [facility] Clonidine HCl (Catapres) 0.2 mg PO TID [facility] Last Admin: 05/14/18 17:45 Dose: 0.2 mg Ezetimibe (Zetia) 10 mg PO HS [facility] Last Admin: 05/14/18 21:21 Dose: 10 mg Heparin Sodium (Porcine) (Heparin) 5,000 units SC Q12 [facility] Last Admin: 05/14/18 21:21 Dose: 5,000 units Hydralazine HCl (Apresoline) 100 mg PO TID [facility] Last Admin: 05/14/18 17:45 Dose: 100 mg Insulin Aspart (Novolog) 0 unit SC [facility]; Protocol Last Admin: 05/15/18 08:41 Dose: 2 units Insulin Glargine (Lantus) [facility] [place] Last Admin: 05/14/18 09:51 Dose: Not Given Losartan Potassium (Cozaar) 100 mg PO DAILY [facility] Last Admin: 05/14/18 09:51 Dose: Not Given Pantoprazole Sodium (Protonix Ec Tab) 40 mg PO DAILY PRN PRN Reason: Indigestion Last Admin: 05/13/18 09:21 Dose: 40 mg Rosuvastatin Calcium (Crestor) 10 mg PO HS [facility] Last Admin: 05/14/18 21:20 Dose: 10 mg Tacrolimus (Prograf) 5 mg PO QAM [facility] Last Admin: 05/14/18 09:51 Dose: Not Given Tacrolimus (Prograf) 5 mg PO QPM [facility] Last Admin: 05/14/18 17:44 Dose: 5 mg Physical Exam - Constitutional Appears: No Acute Distress - Head Exam Head Exam: ATRAUMATIC, NORMOCEPHALIC - Eye Exam Eye Exam: EOMI, PERRL - Respiratory Exam Respiratory Exam: Decreased Breath Sounds - Cardiovascular Exam Cardiovascular Exam: REGULAR RHYTHM, +S1 - GI/Abdominal Exam GI & Abdominal Exam: Distended, Normal Bowel Sounds, Soft. absent: Mass, Rebound, Rigid, Tenderness - Rectal Exam Rectal Exam: Deferred - Extremities Exam Extremities exam: Positive for: pedal edema - Neurological Exam Neurological exam: Alert Additional comments: oriented to person and place only - Psychiatric Exam Psychiatric exam: Depressed - Skin Skin Exam: Dry, Warm Results - Vital Signs Recent Vital Signs: Last Vital Signs Temp 98.0 F 05/15/18 07:00 Pulse 77 05/15/18 07:00 Resp 18 05/15/18 07:00 BP 177/81 H 05/15/18 07:00 Pulse Ox 98 05/15/18 07:00 - Labs Result Diagrams: 05/14/18 11:01 05/14/18 11:01 Labs: Laboratory Results - last 24 hr 05/14/18 05/14/18 05/14/18 11:01 11:01 11:46 WBC 4.6 L RBC 3.56 L Hgb 10.4 L Hct 31.2 L MCV 87.6 MCH 29.2 MCHC 33.3 RDW 18.7 H Plt Count 140 MPV 8.9 Neut % (Auto) 75.8 H Lymph % (Auto) 8.2 L [place] % (Auto) 8.8 Eos % (Auto) 5.9 H Baso % (Auto) 1.3 Neut # (Auto) 3.5 Lymph # (Auto) 0.4 L [place] # (Auto) 0.4 Eos # (Auto) 0.3 Baso # (Auto) 0.1 Neutrophils % (Manual) 84 H Lymphocytes % (Manual) 6 L Monocytes % (Manual) 4 Eosinophils % (Manual) 6 H Platelet Estimate Normal Polychromasia Slight Hypochromasia (manual) Slight Anisocytosis (manual) Slight Sodium 129 L Potassium 4.9 Chloride 89 L Carbon Dioxide 27 Anion Gap 18 BUN 54 H Creatinine 5.9 H Est GFR ( Amer) 12 Est GFR (Non-Af Amer) 10 POC Glucose (mg/dL) 221 H Random Glucose 279 H Calcium 8.9 Phosphorus 3.1 Magnesium 1.9 Total Bilirubin 0.9 AST 36 ALT 24 Alkaline Phosphatase 131 H D Total Protein 8.2 Albumin 3.7 Globulin 4.5 H Albumin/Globulin Ratio 0.8 L Lipase 64 05/14/18 05/14/18 05/15/18 16:27 21:05 06:27 WBC RBC Hgb Hct MCV MCH MCHC RDW Plt Count MPV Neut % (Auto) Lymph % (Auto) [place] % (Auto) Eos % (Auto) Baso % (Auto) Neut # (Auto) Lymph # (Auto) [place] # (Auto) Eos # (Auto) Baso # (Auto) Neutrophils % (Manual) Lymphocytes % (Manual) Monocytes % (Manual) Eosinophils % (Manual) Platelet Estimate Polychromasia Hypochromasia (manual) Anisocytosis (manual) Sodium Potassium Chloride Carbon Dioxide Anion Gap BUN Creatinine Est GFR ( Amer) Est GFR (Non-Af Amer) POC Glucose (mg/dL) 279 H 241 H 246 H Random Glucose Calcium Phosphorus Magnesium Total Bilirubin AST ALT Alkaline Phosphatase Total Protein Albumin Globulin Albumin/Globulin Ratio Lipase Assessment & Plan (1) Abdominal pain Assessment and Plan: abdominal pain could be related to fluid collection noted on CT which appears to be from fluid overload due to CHF/Renal failure on dialysis. No clinical or laboratory evidence to suggest pancreatitis or biliary obstruction. Edema of GB wall and around GB may also be due to diffuse organ edema from fluid status. Can also be due to vascular insufficiency, abdominal angina. Doubt mesenteric occlusion. Agree with Ultrasound Repeat LFTs, Amylase, Lipase. Consider HIDA and / or arterial Dopplers of mesenteric vessels if symptoms persist/recur. Doubt SBP Status: Acute (2) Abnormal CT scan, gastrointestinal tract Assessment and Plan: as above Status: Acute (3) Chronic kidney disease with end stage renal failure on dialysis Status: Chronic (4) Hx of heart transplant Status: Chronic
[2018-05-15] MEDS: (Lantus) Insulin Glargine, Recombinant SC SCH (10:10)
[2018-05-15 11:27] LABS: BASO % 0.8 % (0.0-2.0); EOS # 0.2 K/uL (0.0-0.7); EOS % 3.3 % (0.0-4.0); HEMOGLOBIN 10.7 g/dL (12.0-18.0); LYMPH # 0.3 K/uL (1.0-4.3); LYMPH % 5.1 % (20.0-40.0); MEAN CELL VOLUME 88.7 fL (80.0-94.0); MEAN CORPUSCULAR HEMOGLOBIN 29.4 pg (27.0-31.0); MEAN CORPUSCULAR HGB CONC 33.2 g/dL (33.0-37.0); MONO # 0.7 K/uL (0.0-0.8); MONO % 12.2 % (0.0-10.0); NEUT # 4.5 K/uL (1.8-7.0); NEUT % 78.6 % (50.0-75.0); PLATELET COUNT 150 K/uL (130-400); RBC 3.63 Mil/uL (4.40-5.90); RED CELL DISTRIBUTION WIDTH 19.2 % (11.5-14.5); WHITE BLOOD COUNT 5.7 K/uL (4.8-10.8)
[2018-05-15 11:38] LABS: CALCIUM 9.7 mg/dl (8.6-10.4)
[2018-05-15 11:39] LABS: ALB/GLOB RATIO 0.8 (1.0-2.1); BILIRUBIN,DIRECT 0.9 mg/dL (0.0-0.4)
[2018-05-15 12:08] LABS: BANDS 4 % (0-2); EOSINOPHIL 3 % (0-4); LYMPHOCYTE 4 % (20-40); MONOCYTE 4 % (0-10); NEUTROPHIL 85 % (50-75); TOTAL CELLS COUNTED 100
[2018-05-15 12:09] LABS: ANISOCYTOSIS SLIGHT; HYPOCHROMIC SLIGHT; PLATELET ESTIMATE NORMAL (NORMAL); POLYCHROMIC SLIGHT
--- NOTE | 2018-05-15 12:41 | CP.PCM.PN ---
Subjective - Date & Time of Evaluation Date of Evaluation: 05/15/18 Time of Evaluation: 12:39 - Subjective Subjective: seen and examined anasarca on imaging pt appears comfortable in bed, doesnt want to answer questions. denies anydyspnea chest pain doesnt want extra hd today Objective - Vital Signs/Intake and Output Vital Signs (last 24 hours): Temp Pulse Resp BP Pulse Ox 98.0 F 77 18 177/81 H 98 05/15/18 07:00 05/15/18 07:00 05/15/18 07:00 05/15/18 10:10 05/15/18 07:00 - Medications Medications: Current Medications Acetaminophen (Tylenol 325mg Tab) 650 mg PO Q6 PRN PRN Reason: Pain, moderate (4-7) Last Admin: 05/14/18 21:21 Dose: 650 mg Amlodipine Besylate (Norvasc) 10 mg PO DAILY [facility] Last Admin: 05/15/18 10:12 Dose: 10 mg Aspirin (Ecotrin) 81 mg PO DAILY [facility] Last Admin: 05/15/18 10:12 Dose: 81 mg Calcium Acetate (Phoslo) 667 mg PO TIDAC [facility] Last Admin: 05/15/18 11:51 Dose: 667 mg Carvedilol (Coreg) 25 mg PO BID [facility] Last Admin: 05/15/18 10:10 Dose: 25 mg Clonidine HCl (Catapres) 0.2 mg PO TID [facility] Last Admin: 05/15/18 10:12 Dose: 0.2 mg Ezetimibe (Zetia) 10 mg PO HS [facility] Last Admin: 05/14/18 21:21 Dose: 10 mg Heparin Sodium (Porcine) (Heparin) 5,000 units SC Q12 [facility] Last Admin: 05/15/18 10:12 Dose: 5,000 units Hydralazine HCl (Apresoline) 100 mg PO TID [facility] Last Admin: 05/15/18 10:11 Dose: 100 mg Insulin Aspart (Novolog) 0 unit SC [facility]; Protocol Last Admin: 05/15/18 11:38 Dose: Not Given Insulin Glargine (Lantus) 14 unit SC QAM [facility] Last Admin: 05/15/18 10:10 Dose: 14 units Losartan Potassium (Cozaar) 100 mg PO DAILY [facility] Last Admin: 12/04/18 10:12 Dose: 100 mg Pantoprazole Sodium (Protonix Ec Tab) 40 mg PO DAILY PRN PRN Reason: Indigestion Last Admin: 05/13/18 09:21 Dose: 40 mg Rosuvastatin Calcium (Crestor) 10 mg PO HS [facility] Last Admin: 05/14/18 21:20 Dose: 10 mg Tacrolimus (Prograf) 5 mg PO QAM [facility] Last Admin: 05/15/18 10:12 Dose: 5 mg Tacrolimus (Prograf) 5 mg PO QPM [facility] Last Admin: 05/14/18 17:44 Dose: 5 mg - Labs Labs: 05/15/18 11:17 05/15/18 11:17 - Constitutional Appears: Non-toxic, No Acute Distress, Chronically Ill - Head Exam Head Exam: NORMAL INSPECTION, NORMOCEPHALIC - Eye Exam Eye Exam: Normal appearance, PERRL Pupil Exam: PERRL - ENT Exam ENT Exam: Mucous Membranes Moist, Normal Exam - Neck Exam Neck Exam: Full ROM, Normal Inspection - Respiratory Exam Respiratory Exam: Decreased Breath Sounds (b/l bases), NORMAL BREATHING PATTERN - Cardiovascular Exam Cardiovascular Exam: REGULAR RHYTHM, RRR - GI/Abdominal Exam GI & Abdominal Exam: Distended, Soft - Extremities Exam Extremities Exam: Full ROM, Normal Inspection - Neurological Exam Neurological Exam: Alert, Awake, Oriented x3 - Psychiatric Exam Psychiatric exam: Normal Affect, Normal Mood - Skin Skin Exam: Dry, Intact, Warm Assessment and Plan (1) Contusion, hip Status: Acute (2) Fluid overload Status: Acute (3) Heart transplant recipient Status: Acute (4) Anemia Status: Acute (5) CHF (congestive heart failure) Status: Acute (6) ESRD (end stage renal disease) Status: Acute - Assessment and Plan (Free Text) Assessment: hyperkalemia esrd abdominal pain - r/o mesenteric ischemia anasarca heart transplant plan: offered extra hd today, pt refused. plan for hd tomorrow w/ uf as tolerated low k diet check LDH follow GI recs
--- NOTE | 2018-05-15 13:30 | US ---
Date of service: 05/15/2018 HISTORY: pancreatitis COMPARISON: 06/16/2016 renal ultrasound. May 14, 2018. CT abdomen and pelvis TECHNIQUE: Sonographic evaluation of the abdomen. FINDINGS: LIVER: Measures 16.7 cm. Patent portal vein. Portal venous flow: Hepatopetal. Unremarkable echogenicity of the liver parenchyma. No mass. No intrahepatic bile duct dilatation. GALLBLADDER: Unremarkable. No gallstones. COMMON BILE DUCT: Measures 4.3 mm. No stones. No dilatation. PANCREAS: Evidence of pancreatitis apparent on recent CT cannot be duplicated on the ultrasound although the pancreas is incompletely visualized. RIGHT KIDNEY: Measures 3.4 x 7.9cm. Increased echogenicity, mild renal cortical atrophy. Stable right renal cysts compared to prior ultrasound. LEFT KIDNEY: Measures 3.8 x 8.7cm. Symmetric appearance of the left kidney compared to right including atrophy/cortical thinning. SPLEEN: Normal in size and contour. No mass. AORTA: No aneurysmal dilatation. IVC: Unremarkable. OTHER FINDINGS: Bilateral pleural effusions. Trace pericholecystic fluid. IMPRESSION: Limited assessment of the pancreas without overt signs of acute pancreatitis. Additional benign and/or incidental findings described above.
--- NOTE | 2018-05-16 01:59 | PN ---
DATE: 05/15/2018 SUBJECTIVE: The patient is seen by me around 09:04 p.m. today. The patient is currently sleeping, lying down on the right side, but he is more awake and responding, verbalizing, following simple commands, not in any distress at this time. The patient is able to eat slightly better today. No chest pain noted. He is not in any distress at this time. PHYSICAL EXAMINATION VITAL SIGNS: Temperature 98.2, pulse 68, blood pressure 152/72, respirations 20, saturation is 100%. CHEST: Good air entry. Minimal wheezing noted. ABDOMEN: Soft and nontender. EXTREMITIES: Edema bilaterally present. ASSESSMENT AND PLAN: Sonogram of the abdomen today showing evidence of no acute overt evidence of pancreatitis. The patient was seen by block press operator, recommended HIDA scan, and mesenteric arterial Doppler is needed. Currently, he is on hemodialysis. The patient will be getting hemodialysis tomorrow. He is on Prograf. Even though CAT scan of the abdomen showing evidence of inflammatory gallbladder and pancreatic inflammation, no sonographic evidence noted also, clinically there is no abdominal pain noted. We will get a HIDA scan possibly tomorrow after the dialysis. Continue the current treatment. 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 The patient may need home oxygen, physical therapy needed. Meanwhile, we will get a HIDA scan evaluation and we will follow up the patient. Lauren Rodas MD
[2018-05-16] MEDS: (Novolog) Insulin Aspart, Recombinant 100 u/ml 10 ml vial SC SCH ×4 (08:37→21:37)
--- NOTE | 2018-05-16 12:32 | CP.PCM.PN ---
Subjective - Date & Time of Evaluation Date of Evaluation: 05/16/18 Time of Evaluation: 12:30 - Subjective Subjective: Reports he is comfortable today but still confused. (Didn't know who I was in spite of caring for him for 20 years) No pain or bleeding. Sono shows no cholecystitis or PVT. Objective - Vital Signs/Intake and Output Vital Signs (last 24 hours): Temp Pulse Resp BP Pulse Ox 97.7 F 68 18 161/97 H 98 05/16/18 10:00 05/16/18 10:00 05/16/18 10:00 05/16/18 11:13 05/16/18 10:00 Intake and Output: 05/16/18 05/16/18 06:59 18:59 Intake Total 0 Balance 0 - Medications Medications: Current Medications Acetaminophen (Tylenol 325mg Tab) 650 mg PO Q6 PRN PRN Reason: Pain, moderate (4-7) Last Admin: 05/14/18 21:21 Dose: 650 mg Amlodipine Besylate (Norvasc) 10 mg PO DAILY [facility] Last Admin: 05/15/18 10:12 Dose: 10 mg Aspirin (Ecotrin) 81 mg PO DAILY [facility] Last Admin: 05/15/18 10:12 Dose: 81 mg Calcium Acetate (Phoslo) 667 mg PO TIDAC [facility] Last Admin: 05/16/18 08:38 Dose: Not Given Carvedilol (Coreg) 25 mg PO BID [facility] Last Admin: 05/16/18 10:30 Dose: Not Given Clonidine HCl (Catapres) 0.2 mg PO TID [facility] Last Admin: 05/16/18 10:30 Dose: Not Given Ezetimibe (Zetia) 10 mg PO HS [facility] Last Admin: 05/15/18 22:20 Dose: 10 mg Heparin Sodium (Porcine) (Heparin) 5,000 units SC Q12 [facility] Last Admin: 05/16/18 10:30 Dose: Not Given Hydralazine HCl (Apresoline) 100 mg PO TID [facility] Last Admin: 05/16/18 10:30 Dose: Not Given Insulin Aspart (Novolog) 0 unit SC [facility]; Protocol Last Admin: 05/16/18 08:37 Dose: Not Given Insulin Glargine (Lantus) 14 unit SC QAM [facility] Last Admin: 05/15/18 10:10 Dose: 14 units Losartan Potassium (Cozaar) 100 mg PO DAILY [facility] Last Admin: 05/15/18 10:12 Dose: 100 mg Pantoprazole Sodium (Protonix Ec Tab) 40 mg PO DAILY PRN PRN Reason: Indigestion Last Admin: 05/13/18 09:21 Dose: 40 mg Rosuvastatin Calcium (Crestor) 10 mg PO HS [facility] Last Admin: 05/15/18 22:20 Dose: 10 mg Tacrolimus (Prograf) 5 mg PO QAM [facility] Last Admin: 05/15/18 10:12 Dose: 5 mg Tacrolimus (Prograf) 5 mg PO QPM [facility] Last Admin: 05/15/18 19:34 Dose: 5 mg - Labs Labs: 05/15/18 11:17 05/15/18 11:17 - Constitutional Appears: No Acute Distress, Chronically Ill - Head Exam Head Exam: ATRAUMATIC, NORMOCEPHALIC - Eye Exam Eye Exam: EOMI, PERRL. absent: Scleral icterus - Respiratory Exam Respiratory Exam: Decreased Breath Sounds - Cardiovascular Exam Cardiovascular Exam: REGULAR RHYTHM - GI/Abdominal Exam GI & Abdominal Exam: Distended, Soft, Normal Bowel Sounds. absent: Tenderness, Mass - Extremities Exam Extremities Exam: Pedal Edema Assessment and Plan (1) Abdominal pain Assessment & Plan: Clinically improved. r/o mesenteric ischemia/abdominal angina No pancreatitis clinically or by laboratory evaluation. Doppler of mesenteric vessels in absence of CTA (IV contrast needed) Status: Acute (2) Abnormal CT scan, gastrointestinal tract Assessment & Plan: Likely gross anasarca resulting in organ edema from renal insufficiency Extra dialysis refused by patient as noted by Renal loss control consultant. Status: Acute (3) Chronic kidney disease with end stage renal failure on dialysis Status: Chronic (4) Hx of heart transplant Status: Chronic
--- NOTE | 2018-05-16 12:51 | NM ---
Date of service: 05/16/2018 PROCEDURE: Nuclear Medicine Hepatobiliary Scan HISTORY: cholecystitis COMPARISON: May 15, 2018. Abdominal ultrasound 05/14/2018 CT abdomen and pelvis TECHNIQUE: 6.1 mCi of technetium 99m Mebrofenin was administered intravenously. Planar images of the abdomen were obtained at 5 min intervals to 60 mins. Delayed images were also obtained. FINDINGS: LIVER: Timely and homogenous uptake. COMMON BILE DUCT: identified at 10 mins. GALLBLADDER: identified at 15 mins. SMALL BOWEL: Identified at 15 mins. IMPRESSION: Normal Hepatobiliary Scan. The cystic duct is patent.
--- NOTE | 2018-05-16 13:06 | CP.PCM.PN ---
Subjective - Date & Time of Evaluation Date of Evaluation: 05/16/18 Time of Evaluation: 13:04 - Subjective Subjective: seen on HD chronically ill does not interact 3 kg uf BP mildly elevated Gi note seen ROS cannot be obtained due to clinical condition Objective - Vital Signs/Intake and Output Vital Signs (last 24 hours): Temp Pulse Resp BP Pulse Ox 97.7 F 68 18 161/97 H 98 05/16/18 10:00 05/16/18 10:00 05/16/18 10:00 05/16/18 11:13 05/16/18 10:00 Intake and Output: 05/16/18 05/16/18 06:59 18:59 Intake Total 0 Balance 0 - Medications Medications: Current Medications Acetaminophen (Tylenol 325mg Tab) 650 mg PO Q6 PRN PRN Reason: Pain, moderate (4-7) Last Admin: 05/14/18 21:21 Dose: 650 mg Amlodipine Besylate (Norvasc) [address] [facility] Last Admin: 05/15/18 10:12 Dose: 10 mg Aspirin (Ecotrin) [address] [facility] Last Admin: 05/15/18 10:12 Dose: 81 mg Calcium Acetate (Phoslo) [address] [facility] Last Admin: 05/16/18 08:38 Dose: Not Given Carvedilol (Coreg) [address] [facility] Last Admin: 05/16/18 10:30 Dose: Not Given Clonidine HCl (Catapres) 0.[address] [facility] Last Admin: 05/16/18 10:30 Dose: Not Given Ezetimibe (Zetia) [address] [facility] Last Admin: 05/15/18 22:20 Dose: 10 mg Heparin Sodium (Porcine) (Heparin) 5,[address] [facility] Last Admin: 05/16/18 10:30 Dose: Not Given Hydralazine HCl (Apresoline) [address] [facility] Last Admin: 05/16/18 10:30 Dose: Not Given Insulin Aspart (Novolog) [address] [facility]; Protocol Last Admin: 05/16/18 08:37 Dose: Not Given Insulin Glargine (Lantus) [address] [facility] Last Admin: 05/15/18 10:10 Dose: 14 units Losartan Potassium (Cozaar) [address] [facility] Last Admin: 05/15/18 10:12 Dose: 100 mg Pantoprazole Sodium (Protonix Ec Tab) 40 mg PO DAILY PRN PRN Reason: Indigestion Last Admin: 05/13/18 09:21 Dose: 40 mg Rosuvastatin Calcium (Crestor) [address] [facility] Last Admin: 05/15/18 22:20 Dose: 10 mg Tacrolimus (Prograf) [address] [facility] Last Admin: 05/15/18 10:12 Dose: 5 mg Tacrolimus (Prograf) [address] [facility] Last Admin: 05/15/18 19:34 Dose: 5 mg - Labs Labs: 05/15/18 11:17 05/15/18 11:17 - Constitutional Appears: No Acute Distress, Chronically Ill - Head Exam Head Exam: ATRAUMATIC, NORMAL INSPECTION - Eye Exam Eye Exam: EOMI, Normal appearance - ENT Exam ENT Exam: Mucous Membranes Moist - Neck Exam Neck Exam: Full ROM. absent: Lymphadenopathy - Respiratory Exam Respiratory Exam: Decreased Breath Sounds. absent: Accessory Muscle Use - Cardiovascular Exam Cardiovascular Exam: REGULAR RHYTHM. absent: Rubs - GI/Abdominal Exam GI & Abdominal Exam: Distended, Tenderness. absent: Guarding, Rebound - Extremities Exam Extremities Exam: Pedal Edema - Neurological Exam Neurological Exam: Awake. absent: Oriented x3 Assessment and Plan - Assessment and Plan (Free Text) Assessment: esrd htn dm heart transplant dementia chronic fluid overload abdominal pain and edema of pancreas s/p HIDA scan F/u Gi recommendations continue UF
[2018-05-16] MEDS: (Lantus) Insulin Glargine, Recombinant SC SCH (14:37)
--- NOTE | 2018-05-17 00:36 | PN ---
DATE: 05/16/2018 TIME: 10 p.m. SUBJECTIVE: The patient is now more awake and responding. He had a hemodialysis today done. He is actually looking better than yesterday. Not in any distress. Still having swelling and anasarca, generalized. PHYSICAL EXAMINATION: VITAL SIGNS: Temperature 97.2, pulse 83, blood pressure 175/86, respirations 18, saturation is 95% with 2 L of nasal cannula. CHEST: Good air entry bilaterally. HEART: Regular heart sound. ABDOMEN: Nontender abdomen. EXTREMITIES: Pedal edema, negative. ASSESSMENT AND PLAN: The patient has a blood gas analysis done few days ago showing saturations 88% on room air. The patient was seen by stock parts fabricator today. The patient is clinically improving from gastroenterology point of view. There is no evidence of pancreatitis or pancholecystitis noted. Abdomen is otherwise stable. We will continue the hemodialysis. The patient definitely will need home oxygen. Possibly, we will plan tomorrow. If cleared by Gastroenterology, we can plan for discharge tomorrow. Lauren Rodas MD
[2018-05-17] MEDS: (Novolog) Insulin Aspart, Recombinant 100 u/ml 10 ml vial SC SCH ×4 (09:16→21:38)
--- NOTE | 2018-05-17 09:51 | CP.PCM.PN ---
Subjective - Date & Time of Evaluation Date of Evaluation: 05/17/18 Time of Evaluation: 09:48 - Subjective Subjective: Alert; no new complaint Stable dialysis 05/16 No new complaint; generally confused HTN still elevated Objective - Vital Signs/Intake and Output Vital Signs (last 24 hours): Temp Pulse Resp BP Pulse Ox 99.1 F 71 20 163/79 H 20 L 05/17/18 07:35 05/17/18 07:35 05/17/18 07:35 05/17/18 07:35 05/17/18 07:35 - Medications Medications: Current Medications Acetaminophen (Tylenol 325mg Tab) 650 mg PO Q6 PRN PRN Reason: Pain, moderate (4-7) Last Admin: 05/14/18 21:21 Dose: 650 mg Amlodipine Besylate (Norvasc) 10 mg PO DAILY [facility] Last Admin: 05/16/18 14:40 Dose: 10 mg Aspirin (Ecotrin) 81 mg PO DAILY [facility] Last Admin: 05/16/18 14:40 Dose: 81 mg Calcium Acetate (Phoslo) 667 mg PO TIDAC [facility] Last Admin: 05/17/18 09:16 Dose: Not Given Carvedilol (Coreg) 25 mg PO BID [facility] Last Admin: 05/16/18 18:18 Dose: 25 mg Clonidine HCl (Catapres) 0.2 mg PO TID [facility] Last Admin: 05/16/18 18:18 Dose: 0.2 mg Ezetimibe (Zetia) 10 mg PO HS [facility] Last Admin: 05/16/18 22:00 Dose: 10 mg Heparin Sodium (Porcine) (Heparin) 5,000 units SC Q12 [facility] Last Admin: 05/16/18 22:01 Dose: 5,000 units Hydralazine HCl (Apresoline) 100 mg PO TID [facility] Last Admin: 05/16/18 18:18 Dose: 100 mg Insulin Aspart (Novolog) 0 unit SC ACHS [facility]; Protocol Last Admin: 05/17/18 09:16 Dose: Not Given Insulin Glargine (Lantus) 14 unit SC QAM [facility] Last Admin: 05/16/18 14:37 Dose: 14 units Losartan Potassium (Cozaar) 100 mg PO DAILY [facility] Last Admin: 05/16/18 14:40 Dose: 100 mg Pantoprazole Sodium (Protonix Ec Tab) 40 mg PO DAILY PRN PRN Reason: Indigestion Last Admin: 05/13/18 09:21 Dose: 40 mg Rosuvastatin Calcium (Crestor) 10 mg PO HS [facility] Last Admin: 05/16/18 22:00 Dose: 10 mg Tacrolimus (Prograf) 5 mg PO QAM [facility] Last Admin: 05/16/18 10:30 Dose: Not Given Tacrolimus (Prograf) 5 mg PO QPM [facility] Last Admin: 05/16/18 18:18 Dose: 5 mg - Labs Labs: 05/15/18 11:17 05/15/18 11:17 - Constitutional Appears: No Acute Distress, Chronically Ill - Head Exam Head Exam: ATRAUMATIC, NORMAL INSPECTION - Eye Exam Eye Exam: EOMI, Periorbital swelling - Neck Exam Neck Exam: Normal Inspection. absent: Tenderness - Respiratory Exam Respiratory Exam: Clear to Ausculation Bilateral, NORMAL BREATHING PATTERN - Cardiovascular Exam Cardiovascular Exam: REGULAR RHYTHM, +S1 - GI/Abdominal Exam GI & Abdominal Exam: Soft. absent: Tenderness - Extremities Exam Extremities Exam: Normal Inspection. absent: Tenderness - Neurological Exam Neurological Exam: Awake, CN II-XII Intact - Skin Skin Exam: Dry, Warm Assessment and Plan (1) Contusion, hip and thigh Status: Acute (2) Heart transplant recipient Status: Acute (3) Fluid overload Status: Acute (4) Type 2 diabetes mellitus with diabetic nephropathy Status: Acute (5) End stage renal disease Status: Chronic - Assessment and Plan (Free Text) Plan: Dialysis MWF Increase UF goal Monitor BP- adjust meds accordingly
--- NOTE | 2018-05-17 10:18 | CP.PCM.PN ---
Subjective - Date & Time of Evaluation Date of Evaluation: 05/17/18 Time of Evaluation: 10:16 - Subjective Subjective: Patient awaiting vascular study No pain, N/V, fever or chills Objective - Vital Signs/Intake and Output Vital Signs (last 24 hours): Temp Pulse Resp BP Pulse Ox 99.1 F 71 20 163/79 H 20 L 05/17/18 07:35 05/17/18 07:35 05/17/18 07:35 05/17/18 07:35 05/17/18 07:35 - Medications Medications: Current Medications Acetaminophen (Tylenol 325mg Tab) 650 mg PO Q6 PRN PRN Reason: Pain, moderate (4-7) Last Admin: 05/14/18 21:21 Dose: 650 mg Amlodipine Besylate (Norvasc) 10 mg PO DAILY [facility] Last Admin: 05/16/18 14:40 Dose: 10 mg Aspirin (Ecotrin) 81 mg PO DAILY [facility] Last Admin: 05/16/18 14:40 Dose: 81 mg Calcium Acetate (Phoslo) 667 mg PO TIDAC [facility] Last Admin: 05/17/18 09:16 Dose: Not Given Carvedilol (Coreg) 25 mg PO BID [facility] Last Admin: 05/16/18 18:18 Dose: 25 mg Clonidine HCl (Catapres) 0.2 mg PO TID [facility] Last Admin: 05/16/18 18:18 Dose: 0.2 mg Ezetimibe (Zetia) 10 mg PO HS [facility] Last Admin: 05/16/18 22:00 Dose: 10 mg Heparin Sodium (Porcine) (Heparin) 5,000 units SC Q12 [facility] Last Admin: 05/16/18 22:01 Dose: 5,000 units Hydralazine HCl (Apresoline) 100 mg PO TID [facility] Last Admin: 05/16/18 18:18 Dose: 100 mg Insulin Aspart (Novolog) 0 unit SC ACHS [facility]; Protocol Last Admin: 05/17/18 09:16 Dose: Not Given Insulin Glargine (Lantus) 14 unit SC QAM [facility] Last Admin: 05/16/18 14:37 Dose: 14 units Losartan Potassium (Cozaar) 100 mg PO DAILY [facility] Last Admin: 05/16/18 14:40 Dose: 100 mg Pantoprazole Sodium (Protonix Ec Tab) 40 mg PO DAILY PRN PRN Reason: Indigestion Last Admin: 05/13/18 09:21 Dose: 40 mg Rosuvastatin Calcium (Crestor) 10 mg PO HS [facility] Last Admin: 05/16/18 22:00 Dose: 10 mg Tacrolimus (Prograf) 5 mg PO QAM [facility] Last Admin: 05/16/18 10:30 Dose: Not Given Tacrolimus (Prograf) 5 mg PO QPM [facility] Last Admin: 05/16/18 18:18 Dose: 5 mg - Labs Labs: 05/15/18 11:17 05/15/18 11:17 - Constitutional Appears: No Acute Distress, Chronically Ill - Respiratory Exam Respiratory Exam: Decreased Breath Sounds - Cardiovascular Exam Cardiovascular Exam: REGULAR RHYTHM, +S1 - GI/Abdominal Exam GI & Abdominal Exam: Distended, Soft, Normal Bowel Sounds. absent: Tenderness, Mass, Rebound - Extremities Exam Extremities Exam: Pedal Edema Assessment and Plan (1) Abdominal pain Assessment & Plan: Pain has clinically resolved. Vascular studies to assess mesenteric circulation. Unlikely to be a candidate for any invasive intervention due to Cardiac status Supportive care. Will follow as needed. Dr Cabezas to cover [place] 05/18-05/21. Outpatient follow up as needed if stable for discharge. Status: Acute (2) Abnormal CT scan, gastrointestinal tract Status: Acute (3) Chronic kidney disease with end stage renal failure on dialysis Status: Chronic (4) Hx of heart transplant Status: Chronic
[2018-05-17] MEDS: (Lantus) Insulin Glargine, Recombinant SC SCH (10:31)
[2018-05-17 13:39] LABS: ABG ALLEN TEST POS; ARTERIAL BLOOD GAS HCO3 30.5 mmol/L (21-28); ARTERIAL BLOOD GAS HEMOGLOBIN 11.1 g/dL (11.7-17.4); ARTERIAL BLOOD GAS O2 SAT 89.1 % (95-98); ARTERIAL BLOOD GAS PCO2 40 mm/Hg (35-45); ARTERIAL BLOOD GAS PO2 60 mm/Hg (80-100); ARTERIAL BLOOD GAS TCO2 32.4 mmol/L (22-28)
--- NOTE | 2018-05-18 03:28 | PN ---
DATE: 05/17/2018 SUBJECTIVE: The patient is today able to participate in physical therapy, but he had the oxygen desaturation. Upon walking, he had an episode of hypoxia to 86%, unable to do it. He was having increasing leg weakness. He was also feeling weak today. The patient is due for hemodialysis. No chest pain noted. Denies any nausea or vomiting. Able to eat, but he has still persistent swelling noted. PHYSICAL EXAMINATION: VITAL SIGNS: Temperature is 97.9, pulse 73, blood pressure is 167/80, respirations 26, saturation 93%. HEENT: PERRLA. NECK: Supple. CHEST: Bilateral diffuse minimal expiratory wheezing noted. CARDIOPULMONARY: Irregular heart sound noted. ABDOMEN: Anasarca. Mild abdominal wall edema noted. Pedal edema present. LABORATORY DATA: No recent labs. Chest x-ray also did not have one now. ASSESSMENT AND PLAN: A 63-year-old male with history of end-stage renal dialysis, on dialysis; history of heart transplant, on immunosuppressive treatment; diabetes; hypertension, admitted to the hospital with worsening respiratory status, possible aspiration pneumonia, also pleural effusion and decompensated systolic heart failure associated with fluid overload secondary to end-stage renal disease. The patient also had an episode of acute abdomen, but less likely appears secondary to pancreatitis or cholecystitis. Evidence is lacking at this time in spite of multiple testing. We will continue to monitor the supportive treatment at this time. The patient will need definitely home oxygen as the patient has the desaturation even with minimal walking, and also blood gas analysis showing evidence of hypoxia. Continue the current treatment once we avail home physical therapy and home oxygen. The patient possibly can be discharged. We will follow up the patient. Lauren Rodas MD
[2018-05-18 06:53] LABS: BASO # 0.1 K/uL (0.0-0.2); BASO % 1.3 % (0.0-2.0); EOS # 0.3 K/uL (0.0-0.7); EOS % 5.5 % (0.0-4.0); HEMOGLOBIN 10.1 g/dL (12.0-18.0); LYMPH # 0.4 K/uL (1.0-4.3); LYMPH % 7.4 % (20.0-40.0); MEAN CELL VOLUME 88.3 fL (80.0-94.0); MEAN CORPUSCULAR HEMOGLOBIN 29.1 pg (27.0-31.0); MEAN PLATELET VOLUME 8.3 fL (7.2-11.7); MONO # 0.5 K/uL (0.0-0.8); MONO % 8.9 % (0.0-10.0); NEUT # 4.1 K/uL (1.8-7.0); NEUT % 76.9 % (50.0-75.0); NRBC % 0.1 % (0.0-2.0); PLATELET COUNT 158 K/uL (130-400); RBC 3.47 Mil/uL (4.40-5.90); RED CELL DISTRIBUTION WIDTH 18.2 % (11.5-14.5); WHITE BLOOD COUNT 5.3 K/uL (4.8-10.8)
--- NOTE | 2018-05-18 07:13 | VASCLAB ---
Date of service: 05/17/2018 PROCEDURE: Mesenteric Arteries Duplex Evaluation. HISTORY: Abdominal angina. COMPARISON: None available. TECHNIQUE: Grayscale and duplex Doppler evaluation of the mesenteric arteries. Report prepared by YARED Vicente FINDINGS: * Suprarenal: Peak Systolic Velocity - 102: Doppler Waveform: Triphasic.: EDV- * Celiac: o Proximal Celiac : Peak Systolic Velocity - 214 Doppler Waveform: Triphasic.: EDV- o Distal Celiac: Peak Systolic Velocity - 181: Doppler Waveform: Triphasic.: EDV- * Proximal Hepatic: Peak Systolic Velocity - 160: Doppler Waveform: Triphasic.: EDV- * Proximal Splenic: Peak Systolic Velocity - 186 doppler Waveform: Triphasic.: EDV- * Mesenteric o Proximal Superior Mesenteric: Peak Systolic Velocity - 235: Doppler Waveform: Triphasic.: EDV- o Mid Superior Mesenteric: Peak Systolic Velocity - 134 Doppler Waveform: Triphasic.: EDV- o Distal Superior Mesenteric: Peak Systolic Velocity - 76: Doppler Waveform: Triphasic.: EDV- o Proximal Inferior Mesenteric: Not visualized OTHER FINDINGS: None. IMPRESSION: Evaluation reveals no evidence of increased velocities of the celiac, superior mesenteric, splenic and hepatic arteries. Unable to visualize the inferior mesenteric artery. Normal perfusion through the visceral vascular system noted.
[2018-05-18 07:37] LABS: ALB/GLOB RATIO 0.8 (1.0-2.1); ALBUMIN 3.7 g/dL (3.5-5.0)
[2018-05-18] MEDS: (Novolog) Insulin Aspart, Recombinant 100 u/ml 10 ml vial SC SCH ×4 (08:24→21:45)
[2018-05-18 08:44] LABS: ANISOCYTOSIS SLIGHT; BANDS 2 % (0-2); EOSINOPHIL 8 % (0-4); LYMPHOCYTE 9 % (20-40); MONOCYTE 4 % (0-10); NEUTROPHIL 77 % (50-75); PLATELET ESTIMATE NORMAL (NORMAL); TOTAL CELLS COUNTED 100
[2018-05-18 08:45] LABS: POLYCHROMIC SLIGHT
[2018-05-18 08:46] LABS: HYPOCHROMIC MODERATE
--- NOTE | 2018-05-18 09:39 | CP.PCM.PN ---
Subjective - Date & Time of Evaluation Date of Evaluation: 05/18/18 Time of Evaluation: 09:37 - Subjective Subjective: Seen at dialysis confused at times To UF 3000ml HTN still elevated labs acceptable Objective - Vital Signs/Intake and Output Vital Signs (last 24 hours): Temp Pulse Resp BP Pulse Ox 97.8 F 84 20 128/62 96 05/18/18 07:56 05/18/18 07:56 05/18/18 07:56 05/18/18 07:56 05/18/18 07:56 Intake and Output: 05/18/18 05/18/18 06:59 18:59 Intake Total 420 Balance 420 - Medications Medications: Current Medications Acetaminophen (Tylenol 325mg Tab) 650 mg PO Q6 PRN PRN Reason: Pain, moderate (4-7) Last Admin: 05/14/18 21:21 Dose: 650 mg Amlodipine Besylate (Norvasc) 10 mg PO DAILY [facility] Last Admin: 05/17/18 10:31 Dose: Not Given Aspirin (Ecotrin) 81 mg PO DAILY [facility] Last Admin: 05/17/18 10:31 Dose: Not Given Calcium Acetate (Phoslo) 667 mg PO TIDAC [facility] Last Admin: 05/18/18 08:24 Dose: 667 mg Carvedilol (Coreg) 25 mg PO BID [facility] Last Admin: 05/17/18 17:51 Dose: 25 mg Clonidine HCl (Catapres) 0.2 mg PO TID [facility] Last Admin: 05/17/18 17:51 Dose: 0.2 mg Ezetimibe (Zetia) 10 mg PO HS [facility] Last Admin: 05/17/18 22:04 Dose: 10 mg Heparin Sodium (Porcine) (Heparin) 5,000 units SC Q12 [facility] Last Admin: 05/17/18 22:05 Dose: 5,000 units Hydralazine HCl (Apresoline) 100 mg PO TID [facility] Last Admin: 05/17/18 17:51 Dose: 100 mg Insulin Aspart (Novolog) 0 unit SC ACHS [facility]; Protocol Last Admin: 05/18/18 08:24 Dose: 3 units Insulin Glargine (Lantus) 14 unit SC QAM [facility] Last Admin: 05/17/18 10:31 Dose: Not Given Losartan Potassium (Cozaar) 100 mg PO DAILY [facility] Last Admin: 05/17/18 10:31 Dose: Not Given Pantoprazole Sodium (Protonix Ec Tab) 40 mg PO DAILY PRN PRN Reason: Indigestion Last Admin: 05/13/18 09:21 Dose: 40 mg Rosuvastatin Calcium (Crestor) 10 mg PO HS [facility] Last Admin: 05/17/18 22:05 Dose: 10 mg Tacrolimus (Prograf) 5 mg PO QAM [facility] Last Admin: 05/17/18 10:32 Dose: Not Given Tacrolimus (Prograf) 5 mg PO QPM [facility] Last Admin: 05/17/18 17:50 Dose: 5 mg - Labs Labs: 05/18/18 06:32 05/18/18 06:32 - Constitutional Appears: No Acute Distress, Chronically Ill - Head Exam Head Exam: ATRAUMATIC, NORMAL INSPECTION - Eye Exam Eye Exam: EOMI, Normal appearance - Neck Exam Neck Exam: Normal Inspection. absent: Tenderness - Respiratory Exam Respiratory Exam: Clear to Ausculation Bilateral, NORMAL BREATHING PATTERN - Cardiovascular Exam Cardiovascular Exam: REGULAR RHYTHM, +S1 - GI/Abdominal Exam GI & Abdominal Exam: Soft. absent: Tenderness - Extremities Exam Extremities Exam: Normal Inspection. absent: Tenderness - Neurological Exam Neurological Exam: Awake, CN II-XII Intact - Skin Skin Exam: Dry, Warm Assessment and Plan (1) Contusion, hip and thigh Status: Acute (2) Heart transplant recipient Status: Acute (3) Fluid overload Status: Acute (4) Type 2 diabetes mellitus with diabetic nephropathy Status: Acute (5) End stage renal disease Status: Chronic - Assessment and Plan (Free Text) Plan: monitor BP post HD Same meds for now UF 3000ml with HD
[2018-05-18] MEDS: (Lantus) Insulin Glargine, Recombinant SC SCH (10:22)
--- NOTE | 2018-05-18 12:07 | CP.PCM.PN ---
Subjective - Date & Time of Evaluation Date of Evaluation: 05/18/18 Time of Evaluation: 12:05 - Subjective Subjective: Covering Dr Day f/u abdominal pain Seen in HD. Denies abdominal pain Vascular study not yet performed Labs reviewed Objective - Vital Signs/Intake and Output Vital Signs (last 24 hours): Temp Pulse Resp BP Pulse Ox 97.7 F 73 18 174/98 H 98 05/18/18 08:50 05/18/18 08:50 05/18/18 09:00 05/18/18 10:45 05/18/18 09:00 Intake and Output: 05/18/18 05/18/18 06:59 18:59 Intake Total 420 Balance 420 - Medications Medications: Current Medications Acetaminophen (Tylenol 325mg Tab) 650 mg PO Q6 PRN PRN Reason: Pain, moderate (4-7) Last Admin: 05/14/18 21:21 Dose: 650 mg Amlodipine Besylate (Norvasc) 10 mg PO DAILY [facility] Last Admin: 05/18/18 10:21 Dose: Not Given Aspirin (Ecotrin) 81 mg PO DAILY [facility] Last Admin: 05/18/18 10:21 Dose: Not Given Calcium Acetate (Phoslo) 667 mg PO TIDAC [facility] Last Admin: 05/18/18 08:24 Dose: 667 mg Carvedilol (Coreg) 25 mg PO BID [facility] Last Admin: 05/18/18 10:21 Dose: Not Given Clonidine HCl (Catapres) 0.2 mg PO TID [facility] Last Admin: 05/18/18 10:21 Dose: Not Given Ezetimibe (Zetia) 10 mg PO HS [facility] Last Admin: 05/17/18 22:04 Dose: 10 mg Heparin Sodium (Porcine) (Heparin) 5,000 units SC Q12 [facility] Last Admin: 05/18/18 10:21 Dose: Not Given Hydralazine HCl (Apresoline) 100 mg PO TID [facility] Last Admin: 05/18/18 10:21 Dose: Not Given Insulin Aspart (Novolog) 0 unit SC ACHS [facility]; Protocol Last Admin: 05/18/18 08:24 Dose: 3 units Insulin Glargine (Lantus) 14 unit SC QAM [facility] Last Admin: 05/18/18 10:22 Dose: Not Given Losartan Potassium (Cozaar) 100 mg PO DAILY [facility] Last Admin: 05/18/18 10:21 Dose: Not Given Pantoprazole Sodium (Protonix Ec Tab) 40 mg PO DAILY PRN PRN Reason: Indigestion Last Admin: 05/13/18 09:21 Dose: 40 mg Rosuvastatin Calcium (Crestor) 10 mg PO HS [facility] Last Admin: 05/17/18 22:05 Dose: 10 mg Tacrolimus (Prograf) 5 mg PO QAM [facility] Last Admin: 05/18/18 10:22 Dose: Not Given Tacrolimus (Prograf) 5 mg PO QPM [facility] Last Admin: 05/17/18 17:50 Dose: 5 mg - Labs Labs: 05/18/18 06:32 05/18/18 06:32 - Constitutional Appears: Chronically Ill - Head Exam Head Exam: NORMOCEPHALIC - Eye Exam Eye Exam: absent: Scleral icterus - Cardiovascular Exam Cardiovascular Exam: REGULAR RHYTHM - GI/Abdominal Exam GI & Abdominal Exam: Soft. absent: Tenderness Assessment and Plan (1) Abdominal pain Assessment & Plan: resolved Check abd sono/doppler when available Dr Day to follow up as needed Status: Acute
[2018-05-18] MEDS: Epoetin Alfa 10,000 unit/ml Dialysis IV SCH (12:56)
--- NOTE | 2018-05-18 14:19 | RAD ---
Date of service: 05/18/2018 HISTORY: chf COMPARISON: No prior. FINDINGS: LUNGS: No definite infiltrate. Opacity at left base likely due to pleural effusion. PLEURA: Small left pleural effusion. No right pleural effusion. No pneumothorax. CARDIOVASCULAR: Normal heart size. Sternotomy wires are noted. No congestive change. No pulmonary vascular congestion. OSSEOUS STRUCTURES: Unremarkable VISUALIZED UPPER ABDOMEN: Normal. OTHER FINDINGS: None. IMPRESSION: Small left pleural effusion. No definite infiltrate.
--- NOTE | 2018-05-19 01:00 | PN ---
DATE: 05/18/2018 SUBJECTIVE: The patient is now lying down on the right side. He is comfortable. He is only lying down mostly on the right side. Coughing minimally noted, but he is feeling well otherwise. The patient will be getting the dialysis tomorrow. No chest pain noted. He is eating very poorly. No burning sensation in the urine. Leg swelling is present. The patient had a vascular study of the abdomen. Normal perfusion through the visceral vascular system noted, otherwise nonspecific. Chest x-ray today done showing evidence of much clear right lung but at the basal left lung, there is an effusion and associated underlying atelectasis, chronic, otherwise stable. PHYSICAL EXAMINATION: TODAY VITAL SIGNS: Temperature afebrile, pulse 82, blood pressure 117/75, saturation is 96% on nasal cannula. The patient is also having difficult time in walking. When he ambulates, his oxygen drops to 88%. With supplementation, the patient is able to walk better. He is able to walk at least 20 feet. The patient also has hypoxia even at rest. Room air oxygen saturation at times 88. LABORATORY DATA: Repeat blood gas showing pO2 of 60, saturation 87% noted. The patient is currently stable respiratory part. ASSESSMENT AND PLAN: He has an advanced heart disease with heart failure, and he has also heart transplantation; end-stage renal disease with chronic fluid overload state; chronic pleural effusion; left lung atelectasis, chronic. The patient is clinically stable. Definitely, the patient will benefit per mortality point of view. Having oxygen 2 liters per minute at night as well as during the ambulation. He will benefit having the oxygen at home. The patient is currently awaiting for home oxygen delivery. After that, he can be discharged home. Lauren Rodas MD
[2018-05-19] MEDS: (Novolog) Insulin Aspart, Recombinant 100 u/ml 10 ml vial SC SCH ×4 (08:30→21:46)
[2018-05-19] MEDS: (Lantus) Insulin Glargine, Recombinant SC SCH (09:25)
--- NOTE | 2018-05-19 10:03 | CP.PCM.PN ---
Subjective - Date & Time of Evaluation Date of Evaluation: 05/19/18 Time of Evaluation: 10:00 - Subjective Subjective: Notes reviewed Remains in bed Confused, unable to provide accurate history States nothing wrong Does not want to talk about his care ROS unobtainable due to ams Objective - Vital Signs/Intake and Output Vital Signs (last 24 hours): Temp Pulse Resp BP Pulse Ox 99.0 F 73 20 180/100 H 98 05/19/18 07:58 05/19/18 07:58 05/19/18 07:58 05/19/18 09:17 05/19/18 07:58 Intake and Output: 05/19/18 05/19/18 06:59 18:59 Intake Total 520 Balance 520 - Medications Medications: Current Medications Acetaminophen (Tylenol 325mg Tab) 650 mg PO Q6 PRN PRN Reason: Pain, moderate (4-7) Last Admin: 05/14/18 21:21 Dose: 650 mg Amlodipine Besylate (Norvasc) 10 mg PO DAILY [facility] Last Admin: 05/19/18 09:18 Dose: 10 mg Aspirin (Ecotrin) 81 mg PO DAILY [facility] Last Admin: 05/19/18 09:18 Dose: 81 mg Calcium Acetate (Phoslo) 667 mg PO TIDAC [facility] Last Admin: 05/19/18 08:30 Dose: 667 mg Carvedilol (Coreg) 25 mg PO BID [facility] Last Admin: 05/19/18 09:17 Dose: 25 mg Clonidine HCl (Catapres) 0.2 mg PO TID [facility] Last Admin: 05/19/18 09:18 Dose: 0.2 mg Ezetimibe (Zetia) 10 mg PO HS [facility] Last Admin: 05/18/18 21:46 Dose: 10 mg Epoetin Shawn (Procrit) 10,000 unit IV MWF [facility] Last Admin: 05/18/18 12:56 Dose: 10,000 unit Heparin Sodium (Porcine) (Heparin) 5,000 units SC Q12 [facility] Last Admin: 05/19/18 09:18 Dose: 5,000 units Hydralazine HCl (Apresoline) 100 mg PO TID [facility] Last Admin: 05/19/18 09:18 Dose: 100 mg Insulin Aspart (Novolog) 0 unit SC ACHS [facility]; Protocol Last Admin: 05/19/18 08:30 Dose: 2 units Insulin Glargine (Lantus) 14 unit SC QAM [facility] Last Admin: 05/19/18 09:25 Dose: 14 units Losartan Potassium (Cozaar) 100 mg PO DAILY [facility] Last Admin: 05/19/18 09:18 Dose: 100 mg Pantoprazole Sodium (Protonix Ec Tab) 40 mg PO DAILY PRN PRN Reason: Indigestion Last Admin: 05/13/18 09:21 Dose: 40 mg Rosuvastatin Calcium (Crestor) 10 mg PO HS [facility] Last Admin: 05/18/18 21:46 Dose: 10 mg Tacrolimus (Prograf) 5 mg PO QAM [facility] Last Admin: 05/19/18 09:19 Dose: 5 mg Tacrolimus (Prograf) 5 mg PO QPM [facility] Last Admin: 05/18/18 17:38 Dose: 5 mg - Labs Labs: 05/18/18 06:32 05/18/18 06:32 - Constitutional Appears: Non-toxic, Confused, Chronically Ill - Head Exam Head Exam: ATRAUMATIC, NORMAL INSPECTION - Eye Exam Eye Exam: EOMI, Normal appearance - ENT Exam ENT Exam: Mucous Membranes Moist, Normal Oropharynx - Neck Exam Neck Exam: absent: Lymphadenopathy, Thyromegaly - Respiratory Exam Respiratory Exam: Clear to Ausculation Bilateral. absent: Rales, Rhonchi - Cardiovascular Exam Cardiovascular Exam: +S1, +S2. absent: JVD - GI/Abdominal Exam GI & Abdominal Exam: Soft, Normal Bowel Sounds - Extremities Exam Extremities Exam: Pedal Edema. absent: Tenderness - Neurological Exam Neurological Exam: Alert, Awake. absent: Oriented x3 - Skin Skin Exam: Dry, Intact Assessment and Plan (1) Fluid overload Status: Acute (2) Heart transplant recipient Status: Acute (3) Chronic kidney disease with end stage renal failure on dialysis Status: Chronic (4) Anemia Status: Acute (5) CHF (congestive heart failure) Status: Acute (6) ESRD (end stage renal disease) Status: Acute (7) HTN (hypertension) Status: Acute - Assessment and Plan (Free Text) Assessment: Maintain dialysis schedule Continue current bp meds Attempt to increase UF with dialysis Supportive care Maintain immunosuppression
--- NOTE | 2018-05-19 13:03 | PN ---
DATE: 05/19/2018 SUBJECTIVE: The patient is now sleeping at this time. He is responding to verbal , he is arousable easily. Last night, he was not sleeping well. He was shaking sometimes, but no fever noted. PHYSICAL EXAMINATION: VITAL SIGNS: Temperature 98.2, pulse 74, blood pressure 171/84, respirations 20, and saturation is 98%. Received hemodialysis yesterday. Leg swelling is less than before. No abdominal pain at this time, tolerating the oral feeding. The patient is currently on multiple antihypertensives including hydralazine 100 t.i.d., clonidine 0.2 t.i.d., carvedilol 25 mg b.i.d., Cozaar 100 mg daily, amlodipine 10 mg daily. He is also taking antirejection medications for the heart transplant. Clinically, otherwise well. We will continue the current treatment. Once the home oxygen is available, the patient will be discharged home. Lauren Rodas MD
--- NOTE | 2018-05-19 15:51 | CP.PCM.PN ---
Subjective - Date & Time of Evaluation Date of Evaluation: 05/19/18 Time of Evaluation: 15:20 - Subjective Subjective: f/u for vascular studies, anemia Covering Dr bill Denies abdom pain, fever, chills, SZ, RANKIN, cough, RB, melena, RANKIN, hematuria, hemoptysis Objective - Vital Signs/Intake and Output Vital Signs (last 24 hours): Temp Pulse Resp BP Pulse Ox 99.0 F 73 20 180/100 H 98 05/19/18 07:58 05/19/18 07:58 05/19/18 07:58 05/19/18 09:17 05/19/18 07:58 Intake and Output: 05/19/18 05/19/18 06:59 18:59 Intake Total 520 200 Balance 520 200 - Medications Medications: Current Medications Acetaminophen (Tylenol 325mg Tab) 650 mg PO Q6 PRN PRN Reason: Pain, moderate (4-7) Last Admin: 05/14/18 21:21 Dose: 650 mg Amlodipine Besylate (Norvasc) 10 mg PO DAILY [facility] Last Admin: 05/19/18 09:18 Dose: 10 mg Aspirin (Ecotrin) 81 mg PO DAILY [facility] Last Admin: 05/19/18 09:18 Dose: 81 mg Calcium Acetate (Phoslo) 667 mg PO TIDAC [facility] Last Admin: 05/19/18 11:50 Dose: 667 mg Carvedilol (Coreg) 25 mg PO BID [facility] Last Admin: 05/19/18 09:17 Dose: 25 mg Clonidine HCl (Catapres) 0.2 mg PO TID [facility] Last Admin: 05/19/18 13:58 Dose: 0.2 mg Ezetimibe (Zetia) 10 mg PO HS [facility] Last Admin: 05/18/18 21:46 Dose: 10 mg Epoetin Shawn (Procrit) 10,000 unit IV MWF [facility] Last Admin: 05/18/18 12:56 Dose: 10,000 unit Heparin Sodium (Porcine) (Heparin) 5,000 units SC Q12 [facility] Last Admin: 05/19/18 09:18 Dose: 5,000 units Hydralazine HCl (Apresoline) 100 mg PO TID [facility] Last Admin: 05/19/18 13:58 Dose: 100 mg Insulin Aspart (Novolog) 0 unit SC [facility]; Protocol Last Admin: 05/19/18 12:30 Dose: 3 units Insulin Glargine (Lantus) 14 unit SC QAM [facility] Last Admin: 05/19/18 09:25 Dose: 14 units Losartan Potassium (Cozaar) 100 mg PO DAILY [facility] Last Admin: 05/19/18 09:18 Dose: 100 mg Pantoprazole Sodium (Protonix Ec Tab) 40 mg PO DAILY PRN PRN Reason: Indigestion Last Admin: 05/13/18 09:21 Dose: 40 mg Rosuvastatin Calcium (Crestor) 10 mg PO HS [facility] Last Admin: 05/18/18 21:46 Dose: 10 mg Tacrolimus (Prograf) 5 mg PO QAM [facility] Last Admin: 05/19/18 09:19 Dose: 5 mg Tacrolimus (Prograf) 5 mg PO QPM [facility] Last Admin: 05/18/18 17:38 Dose: 5 mg - Labs Labs: 05/18/18 06:32 05/18/18 06:32 - Constitutional Appears: Non-toxic - Respiratory Exam Respiratory Exam: Clear to Ausculation Bilateral - Cardiovascular Exam Cardiovascular Exam: RRR - GI/Abdominal Exam GI & Abdominal Exam: Soft, Normal Bowel Sounds. absent: Tenderness - Neurological Exam Neurological Exam: Alert, Awake Assessment and Plan (1) Abdominal pain Assessment & Plan: check vascular study Status: Acute (2) Anemia Status: Acute (3) ESRD (end stage renal disease) Status: Acute (4) HTN (hypertension) Status: Chronic
[2018-05-20] MEDS: (Novolog) Insulin Aspart, Recombinant 100 u/ml 10 ml vial SC SCH ×4 (08:26→21:42)
[2018-05-20] MEDS: Pantoprazole 40 mg EC Tab PO PRN (10:47)
[2018-05-20] MEDS: (Lantus) Insulin Glargine, Recombinant SC SCH (10:49)
[2018-05-21] MEDS: (Novolog) Insulin Aspart, Recombinant 100 u/ml 10 ml vial SC SCH ×4 (08:51→21:39)
--- NOTE | 2018-05-21 10:12 | PN ---
DATE: 05/20/2018 SUBJECTIVE: The patient is feeling okay. He is comfortable. He denies any chest pain. He was asking about his son today. Actually, he is having irregular bowel movement; leg swelling, negative; right calf pain is improving. PHYSICAL EXAMINATION: VITAL SIGNS: Temperature 98.4, pulse 65, blood pressure 155/79, respirations 20, saturation 96% with nasal cannula of 2 liters. CHEST: Good air entry and regular. HEART: Regular heart sounds. ABDOMEN: Nontender. EXTREMITIES: Bilateral pedal edema noted. LABORATORY DATA: The patient has no labs done today. ASSESSMENT AND PLAN: The patient is a 63-year-old male with history of heart transplant, the patient is also having chronic renal insufficiency on endstage renal disease with dialysis, cardiomyopathy, congestive heart failure, left pleural effusion, the patient has atelectatic lung. He had a history of pneumonia in the past, now improved markedly. Currently also having significant debility. The patient will need home oxygen given the advanced heart disease as well as severe hypoxia, room air oxygen saturation is 88%. Also blood gas analysis reveals the same. The patient has a significant drop in oxygenation with walking, ambulation, as well as nocturnal hypoxia. The patient will need home oxygen at least two liters per minute during the night and day time as needed. He will be continuously using the dialysis. He is feeling well otherwise. We will plan for discharge as soon as possible the oxygen is available. Lauren Rodas MD
--- NOTE | 2018-05-21 10:25 | CP.PCM.PN ---
Subjective - Date & Time of Evaluation Date of Evaluation: 05/21/18 Time of Evaluation: 10:24 - Subjective Subjective: seen and examined on hd chart reviewed no fevers chills sob dizziness chest pain estimated uf 3L Objective - Vital Signs/Intake and Output Vital Signs (last 24 hours): Temp Pulse Resp BP Pulse Ox 97.6 F 73 16 155/84 H 97 05/21/18 09:10 05/21/18 09:10 05/21/18 09:10 05/21/18 09:55 05/21/18 09:10 Intake and Output: 05/21/18 05/21/18 06:59 18:59 Intake Total 120 Output Total 300 Balance -180 - Medications Medications: Current Medications Acetaminophen (Tylenol 325mg Tab) 650 mg PO Q6 PRN PRN Reason: Pain, moderate (4-7) Last Admin: 05/14/18 21:21 Dose: 650 mg Amlodipine Besylate (Norvasc) 10 mg PO DAILY [facility] Last Admin: 05/21/18 10:20 Dose: Not Given Aspirin (Ecotrin) 81 mg PO DAILY [facility] Last Admin: 05/21/18 10:19 Dose: Not Given Calcium Acetate (Phoslo) 667 mg PO TIDAC [facility] Last Admin: 05/21/18 08:52 Dose: 667 mg Carvedilol (Coreg) 25 mg PO BID [facility] Last Admin: 05/21/18 10:18 Dose: Not Given Clonidine HCl (Catapres) 0.2 mg PO TID [facility] Last Admin: 05/21/18 10:18 Dose: Not Given Ezetimibe (Zetia) 10 mg PO HS [facility] Last Admin: 05/20/18 21:41 Dose: 10 mg Epoetin Shawn (Procrit) 10,000 unit IV MWF [facility] Last Admin: 05/18/18 12:56 Dose: 10,000 unit Heparin Sodium (Porcine) (Heparin) 5,000 units SC Q12 [facility] Last Admin: 05/20/18 21:41 Dose: 5,000 units Hydralazine HCl (Apresoline) 100 mg PO TID [facility] Last Admin: 05/21/18 10:18 Dose: Not Given Insulin Aspart (Novolog) 0 unit SC [facility]; Protocol Last Admin: 05/21/18 08:51 Dose: 2 units Insulin Glargine (Lantus) 14 unit SC QAM [facility] Last Admin: 05/20/18 10:49 Dose: 14 units Losartan Potassium (Cozaar) 100 mg PO DAILY [facility] Last Admin: 05/21/18 10:18 Dose: Not Given Pantoprazole Sodium (Protonix Ec Tab) 40 mg PO DAILY PRN PRN Reason: Indigestion Last Admin: 05/20/18 10:47 Dose: 40 mg Rosuvastatin Calcium (Crestor) 10 mg PO HS [facility] Last Admin: 05/20/18 21:41 Dose: 10 mg Tacrolimus (Prograf) 5 mg PO QAM [facility] Last Admin: 05/20/18 10:52 Dose: 5 mg Tacrolimus (Prograf) 5 mg PO QPM [facility] Last Admin: 05/20/18 18:01 Dose: 5 mg - Labs Labs: 05/18/18 06:32 05/18/18 06:32 - Constitutional Appears: Non-toxic, Older Than Stated Age, Chronically Ill - Head Exam Head Exam: NORMAL INSPECTION - Eye Exam Eye Exam: Normal appearance, PERRL - ENT Exam ENT Exam: Mucous Membranes Moist, Normal Exam - Neck Exam Neck Exam: Full ROM, Normal Inspection - Respiratory Exam Respiratory Exam: Clear to Ausculation Bilateral, NORMAL BREATHING PATTERN - Cardiovascular Exam Cardiovascular Exam: REGULAR RHYTHM, RRR - GI/Abdominal Exam GI & Abdominal Exam: Soft, Normal Bowel Sounds - Extremities Exam Extremities Exam: Full ROM, Normal Inspection - Neurological Exam Neurological Exam: Alert, Awake - Psychiatric Exam Psychiatric exam: Flat Affect - Skin Skin Exam: Dry, Intact, Warm Assessment and Plan (1) Contusion, hip Status: Acute (2) Fluid overload Status: Acute (3) Heart transplant recipient Status: Acute (4) Anemia Status: Acute (5) CHF (congestive heart failure) Status: Acute (6) ESRD (end stage renal disease) Status: Acute - Assessment and Plan (Free Text) Assessment: esrd heart transplant abdominal pain failure to thrive htn anemia plan: hd today, uf as tolerated labs w/ hd today GI work up ongoing, r/o ischemic bowel maintain prograf
[2018-05-21] MEDS: Epoetin Alfa 10,000 unit/ml Dialysis IV SCH (12:41)
[2018-05-21] MEDS: (Lantus) Insulin Glargine, Recombinant SC SCH (13:12)
[2018-05-21 15:45] VITALS: RESP 20
[2018-05-21 23:28] VITALS: TEMP 98.1
[2018-05-22 07:21] LABS: BASO # 0.1 K/uL (0.0-0.2); BASO % 1.3 % (0.0-2.0); EOS # 0.1 K/uL (0.0-0.7); EOS % 2.9 % (0.0-4.0); HEMOGLOBIN 10.6 g/dL (12.0-18.0); LYMPH # 0.4 K/uL (1.0-4.3); LYMPH % 7.5 % (20.0-40.0); MEAN CELL VOLUME 89.9 fL (80.0-94.0); MEAN CORPUSCULAR HEMOGLOBIN 29.8 pg (27.0-31.0); MEAN CORPUSCULAR HGB CONC 33.2 g/dL (33.0-37.0); MEAN PLATELET VOLUME 8.2 fL (7.2-11.7); MONO # 0.5 K/uL (0.0-0.8); MONO % 9.7 % (0.0-10.0); NEUT % 78.6 % (50.0-75.0); PLATELET COUNT 199 K/uL (130-400); RBC 3.55 Mil/uL (4.40-5.90); RED CELL DISTRIBUTION WIDTH 18.9 % (11.5-14.5); WHITE BLOOD COUNT 5.1 K/uL (4.8-10.8)
[2018-05-22 08:01] LABS: CALCIUM 8.5 mg/dl (8.6-10.4)
[2018-05-22] MEDS: (Novolog) Insulin Aspart, Recombinant 100 u/ml 10 ml vial SC SCH ×3 (08:37→17:36)
[2018-05-22 09:22] LABS: ANISOCYTOSIS SLIGHT; LYMPHOCYTE 6 % (20-40); MONOCYTE 8 % (0-10); NEUTROPHIL 86 % (50-75); PLATELET ESTIMATE NORMAL (NORMAL); TOTAL CELLS COUNTED 100
[2018-05-22 09:23] LABS: HYPOCHROMIC SLIGHT; POLYCHROMIC SLIGHT
[2018-05-22] MEDS: (Lantus) Insulin Glargine, Recombinant SC SCH (11:04)
--- NOTE | 2018-05-22 12:03 | CP.PCM.PN ---
Subjective - Date & Time of Evaluation Date of Evaluation: 05/22/18 Time of Evaluation: 12:01 - Subjective Subjective: seen and examined no complaints appears comfortable 10 point ROS neg. denies any abd pain/n/v. eating lunch Objective - Vital Signs/Intake and Output Vital Signs (last 24 hours): Temp Pulse Resp BP Pulse Ox 98.1 F 78 20 163/77 H 98 05/21/18 23:27 05/21/18 23:27 05/21/18 23:27 05/22/18 11:06 05/21/18 23:27 Intake and Output: 05/22/18 05/22/18 06:59 18:59 Intake Total 450 Output Total 350 Balance 100 - Medications Medications: Current Medications Acetaminophen (Tylenol 325mg Tab) 650 mg PO Q6 PRN PRN Reason: Pain, moderate (4-7) Last Admin: 05/14/18 21:21 Dose: 650 mg Amlodipine Besylate (Norvasc) 10 mg PO DAILY [facility] Last Admin: 05/22/18 11:04 Dose: 10 mg Aspirin (Ecotrin) 81 mg PO DAILY [facility] Last Admin: 05/22/18 10:58 Dose: 81 mg Calcium Acetate (Phoslo) 667 mg PO TIDAC [facility] Last Admin: 05/22/18 08:37 Dose: 667 mg Carvedilol (Coreg) 25 mg PO BID [facility] Last Admin: 05/22/18 11:06 Dose: 25 mg Clonidine HCl (Catapres) 0.2 mg PO TID [facility] Last Admin: 05/22/18 10:58 Dose: 0.2 mg Ezetimibe (Zetia) 10 mg PO HS [facility] Last Admin: 05/21/18 22:06 Dose: 10 mg Epoetin Shawn (Procrit) 10,000 unit IV MWF [facility] Last Admin: 05/21/18 12:41 Dose: 10,000 unit Heparin Sodium (Porcine) (Heparin) 5,000 units SC Q12 [facility] Last Admin: 05/22/18 11:04 Dose: 5,000 units Hydralazine HCl (Apresoline) 100 mg PO TID [facility] Last Admin: 05/22/18 10:57 Dose: 100 mg Insulin Aspart (Novolog) 0 unit SC [facility]; Protocol Last Admin: 05/22/18 08:37 Dose: 3 units Insulin Glargine (Lantus) 14 unit SC QAM [facility] Last Admin: 05/22/18 11:04 Dose: 14 units Losartan Potassium (Cozaar) 100 mg PO DAILY [facility] Last Admin: 05/22/18 10:57 Dose: 100 mg Pantoprazole Sodium (Protonix Ec Tab) 40 mg PO DAILY PRN PRN Reason: Indigestion Last Admin: 05/20/18 10:47 Dose: 40 mg Rosuvastatin Calcium (Crestor) 10 mg PO HS [facility] Last Admin: 05/21/18 22:06 Dose: 10 mg Tacrolimus (Prograf) 5 mg PO QAM [facility] Last Admin: 05/22/18 10:57 Dose: 5 mg Tacrolimus (Prograf) 5 mg PO QPM [facility] Last Admin: 05/21/18 17:56 Dose: 5 mg - Labs Labs: 05/22/18 07:08 05/22/18 07:08 - Constitutional Appears: Non-toxic, No Acute Distress, Older Than Stated Age, Chronically Ill - Head Exam Head Exam: NORMAL INSPECTION, NORMOCEPHALIC - Eye Exam Eye Exam: Normal appearance, PERRL - ENT Exam ENT Exam: Mucous Membranes Moist, Normal Exam - Neck Exam Neck Exam: Full ROM, Normal Inspection - Respiratory Exam Respiratory Exam: Decreased Breath Sounds, NORMAL BREATHING PATTERN - Cardiovascular Exam Cardiovascular Exam: REGULAR RHYTHM, RRR - GI/Abdominal Exam GI & Abdominal Exam: Distended, Soft - Extremities Exam Extremities Exam: Normal Inspection - Neurological Exam Neurological Exam: Alert, Awake - Psychiatric Exam Psychiatric exam: Normal Affect, Normal Mood - Skin Skin Exam: Normal Color, Warm Assessment and Plan (1) Contusion, hip Status: Acute (2) Fluid overload Status: Acute (3) Heart transplant recipient Status: Acute (4) Anemia Status: Acute (5) CHF (congestive heart failure) Status: Acute (6) ESRD (end stage renal disease) Status: Acute - Assessment and Plan (Free Text) Assessment: esrd heart transplant abdominal pain failure to thrive htn anemia plan: hd mwf, uf as tolerated fluid restriction GI work up ongoing maintain prograf
--- NOTE | 2018-05-22 12:59 | PN ---
DATE: 05/22/2018 LOCATION: The patient is in [facility] SUBJECTIVE: The patient was seen by me around 6:30 p.m. He is due to hemodialysis is today. PHYSICAL EXAMINATION: VITAL SIGNS: He is afebrile. Temperature 98.1, pulse 79, blood pressure 161/81, respirations 20, saturation is 96%. HEENT: PERRLA. NECK: Supple. CHEST: Good air entry. EXTREMITIES: Bilateral pedal edema negative. LABORATORY DATA: Nonspecific. Glucose level is still on the high side. Hemoglobin and hematocrit is stable at this time. ASSESSMENT AND PLAN: The patient is a 63-year-old male with heart transplant, end-stage renal dialysis on dialysis; chronically sick, admitted to the hospital with shortness of breath, fluid overload, decompensated systolic heart failure, currently doing well. The patient needed home oxygen. Once the oxygen is arranged, the patient can be discharged home. Lauren Rodas MD
[2018-05-22 15:24] VITALS: PULSE 73; O2SAT 95
--- NOTE | 2018-05-22 15:45 | PCM.HF ---
Heart Failure Core Measure - Heart Failure Ejection Fraction: 40 % or Greater (EF 70%) BRIANA Inhibitor Prescribed: No Contraindication/Reason for not providing: RENAL DYSFUNCTION Beta-Mari Prescribed: Carvedilol Angiotensin II Receptor Mari Prescribed: No Contraindication/Reason for not providing: renal dysfunction AnticoagulationTherapy for Atrial Fibrillation/Atrialflutter: No Contraindication/Reason for not providing: no afib Aldosterone Antagonist Prescribed: No Contraindication/Reason for not providing: renal dysfunction Hydralazine Nitrate Prescribed: Yes Implantable Cardioverter Defibrillator Therapy: No Contraindication/Reason for not providing: EF >40% Cardiac Resynchronization Therapy Prescribed: No Contraindication/Reason for not providing: not indicated - Follow up Will be discharged to: Home Follow Up Date (must be within 7 days from discharge): 05/28/18 Follow Up Time: 10:00
--- NOTE | 2018-05-22 15:49 | CP.PCM.PN ---
Subjective - Date & Time of Evaluation Date of Evaluation: 05/22/18 Time of Evaluation: 15:49 - Subjective Subjective: alert, awake, no sob or chest pains, NAD. Objective - Vital Signs/Intake and Output Vital Signs (last 24 hours): Temp Pulse Resp BP Pulse Ox 98.1 F 73 20 134/68 95 05/22/18 15:00 05/22/18 15:00 05/22/18 15:00 05/22/18 15:00 05/22/18 15:00 Intake and Output: 05/22/18 05/22/18 06:59 18:59 Intake Total 450 240 Output Total 350 Balance 100 240 - Medications Medications: Current Medications Acetaminophen (Tylenol 325mg Tab) 650 mg PO Q6 PRN PRN Reason: Pain, moderate (4-7) Last Admin: 05/14/18 21:21 Dose: 650 mg Amlodipine Besylate (Norvasc) 10 mg PO DAILY [facility] Last Admin: 05/22/18 11:04 Dose: 10 mg Aspirin (Ecotrin) 81 mg PO DAILY [facility] Last Admin: 05/22/18 10:58 Dose: 81 mg Calcium Acetate (Phoslo) 667 mg PO TIDAC [facility] Last Admin: 05/22/18 11:30 Dose: 667 mg Carvedilol (Coreg) 25 mg PO BID [facility] Last Admin: 05/22/18 11:06 Dose: 25 mg Clonidine HCl (Catapres) 0.2 mg PO TID [facility] Last Admin: 05/22/18 13:25 Dose: 0.2 mg Ezetimibe (Zetia) 10 mg PO HS [facility] Last Admin: 05/21/18 22:06 Dose: 10 mg Epoetin Shawn (Procrit) 10,000 unit IV MWF [facility] Last Admin: 05/21/18 12:41 Dose: 10,000 unit Heparin Sodium (Porcine) (Heparin) 5,000 units SC Q12 [facility] Last Admin: 05/22/18 11:04 Dose: 5,000 units Hydralazine HCl (Apresoline) 100 mg PO TID [facility] Last Admin: 05/22/18 13:25 Dose: 100 mg Insulin Aspart (Novolog) 0 unit SC [facility]; Protocol Last Admin: 05/22/18 12:33 Dose: 4 units Insulin Glargine (Lantus) 14 unit SC QAM [facility] Last Admin: 05/22/18 11:04 Dose: 14 units Losartan Potassium (Cozaar) 100 mg PO DAILY [facility] Last Admin: 05/22/18 10:57 Dose: 100 mg Pantoprazole Sodium (Protonix Ec Tab) 40 mg PO DAILY PRN PRN Reason: Indigestion Last Admin: 05/20/18 10:47 Dose: 40 mg Rosuvastatin Calcium (Crestor) 10 mg PO HS [facility] Last Admin: 05/21/18 22:06 Dose: 10 mg Tacrolimus (Prograf) 5 mg PO QAM [facility] Last Admin: 05/22/18 10:57 Dose: 5 mg Tacrolimus (Prograf) 5 mg PO QPM [facility] Last Admin: 05/21/18 17:56 Dose: 5 mg - Labs Labs: 05/22/18 07:08 05/22/18 07:08 Assessment and Plan - Assessment and Plan (Free Text) Assessment: 63 year old male admitted with hypoxia, hip injury, unsteady gait, seen and examined. Alert, awake, walks with walker and oxygen, no distress noted. Home oxygen and VNS/ home PT arranged. Discharged home as per DR Rodas. Advised to follow up in the office in 1 week.
[2018-05-22] MEDS ORDERED: DiphenhydrAMINE 50 mg/ml Inj ONE (16:50)
[2018-05-22 21:10] VITALS: BP 138/62
--- NOTE | 2018-06-08 17:52 | CP.PCM.PN ---
Subjective - Date & Time of Evaluation Date of Evaluation: 05/10/18 Time of Evaluation: 17:52 - Subjective Subjective: The patient receiving hemodialysis on 1128 Blood pressure stable, but slight elevated. Is feeling well. Somewhat dyspneic at rest Vital signs: Temperature 98.8 pulse 70 respiration 21 blood pressure 176/87 saturation 96% medications reviewed. Patient is currently on amlodipine, aspirin, PhosLo, Coreg, clonidine, Zetia, hydralazine, Lantus, Protonix, Cozaar, Crestor, Prograf. Patient is 63-year-old male with history of heart transplant end-stage renal disease and dialyzes hypertension diabetes Patient is having recurrent fluid overload, pulmonary edema, CHF. Recommended home oxygen continue the dialysis, Lasix diuretics and will follow the patient Objective - Vital Signs/Intake and Output Vital Signs (last 24 hours): Temp Pulse Resp BP Pulse Ox 98.1 F 73 20 138/62 95 05/22/18 15:00 05/22/18 15:00 05/22/18 15:00 05/22/18 18:00 05/22/18 15:00 - Labs Labs: 05/22/18 07:08 05/22/18 07:08
--- NOTE | 2018-06-08 17:52 | CP.PCM.PN ---
Subjective - Date & Time of Evaluation Date of Evaluation: 05/20/18 Time of Evaluation: 17:52 - Subjective Subjective: The patient receiving hemodialysis on 1128 Blood pressure stable, but slight elevated. Is feeling well. Somewhat dyspneic at rest Vital signs: Temperature 98.8 pulse 70 respiration 21 blood pressure 176/87 saturation 96% medications reviewed. Patient is currently on amlodipine, aspirin, PhosLo, Coreg, clonidine, Zetia, hydralazine, Lantus, Protonix, Cozaar, Crestor, Prograf. Patient is 63-year-old male with history of heart transplant end-stage renal disease and dialyzes hypertension diabetes Patient is having recurrent fluid overload, pulmonary edema, CHF. Recommended home oxygen continue the dialysis, Lasix diuretics and will follow the patient Objective - Vital Signs/Intake and Output Vital Signs (last 24 hours): Temp Pulse Resp BP Pulse Ox 98.1 F 73 20 138/62 95 05/22/18 15:00 05/22/18 15:00 05/22/18 15:00 05/22/18 18:00 05/22/18 15:00 - Labs Labs: 05/22/18 07:08 05/22/18 07:08
--- NOTE | 2018-06-08 17:53 | CP.PCM.DIS ---
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 Comment: Physician Instructions: Reason For Exam: CHF Nursing Referral for Palliative Care Routine Comment: Physician Instructions: Reason For Exam: ESRD on HD, CHF 05/14/18 18:53 Gastroenterology Consult Routine Comment: Consulting Provider: Juanpablo Diallo Consulting Physician: Juanpablo Diallo Reason for Consult: cholecystitis and pancreatitis Time Spent in preparation of Discharge (in minutes): 45 Hospital Course - Lab Results Lab Results: Most Recent Lab Values WBC 5.1 K/uL (4.8-10.8) 05/22/18 07:08 RBC 3.55 Mil/uL (4.40-5.90) L 05/22/18 07:08 Hgb 10.6 g/dL (12.0-18.0) L 05/22/18 07:08 Hct 31.9 % (35.0-51.0) L 05/22/18 07:08 MCV 89.9 fL (80.0-94.0) 05/22/18 07:08 MCH 29.8 pg (27.0-31.0) 05/22/18 07:08 MCHC 33.2 g/dL (33.0-37.0) 05/22/18 07:08 RDW 18.9 % (11.5-14.5) H 05/22/18 07:08 Plt Count 199 K/uL (130-400) 05/22/18 07:08 MPV 8.2 fL (7.2-11.7) 05/22/18 07:08 Neut % (Auto) 78.6 % (50.0-75.0) H 05/22/18 07:08 Lymph % (Auto) 7.5 % (20.0-40.0) L 05/22/18 07:08 [place] % (Auto) 9.7 % (0.0-10.0) 05/22/18 07:08 Eos % (Auto) 2.9 % (0.0-4.0) 05/22/18 07:08 Baso % (Auto) 1.3 % (0.0-2.0) 05/22/18 07:08 Neut # (Auto) 4.0 K/uL (1.8-7.0) 05/22/18 07:08 Lymph # (Auto) 0.4 K/uL (1.0-4.3) L 05/22/18 07:08 [place] # (Auto) 0.5 K/uL (0.0-0.8) 05/22/18 07:08 Eos # (Auto) 0.1 K/uL (0.0-0.7) 05/22/18 07:08 Baso # (Auto) 0.1 K/uL (0.0-0.2) 05/22/18 07:08 Neutrophils % (Manual) 86 % (50-75) H 05/22/18 07:08 Band Neutrophils % 2 % (0-2) 05/18/18 06:32 Lymphocytes % (Manual) 6 % (20-40) L 05/22/18 07:08 Monocytes % (Manual) 8 % (0-10) 05/22/18 07:08 Eosinophils % (Manual) 8 % (0-4) H 05/18/18 06:32 Toxic Granulation Present 05/12/18 08:57 Platelet Estimate Normal (NORMAL) 05/22/18 07:08 Large Platelets Present 05/12/18 08:57 Polychromasia Slight 05/22/18 07:08 Hypochromasia (manual) Slight 05/22/18 07:08 Poikilocytosis (manual Slight 05/12/18 08:57 Anisocytosis (manual) Slight 05/22/18 07:08 Schistocytes Slight 05/12/18 08:57 Puncture Site Lr 05/17/18 13:30 pCO2 40 mm/Hg (35-45) 05/17/18 13:30 pO2 60 mm/Hg (80-100) L 05/17/18 13:30 HCO3 30.5 mmol/L (21-28) H 05/17/18 13:30 ABG pH 7.50 (7.35-7.45) H 05/17/18 13:30 ABG Total CO2 32.4 mmol/L (22-28) H 05/17/18 13:30 ABG O2 Saturation 89.1 % (95-98) L 05/17/18 13:30 ABG Base Excess 7.4 mmol/L (-2.0-3.0) H 05/17/18 13:30 ABG Hemoglobin 11.1 g/dL (11.7-17.4) L 05/17/18 13:30 ABG Carboxyhemoglobin 1.2 % (0.5-1.5) 05/17/18 13:30 POC ABG HHb (Measured) 10.7 % (0.0-5.0) H 05/17/18 13:30 ABG Methemoglobin 0.8 % (0.0-3.0) 05/17/18 13:30 Chang Test Pos 05/17/18 13:30 A-a O2 Difference 40.0 mm/Hg 05/17/18 13:30 Respiratory Index 0.7 05/17/18 13:30 Hgb O2 Saturation 87.3 % (95.0-98.0) L 05/17/18 13:30 FiO2 21.0 % 05/17/18 13:30 Sodium 134 mmol/L (132-148) 05/22/18 07:08 Potassium 5.0 mmol/L (3.6-5.2) 05/22/18 07:08 Chloride 91 mmol/L (98-107) L 05/22/18 07:08 Carbon Dioxide 28 mmol/L (22-30) 05/22/18 07:08 Anion Gap 20 (10-20) 05/22/18 07:08 BUN 43 mg/dL (9-20) H 05/22/18 07:08 Creatinine 5.4 mg/dL (0.8-1.5) H 05/22/18 07:08 Est GFR ( Amer) 13 05/22/18 07:08 Est GFR (Non-Af Amer) 11 05/22/18 07:08 POC Glucose (mg/dL) 254 mg/dL (65-110) H 05/22/18 16:10 Random Glucose 258 mg/dL (75-110) H 05/22/18 07:08 Calcium 8.5 mg/dl (8.6-10.4) L 05/22/18 07:08 Phosphorus 4.1 mg/dL (2.5-4.5) 05/15/18 11:17 Magnesium 2.0 mg/dL (1.6-2.3) 05/15/18 11:17 Total Bilirubin 0.9 mg/dL (0.2-1.3) 05/18/18 06:32 Direct Bilirubin 0.9 mg/dL (0.0-0.4) H 05/15/18 11:17 AST 41 U/L (17-59) 05/18/18 06:32 ALT 34 U/L (21-72) 05/18/18 06:32 Alkaline Phosphatase 139 U/L (38-126) H 05/18/18 06:32 Total Protein 8.4 g/dL (6.3-8.3) H 05/18/18 06:32 Albumin 3.7 g/dL (3.5-5.0) 05/18/18 06:32 Globulin 4.7 gm/dL (2.2-3.9) H 05/18/18 06:32 Albumin/Globulin Ratio 0.8 (1.0-2.1) L 05/18/18 06:32 Amylase 67 U/L (30-110) 05/15/18 11:17 Lipase 66 U/L (23-300) 05/15/18 11:17 Hep Bs Antigen Negative (NEGATIVE) 05/07/18 16:05 - Hospital Course Hospital Course: Chief complaint: Fall HPI: Patient is a 63-year-old male with a history of heart transplant on immunosuppressive treatment end-stage renal disease on dialysis and diabetes. This morning he was about to get dressed and go to the dialysis Center further hemodialysis. But a he was trying to get out of the bed to the chair he was not able to, he was sliding and fell on the floor, unable to get a by the . And called ambulance. And he was picked up from the floor and brought him to the emergency room. In the emergency room patient underwent extensive skeletal survey as the patient does not have a clear idea what happened. He is complaining of pain in the right leg. Also some pain in the right calf. Patient denies any chest pain or shortness of breath. Currently he is getting the hemodialysis. He is awake and responding and comfortable otherwise. Blood sugar is stable. He has no chest pain minimal shortness of breath noted, in the emergency room patient was also noted to have hypoxia. History present illness: 61-year-old male with history of heart transplant, on immunosuppressive treatment, end-stage renal disease on dialysis, recent had a hematuria, also urinary tract infection, Past medical history: Heart, transplant on immunosuppressive treatment, end-stage renal disease on dialysis, hypertension, diabetes, hypercholesterolemia, urinary tract infection. Allergy: No known drug allergy but imepenem causes AMS Personal history: Nonsmoker nonalcoholic disabled Family history noncontributory. Review of systems: Currently having some headache, complaining of episodes of hiccups, abdominal pain, shortness of breath and cough noted, bilateral leg swelling On examination: HEENT PERRLA, neck supple No thyromegaly was noted and no cervical adenopathy noted Bilateral wheezing and rales noted CVS regular heart sound, no murmur Abdomen soft and no organomegaly Bilateral edema noted [employer] alert awake oriented x3 no functional neurological deficit. CXR: bilateral effusion noted Assessment and recommendation: 61-year-old male with history of heart transplant, immunosuppressive treatment, end-stage renal disease on dialysis, hypertension, diabetes, peripheral vascular disease, pedal edema, and urinary tract infection. Patient had a recurrent fall, likely secondary to weakness. Hypoxia can't be ruled out. Patient has a worsening bilateral pleural effusion. Suggested renal consultation for possible effective dialysis. Patient may need a thoracentesis. Will get the CAT scan and ABG. Patient may need oxygen at home. Will monitor and will follow-up the patient Course in the Hospital: During the stay in in the hospital patient developed a significant or desaturation. X-ray showing evidence of fluid overload. Patient also has room air oxygen saturation was 88%. Physical therapy started. Dialysis was attempted. Patient medications updated. Seen by set up and charger. As the patient needed home oxygen, I recommended the patient needs to have oxygen monitoring. After multiple attempts the patient finally received a home oxygen. History is stable. He will be discharged home with home oxygen 2 L/m. He will follow up as an outpatient. Discharge Exam - Head Exam Head Exam: NORMAL INSPECTION, NORMOCEPHALIC Discharge Plan - Follow Up Plan Condition: STABLE Disposition: HOME/ ROUTINE Instructions: Hip Pain (DC), Anoxic Brain Damage (DC) Additional Instructions: discharge home as per Dr Rodas Home oxygen 2L via nasal [place]ula home care/home PT/VNS for management of CHF, generalized weakness Follow up with the medical doctor within 1-2 days. Return if worsened. Referrals: Mode Doll III, MD [Staff Provider] -
== END 2018-05-22 21:15 | disposition home or self-care (01) | DRG 947 ==
LOC: C.ER 09:35 → C.9E 13:07 → C.5S 19:58 → OBSVTOIN 05-10 15:37 → C.5S 05-10 22:33 → C.3T 05-17 10:07
PROVIDERS: ADMIT Internal Medicine; ATTEND Internal Medicine
PROC: 5A1D70Z Performance of Urinary Filtration, Intermittent, Less than 6 Hours Per Day (ICD-10-PCS; principal; 2018-05-10)
DX: R53.1 Weakness (principal); N18.6 End stage renal disease; I13.2 Hypertensive heart and chronic kidney disease with heart failure and with stage 5 chronic kidney disease, or end stage renal disease; Z94.1 Heart transplant status; N39.0 Urinary tract infection, site not specified; S70.01XA Contusion of right hip, initial encounter; S70.11XA Contusion of right thigh, initial encounter; E11.21 Type 2 diabetes mellitus with diabetic nephropathy; E11.22 Type 2 diabetes mellitus with diabetic chronic kidney disease; E11.51 Type 2 diabetes mellitus with diabetic peripheral angiopathy without gangrene; Z79.4 Long term (current) use of insulin; R29.6 Repeated falls; I25.10 Atherosclerotic heart disease of native coronary artery without angina pectoris; E78.00 Pure hypercholesterolemia, unspecified; W05.0XXA Fall from non-moving wheelchair, initial encounter; F03.90 Unspecified dementia, unspecified severity, without behavioral disturbance, psychotic disturbance, mood disturbance, and anxiety; K21.9 Gastro-esophageal reflux disease without esophagitis; R09.02 Hypoxemia

== ENCOUNTER 2018-07-09 11:17 | Inpatient (IN) | payer MEDICARE, OTHER ==
[2018-07-09 12:08] VITALS: BMI 23.5
[2018-07-09 12:56] LABS: VENOUS BLOOD GAS BASE EXCESS 9.9 mmol/L (0.0-2.0); VENOUS BLOOD GAS PCO2 53 mmHg (40-60); VENOUS BLOOD GAS PO2 27 mm/Hg (30-55); VENOUS BLOOD PH 7.44 (7.32-7.43)
[2018-07-09 13:13] LABS: BASO # 0.1 K/uL (0.0-0.2); BASO % 0.5 % (0.0-2.0); EOS % 0.1 % (0.0-4.0); HEMOGLOBIN 9.6 g/dL (12.0-18.0); LYMPH # 0.3 K/uL (1.0-4.3); LYMPH % 1.4 % (20.0-40.0); MEAN CELL VOLUME 88.8 fL (80.0-94.0); MEAN CORPUSCULAR HEMOGLOBIN 28.7 pg (27.0-31.0); MEAN CORPUSCULAR HGB CONC 32.3 g/dL (33.0-37.0); MEAN PLATELET VOLUME 8.6 fL (7.2-11.7); MONO # 0.9 K/uL (0.0-0.8); MONO % 3.8 % (0.0-10.0); NEUT # 22.5 K/uL (1.8-7.0); NEUT % 94.2 % (50.0-75.0); PLATELET COUNT 210 K/uL (130-400); RBC 3.33 Mil/uL (4.40-5.90); RED CELL DISTRIBUTION WIDTH 17.7 % (11.5-14.5)
[2018-07-09 13:16] LABS: WHITE BLOOD COUNT 23.8 K/uL (4.8-10.8)
[2018-07-09 13:32] LABS: ALB/GLOB RATIO 0.7 (1.0-2.1); ALBUMIN 3.4 g/dL (3.5-5.0); CALCIUM 9.5 mg/dl (8.6-10.4)
[2018-07-09 13:43] LABS: CK-MB 0.49 ng/mL (0.0-3.38)
[2018-07-09 13:47] LABS: ANISOCYTOSIS SLIGHT; LYMPHOCYTE 1 % (20-40); MONOCYTE 2 % (0-10); NEUTROPHIL 97 % (50-75); PLATELET ESTIMATE NORMAL (NORMAL); POIKILOCYTOSIS SLIGHT; TOTAL CELLS COUNTED 100
--- NOTE | 2018-07-09 13:47 | CP.PCM.CON ---
History of Present Illness - History of Present Illness History of Present Illness: 63 y/o man who was hyperglycemic, hypotensive before his dialysis appointment today. He was altered and could was poorly responsive prior being sent to ED.Denies recent LOC, head injury, or any other complaints. s/p heart transplant, has worsening cardiomyopathy requiring aggressive fluid removal with dialysis Not dialyzed today. - Medical History PMH: CAD, CHF, Diabetes, HTN, Hypercholesterolemia, End Stage Renal Disease, Chronic Kidney Disease (ESRD on HD), orthotopic heart transplant Surgical History: Cholecystectomy, Endoscopy, heart transplant, AV fistula - [facility] Procedures (03/26/18) DRAINAGE OF LEFT PLEURAL CAVITY, PERC APPROACH, DIAGN (02/13/18) ENDOSC POLYPECTOMY OF LG INTEST (10/09/13) PERFORMANCE OF URINARY FILTRATION, MULTIPLE (11/23/16) PERFORMANCE OF URINARY FILTRATION, SINGLE (04/17/16) REMOVAL OF DRAINAGE DEVICE FROM BLADDER, EXTERNAL APPROACH (11/23/16) Family History: States: Unknown Family Hx, no CKD - Social History Hx Tobacco Use: No Hx Alcohol Use: No Hx Substance Use: No - Immunization History Hx Tetanus Toxoid Vaccination: No Hx Influenza Vaccination: Yes Hx Pneumococcal Vaccination: Yes Review Of Systems Review of Systems - Review of Systems Systems not reviewed;Unavailable: Altered Mental Status Past Patient History - Infectious Disease Hx of Infectious Diseases: None - Past Medical History & Family History Past Medical History?: Yes Past Family History: Reviewed and not pertinent - Past Social History Smoking Status: Never Smoked Chewing Tobacco Use: No Cigar Use: No Alcohol: None Drugs: Denies Home Situation {Lives}: With Family - CARDIAC Hx Cardiac Disorders: Yes Hx Congestive Heart Failure: Yes Hx Hypercholesterolemia: Yes Hx Hypertension: Yes - PULMONARY Hx Respiratory Disorders: No - NEUROLOGICAL Hx Neurological Disorder: No - HEENT Hx HEENT Problems: Yes Hx Cataracts: Yes - RENAL Hx Chronic Kidney Disease: Yes Hx Dialysis: Yes (R arm Av shunt) - ENDOCRINE/METABOLIC Hx Endocrine Disorders: Yes Hx Diabetes Mellitus Type 2: Yes - HEMATOLOGICAL/ONCOLOGICAL Hx Blood Disorders: No Hx Cirrhosis: No Hx Hepatitis A: No Hx Hepatitis B: No Hx Hepatitis C: No Hx Human Immunodeficiency Virus (HIV): No - INTEGUMENTARY Hx Dermatological Problems: No - MUSCULOSKELETAL/RHEUMATOLOGICAL Hx Musculoskeletal Disorders: Yes Hx Falls: Yes - GASTROINTESTINAL Hx Gastrointestinal Disorders: Yes Hx Diverticulitis: Yes Hx Gastritis: Yes Hx Gastroesophageal Reflux: Yes Other/Comment: colon polyps - GENITOURINARY/GYNECOLOGICAL Hx Genitourinary Disorders: Yes Hx Hematuria: Yes Hx Urinary Tract Infection: Yes - PSYCHIATRIC Hx Substance Use: No - SURGICAL HISTORY Hx Surgeries: Yes Hx Arteriovenous Shunt: Yes Hx Cholecystectomy: Yes - ANESTHESIA Hx Anesthesia: Yes Hx Anesthesia Reactions: No Hx Malignant Hyperthermia: No Meds Allergies/Adverse Reactions: Allergies Allergy/AdvReac Type Severity Reaction Status Date / Time meropenem Allergy Severe SWELLING Verified 07/09/18 12:07 morphine Allergy Severe ANGIOEDEMA Verified 07/09/18 12:07 Physical Exam - Constitutional Appears: No Acute Distress, Confused, Chronically Ill - Head Exam Head Exam: ATRAUMATIC, NORMAL INSPECTION - Eye Exam Eye Exam: EOMI, Normal appearance - Neck Exam Neck exam: Positive for: Normal Inspection. Negative for: Tenderness - Respiratory Exam Respiratory Exam: Clear to Auscultation Bilateral, NORMAL BREATHING PATTERN - Cardiovascular Exam Cardiovascular Exam: REGULAR RHYTHM, +S1 - GI/Abdominal Exam GI & Abdominal Exam: Soft. absent: Tenderness - Extremities Exam Extremities exam: Positive for: normal inspection. Negative for: tenderness - Neurological Exam Neurological exam: Altered - Skin Skin Exam: Dry, Warm Results - Vital Signs Recent Vital Signs: Last Vital Signs Temp 98.3 F 07/09/18 12:08 Pulse 82 07/09/18 12:08 Resp 18 07/09/18 12:08 BP 124/64 07/09/18 12:08 Pulse Ox 98 07/09/18 12:08 - Labs Result Diagrams: 07/09/18 13:04 07/09/18 13:04 Labs: Laboratory Results - last 24 hr 07/09/18 07/09/18 07/09/18 12:06 12:50 13:04 WBC 23.8 H D RBC 3.33 L Hgb 9.6 L Hct 29.5 L MCV 88.8 MCH 28.7 MCHC 32.3 L RDW 17.7 H Plt Count 210 MPV 8.6 Neut % (Auto) 94.2 H Lymph % (Auto) 1.4 L [place] % (Auto) 3.8 Eos % (Auto) 0.1 Baso % (Auto) 0.5 Neut # (Auto) 22.5 H Lymph # (Auto) 0.3 L [place] # (Auto) 0.9 H Eos # (Auto) 0.0 Baso # (Auto) 0.1 pO2 27 L VBG pH 7.44 H VBG pCO2 53 VBG HCO3 31.5 VBG Total CO2 37.6 H VBG O2 Sat (Calc) 45.7 VBG Base Excess 9.9 H VBG Potassium 4.2 Sodium 131.0 L Chloride 91.0 L Glucose 338 H Lactate 1.8 Potassium Carbon Dioxide Anion Gap BUN Creatinine Est GFR ( Amer) Est GFR (Non-Af Amer) POC Glucose (mg/dL) 346 H Random Glucose Calcium Total Bilirubin AST ALT Alkaline Phosphatase Total Creatine Kinase Total Protein Albumin Globulin Albumin/Globulin Ratio Venous Blood Potassium 4.2 07/09/18 13:04 WBC RBC Hgb Hct MCV MCH MCHC RDW Plt Count MPV Neut % (Auto) Lymph % (Auto) [place] % (Auto) Eos % (Auto) Baso % (Auto) Neut # (Auto) Lymph # (Auto) [place] # (Auto) Eos # (Auto) Baso # (Auto) pO2 VBG pH VBG pCO2 VBG HCO3 VBG Total CO2 VBG O2 Sat (Calc) VBG Base Excess VBG Potassium Sodium 129 L Chloride 85 L Glucose Lactate Potassium 4.4 Carbon Dioxide 34 H Anion Gap 15 BUN 58 H Creatinine 6.8 H Est GFR ( Amer) 10 Est GFR (Non-Af Amer) 8 POC Glucose (mg/dL) Random Glucose 349 H D Calcium 9.5 Total Bilirubin 2.0 H AST 55 ALT 31 Alkaline Phosphatase 202 H D Total Creatine Kinase 73 Total Protein 8.0 Albumin 3.4 L Globulin 4.6 H Albumin/Globulin Ratio 0.7 L Venous Blood Potassium Assessment & Plan (1) History of heart transplant Status: Acute (2) Hyperglycemia Status: Acute (3) Altered mental status Status: Acute (4) Diabetes mellitus Status: Chronic (5) End stage renal disease Status: Chronic (6) Hypercholesteremia Status: Chronic - Assessment and Plan (Free Text) Plan: neuro workup evaluate for infection- considering leukocytosis dialysis MWF
[2018-07-09 13:48] LABS: BURR CELLS SLIGHT; HYPOCHROMIC SLIGHT; TARGET CELLS SLIGHT
[2018-07-09 13:49] LABS: ACANTHOCYTES SLIGHT; GIANT PLATELETS PRESENT
--- NOTE | 2018-07-09 13:56 | RAD ---
Date of service: 07/09/2018 PROCEDURE: CHEST RADIOGRAPH, 1 VIEW HISTORY: SOB COMPARISON: 05/18/2018 FINDINGS: LUNGS: No definite infiltrate. PLEURA: Small left pleural effusion. No right pleural effusion. No pneumothorax. CARDIOVASCULAR: No aortic atherosclerotic calcification present. Normal heart size. Sternotomy wires. No congestive change. OSSEOUS STRUCTURES: No significant abnormalities. VISUALIZED UPPER ABDOMEN: Normal. OTHER FINDINGS: None. IMPRESSION: Small left pleural effusion.
--- NOTE | 2018-07-09 14:36 | CT ---
Date of service: 07/09/2018 PROCEDURE: CT HEAD WITHOUT CONTRAST. HISTORY: altered mental status COMPARISON: Noncontrast head CT performed 04/04/17 TECHNIQUE: Axial computed tomography images were obtained through the head/brain without intravenous contrast. Radiation dose: Total exam DLP = 914.18 mGy-cm. This CT exam was performed using one or more of the following dose reduction techniques: Automated exposure control, adjustment of the mA and/or kV according to patient size, and/or use of iterative reconstruction technique. FINDINGS: HEMORRHAGE: No intracranial hemorrhage. BRAIN: Diffuse atrophy with prominence of the ventricles and sulci noted. No mass effect or edema. Intracranial atherosclerosis. Left occipital lobe encephalomalacia re-identified. Scattered periventricular and subcortical white matter hypodensities, which are nonspecific, but often seen with chronic microvascular ischemic disease. Please note that MRI with diffusion imaging is more sensitive in the detection of acute ischemic event. VENTRICLES: No hydrocephalus. CALVARIUM: Unremarkable. PARANASAL SINUSES: Unremarkable as visualized. No significant inflammatory changes. MASTOID AIR CELLS: Unremarkable as visualized. No inflammatory changes. OTHER FINDINGS: None. IMPRESSION: Left occipital encephalomalacia. Nonspecific white matter changes. Generalized atrophy.
--- NOTE | 2018-07-09 14:44 | C.PDOC ---
History Of Present Illness 63 year old male presents to the ED from hemodialysis because he was found to be hyperglycemic and have low blood pressure; dialysis was not started. Patient also has an associated nonproductive cough. As per at bedside, patient seems to be at his baseline currently. Patient denies fever, chills, CP, SOB, palpitations, headache, nausea, vomiting, diarrhea, dizziness. PMHX: DM, HTN, ESRD on HD, hyperlipidemia, CAD, CHF Time Seen by Provider: 07/09/18 12:17 Chief Complaint (Nursing): High Blood Sugar History Per: Patient, Family () Onset/Duration Of Symptoms: Hrs Current Symptoms Are (Timing): Better (as per ) Severity: Mild Recent travel outside of the [place]: No Additional History Per: Patient, Family () Past Medical History Reviewed: Historical Data, Nursing Documentation, Vital Signs Vital Signs: Last Vital Signs Temp 98.3 F 07/09/18 12:08 Pulse 82 07/09/18 12:08 Resp 18 07/09/18 12:08 BP 124/64 07/09/18 12:08 Pulse Ox 98 07/09/18 12:08 - Medical History PMH: CAD, CHF, Diabetes, Diverticulitis, Gastritis, HTN, Hypercholesterolemia, End Stage Renal Disease, Chronic Kidney Disease Surgical History: Cholecystectomy, Endoscopy - [facility] Procedures (05/10/18) DRAINAGE OF LEFT PLEURAL CAVITY, PERC APPROACH, DIAGN (02/13/18) ENDOSC POLYPECTOMY OF LG INTEST (10/09/13) PERFORMANCE OF URINARY FILTRATION, MULTIPLE (11/23/16) PERFORMANCE OF URINARY FILTRATION, SINGLE (04/17/16) REMOVAL OF DRAINAGE DEVICE FROM BLADDER, EXTERNAL APPROACH (11/23/16) Family History: States: No Known Family Hx - Social History Hx Tobacco Use: No Hx Alcohol Use: No Hx Substance Use: No - Immunization History Hx Tetanus Toxoid Vaccination: No Hx Influenza Vaccination: Yes Hx Pneumococcal Vaccination: Yes Review Of Systems Constitutional: Negative for: Fever, Chills Cardiovascular: Negative for: Chest Pain, Palpitations Respiratory: Positive for: Cough (productive ). Negative for: Shortness of Breath Gastrointestinal: Negative for: Nausea, Vomiting, Diarrhea Skin: Negative for: Rash Neurological: Negative for: Headache, Dizziness Physical Exam - Physical Exam Appears: Well, Non-toxic, No Acute Distress Skin: Normal Color, Warm, Dry Head: Atraumatic, Normacephalic Eye(s): bilateral: Normal Inspection, PERRL, EOMI, Other (dry discharge in lashes ) Oral Mucosa: Moist Neck: Normal ROM, Supple Chest: Symmetrical, No Deformity Cardiovascular: Rhythm Regular, Murmur (3/6 holosystolic ) Respiratory: Normal Breath Sounds, No Rales, No Rhonchi, No Wheezing Gastrointestinal/Abdominal: Normal Exam, Bowel Sounds, Soft, No Tenderness Extremity: Normal ROM, Other (AV fistula with palpable thrill RUE) Neurological/Psych: Oriented x3, Normal Motor, Normal Sensation ED Course And Treatment - Laboratory Results Result Diagrams: 07/21/18 07:55 07/17/18 06:29 Lab Results: pO2 27 mm/Hg (30-55) L 07/09/18 12:50 VBG pH 7.44 (7.32-7.43) H 07/09/18 12:50 VBG pCO2 53 mmHg (40-60) 07/09/18 12:50 VBG HCO3 31.5 mmol/L 07/09/18 12:50 VBG Total CO2 37.6 mmol/L (22-28) H 07/09/18 12:50 VBG O2 Sat (Calc) 45.7 % (40-65) 07/09/18 12:50 VBG Base Excess 9.9 mmol/L (0.0-2.0) H 07/09/18 12:50 VBG Potassium 4.2 mmol/L (3.6-5.2) 07/09/18 12:50 Sodium 131.0 mmol/l (132-148) L 07/09/18 12:50 Chloride 91.0 mmol/L (98-107) L 07/09/18 12:50 Glucose 338 mg/dl (75-110) H 07/09/18 12:50 Lactate 1.8 mmol/L (0.7-2.1) 07/09/18 12:50 Total Bilirubin 2.0 mg/dL (0.2-1.3) H 07/09/18 13:04 AST 55 U/L (17-59) 07/09/18 13:04 ALT 31 U/L (21-72) 07/09/18 13:04 Alkaline Phosphatase 202 U/L (38-126) H D 07/09/18 13:04 Total Protein 8.0 g/dL (6.3-8.3) 07/09/18 13:04 Albumin 3.4 g/dL (3.5-5.0) L 07/09/18 13:04 Globulin 4.6 gm/dL (2.2-3.9) H 07/09/18 13:04 Albumin/Globulin Ratio 0.7 (1.0-2.1) L 07/09/18 13:04 ECG: Interpreted By Me, Viewed By Me ECG Rhythm: Sinus Rhythm (77bpm) ECG Interpretation: Abnormal Interpretation Of ECG: Normal axis, T wave inversions aVL V2-V4. No ST changes. QT prolonged 531ms Rate From EC O2 Sat by Pulse Oximetry: 98 (on RA) Pulse Ox Interpretation: Normal - Other Rad CXR X-Ray: Read By Radiologist Interpretation: Accession No. : [id number]. Patient Name / ID : DELLA DOOD / [id number]. Exam Date : 07/09/2018 12:43:39 ( Approved ). Study Comment : Sex / Age : M / 63Y. Creator : Luciano Cleveland MD. Dictator : Luciano Cleveland MD. Cosmetic Surgeon : Off Premise Service Representative : Luciano Cleveland MD. Approver2 : Report Date : 07/09/2018 13:52:53. My Comment : . Date of service: 07/09/2018. PROCEDURE: CHEST RADIOGRAPH, 1 VIEW. HISTORY: SOB. COMPARISON: 05/18/2018. FINDINGS: LUNGS: No definite infiltrate. PLEURA: Small left pleural effusion. No right pleural effusion. No pneumothorax. CARDIOVASCULAR: No aortic atherosclerotic calcification present. Normal heart size. Sternotomy wires. No congestive change. OSSEOUS STRUCTURES: No significant abnormalities. VISUALIZED UPPER ABDOMEN: Normal. OTHER FINDINGS: None. IMPRESSION: Small left pleural effusion. CT CHEST/ABD/PELVIS X-Ray: Viewed By Me, Read By Radiologist Interpretation: Accession No. : [id number]. Patient Name / ID : DELLA DOOD / [id number]. Exam Date : 07/09/2018 14:02:16 ( Approved ). Study Comment : Sex / Age : M / 63Y. Creator : Yusra Multani. Dictator : Michelle Tenorio MD. Cosmetic Surgeon : Off Premise Service Representative : Michelle Tenorio MD. Approver2 : Report Date : 07/09/2018 14:10:12. My Comment : . This report is currently processing and HAS NOT BEEN OFFICIALLY SIGNED BY THE PHYSICIAN - ESTIMATED TIME OF APPROVAL IS 07/09/2018 15:52. Date of service:07/09/2018. CT chest, abdomen, and pelvis without IV contrast. Indication: leukocytosis, ams. Technique: Contiguous axial images of the chest, abdomen, and pelvis without oral or IV contrast. Coronal and Sagittal reformats generated and reviewed. This CT exam was performed using 1 or more of the following dose reduction techniques: Automated exposure control, adjustment of the MAA and/or kV according to patient size, and/or use of iterative reconstruction technique. Radiation dose: Total exam DLP = 534.98 MGy-cm. Comparison: CT chest without contrast performed 05/08/18, CT abdomen and pelvis without contrast performed 05/14/18. Findings: Visualized portions of the inferior thyroid gland appear unremarkable. The enhanced mediastinal and hilar vascular structures appear grossly unremarkable. Cardiomegaly. Sub cm mediastinal lymph nodes. Small right-sided pleural effusion. Moderate left-sided pleural effusion possibly loculated pleural effusion versus empyema. Left lower lobe consolidation. Marked thick-walled inferior esophagus/hiatal hernia. Bilateral renal atrophy. 1.4 cm low-density lesion at the right lower pole measures approximately 6 HU consistent with a cyst. No hydronephrosis or obstructing calculus identified. The noncontrast liver, spleen, pancreas, adrenal glands, and gallbladder appear unremarkable. Dense atherosclerotic calcifications of the aorta. The stomach is nondistended. Lack of oral contrast limits evaluation for bowel pathology. Marked wall thickening of the inferior rectum; correlate clinically for proctitis. The bowel loops appear within normal limits of caliber without evidence of intestinal obstruction. There is no definite free air. Decompressed thick-walled urinary bladder with associated inflammatory changes; correlate with urinalysis as cystitis must be considered. Enlarged heterogeneous prostate gland containing calcifications. Median sternotomy wires. Mild degenerative changes. Impression: Cardiomegaly. Small right-sided pleural effusion. Moderate left- sided pleural effusion possibly loculated effusion versus empyema. Correlate clinically. Left lower lobe consolidation. Decompressed thick-walled urinary bladder and associated inflammatory changes; correlate with urinalysis cystitis must be considered. Heterogeneous enlarged prostate gland containing calcifications; correlate with PSA. Marked wall thickening of the inferior rectal wall; correlate clinically for the possibility of proctitis. Marked thi ck-walled inferior esophagus/hiatal hernia. Additional incidental findings as above. - CT Scan/US CT HEAD Other Rad Studies (CT/US): Read By Radiologist, Radiology Report Reviewed CT/US Interpretation: Accession No. : [id number]. Patient Name / ID : DELLA DOOD / [id number]. Exam Date : 07/09/2018 14:00:15 ( Approved ). Study Comment : Sex / Age : M / 63Y. Creator : Yusra Multani. Dictator : Michelle Tenorio MD. Cosmetic Surgeon : Off Premise Service Representative : Michelle Tenorio MD. Approver2 : Report Date : 07/09/2018 14:08:36. My Comment : . Date of service: 07/09/2018. PROCEDURE: CT HEAD WITHOUT CONTRAST. HISTORY: altered mental status. COMPARISON: Noncontrast head CT performed 04/04/17. TECHNIQUE: Axial computed tomography images were obtained through the head/brain without intravenous contrast. Radiation dose: Total exam DLP = 914.18 mGy-cm. This CT exam was performed using one or more of the following dose reduction techniques: Automated exposure control, adjustment of the mA and/or kV according to patient size, and/or use of iterative reconstruction technique. FINDINGS: HEMORRHAGE: No intracranial hemorrhage. BRAIN: Diffuse atrophy with prominence of the ventricles and sulci noted. No mass effect or edema. Intracranial atherosclerosis. Left occipital lobe encephalomalacia re-identified. Scattered periventricular and subcortical white matter hypodensities, which are nonspecific, but often seen with chronic microvascular ischemic disease. Please note that MRI with diffusion imaging is more sensitive in the detection of acute ischemic event. VENTRICLES: No hydrocephalus. CALVARIUM: Unremarkable. PARANASAL SINUSES: Unremarkable as visualized. No significant inflammatory changes. MASTOID AIR CELLS: Unremarkable as visualized. No inflammatory changes. OTHER FINDINGS: None. IMPRESSION: Left occipital encephalomalacia. Nonspecific white matter changes. Generalized atrophy. Progress Note: Blood work, EKG, CXR, CT head, influenza swab ordered and reviewed. Patient has significant leukocytosis without obvious source, CT chest/abd/pelvis ordered. Patient given broad spectrum antibiotics - IV Vancomycin and Zosyn. IV insulin also given. - Physician Consult Information Physician Contacted: Lauren Rodas Outcome Of Conversation: Discussed patient with PMD, agrees with admission for ESRD on HD, pneumonia, pleural effusions, leukocytosis. Critical Care Time - Critical Care Note Total Time (in mins): 35 Documented critical care: time excludes all time spent performing seperately billable procedures. Disposition - Disposition Disposition: HOSPITALIZED Disposition Time: 15:56 Condition: STABLE - Clinical Impression Clinical Impression: ESRD on hemodialysis, Leukocytosis, Pneumonia, Hyperglycemia, Pleural effusion - Scribe Statement The provider has reviewed the documentation as recorded by the Sendy Ruiz All medical record entries made by the Scribe were at my direction and personally dictated by me. I have reviewed the chart and agree that the record accurately reflects my personal performance of the history, physical exam, medical decision making, and the department course for this patient. I have also personally directed, reviewed, and agree with the discharge instructions and disposition. Decision To Admit - Pt Status Changed To: Hospital Disposition Of: Inpatient - Admit Certification Admit to Inpatient:: After my assessment, the patient will require hospitalization for at least two midnights. This is because of the severity of symptoms shown, intensity of services needed, and/or the medical risk in this patient being treated as an outpatient. - InPatient: Physician Admission Certification: I certify that this patient requires 2 or more midnights of care for the following reason:: see notes - . Bed Request Type: Telemetry Admitting Physician: Lauren Rodas Patient Diagnosis: ESRD on hemodialysis, Leukocytosis, Pleural effusion, Pneumonia
[2018-07-09] MEDS ORDERED: Piperacill/Tazo 3.375gm in Dex 3.375 GM/50 ML BAG IVPB STA (15:49)
[2018-07-09] MEDS ORDERED: Vancomycin 1 GM 1 GM/250 ML BAG IV STA (15:49)
--- NOTE | 2018-07-09 15:51 | CT ---
Date of service:07/09/2018 CT chest, abdomen, and pelvis without IV contrast Indication: leukocytosis, ams Technique: Contiguous axial images of the chest, abdomen, and pelvis without oral or IV contrast. Coronal and Sagittal reformats generated and reviewed. This CT exam was performed using 1 or more of the following dose reduction techniques: Automated exposure control, adjustment of the MAA and/or kV according to patient size, and/or use of iterative reconstruction technique. Radiation dose: Total exam DLP = 534.98 MGy-cm. Comparison: CT chest without contrast performed 05/08/18, CT abdomen and pelvis without contrast performed 05/14/18 Findings: Visualized portions of the inferior thyroid gland appear unremarkable. The enhanced mediastinal and hilar vascular structures appear grossly unremarkable. Cardiomegaly. Sub cm mediastinal lymph nodes. Small right-sided pleural effusion. Moderate left-sided pleural effusion possibly loculated pleural effusion versus empyema. Left lower lobe consolidation. Marked thick-walled inferior esophagus/hiatal hernia. Bilateral renal atrophy. 1.4 cm low-density lesion at the right lower pole measures approximately 6 HU consistent with a cyst. No hydronephrosis or obstructing calculus identified. The noncontrast liver, spleen, pancreas, adrenal glands, and gallbladder appear unremarkable. Dense atherosclerotic calcifications of the aorta. The stomach is nondistended. Lack of oral contrast limits evaluation for bowel pathology. Marked wall thickening of the inferior rectum; correlate clinically for proctitis. The bowel loops appear within normal limits of caliber without evidence of intestinal obstruction. There is no definite free air. Decompressed thick-walled urinary bladder with associated inflammatory changes; correlate with urinalysis as cystitis must be considered. Enlarged heterogeneous prostate gland containing calcifications. Median sternotomy wires. Mild degenerative changes. Impression: Cardiomegaly. Small right-sided pleural effusion. Moderate left-sided pleural effusion possibly loculated effusion versus empyema. Correlate clinically. Left lower lobe consolidation. Decompressed thick-walled urinary bladder and associated inflammatory changes; correlate with urinalysis cystitis must be considered. Heterogeneous enlarged prostate gland containing calcifications; correlate with PSA. Marked wall thickening of the inferior rectal wall; correlate clinically for the possibility of proctitis. Marked thick-walled inferior esophagus/hiatal hernia. Additional incidental findings as above.
[2018-07-09] MEDS ORDERED: (Novolin R) Insulin Human Regular 100 units/ml vial IVP ONE (16:01)
[2018-07-09] MEDS ORDERED: Vancomycin 1 gm/NS 200 ml 1 GM/200 ML BAG IVPB ONE (16:30)
[2018-07-09] MEDS ORDERED: (Novolin R) Insulin Human Regular 100 units/ml vial ONE (16:30)
--- NOTE | 2018-07-09 17:45 | CP.PCM.HP ---
History of Present Illness - History of Present Illness History of Present Illness: Chief complaint: Not feeling well. , Patient was sent from the dialysis center because patient was not looking good HPI: Patient is a 63-year-old male with a history of heart transplant on immunosuppressive treatment end-stage renal disease on dialysis and diabetes. This morning he was about to get dressed and go to the dialysis Center further hemodialysis. Patient was in the dialysis center, but he was not looking good, patient was sent to the emergency room. In the emergency room patient was having fever. He was also not feeling well. Lethargic. In the emergency room patient was given antibiotic. Nephrology consultation was called. Patient will be getting the hemodialysis. Patient did not have any nausea vomiting. But complaining of weakness, leg weakness, poor appetite. Past medical history: Heart, transplant on immunosuppressive treatment, end-stage renal disease on dialysis, hypertension, diabetes, hypercholesterolemia, urinary tract infection. Allergy: No known drug allergy but imepenem causes AMS Personal history: Nonsmoker nonalcoholic disabled Family history noncontributory. Review of systems: Currently having some headache, complaining of episodes of hiccups, abdominal pain, shortness of breath and cough noted, bilateral leg swelling On examination: HEENT PERRLA, neck supple No thyromegaly was noted and no cervical adenopathy noted Bilateral wheezing and rales noted CVS regular heart sound, no murmur Abdomen soft and no organomegaly Bilateral edema noted EMISSIONS TECHNICIAN alert awake oriented x3 no functional neurological deficit. CXR: bilateral effusion noted Elevated WBC noted Neutrophilia noted. Assessment and recommendation: 61-year-old male with history of heart transplant, immunosuppressive treatment, end-stage renal disease on dialysis, hypertension, diabetes, peripheral vascular disease, pedal edema, and urinary tract infection. Possibly admitted with the sepsis. Pneumonia likely. We will start the patient on vancomycin, Zosyn. Patient has a worsening bilateral pleural effusion. Suggested renal consultation for possible effective dialysis. Patient may need a thoracentesis. Stenosis is poor. Glucose control. We will follow the patient Septic workup. DVT GI prophylaxis Present on Admission - Present on Admission Any Indicators Present on Admission: No History of DVT/PE: No History of Uncontrolled Diabetes: No Urinary Catheter: No Decubitus Ulcer Present: No Past Patient History - Infectious Disease Hx of Infectious Diseases: None - Past Medical History & Family History Past Medical History?: Yes Past Family History: Reviewed and not pertinent - Past Social History Smoking Status: Never Smoked Chewing Tobacco Use: No Cigar Use: No Alcohol: None Drugs: Denies Home Situation {Lives}: With Family - CARDIAC Hx Congestive Heart Failure: Yes Hx Hypercholesterolemia: Yes Hx Hypertension: Yes - PULMONARY Hx Respiratory Disorders: No - NEUROLOGICAL Hx Neurological Disorder: No - HEENT Hx HEENT Problems: Yes Hx Cataracts: Yes - RENAL Hx Chronic Kidney Disease: Yes Hx Kidney Stones: No - ENDOCRINE/METABOLIC Hx Endocrine Disorders: Yes Hx Diabetes Mellitus Type 2: Yes - HEMATOLOGICAL/ONCOLOGICAL Hx Human Immunodeficiency Virus (HIV): No - INTEGUMENTARY Hx Dermatological Problems: No - MUSCULOSKELETAL/RHEUMATOLOGICAL Hx Musculoskeletal Disorders: Yes Hx Falls: Yes - GASTROINTESTINAL Hx Diverticulitis: Yes Hx Gastritis: Yes - GENITOURINARY/GYNECOLOGICAL Hx Genitourinary Disorders: Yes Hx Hematuria: Yes Hx Urinary Tract Infection: Yes - PSYCHIATRIC Hx Substance Use: No - SURGICAL HISTORY Hx Cholecystectomy: Yes - ANESTHESIA Hx Anesthesia: Yes Hx Anesthesia Reactions: No Hx Malignant Hyperthermia: No Meds Allergies/Adverse Reactions: Allergies Allergy/AdvReac Type Severity Reaction Status Date / Time meropenem Allergy Severe SWELLING Verified 07/09/18 12:07 morphine Allergy Severe ANGIOEDEMA Verified 07/09/18 12:07 Results - Vital Signs Recent Vital Signs: Last Vital Signs Temp 97.6 F 07/09/18 16:47 Pulse 78 07/09/18 16:47 Resp 16 07/09/18 15:29 BP 140/69 07/09/18 16:47 Pulse Ox 98 07/09/18 16:47 - Labs Result Diagrams: 07/10/18 11:39 07/10/18 11:35 Labs: Laboratory Results - last 24 hr 07/09/18 07/09/18 07/09/18 12:06 12:50 13:04 WBC 23.8 H D RBC 3.33 L Hgb 9.6 L Hct 29.5 L MCV 88.8 MCH 28.7 MCHC 32.3 L RDW 17.7 H Plt Count 210 MPV 8.6 Neut % (Auto) 94.2 H Lymph % (Auto) 1.4 L [place]kin % (Auto) 3.8 Eos % (Auto) 0.1 Baso % (Auto) 0.5 Neut # (Auto) 22.5 H Lymph # (Auto) 0.3 L [place] # (Auto) 0.9 H Eos # (Auto) 0.0 Baso # (Auto) 0.1 Neutrophils % (Manual) 97 H Lymphocytes % (Manual) 1 L Monocytes % (Manual) 2 Platelet Estimate Normal Giant Platelets Present Hypochromasia (manual) Slight Poikilocytosis (manual Slight Anisocytosis (manual) Slight Target Cells Slight Kaleigh Cells Slight Acanthocytes (Spur) Slight pO2 27 L VBG pH 7.44 H VBG pCO2 53 VBG HCO3 31.5 VBG Total CO2 37.6 H VBG O2 Sat (Calc) 45.7 VBG Base Excess 9.9 H VBG Potassium 4.2 Sodium 131.0 L Chloride 91.0 L Glucose 338 H Lactate 1.8 Potassium Carbon Dioxide Anion Gap BUN Creatinine Est GFR ( Amer) Est GFR (Non-Af Amer) POC Glucose (mg/dL) 346 H Random Glucose Calcium Total Bilirubin AST ALT Alkaline Phosphatase Total Creatine Kinase CK-MB (Mass) Total Protein Albumin Globulin Albumin/Globulin Ratio Venous Blood Potassium 4.2 Influenza Typ A,B (EIA) 07/09/18 07/09/18 07/09/18 13:04 14:32 16:23 WBC RBC Hgb Hct MCV MCH MCHC RDW Plt Count MPV Neut % (Auto) Lymph % (Auto) [place]umpkin % (Auto) Eos % (Auto) Baso % (Auto) Neut # (Auto) Lymph # (Auto) [place]umpkin # (Auto) Eos # (Auto) Baso # (Auto) Neutrophils % (Manual) Lymphocytes % (Manual) Monocytes % (Manual) Platelet Estimate Giant Platelets Hypochromasia (manual) Poikilocytosis (manual Anisocytosis (manual) Target Cells Kaleigh Cells Acanthocytes (Spur) pO2 VBG pH VBG pCO2 VBG HCO3 VBG Total CO2 VBG O2 Sat (Calc) VBG Base Excess VBG Potassium Sodium 129 L Chloride 85 L Glucose Lactate Potassium 4.4 Carbon Dioxide 34 H Anion Gap 15 BUN 58 H Creatinine 6.8 H Est GFR ( Amer) 10 Est GFR (Non-Af Amer) 8 POC Glucose (mg/dL) 386 H Random Glucose 349 H D Calcium 9.5 Total Bilirubin 2.0 H AST 55 ALT 31 Alkaline Phosphatase 202 H D Total Creatine Kinase 73 CK-MB (Mass) 0.49 Total Protein 8.0 Albumin 3.4 L Globulin 4.6 H Albumin/Globulin Ratio 0.7 L Venous Blood Potassium Influenza Typ A,B (EIA) Negative for flu a/b
[2018-07-09] MEDS ORDERED: Glucagon Recombinant 1 mg Inj IM PRN (17:48)
[2018-07-09] MEDS ORDERED: Dextrose 50% SYRINGE Inj (50 ml) IV PRN (17:48)
[2018-07-10] MEDS: (Novolin R) Insulin Human Regular 100 units/ml vial SC SCH ×5 (00:05→21:50)
--- NOTE | 2018-07-10 08:16 | CP.PCM.PN ---
Subjective - Date & Time of Evaluation Date of Evaluation: 07/10/18 Time of Evaluation: 08:12 - Subjective Subjective: seen and examined in ER pt is confused. c/o chills chart reviewed Objective - Vital Signs/Intake and Output Vital Signs (last 24 hours): Temp Pulse Resp BP Pulse Ox 97.6 F 80 20 154/75 H 99 07/10/18 06:23 07/10/18 07:27 07/10/18 07:27 07/10/18 07:27 07/10/18 07:27 - Medications Medications: Current Medications Aspirin (Ecotrin) 81 mg PO DAILY [facility] Calcium Acetate (Phoslo) 667 mg PO TIDAC [facility] Carvedilol (Coreg) 12.5 mg PO BID [facility] Clonidine HCl (Catapres) 0.2 mg PO BID [facility] Dextrose (Dextrose 50% Inj) 0 ml IV STAT PRN; Protocol PRN Reason: Hypoglycemia Protocol Dextrose (Glutose 15) 0 gm PO ONCE PRN; Protocol PRN Reason: Hypoglycemia Protocol Ezetimibe (Zetia) 10 mg PO HS [facility] Last Admin: 07/09/18 23:57 Dose: 10 mg Glucagon (Glucagen Diagnostic Kit) 0 mg IM STAT PRN; Protocol PRN Reason: Hypoglycemia Protocol Hydralazine HCl (Apresoline) 50 mg PO TID [facility] Dextrose (Dextrose 5% In Water 1000 Ml) 1,000 mls @ 0 mls/hr IV .Q0M PRN; Protocol PRN Reason: Hypoglycemia Protocol Insulin Aspart (Novolog) 4 unit SC BIDAC [facility] Insulin Glargine (Lantus) 7 unit SC QAM [facility] Insulin Human Regular (Novolin R) 0 unit SC ACHS [facility]; Protocol Last Admin: 07/10/18 00:05 Dose: Not Given Losartan Potassium (Cozaar) 50 mg PO DAILY [facility] Pantoprazole Sodium (Protonix Ec Tab) 40 mg PO DAILY PRN PRN Reason: Indigestion Rosuvastatin Calcium (Crestor) 20 mg PO HS [facility] Last Admin: 07/09/18 23:57 Dose: 20 mg Tacrolimus (Prograf) 5 mg PO QAM JESSICA Tacrolimus (Prograf) 5 mg PO QPM [facility] - Labs Labs: 07/09/18 13:04 07/09/18 13:04 - Constitutional Appears: No Acute Distress, Confused, Chronically Ill - Head Exam Head Exam: NORMAL INSPECTION, NORMOCEPHALIC - Eye Exam Eye Exam: Normal appearance, PERRL - ENT Exam ENT Exam: Mucous Membranes Moist - Neck Exam Neck Exam: Full ROM, Normal Inspection - Respiratory Exam Respiratory Exam: Clear to Ausculation Bilateral, NORMAL BREATHING PATTERN - Cardiovascular Exam Cardiovascular Exam: RRR - GI/Abdominal Exam GI & Abdominal Exam: Distended, Soft - Extremities Exam Extremities Exam: Normal Inspection - Neurological Exam Neurological Exam: Altered, Awake - Skin Skin Exam: Dry, Intact Assessment and Plan (1) Altered mental status Status: Acute (2) History of heart transplant Status: Acute (3) Hyperglycemia Status: Acute (4) Acute metabolic encephalopathy Status: Acute (5) ESRD (end stage renal disease) Status: Acute - Assessment and Plan (Free Text) Assessment: hd mwf panculture, antibiotics ,maintain prograf
[2018-07-10] MEDS ORDERED: (Lantus) Insulin Glargine, Recombinant SC ONE (09:04)
[2018-07-10] MEDS: (Novolog) Insulin Aspart, Recombinant 100 u/ml 10 ml vial SC SCH ×2 (09:23→18:34)
[2018-07-10] MEDS: Piperacillin/Tazobact 2.25 GM in Sodium Chloride 100 ML IVPB SCH ×2 (09:24→18:55)
[2018-07-10] MEDS: (Lantus) Insulin Glargine, Recombinant SC SCH (09:24)
--- NOTE | 2018-07-10 10:02 | RAD ---
Date of service: 07/10/2018 HISTORY: pna COMPARISON: 07/09/2018 FINDINGS: LUNGS: The obliteration of the left hemidiaphragm and relative increased densities left lung base appear similar. PLEURA: The left pleural effusion approximately 1/3 to 1/4 the height of the left hemithorax is similar. Compressive atelectasis here at the left lung base is suspect. Concomitant left basal infiltrate-not excluded/possible. Overall opacity here similar. No pneumothorax seen CARDIOVASCULAR: There is presence of aortic atherosclerotic calcification on x-ray. Cardiomegaly.-similar. Mild pulmonary venous congestion possible. Midline sternotomy wires intact. Coronary artery bypass clips apparent. OSSEOUS STRUCTURES: Sternotomy as above. VISUALIZED UPPER ABDOMEN: Normal. OTHER FINDINGS: None. IMPRESSION: No interval change in the size of the left pleural effusion and the suspect/inferred passive compressive left basal atelectasis with or without infiltrate of pneumonia. Continued follow-up recommended. Other findings as above.
[2018-07-10 11:40] LABS: VENOUS BLOOD GAS BASE EXCESS 4.8 mmol/L (0.0-2.0); VENOUS BLOOD GAS PCO2 45 mmHg (40-60); VENOUS BLOOD GAS PO2 37 mm/Hg (30-55); VENOUS BLOOD PH 7.43 (7.32-7.43)
[2018-07-10 11:44] LABS: BASO # 0.1 K/uL (0.0-0.2); BASO % 0.3 % (0.0-2.0); EOS % 0.2 % (0.0-4.0); HEMOGLOBIN 8.9 g/dL (12.0-18.0); LYMPH # 0.2 K/uL (1.0-4.3); LYMPH % 1.3 % (20.0-40.0); MEAN CELL VOLUME 88.1 fL (80.0-94.0); MEAN CORPUSCULAR HEMOGLOBIN 28.6 pg (27.0-31.0); MEAN CORPUSCULAR HGB CONC 32.5 g/dL (33.0-37.0); MEAN PLATELET VOLUME 8.3 fL (7.2-11.7); MONO # 0.9 K/uL (0.0-0.8); MONO % 5.1 % (0.0-10.0); NEUT # 16.8 K/uL (1.8-7.0); NEUT % 93.1 % (50.0-75.0); PLATELET COUNT 192 K/uL (130-400); RBC 3.11 Mil/uL (4.40-5.90); RED CELL DISTRIBUTION WIDTH 17.7 % (11.5-14.5); WHITE BLOOD COUNT 18.1 K/uL (4.8-10.8)
[2018-07-10 12:14] LABS: ALB/GLOB RATIO 0.7 (1.0-2.1); ALBUMIN 3.2 g/dL (3.5-5.0); CALCIUM 9.3 mg/dl (8.6-10.4)
[2018-07-10 12:23] LABS: ANISOCYTOSIS SLIGHT; HYPOCHROMIC SLIGHT; LYMPHOCYTE 3 % (20-40); MONOCYTE 4 % (0-10); NEUTROPHIL 93 % (50-75); PLATELET ESTIMATE NORMAL (NORMAL); POIKILOCYTOSIS SLIGHT; TOTAL CELLS COUNTED 100
[2018-07-10 12:24] LABS: BURR CELLS SLIGHT; TARGET CELLS SLIGHT
--- NOTE | 2018-07-10 15:44 | US ---
Date of service: 07/10/2018 HISTORY: high bilirubin COMPARISON: Abdominal ultrasound 12/10/2015; HIDA scan 05/16/2018 TECHNIQUE: Sonographic evaluation of the abdomen. FINDINGS: LIVER: Measures 18.4 cm. Diffuse increased echogenicity of the liver parenchyma. No mass. No intrahepatic bile duct dilatation. GALLBLADDER: . No gallstones. Minimal gallbladder wall edema suggested at 3.4 mm. No pericholecystic fluid. No sonographic Swan sign elicited. COMMON BILE DUCT: Measures 4 mm. No stones. No dilatation. PANCREAS: Unremarkable as visualized-limited. RIGHT KIDNEY: Measures 8.0 x 4.1 x 4.7cm. Diffuse increased echogenicity. No calculus, or hydronephrosis. Lower pole cyst 1.8 x 1.6 x 1.9 LEFT KIDNEY: Measures 9.0 x 3.9 x 4.2cm. Diffuse increased echogenicity. No calculus,, or hydronephrosis. No mass appreciated SPLEEN: Normal in size and contour. No mass. AORTA: No aneurysmal dilatation. IVC: Unremarkable. OTHER FINDINGS: Bilateral pleural effusions apparent IMPRESSION: Hepatomegaly. Diffuse increased echogenicity compatible with hepatic steatosis or other hepatocellular parenchymal pathology. No liver masses or dilated ducts apparent. No gallstones or pericholecystic fluid. No positive sonographic Swan sign. There is mild gallbladder wall thickening/edema present compatible with inflammatory response. Chronicity unknown. No current pericholecystic fluid appreciated. Bilateral pleural effusions Bilateral renal cortical increased echogenicity-findings compatible with medical renal disease.. No hydronephrosis. Right lower pole renal cyst noted.
[2018-07-11] MEDS: Piperacillin/Tazobact 2.25 GM in Sodium Chloride 100 ML IVPB SCH ×3 (01:26→19:00)
[2018-07-11] MEDS: (Novolin R) Insulin Human Regular 100 units/ml vial SC SCH ×4 (08:00→22:46)
[2018-07-11] MEDS: (Novolog) Insulin Aspart, Recombinant 100 u/ml 10 ml vial SC SCH ×2 (08:00→17:00)
[2018-07-11] MEDS: (Lantus) Insulin Glargine, Recombinant SC SCH (09:30)
--- NOTE | 2018-07-11 10:32 | CP.PCM.PN ---
Subjective - Date & Time of Evaluation Date of Evaluation: 07/11/18 Time of Evaluation: 10:30 - Subjective Subjective: awake eating breakfast poor historian HD today unable to obtain ROS due to above Objective - Vital Signs/Intake and Output Vital Signs (last 24 hours): Temp Pulse Resp BP Pulse Ox 97.9 F 78 20 178/86 H 99 07/11/18 08:00 07/11/18 08:00 07/11/18 08:00 07/11/18 08:00 07/11/18 08:00 Intake and Output: 07/11/18 07/11/18 06:59 18:59 Intake Total 460 Balance 460 - Medications Medications: Current Medications Aspirin (Ecotrin) 81 mg PO DAILY [facility] Last Admin: 07/11/18 09:29 Dose: 81 mg Calcium Acetate (Phoslo) 667 mg PO TIDAC [facility] Last Admin: 07/11/18 08:01 Dose: 667 mg Carvedilol (Coreg) 12.5 mg PO BID [facility] Last Admin: 07/11/18 09:27 Dose: Not Given Clonidine HCl (Catapres) 0.2 mg PO BID [facility] Last Admin: 07/11/18 09:27 Dose: Not Given Dextrose (Dextrose 50% Inj) 0 ml IV STAT PRN; Protocol PRN Reason: Hypoglycemia Protocol Dextrose (Glutose 15) 0 gm PO ONCE PRN; Protocol PRN Reason: Hypoglycemia Protocol Ezetimibe (Zetia) 10 mg PO HS [facility] Last Admin: 07/10/18 22:19 Dose: Not Given Glucagon (Glucagen Diagnostic Kit) 0 mg IM STAT PRN; Protocol PRN Reason: Hypoglycemia Protocol Hydralazine HCl (Apresoline) 50 mg PO TID [facility] Last Admin: 07/11/18 09:27 Dose: Not Given Dextrose (Dextrose 5% In Water 1000 Ml) 1,000 mls @ 0 mls/hr IV .Q0M PRN; Protocol PRN Reason: Hypoglycemia Protocol Piperacillin Sod/Tazobactam (Sod 2.25 gm/ Sodium Chloride) 100 mls @ 200 mls/hr IVPB Q8H [facility]; Protocol Last Admin: 07/11/18 08:01 Dose: 200 mls/hr Insulin Aspart (Novolog) 4 unit SC BIDAC [facility] Last Admin: 07/11/18 08:00 Dose: 4 units Insulin Glargine (Lantus) 7 unit SC QAM [facility] Last Admin: 07/11/18 09:30 Dose: 7 unit Insulin Human Regular (Novolin R) 0 unit SC ACHS [facility]; Protocol Last Admin: 07/11/18 08:00 Dose: 3 unit Losartan Potassium (Cozaar) 50 mg PO DAILY [facility] Last Admin: 07/11/18 09:27 Dose: Not Given Pantoprazole Sodium (Protonix Ec Tab) 40 mg PO DAILY PRN PRN Reason: Indigestion Rosuvastatin Calcium (Crestor) 10 mg PO HS [facility] Tacrolimus (Prograf) 5 mg PO QAM [facility] Last Admin: 07/11/18 09:29 Dose: 5 mg Tacrolimus (Prograf) 5 mg PO QPM [facility] Last Admin: 07/10/18 18:25 Dose: 5 mg - Labs Labs: 07/10/18 11:39 07/10/18 11:35 - Constitutional Appears: Confused, Chronically Ill - Head Exam Head Exam: ATRAUMATIC, NORMAL INSPECTION - Eye Exam Eye Exam: EOMI - ENT Exam ENT Exam: Mucous Membranes Moist - Neck Exam Neck Exam: Full ROM. absent: Lymphadenopathy - Respiratory Exam Respiratory Exam: Clear to Ausculation Bilateral, NORMAL BREATHING PATTERN - Cardiovascular Exam Cardiovascular Exam: REGULAR RHYTHM. absent: Rubs - GI/Abdominal Exam GI & Abdominal Exam: Soft. absent: Tenderness - Extremities Exam Extremities Exam: absent: Pedal Edema - Neurological Exam Neurological Exam: Alert. absent: Oriented x3 - Psychiatric Exam Psychiatric exam: Flat Affect, Normal Affect Assessment and Plan - Assessment and Plan (Free Text) Assessment: dialysis dependent AMS, seems better cultures negative check NH3 continue supportive care
--- NOTE | 2018-07-11 20:57 | CP.PCM.PN ---
Subjective - Date & Time of Evaluation Date of Evaluation: 07/11/18 Time of Evaluation: 20:56 - Subjective Subjective: Patient is morning was able to eat with assistance. He will begin the getting the dialysis today. Spoke to the patient's . Patient is otherwise comfortable. He is having mild pain. Cough is lessening. No fever On examination: Vital signs stable. Chest good air entry Regular [place] noted Abdomen soft. Extremities no pedal edema So far the cultures are negative Assessment and recommendation: 63-year-old male with a history of end-stage renal disease on dialysis History of heart transplant. Diabetes hypertension. Admitted with the severe sepsis leukocytosis. Sepsis unclear source. On antibiotic. Awaiting for culture and will follow the patient Objective - Vital Signs/Intake and Output Vital Signs (last 24 hours): Temp Pulse Resp BP Pulse Ox 98.2 F 86 16 166/100 H 99 07/11/18 17:10 07/11/18 19:00 07/11/18 15:02 07/11/18 17:10 07/11/18 17:10 Intake and Output: 07/11/18 07/12/18 18:59 06:59 Intake Total 500 Balance 500 - Medications Medications: Current Medications Aspirin (Ecotrin) 81 mg PO DAILY [facility] Last Admin: 07/11/18 09:29 Dose: 81 mg Calcium Acetate (Phoslo) 667 mg PO TIDAC [facility] Last Admin: 07/11/18 17:00 Dose: Not Given Carvedilol (Coreg) 12.5 mg PO BID [facility] Last Admin: 07/11/18 09:27 Dose: Not Given Clonidine HCl (Catapres) 0.2 mg PO BID [facility] Last Admin: 07/11/18 09:27 Dose: Not Given Ezetimibe (Zetia) 10 mg PO HS [facility] Last Admin: 07/10/18 22:19 Dose: Not Given Hydralazine HCl (Apresoline) 50 mg PO TID [facility] Last Admin: 07/11/18 18:19 Dose: Not Given Piperacillin Sod/Tazobactam (Sod 2.25 gm/ Sodium Chloride) 100 mls @ 200 mls/hr IVPB Q8H [facility]; Protocol Last Admin: 07/11/18 08:01 Dose: 200 mls/hr Insulin Aspart (Novolog) 4 unit SC BIDAC [facility] Last Admin: 07/11/18 17:00 Dose: Not Given Insulin Glargine (Lantus) [address] [facility] Last Admin: 07/11/18 09:30 Dose: 7 unit Insulin Human Regular (Novolin R) 0 unit SC [facility]; Protocol Last Admin: 07/11/18 17:00 Dose: Not Given Losartan Potassium (Cozaar) 50 mg PO DAILY [facility] Last Admin: 07/11/18 09:27 Dose: Not Given Pantoprazole Sodium (Protonix Ec Tab) 40 mg PO DAILY PRN PRN Reason: Indigestion Rosuvastatin Calcium (Crestor) 10 mg PO HS [facility] Tacrolimus (Prograf) 5 mg PO QAM [facility] Last Admin: 07/11/18 09:29 Dose: 5 mg Tacrolimus (Prograf) 5 mg PO QPM [facility] Last Admin: 07/10/18 18:25 Dose: 5 mg - Labs Labs: 07/10/18 11:39 07/10/18 11:35
[2018-07-12] MEDS: Piperacillin/Tazobact 2.25 GM in Sodium Chloride 100 ML IVPB SCH ×3 (00:39→17:51)
[2018-07-12] MEDS: (Novolog) Insulin Aspart, Recombinant 100 u/ml 10 ml vial SC SCH ×2 (07:45→17:24)
[2018-07-12] MEDS: Pantoprazole 40 mg EC Tab PO PRN (09:44)
[2018-07-12] MEDS: (Novolin R) Insulin Human Regular 100 units/ml vial SC SCH ×4 (09:47→21:08)
[2018-07-12] MEDS: (Lantus) Insulin Glargine, Recombinant SC SCH (10:00)
--- NOTE | 2018-07-12 10:19 | CP.PCM.PN ---
Subjective - Date & Time of Evaluation Date of Evaluation: 07/12/18 Time of Evaluation: 10:16 - Subjective Subjective: More lethargic says patient not eating well, less responsive blood cultures negative removed 2000ml with HD 07/11 BP moderately increased Objective - Vital Signs/Intake and Output Vital Signs (last 24 hours): Temp Pulse Resp BP Pulse Ox 98.6 F 72 20 162/74 H 98 07/12/18 04:30 07/12/18 04:30 07/12/18 04:30 07/12/18 09:46 07/12/18 04:30 Intake and Output: 07/12/18 07/12/18 06:59 18:59 Intake Total 120 Balance 120 - Medications Medications: Current Medications Aspirin (Ecotrin) 81 mg PO DAILY [facility] Last Admin: 07/12/18 09:44 Dose: 81 mg Calcium Acetate (Phoslo) 667 mg PO TIDAC [facility] Last Admin: 07/12/18 09:45 Dose: 667 mg Carvedilol (Coreg) 12.5 mg PO BID [facility] Last Admin: 07/12/18 09:46 Dose: 12.5 mg Clonidine HCl (Catapres) 0.2 mg PO BID [facility] Last Admin: 07/11/18 19:00 Dose: 0.2 mg Ezetimibe (Zetia) 10 mg PO HS [facility] Last Admin: 07/11/18 21:36 Dose: 10 mg Hydralazine HCl (Apresoline) 50 mg PO TID [facility] Last Admin: 07/12/18 09:44 Dose: 50 mg Piperacillin Sod/Tazobactam (Sod 2.25 gm/ Sodium Chloride) 100 mls @ 200 mls/hr IVPB Q8H [facility]; Protocol Last Admin: 07/12/18 09:57 Dose: 200 mls/hr Insulin Aspart (Novolog) 4 unit SC BIDAC [facility] Last Admin: 07/12/18 07:45 Dose: 2 units Insulin Glargine (Lantus) 7 unit SC QAM [facility] Last Admin: 07/11/18 09:30 Dose: 7 unit Insulin Human Regular (Novolin R) 0 unit SC ACHS [facility]; Protocol Last Admin: 07/12/18 09:47 Dose: Not Given Losartan Potassium (Cozaar) 50 mg PO DAILY [facility] Last Admin: 07/12/18 09:45 Dose: 50 mg Pantoprazole Sodium (Protonix Ec Tab) 40 mg PO DAILY PRN PRN Reason: Indigestion Last Admin: 07/12/18 09:44 Dose: 40 mg Rosuvastatin Calcium (Crestor) 10 mg PO HS [facility] Last Admin: 07/11/18 21:35 Dose: 10 mg Tacrolimus (Prograf) 5 mg PO QAM [facility] Last Admin: 07/12/18 09:51 Dose: 5 mg Tacrolimus (Prograf) 5 mg PO QPM [facility] Last Admin: 07/11/18 19:00 Dose: 5 mg - Labs Labs: 07/10/18 11:39 07/10/18 11:35 - Constitutional Appears: No Acute Distress, Chronically Ill - Head Exam Head Exam: ATRAUMATIC, NORMAL INSPECTION - Eye Exam Eye Exam: EOMI, Normal appearance - Neck Exam Neck Exam: Normal Inspection. absent: Tenderness - Respiratory Exam Respiratory Exam: Clear to Ausculation Bilateral, NORMAL BREATHING PATTERN - Cardiovascular Exam Cardiovascular Exam: REGULAR RHYTHM, +S1 - GI/Abdominal Exam GI & Abdominal Exam: Soft. absent: Tenderness - Extremities Exam Extremities Exam: Normal Inspection. absent: Tenderness - Neurological Exam Neurological Exam: Altered, CN II-XII Intact - Skin Skin Exam: Dry, Warm Assessment and Plan (1) History of heart transplant Status: Acute (2) Hyperglycemia Status: Acute (3) Altered mental status Status: Acute (4) Diabetes mellitus Status: Chronic (5) End stage renal disease Status: Chronic (6) Hypercholesteremia Status: Chronic - Assessment and Plan (Free Text) Plan: increase fluid removal with dialysis check UC+S monitor ability to eat IV ABs as per ID dialysis MWF
[2018-07-13] MEDS: Piperacillin/Tazobact 2.25 GM in Sodium Chloride 100 ML IVPB SCH ×3 (00:49→18:50)
[2018-07-13] MEDS: (Novolin R) Insulin Human Regular 100 units/ml vial SC SCH ×5 (08:15→21:46)
[2018-07-13] MEDS: (Novolog) Insulin Aspart, Recombinant 100 u/ml 10 ml vial SC SCH ×2 (08:16→18:48)
[2018-07-13] MEDS: (Lantus) Insulin Glargine, Recombinant SC SCH (10:00)
[2018-07-13] MEDS ORDERED: Vancomycin 1 gm/NS 200 ml 1 GM/200 ML BAG IVPB ONE (10:00)
--- NOTE | 2018-07-13 10:57 | RAD ---
Date of service: 07/13/2018 HISTORY: effusion COMPARISON: 07/10/2018 FINDINGS: LUNGS: Opacity lower left min thorax most likely due to dependent pleural fluid. PLEURA: Left pleural effusion. No right pleural effusion. CARDIOVASCULAR: There is atherosclerotic calcification of the thoracic aorta. Normal cardiac size. No congestive change. Sternotomy wires are noted. OSSEOUS STRUCTURES: No significant abnormalities. VISUALIZED UPPER ABDOMEN: Normal. OTHER FINDINGS: None. IMPRESSION: Left pleural effusion.
[2018-07-13 11:06] LABS: BASO % 0.3 % (0.0-2.0); EOS # 0.2 K/uL (0.0-0.7); EOS % 2.2 % (0.0-4.0); HEMOGLOBIN 8.4 g/dL (12.0-18.0); LYMPH # 0.2 K/uL (1.0-4.3); LYMPH % 2.4 % (20.0-40.0); MEAN CELL VOLUME 87.9 fL (80.0-94.0); MEAN CORPUSCULAR HEMOGLOBIN 29.3 pg (27.0-31.0); MEAN CORPUSCULAR HGB CONC 33.3 g/dL (33.0-37.0); MEAN PLATELET VOLUME 8.7 fL (7.2-11.7); MONO # 0.4 K/uL (0.0-0.8); MONO % 3.6 % (0.0-10.0); NEUT % 91.5 % (50.0-75.0); PLATELET COUNT 181 K/uL (130-400); RBC 2.86 Mil/uL (4.40-5.90); RED CELL DISTRIBUTION WIDTH 17.5 % (11.5-14.5); WHITE BLOOD COUNT 9.9 K/uL (4.8-10.8)
[2018-07-13 11:21] LABS: ALB/GLOB RATIO 0.6 (1.0-2.1); ALBUMIN 2.9 g/dL (3.5-5.0); CALCIUM 8.8 mg/dl (8.6-10.4)
[2018-07-13 11:35] LABS: EOSINOPHIL 3 % (0-4); LYMPHOCYTE 2 % (20-40); MONOCYTE 3 % (0-10); NEUTROPHIL 92 % (50-75); PLATELET ESTIMATE NORMAL (NORMAL); TOTAL CELLS COUNTED 100
[2018-07-13 11:36] LABS: ANISOCYTOSIS SLIGHT; HYPOCHROMIC SLIGHT; POLYCHROMIC SLIGHT
--- NOTE | 2018-07-13 13:38 | CP.PCM.PN ---
Subjective - Date & Time of Evaluation Date of Evaluation: 07/13/18 Time of Evaluation: 13:35 - Subjective Subjective: more alert s/p dialysis now- UF 2500ml BP mod elevated Hg decreased lytes acceptable Objective - Vital Signs/Intake and Output Vital Signs (last 24 hours): Temp Pulse Resp BP Pulse Ox 98 F 79 20 166/88 H 99 07/13/18 13:00 07/13/18 13:00 07/13/18 13:00 07/13/18 13:00 07/13/18 13:00 - Medications Medications: Current Medications Aspirin (Ecotrin) 81 mg PO DAILY [facility] Last Admin: 07/12/18 09:44 Dose: 81 mg Calcium Acetate (Phoslo) 667 mg PO TIDAC [facility] Last Admin: 07/12/18 17:25 Dose: 667 mg Carvedilol (Coreg) 12.5 mg PO BID [facility] Last Admin: 07/12/18 17:58 Dose: 12.5 mg Clonidine HCl (Catapres) 0.2 mg PO BID [facility] Last Admin: 07/12/18 17:51 Dose: 0.2 mg Ezetimibe (Zetia) 10 mg PO HS [facility] Last Admin: 07/12/18 21:21 Dose: 10 mg Hydralazine HCl (Apresoline) 50 mg PO TID [facility] Last Admin: 07/12/18 17:50 Dose: 50 mg Piperacillin Sod/Tazobactam (Sod 2.25 gm/ Sodium Chloride) 100 mls @ 200 mls/hr IVPB Q8H [facility]; Protocol Last Admin: 07/13/18 00:49 Dose: 200 mls/hr Insulin Aspart (Novolog) 4 unit SC BIDAC [facility] Last Admin: 07/13/18 08:16 Dose: 4 units Insulin Glargine (Lantus) 7 unit SC QAM [facility] Last Admin: 07/12/18 10:00 Dose: 7 unit Insulin Human Regular (Novolin R) 0 unit SC ACHS [facility]; Protocol Last Admin: 07/13/18 08:15 Dose: 2 unit Losartan Potassium (Cozaar) 50 mg PO DAILY [facility] Last Admin: 07/12/18 09:45 Dose: 50 mg Pantoprazole Sodium (Protonix Ec Tab) 40 mg PO DAILY PRN PRN Reason: Indigestion Last Admin: 01/31/19 09:44 Dose: 40 mg Rosuvastatin Calcium (Crestor) 10 mg PO HS [facility] Last Admin: 07/12/18 21:21 Dose: 10 mg Tacrolimus (Prograf) 5 mg PO QAM [facility] Last Admin: 07/12/18 09:51 Dose: 5 mg Tacrolimus (Prograf) 5 mg PO QPM [facility] Last Admin: 07/12/18 18:05 Dose: 5 mg - Labs Labs: 07/13/18 10:56 07/13/18 10:56 - Constitutional Appears: No Acute Distress, Chronically Ill - Head Exam Head Exam: ATRAUMATIC, NORMAL INSPECTION - Eye Exam Eye Exam: EOMI, Normal appearance - Neck Exam Neck Exam: Normal Inspection. absent: Tenderness - Respiratory Exam Respiratory Exam: Clear to Ausculation Bilateral, NORMAL BREATHING PATTERN - Cardiovascular Exam Cardiovascular Exam: REGULAR RHYTHM, +S1 - GI/Abdominal Exam GI & Abdominal Exam: Soft. absent: Tenderness - Extremities Exam Extremities Exam: Normal Inspection. absent: Tenderness - Neurological Exam Neurological Exam: Alert, CN II-XII Intact - Skin Skin Exam: Dry, Warm Assessment and Plan (1) History of heart transplant Status: Acute (2) Hyperglycemia Status: Acute (3) Altered mental status Status: Acute (4) Diabetes mellitus Status: Chronic (5) End stage renal disease Status: Chronic (6) Hypercholesteremia Status: Chronic - Assessment and Plan (Free Text) Plan: Same dialysis - adequate UF start ESAs check iron stores monitor mental status control BP
[2018-07-13] MEDS ORDERED: DiphenhydrAMINE 12.5 mg/5 ml LIQ UD (5 ml) PO ONE (21:14)
[2018-07-14] MEDS: Piperacillin/Tazobact 2.25 GM in Sodium Chloride 100 ML IVPB SCH ×3 (01:33→17:48)
[2018-07-14] MEDS ORDERED: Lidocaine 5% Patch TD STA (02:09)
[2018-07-14] MEDS: (Novolin R) Insulin Human Regular 100 units/ml vial SC SCH ×4 (08:41→22:50)
[2018-07-14] MEDS: (Novolog) Insulin Aspart, Recombinant 100 u/ml 10 ml vial SC SCH ×2 (08:41→19:15)
[2018-07-14] MEDS: Pantoprazole 40 mg EC Tab PO PRN (09:32)
[2018-07-14] MEDS: (Lantus) Insulin Glargine, Recombinant SC SCH (09:34)
--- NOTE | 2018-07-14 11:40 | CP.PCM.PN ---
Subjective - Date & Time of Evaluation Date of Evaluation: 07/14/18 Time of Evaluation: 11:38 - Subjective Subjective: po intake unclear says he does not sleep at night no sob cannot obtain ROS due to chronic dementia Objective - Vital Signs/Intake and Output Vital Signs (last 24 hours): Temp Pulse Resp BP Pulse Ox 97.9 F 74 20 177/75 H 99 07/14/18 07:00 07/14/18 08:02 07/14/18 07:00 07/14/18 09:32 07/14/18 07:00 - Medications Medications: Current Medications Aspirin (Ecotrin) 81 mg PO DAILY [facility] Last Admin: 07/14/18 09:33 Dose: 81 mg Calcium Acetate (Phoslo) 667 mg PO TIDAC [facility] Last Admin: 07/14/18 09:33 Dose: 667 mg Carvedilol (Coreg) 12.5 mg PO BID [facility] Last Admin: 07/14/18 09:32 Dose: 12.5 mg Clonidine HCl (Catapres) 0.2 mg PO BID [facility] Last Admin: 07/14/18 09:33 Dose: 0.2 mg Ezetimibe (Zetia) 10 mg PO HS [facility] Last Admin: 07/13/18 21:43 Dose: 10 mg Epoetin Shawn (Procrit) 10,000 unit IV MWF [facility] Hydralazine HCl (Apresoline) 75 mg PO TID [facility] Last Admin: 07/14/18 10:34 Dose: 75 mg Piperacillin Sod/Tazobactam (Sod 2.25 gm/ Sodium Chloride) 100 mls @ 200 mls/hr IVPB Q8H [facility]; Protocol Last Admin: 07/14/18 01:33 Dose: 200 mls/hr Insulin Aspart (Novolog) 4 unit SC BIDAC [facility] Last Admin: 07/14/18 08:41 Dose: 4 units Insulin Glargine (Lantus) 7 unit SC QAM [facility] Last Admin: 07/14/18 09:34 Dose: 7 unit Insulin Human Regular (Novolin R) 0 unit SC ACHS [facility]; Protocol Last Admin: 07/14/18 08:41 Dose: 2 unit Losartan Potassium (Cozaar) 50 mg PO DAILY [facility] Last Admin: 07/13/18 13:39 Dose: 50 mg Pantoprazole Sodium (Protonix Ec Tab) 40 mg PO DAILY PRN PRN Reason: Indigestion Last Admin: 07/14/18 09:32 Dose: 40 mg Rosuvastatin Calcium (Crestor) 10 mg PO HS [facility] Last Admin: 07/13/18 21:43 Dose: 10 mg Tacrolimus (Prograf) 5 mg PO QAM [facility] Last Admin: 07/14/18 09:32 Dose: 5 mg Tacrolimus (Prograf) 5 mg PO QPM [facility] Last Admin: 07/13/18 18:50 Dose: 5 mg - Labs Labs: 07/13/18 10:56 07/13/18 10:56 - Constitutional Appears: Confused, Chronically Ill - Head Exam Head Exam: ATRAUMATIC - Eye Exam Eye Exam: EOMI - ENT Exam ENT Exam: Mucous Membranes Moist - Neck Exam Neck Exam: Full ROM. absent: Normal Inspection - Respiratory Exam Respiratory Exam: Decreased Breath Sounds, NORMAL BREATHING PATTERN - Cardiovascular Exam Cardiovascular Exam: REGULAR RHYTHM - GI/Abdominal Exam GI & Abdominal Exam: Soft. absent: Tenderness - Extremities Exam Extremities Exam: absent: Pedal Edema - Neurological Exam Neurological Exam: Alert. absent: Oriented x3 Assessment and Plan - Assessment and Plan (Free Text) Assessment: failure to thrive esrd heart transplant calorie count rehab efforts ammonia level pending
[2018-07-15] MEDS: Piperacillin/Tazobact 2.25 GM in Sodium Chloride 100 ML IVPB SCH ×2 (01:52→08:22)
[2018-07-15] MEDS: (Novolin R) Insulin Human Regular 100 units/ml vial SC SCH ×4 (08:21→21:43)
[2018-07-15] MEDS: (Novolog) Insulin Aspart, Recombinant 100 u/ml 10 ml vial SC SCH ×2 (08:21→19:02)
[2018-07-15] MEDS: Pantoprazole 40 mg EC Tab PO PRN (09:46)
[2018-07-15] MEDS: (Lantus) Insulin Glargine, Recombinant SC SCH (09:47)
--- NOTE | 2018-07-15 14:10 | CP.PCM.PN ---
Subjective - Date & Time of Evaluation Date of Evaluation: 07/12/18 Time of Evaluation: 14:10 - Subjective Subjective: Patient is somewhat more drowsy. But he is responding to verbal commands. Not eating well. He denies any chest pain. Less cough noted Vital signs noted. Some agonal, episodes of her tachypnea noted. Mild tachycardia. Patient will be getting the hemodialysis. Vancomycin given We will continue the current treatment. Patient is a 63-year-old male with most likely admitted to the hospital with the severe sepsis. White count is improving. He will be getting the hemodialysis and will follow the patient Objective - Vital Signs/Intake and Output Vital Signs (last 24 hours): Temp Pulse Resp BP Pulse Ox 98.1 F 75 20 160/74 H 100 07/15/18 07:05 07/15/18 07:05 07/15/18 07:05 07/15/18 09:46 07/15/18 07:05 Intake and Output: 07/15/18 07/15/18 06:59 18:59 Intake Total 480 Balance 480 - Medications Medications: Current Medications Aspirin (Ecotrin) 81 mg PO DAILY [facility] Last Admin: 07/15/18 09:56 Dose: 81 mg Calcium Acetate (Phoslo) 667 mg PO TIDAC [facility] Last Admin: 07/15/18 12:41 Dose: 667 mg Carvedilol (Coreg) 12.5 mg PO BID [facility] Last Admin: 07/15/18 09:46 Dose: 12.5 mg Clonidine HCl (Catapres) 0.2 mg PO BID [facility] Last Admin: 07/15/18 09:47 Dose: 0.2 mg Ezetimibe (Zetia) 10 mg PO HS [facility] Last Admin: 07/14/18 22:51 Dose: 10 mg Epoetin Shwan (Procrit) 10,000 unit IV MWF [facility] Hydralazine HCl (Apresoline) 75 mg PO TID [facility] Last Admin: 07/15/18 13:08 Dose: 75 mg Insulin Aspart (Novolog) 4 unit SC BIDAC [facility] Last Admin: 07/15/18 08:21 Dose: 4 units Insulin Glargine (Lantus) 7 unit SC QAM [facility] Last Admin: 07/15/18 09:47 Dose: 7 unit Insulin Human Regular (Novolin R) 0 unit SC ACHS [facility]; Protocol Last Admin: 07/15/18 12:39 Dose: 3 unit Losartan Potassium (Cozaar) 50 mg PO DAILY [facility] Last Admin: 07/15/18 09:46 Dose: 50 mg Pantoprazole Sodium (Protonix Ec Tab) 40 mg PO DAILY PRN PRN Reason: Indigestion Last Admin: 07/15/18 09:46 Dose: 40 mg Rosuvastatin Calcium (Crestor) 10 mg PO HS [facility] Last Admin: 07/14/18 22:50 Dose: 10 mg Tacrolimus (Prograf) 5 mg PO QAM [facility] Tacrolimus (Prograf) 5 mg PO QPM [facility] - Labs Labs: 07/13/18 10:56 07/13/18 10:56
--- NOTE | 2018-07-15 14:11 | CP.PCM.PN ---
Subjective - Date & Time of Evaluation Date of Evaluation: 07/14/18 Time of Evaluation: 14:11 - Subjective Subjective: Patient is morning sleeping. But he is arousable. He is feeling hungry. He wanted to eat this morning, I discussed with the nurse and he was able to eat fully. He denies any nausea vomiting On examination: Vital signs are stable. Chest good air entry Heart sounds are regular Abdomen nontender. No pedal edema Assessment and recommendation: Patient is a 63-year-old male with a history of heart transplant, on immunosuppressive treatment. End-stage renal disease on dialysis. Patient has a severe contractures of the right lower extremity. Difficult time and walking. Admitted with the severe sepsis. But the source is unclear. Currently responding with empirical antibiotic for possible pneumonia. We will continue the current treatment. Physical therapy. he will be getting the hemodialysis on Monday and will follow the patient Objective - Vital Signs/Intake and Output Vital Signs (last 24 hours): Temp Pulse Resp BP Pulse Ox 98.1 F 75 20 160/74 H 100 07/15/18 07:05 07/15/18 07:05 07/15/18 07:05 07/15/18 09:46 07/15/18 07:05 Intake and Output: 07/15/18 07/15/18 06:59 18:59 Intake Total 480 Balance 480 - Medications Medications: Current Medications Aspirin (Ecotrin) 81 mg PO DAILY [facility] Last Admin: 07/15/18 09:56 Dose: 81 mg Calcium Acetate (Phoslo) 667 mg PO TIDAC [facility] Last Admin: 07/15/18 12:41 Dose: 667 mg Carvedilol (Coreg) 12.5 mg PO BID [facility] Last Admin: 07/15/18 09:46 Dose: 12.5 mg Clonidine HCl (Catapres) 0.2 mg PO BID [facility] Last Admin: 07/15/18 09:47 Dose: 0.2 mg Ezetimibe (Zetia) 10 mg PO HS [facility] Last Admin: 07/14/18 22:51 Dose: 10 mg Epoetin Shawn (Procrit) 10,000 unit IV MWF [facility] Hydralazine HCl (Apresoline) 75 mg PO TID [facility] Last Admin: 07/15/18 13:08 Dose: 75 mg Insulin Aspart (Novolog) 4 unit SC BIDAC [facility] Last Admin: 07/15/18 08:21 Dose: 4 units Insulin Glargine (Lantus) 7 unit SC [facility] [place] Last Admin: 07/15/18 09:47 Dose: 7 unit Insulin Human Regular (Novolin R) 0 unit SC [facility]; Protocol Last Admin: 07/15/18 12:39 Dose: 3 unit Losartan Potassium (Cozaar) 50 mg PO DAILY [facility] Last Admin: 07/15/18 09:46 Dose: 50 mg Pantoprazole Sodium (Protonix Ec Tab) 40 mg PO DAILY PRN PRN Reason: Indigestion Last Admin: 07/15/18 09:46 Dose: 40 mg Rosuvastatin Calcium (Crestor) 10 mg PO HS [facility] Last Admin: 07/14/18 22:50 Dose: 10 mg Tacrolimus (Prograf) 5 mg PO QAM [facility] Tacrolimus (Prograf) 5 mg PO QPM [facility] - Labs Labs: 07/13/18 10:56 07/13/18 10:56
--- NOTE | 2018-07-15 14:11 | CP.PCM.PN ---
Subjective - Date & Time of Evaluation Date of Evaluation: 07/15/18 Time of Evaluation: 14:11 - Subjective Subjective: Patient is morning sleeping. But he is arousable. He is feeling hungry. He wanted to eat this morning, I discussed with the nurse and he was able to eat fully. He denies any nausea vomiting On examination: Vital signs are stable. Chest good air entry Heart sounds are regular Abdomen nontender. No pedal edema Assessment and recommendation: Patient is a 63-year-old male with a history of heart transplant, on immunosuppressive treatment. End-stage renal disease on dialysis. Patient has a severe contractures of the right lower extremity. Difficult time and walking. Admitted with the severe sepsis. But the source is unclear. Currently responding with empirical antibiotic for possible pneumonia. We will continue the current treatment. Physical therapy. he will be getting the hemodialysis on Monday and will follow the patient Objective - Vital Signs/Intake and Output Vital Signs (last 24 hours): Temp Pulse Resp BP Pulse Ox 98.1 F 75 20 160/74 H 100 07/15/18 07:05 07/15/18 07:05 07/15/18 07:05 07/15/18 09:46 07/15/18 07:05 Intake and Output: 07/15/18 07/15/18 06:59 18:59 Intake Total 480 Balance 480 - Medications Medications: Current Medications Aspirin (Ecotrin) 81 mg PO DAILY [facility] Last Admin: 07/15/18 09:56 Dose: 81 mg Calcium Acetate (Phoslo) 667 mg PO TIDAC [facility] Last Admin: 07/15/18 12:41 Dose: 667 mg Carvedilol (Coreg) 12.5 mg PO BID [facility] Last Admin: 07/15/18 09:46 Dose: 12.5 mg Clonidine HCl (Catapres) 0.2 mg PO BID [facility] Last Admin: 07/15/18 09:47 Dose: 0.2 mg Ezetimibe (Zetia) 10 mg PO HS [facility] Last Admin: 07/14/18 22:51 Dose: 10 mg Epoetin Shawn (Procrit) 10,000 unit IV MWF [facility] Hydralazine HCl (Apresoline) 75 mg PO TID [facility] Last Admin: 07/15/18 13:08 Dose: 75 mg Insulin Aspart (Novolog) 4 unit SC BIDAC [facility] Last Admin: 07/15/18 08:21 Dose: 4 units Insulin Glargine (Lantus) 7 unit SC [facility] [place] Last Admin: 07/15/18 09:47 Dose: 7 unit Insulin Human Regular (Novolin R) 0 unit SC [facility]; Protocol Last Admin: 07/15/18 12:39 Dose: 3 unit Losartan Potassium (Cozaar) 50 mg PO DAILY [facility] Last Admin: 07/15/18 09:46 Dose: 50 mg Pantoprazole Sodium (Protonix Ec Tab) 40 mg PO DAILY PRN PRN Reason: Indigestion Last Admin: 07/15/18 09:46 Dose: 40 mg Rosuvastatin Calcium (Crestor) 10 mg PO HS [facility] Last Admin: 07/14/18 22:50 Dose: 10 mg Tacrolimus (Prograf) 5 mg PO QAM [facility] Tacrolimus (Prograf) 5 mg PO QPM [facility] - Labs Labs: 07/13/18 10:56 07/13/18 10:56
--- NOTE | 2018-07-15 14:11 | CP.PCM.PN ---
Subjective - Date & Time of Evaluation Date of Evaluation: 07/13/18 Time of Evaluation: 14:10 - Subjective Subjective: Patient is somewhat more drowsy. But he is responding to verbal commands. Not eating well. He denies any chest pain. Less cough noted Vital signs noted. Some agonal, episodes of her tachypnea noted. Mild tachycardia. Patient will be getting the hemodialysis. Vancomycin given We will continue the current treatment. Patient is a 63-year-old male with most likely admitted to the hospital with the severe sepsis. White count is improving. He will be getting the hemodialysis and will follow the patient Objective - Vital Signs/Intake and Output Vital Signs (last 24 hours): Temp Pulse Resp BP Pulse Ox 98.1 F 75 20 160/74 H 100 07/15/18 07:05 07/15/18 07:05 07/15/18 07:05 07/15/18 09:46 07/15/18 07:05 Intake and Output: 07/15/18 07/15/18 06:59 18:59 Intake Total 480 Balance 480 - Medications Medications: Current Medications Aspirin (Ecotrin) 81 mg PO DAILY [facility] Last Admin: 07/15/18 09:56 Dose: 81 mg Calcium Acetate (Phoslo) 667 mg PO TIDAC [facility] Last Admin: 07/15/18 12:41 Dose: 667 mg Carvedilol (Coreg) 12.5 mg PO BID [facility] Last Admin: 07/15/18 09:46 Dose: 12.5 mg Clonidine HCl (Catapres) 0.2 mg PO BID [facility] Last Admin: 07/15/18 09:47 Dose: 0.2 mg Ezetimibe (Zetia) 10 mg PO HS [facility] Last Admin: 07/14/18 22:51 Dose: 10 mg Epoetin Shawn (Procrit) 10,000 unit IV MWF [facility] Hydralazine HCl (Apresoline) 75 mg PO TID [facility] Last Admin: 07/15/18 13:08 Dose: 75 mg Insulin Aspart (Novolog) 4 unit SC BIDAC [facility] Last Admin: 07/15/18 08:21 Dose: 4 units Insulin Glargine (Lantus) 7 unit SC QAM [facility] Last Admin: 07/15/18 09:47 Dose: 7 unit Insulin Human Regular (Novolin R) 0 unit SC [facility]; Protocol Last Admin: 07/15/18 12:39 Dose: 3 unit Losartan Potassium (Cozaar) 50 mg PO DAILY [facility] Last Admin: 07/15/18 09:46 Dose: 50 mg Pantoprazole Sodium (Protonix Ec Tab) 40 mg PO DAILY PRN PRN Reason: Indigestion Last Admin: 07/15/18 09:46 Dose: 40 mg Rosuvastatin Calcium (Crestor) 10 mg PO HS [facility] Last Admin: 07/14/18 22:50 Dose: 10 mg Tacrolimus (Prograf) 5 mg PO QAM [facility] Tacrolimus (Prograf) 5 mg PO QPM [facility] - Labs Labs: 07/13/18 10:56 07/13/18 10:56
[2018-07-16] MEDS: (Novolin R) Insulin Human Regular 100 units/ml vial SC SCH ×4 (08:02→21:48)
[2018-07-16] MEDS: (Novolog) Insulin Aspart, Recombinant 100 u/ml 10 ml vial SC SCH ×2 (08:02→16:30)
[2018-07-16 08:20] LABS: BASO # 0.1 K/uL (0.0-0.2); BASO % 0.6 % (0.0-2.0); EOS # 0.1 K/uL (0.0-0.7); EOS % 1.2 % (0.0-4.0); LYMPH # 0.5 K/uL (1.0-4.3); LYMPH % 5.1 % (20.0-40.0); MEAN CELL VOLUME 87.3 fL (80.0-94.0); MEAN CORPUSCULAR HGB CONC 33.2 g/dL (33.0-37.0); MEAN PLATELET VOLUME 8.5 fL (7.2-11.7); MONO # 0.8 K/uL (0.0-0.8); MONO % 7.3 % (0.0-10.0); NEUT % 85.8 % (50.0-75.0); PLATELET COUNT 228 K/uL (130-400); RBC 2.75 Mil/uL (4.40-5.90); RED CELL DISTRIBUTION WIDTH 16.9 % (11.5-14.5); WHITE BLOOD COUNT 10.5 K/uL (4.8-10.8)
[2018-07-16 09:05] LABS: ALB/GLOB RATIO 0.6 (1.0-2.1); CALCIUM 9.1 mg/dl (8.6-10.4)
[2018-07-16 09:23] LABS: ANISOCYTOSIS SLIGHT; BANDS 1 % (0-2); EOSINOPHIL 3 % (0-4); HYPOCHROMIC SLIGHT; LYMPHOCYTE 6 % (20-40); MONOCYTE 6 % (0-10); NEUTROPHIL 84 % (50-75); PLATELET ESTIMATE NORMAL (NORMAL); POIKILOCYTOSIS SLIGHT; TOTAL CELLS COUNTED 100
[2018-07-16 09:24] LABS: BURR CELLS SLIGHT; TARGET CELLS SLIGHT; TEARDROP CELLS SLIGHT
--- NOTE | 2018-07-16 09:26 | VASCLAB ---
Date of service: 07/14/2018 PROCEDURE: Right Lower Extremity Venous Duplex Exam. HISTORY: R posterior thigh pain PRIORS: None. TECHNIQUE: Right common femoral, femoral, popliteal and posterior tibial, peroneal and great saphenous veins were evaluated. Flow was assessed with color Doppler, compressibility, assessment of phasic flow and augmentation response. Report prepared by Arnulfo Landis, RVT FINDINGS: RIGHT: 1. Common Femoral Vein: 1.1. Compressibility - Fully compressible: Thrombus - None: Flow - Phasic: Augmentation -Normal: Reflux - . 2. Femoral Vein: 2.1. Compressibility - Fully compressible: Thrombus - None: Flow - Phasic: Augmentation -Normal: Reflux - . 3. Popliteal Vein: 3.1. Compressibility - Fully compressible: Thrombus - None: Flow - Phasic: Augmentation -Normal: Reflux - . 4. Posterior Tibial Vein: 4.1. Compressibility - Fully compressible: Thrombus - None: Flow - Phasic: Augmentation -Normal: Reflux - . 5. Peroneal Vein: 5.1. Compressibility - Fully compressible: Thrombus - None: Flow - Phasic: Augmentation -Normal: Reflux - . 6. Great Saphenous Vein: 6.1. Compressibility - Fully compressible: Thrombus -None: Flow - Phasic: Augmentation - Normal: Reflux - . OTHER FINDINGS: IMPRESSION: No evidence of deep or superficial vein thrombosis of the right lower extremity with excellent venous flow. Normal venous flow noted in the left common femoral vein.
[2018-07-16] MEDS: (Lantus) Insulin Glargine, Recombinant SC SCH (10:05)
--- NOTE | 2018-07-16 12:06 | CP.PCM.PN ---
Subjective - Date & Time of Evaluation Date of Evaluation: 07/16/18 Time of Evaluation: 12:03 - Subjective Subjective: sleepy now appetite poor; for dialysis today BP stable Hg low- on EPO Na low-126 Objective - Vital Signs/Intake and Output Vital Signs (last 24 hours): Temp Pulse Resp BP Pulse Ox 98.1 F 74 20 137/71 97 07/16/18 08:44 07/16/18 08:44 07/16/18 08:44 07/16/18 08:44 07/16/18 08:44 - Medications Medications: Current Medications Aspirin (Ecotrin) 81 mg PO DAILY [facility] Last Admin: 07/16/18 10:05 Dose: Not Given Calcium Acetate (Phoslo) 667 mg PO TIDAC [facility] Last Admin: 07/16/18 10:05 Dose: Not Given Carvedilol (Coreg) 12.5 mg PO BID [facility] Last Admin: 07/16/18 10:04 Dose: Not Given Clonidine HCl (Catapres) 0.2 mg PO BID [facility] Last Admin: 07/16/18 10:04 Dose: Not Given Ezetimibe (Zetia) 10 mg PO [facility] Last Admin: 07/15/18 21:43 Dose: 10 mg Epoetin Shawn (Procrit) 10,000 unit IV MWF [facility] Hydralazine HCl (Apresoline) 75 mg PO TID [facility] Last Admin: 07/16/18 10:04 Dose: Not Given Insulin Aspart (Novolog) 4 unit SC BIDAC [facility] Last Admin: 07/16/18 08:02 Dose: 4 units Insulin Glargine (Lantus) 7 unit SC [facility] [place] Last Admin: 07/16/18 10:05 Dose: Not Given Insulin Human Regular ([facility] R) [facility]; [facility] Last Admin: 07/16/18 08:02 Dose: 2 unit Losartan Potassium (Cozaar) 50 mg PO DAILY [facility] Last Admin: 07/16/18 10:05 Dose: Not Given Pantoprazole Sodium (Protonix Ec Tab) 40 mg PO DAILY PRN PRN Reason: Indigestion Last Admin: 07/15/18 09:46 Dose: 40 mg Rosuvastatin Calcium (Crestor) 10 mg PO [facility] Last Admin: 07/15/18 21:43 Dose: 10 mg Tacrolimus (Prograf) 5 mg PO QAM [facility] Last Admin: 07/16/18 10:06 Dose: Not Given Tacrolimus (Prograf) 5 mg PO QPM [facility] Last Admin: 07/15/18 18:53 Dose: 5 mg - Labs Labs: 07/16/18 08:04 07/16/18 08:04 - Constitutional Appears: No Acute Distress, Confused, Chronically Ill - Head Exam Head Exam: ATRAUMATIC, NORMAL INSPECTION - Eye Exam Eye Exam: EOMI, Normal appearance - Neck Exam Neck Exam: Normal Inspection. absent: Tenderness - Respiratory Exam Respiratory Exam: Clear to Ausculation Bilateral, NORMAL BREATHING PATTERN - Cardiovascular Exam Cardiovascular Exam: REGULAR RHYTHM, +S1 - GI/Abdominal Exam GI & Abdominal Exam: Soft. absent: Tenderness - Extremities Exam Extremities Exam: Normal Inspection. absent: Tenderness - Neurological Exam Neurological Exam: Altered, CN II-XII Intact - Skin Skin Exam: Dry, Warm Assessment and Plan (1) History of heart transplant Status: Acute (2) Hyperglycemia Status: Acute (3) Altered mental status Status: Acute (4) Diabetes mellitus Status: Chronic (5) End stage renal disease Status: Chronic (6) Hypercholesteremia Status: Chronic (7) Fluid overload Status: Acute - Assessment and Plan (Free Text) Plan: dialysis today- needs adequate fluid removal due to overload add megace on EPO; check iron stores
[2018-07-16] MEDS: Megestrol Acetate 40 mg/ml Cup PO SCH (12:30)
[2018-07-16] MEDS: Epoetin Alfa 10,000 unit/ml Dialysis IV SCH (15:13)
[2018-07-17] MEDS: metroNIDAZOLE IV 500 mg/100 ml 500 MG/100 ML BAG IVPB SCH ×3 (05:47→21:43)
--- NOTE | 2018-07-17 06:30 | CP.PCM.PCO ---
Additional Comments - Additional Comments Additional Comments: Red blood mixed with diarrhea, no abd pain or tenderness, no vomiting, had diarrhea before bleeding. Maintained vitals, patient alert, increased bowel sounds, av fistula on the right forearm. PMH, meds, psh, current reason of admission and treatments reviewed. Plan Stat labs, including pt/ptt, cbc, lactate,type and cross Stool w/u Empiric rocephin and flagyl ASA held IV protonix 40mg q12 Primary team will be notified If recurrent episodes will need NG lavage, bleeding scan, gi eval, possible CT, bp meds may need to be held then.
[2018-07-17 06:39] LABS: BASO # 0.1 K/uL (0.0-0.2); BASO % 0.8 % (0.0-2.0); EOS # 0.1 K/uL (0.0-0.7); EOS % 0.6 % (0.0-4.0); HEMOGLOBIN 7.8 g/dL (12.0-18.0); LYMPH # 0.4 K/uL (1.0-4.3); LYMPH % 3.8 % (20.0-40.0); MEAN CELL VOLUME 87.7 fL (80.0-94.0); MEAN CORPUSCULAR HEMOGLOBIN 29.1 pg (27.0-31.0); MEAN CORPUSCULAR HGB CONC 33.2 g/dL (33.0-37.0); MEAN PLATELET VOLUME 8.9 fL (7.2-11.7); MONO # 0.7 K/uL (0.0-0.8); MONO % 7.3 % (0.0-10.0); NEUT # 8.9 K/uL (1.8-7.0); NEUT % 87.5 % (50.0-75.0); PLATELET COUNT 257 K/uL (130-400); RED CELL DISTRIBUTION WIDTH 17.2 % (11.5-14.5); WHITE BLOOD COUNT 10.1 K/uL (4.8-10.8)
[2018-07-17 06:39] LABS: VENOUS BLOOD GAS BASE EXCESS 5.6 mmol/L (0.0-2.0); VENOUS BLOOD GAS PCO2 45 mmHg (40-60); VENOUS BLOOD GAS PO2 15 mm/Hg (30-55); VENOUS BLOOD PH 7.44 (7.32-7.43)
[2018-07-17 07:00] LABS: ALB/GLOB RATIO 0.6 (1.0-2.1); ALBUMIN 3.1 g/dL (3.5-5.0)
[2018-07-17] MEDS: (Novolin R) Insulin Human Regular 100 units/ml vial SC SCH ×4 (07:24→21:59)
[2018-07-17] MEDS: (Novolog) Insulin Aspart, Recombinant 100 u/ml 10 ml vial SC SCH ×2 (07:24→17:25)
--- NOTE | 2018-07-17 08:02 | CP.PCM.PN ---
Subjective - Date & Time of Evaluation Date of Evaluation: 07/17/18 Time of Evaluation: 08:02 - Subjective Subjective: Patient is eveningHad an episode of diarrhea. According to the nurse patient was having frequent diarrheal episodes, associate with some blood. Hemoglobin and again repeated. The count is on the low side. Slowly on the low side noted. Dropping slowly. Patient is not comfortable. He is morning. He is not in any distress otherwise. On examination: Vital signs reviewed Blood pressure stable. Repeat labs and a VBG was repeated. Showing normal lactate level. Rapid response was called that morning. At the time patient started on Protonix. Also given antibiotic. The diarrhea showing dark brown color, with the suspected blood. GI evaluation was called in. Continue the hemoglobin monitoring. Possible hemodialysis tomorrow We will get the CT scan of the abdomen Objective - Vital Signs/Intake and Output Vital Signs (last 24 hours): Temp Pulse Resp BP Pulse Ox 98.4 F 95 H 20 171/84 H 97 07/16/18 23:30 07/16/18 23:30 07/16/18 23:30 07/16/18 23:30 07/16/18 23:30 - Medications Medications: Current Medications Aspirin (Ecotrin) 81 mg PO DAILY [facility] Last Admin: 07/16/18 10:05 Dose: Not Given Calcium Acetate (Phoslo) 667 mg PO TIDAC [facility] Last Admin: 07/17/18 07:26 Dose: 667 mg Carvedilol (Coreg) 12.5 mg PO BID [facility] Last Admin: 07/16/18 18:00 Dose: 12.5 mg Clonidine HCl (Catapres) 0.2 mg PO BID [facility] Last Admin: 07/16/18 19:00 Dose: 0.2 mg Ezetimibe (Zetia) 10 mg PO HS [facility] Last Admin: 07/16/18 22:55 Dose: 10 mg Epoetin Shawn (Procrit) 10,000 unit IV MWF [facility] Last Admin: 07/16/18 15:13 Dose: 10,000 unit Hydralazine HCl (Apresoline) 75 mg PO TID [facility] Last Admin: 07/16/18 19:00 Dose: 75 mg Ceftriaxone Sodium 1 gm/ (Sodium Chloride) 100 mls @ 100 mls/hr IVPB DAILY [facility]; Protocol Metronidazole (Flagyl) 500 mg in 100 mls @ 100 mls/hr IVPB Q8H [facility]; Protocol Last Admin: 07/17/18 05:47 Dose: 100 mls/hr Insulin Aspart (Novolog) 4 unit SC BIDAC [facility] Last Admin: 07/17/18 07:24 Dose: 4 units Insulin Glargine (Lantus) 7 unit SC QAM [facility] Last Admin: 07/16/18 10:05 Dose: Not Given Insulin Human Regular (Novolin R) 0 unit SC A[facility]; Protocol Last Admin: 07/17/18 07:24 Dose: 6 unit Losartan Potassium (Cozaar) 50 mg PO DAILY [facility] Last Admin: 07/16/18 10:05 Dose: Not Given Megestrol Acetate (Megace) 400 mg PO DAILY [facility] Last Admin: 07/16/18 12:30 Dose: Not Given Pantoprazole Sodium (Protonix Inj) 40 mg IVP Q12H [facility] Last Admin: 07/17/18 05:48 Dose: 40 mg Rosuvastatin Calcium (Crestor) 10 mg PO HS [facility] Last Admin: 07/16/18 22:55 Dose: 10 mg Tacrolimus (Prograf) 5 mg PO QAM [facility] Last Admin: 07/16/18 10:06 Dose: Not Given Tacrolimus (Prograf) 5 mg PO QPM [facility] Last Admin: 07/16/18 19:00 Dose: 5 mg Vancomycin HCl (Vancocin (Oral Or Rectal Use)) 125 mg PO QID [facility]; Protocol - Labs Labs: 07/17/18 06:29 07/17/18 06:29
--- NOTE | 2018-07-17 08:02 | CP.PCM.PN ---
Subjective - Date & Time of Evaluation Date of Evaluation: 07/16/18 Time of Evaluation: 08:02 - Subjective Subjective: Patient's at bedside. He is actually eating better today. He is more awake and responding. He denies any abdominal pain. Blood sugar is slightly elevated. He will be getting the dialysis tomorrow possibly. We will continue the current treatment. Patient is a 63-year-old male with a history of end-stage renal disease on dialysis. Also has a history of heart transplant on immunosuppressive treatment. No nausea no vomiting. Objective - Vital Signs/Intake and Output Vital Signs (last 24 hours): Temp Pulse Resp BP Pulse Ox 98.4 F 95 H 20 171/84 H 97 07/16/18 23:30 07/16/18 23:30 07/16/18 23:30 07/16/18 23:30 07/16/18 23:30 - Medications Medications: Current Medications Aspirin (Ecotrin) 81 mg PO DAILY [facility] Last Admin: 07/16/18 10:05 Dose: Not Given Calcium Acetate (Phoslo) 667 mg PO TIDAC [facility] Last Admin: 07/17/18 07:26 Dose: 667 mg Carvedilol (Coreg) 12.5 mg PO BID [facility] Last Admin: 07/16/18 18:00 Dose: 12.5 mg Clonidine HCl (Catapres) 0.2 mg PO BID [facility] Last Admin: 07/16/18 19:00 Dose: 0.2 mg Ezetimibe (Zetia) 10 mg PO HS [facility] Last Admin: 07/16/18 22:55 Dose: 10 mg Epoetin Shawn (Procrit) 10,000 unit IV MWF [facility] Last Admin: 07/16/18 15:13 Dose: 10,000 unit Hydralazine HCl (Apresoline) 75 mg PO TID [facility] Last Admin: 07/16/18 19:00 Dose: 75 mg Ceftriaxone Sodium 1 gm/ (Sodium Chloride) 100 mls @ 100 mls/hr IVPB DAILY [facility]; Protocol Metronidazole (Flagyl) 500 mg in 100 mls @ 100 mls/hr IVPB Q8H [facility]; Protocol Last Admin: 07/17/18 05:47 Dose: 100 mls/hr Insulin Aspart (Novolog) 4 unit SC BIDAC [facility] Last Admin: 07/17/18 07:24 Dose: 4 units Insulin Glargine (Lantus) 7 unit SC QAM [facility] Last Admin: 07/16/18 10:05 Dose: Not Given Insulin Human Regular (Novolin R) 0 unit SC ACHS [facility]; Protocol Last Admin: 07/17/18 07:24 Dose: 6 unit Losartan Potassium (Cozaar) 50 mg PO DAILY [facility] Last Admin: 07/16/18 10:05 Dose: Not Given Megestrol Acetate (Megace) 400 mg PO DAILY [facility] Last Admin: 07/16/18 12:30 Dose: Not Given Pantoprazole Sodium (Protonix Inj) 40 mg IVP Q12H [facility] Last Admin: 07/17/18 05:48 Dose: 40 mg Rosuvastatin Calcium (Crestor) 10 mg PO HS [facility] Last Admin: 07/16/18 22:55 Dose: 10 mg Tacrolimus (Prograf) 5 mg PO QAM [facility] Last Admin: 07/16/18 10:06 Dose: Not Given Tacrolimus (Prograf) 5 mg PO QPM [facility] Last Admin: 07/16/18 19:00 Dose: 5 mg Vancomycin HCl (Vancocin (Oral Or Rectal Use)) 125 mg PO QID [facility]; Protocol - Labs Labs: 07/17/18 06:29 07/17/18 06:29
[2018-07-17 08:27] LABS: ANISOCYTOSIS SLIGHT; HYPOCHROMIC MODERATE; LYMPHOCYTE 6 % (20-40); MONOCYTE 6 % (0-10); NEUTROPHIL 88 % (50-75); OVALOCYTES SLIGHT; PLATELET ESTIMATE NORMAL (NORMAL); POIKILOCYTOSIS SLIGHT; TARGET CELLS SLIGHT; TEARDROP CELLS SLIGHT; TOTAL CELLS COUNTED 100
--- NOTE | 2018-07-17 09:12 | CP.PCM.PN ---
Subjective - Date & Time of Evaluation Date of Evaluation: 07/17/18 Time of Evaluation: 09:11 - Subjective Subjective: pt is a poor historian, appears comfortable episode of BRBPR noted, hgb stable afebrile Objective - Vital Signs/Intake and Output Vital Signs (last 24 hours): Temp Pulse Resp BP Pulse Ox 97.9 F 81 20 130/70 97 07/17/18 09:02 07/17/18 09:02 07/17/18 09:02 07/17/18 09:02 07/17/18 09:02 - Medications Medications: Current Medications Aspirin (Ecotrin) 81 mg PO DAILY [facility] Last Admin: 07/16/18 10:05 Dose: Not Given Calcium Acetate (Phoslo) 667 mg PO TIDAC [facility] Last Admin: 07/17/18 07:26 Dose: 667 mg Carvedilol (Coreg) 12.5 mg PO BID [facility] Last Admin: 07/16/18 18:00 Dose: 12.5 mg Clonidine HCl (Catapres) 0.2 mg PO BID [facility] Last Admin: 07/16/18 19:00 Dose: 0.2 mg Ezetimibe (Zetia) 10 mg PO HS [facility] Last Admin: 07/16/18 22:55 Dose: 10 mg Epoetin Shawn (Procrit) 10,000 unit IV MWF [facility] Last Admin: 07/16/18 15:13 Dose: 10,000 unit Hydralazine HCl (Apresoline) 75 mg PO TID [facility] Last Admin: 07/16/18 19:00 Dose: 75 mg Ceftriaxone Sodium 1 gm/ (Sodium Chloride) 100 mls @ 100 mls/hr IVPB DAILY [facility]; Protocol Metronidazole (Flagyl) 500 mg in 100 mls @ 100 mls/hr IVPB Q8H [facility]; Protocol Last Admin: 07/17/18 05:47 Dose: 100 mls/hr Insulin Aspart (Novolog) 4 unit SC BIDAC [facility] Last Admin: 07/17/18 07:24 Dose: 4 units Insulin Glargine (Lantus) 7 unit SC QAM [facility] Last Admin: 07/16/18 10:05 Dose: Not Given Insulin Human Regular (Novolin R) 0 unit SC ACHS [facility]; Protocol Last Admin: 07/17/18 07:24 Dose: 6 unit Losartan Potassium (Cozaar) 50 mg PO DAILY [facility] Last Admin: 07/16/18 10:05 Dose: Not Given Megestrol Acetate (Megace) 400 mg PO DAILY [facility] Last Admin: 07/16/18 12:30 Dose: Not Given Pantoprazole Sodium (Protonix Inj) 40 mg IVP Q12H [facility] Last Admin: 07/17/18 05:48 Dose: 40 mg Rosuvastatin Calcium (Crestor) 10 mg PO HS [facility] Last Admin: 07/16/18 22:55 Dose: 10 mg Tacrolimus (Prograf) 5 mg PO QAM [facility] Last Admin: 07/16/18 10:06 Dose: Not Given Tacrolimus (Prograf) 5 mg PO QPM [facility] Last Admin: 07/16/18 19:00 Dose: 5 mg Vancomycin HCl (Vancocin (Oral Or Rectal Use)) 125 mg PO QID [facility]; Protocol - Labs Labs: 07/17/18 06:29 07/17/18 06:29 - Constitutional Appears: No Acute Distress, Older Than Stated Age, Chronically Ill - Head Exam Head Exam: NORMAL INSPECTION, NORMOCEPHALIC - Eye Exam Eye Exam: Normal appearance, PERRL - ENT Exam ENT Exam: Mucous Membranes Moist, Normal Exam - Respiratory Exam Respiratory Exam: Decreased Breath Sounds, NORMAL BREATHING PATTERN - Cardiovascular Exam Cardiovascular Exam: REGULAR RHYTHM, RRR - GI/Abdominal Exam GI & Abdominal Exam: Distended, Soft - Extremities Exam Extremities Exam: Full ROM, Normal Inspection - Neurological Exam Neurological Exam: Alert, Awake - Skin Skin Exam: Dry, Intact Assessment and Plan (1) Altered mental status Status: Acute (2) History of heart transplant Status: Acute (3) Hyperglycemia Status: Acute (4) Acute metabolic encephalopathy Status: Acute (5) ESRD (end stage renal disease) Status: Acute - Assessment and Plan (Free Text) Assessment: maintain hd mwf monitor hgb, on zoila bp labile corrected na for glucose wnl, fluid restriction advised
[2018-07-17] MEDS: Megestrol Acetate 40 mg/ml Cup PO SCH (10:30)
[2018-07-17] MEDS: (Lantus) Insulin Glargine, Recombinant SC SCH (10:31)
[2018-07-17] MEDS: VANCOMYCIN 125 MG/5 ML PO SCH ×4 (11:00→21:43)
--- NOTE | 2018-07-17 11:27 | CP.PCM.CON ---
History of Present Illness - History of Present Illness History of Present Illness: 63 yo I male well know to me for the past 20 years admitted from dialysis for mental status changes. Has h/o Cardiac transplant/CHF for many years, ESRD on HD. H/o diverticular disease, Gerd, Gastritis, had Egd done 1-2 years ago. Asked to see due to passage of BRB mixed with dark brown stool x2 today. No change in hgb noted with chronic anemia present. Unsure at this time when patient last had a colonoscopy but he is clinically unstable for such exam unless life threatening bleeding. Has had mental status changes over past six months and has been in and out of the hospital from dialysis. Denies pain. N/V, feveer or chills. Patient is unaware of bleeding. Review of Systems - Review of Systems Systems not reviewed;Unavailable: Dementia, Altered Mental Status Past Patient History - Infectious Disease Hx of Infectious Diseases: None - Past Medical History & Family History Past Medical History?: Yes Past Family History: Reviewed and not pertinent - Past Social History Smoking Status: Never Smoked Chewing Tobacco Use: No Cigar Use: No Alcohol: None Drugs: Denies Home Situation {Lives}: With Family - CARDIAC Hx Cardiac Disorders: Yes (CAD) Hx Congestive Heart Failure: Yes Hx Hypercholesterolemia: Yes Hx Hypertension: Yes - PULMONARY Hx Respiratory Disorders: No - NEUROLOGICAL Hx Neurological Disorder: No - HEENT Hx HEENT Problems: Yes Hx Cataracts: Yes - RENAL Hx Chronic Kidney Disease: Yes Hx Kidney Stones: No - ENDOCRINE/METABOLIC Hx Diabetes Mellitus Type 2: Yes - HEMATOLOGICAL/ONCOLOGICAL Hx Cirrhosis: No Hx Hepatitis A: No Hx Hepatitis B: No Hx Hepatitis C: No Hx Human Immunodeficiency Virus (HIV): No - INTEGUMENTARY Hx Dermatological Problems: No - MUSCULOSKELETAL/RHEUMATOLOGICAL Hx Musculoskeletal Disorders: Yes Hx Falls: Yes - GASTROINTESTINAL Hx Gastrointestinal Disorders: Yes Hx Diverticulitis: Yes Hx Fatty Liver Disease: Yes Hx Gastritis: Yes Hx Gastroesophageal Reflux: Yes - GENITOURINARY/GYNECOLOGICAL Hx Genitourinary Disorders: Yes Hx Hematuria: Yes Hx Urinary Tract Infection: Yes - PSYCHIATRIC Hx Substance Use: No - SURGICAL HISTORY Hx Cholecystectomy: Yes - ANESTHESIA Hx Anesthesia: Yes Hx Anesthesia Reactions: No Hx Malignant Hyperthermia: No Meds Allergies/Adverse Reactions: Allergies Allergy/AdvReac Type Severity Reaction Status Date / Time meropenem Allergy Severe SWELLING Verified 07/09/18 12:07 morphine Allergy Severe ANGIOEDEMA Verified 07/09/18 12:07 - Medications Medications: Current Medications Aspirin (Ecotrin) 81 mg PO DAILY [facility] Last Admin: 07/16/18 10:05 Dose: Not Given Calcium Acetate (Phoslo) 667 mg PO TIDAC [facility] Last Admin: 07/17/18 10:31 Dose: 667 mg Carvedilol (Coreg) 12.5 mg PO BID [facility] Last Admin: 07/17/18 10:31 Dose: 12.5 mg Clonidine HCl (Catapres) 0.2 mg PO BID [facility] Last Admin: 07/17/18 10:31 Dose: 0.2 mg Ezetimibe (Zetia) 10 mg PO HS [facility] Last Admin: 07/16/18 22:55 Dose: 10 mg Epoetin Shawn (Procrit) 10,000 unit IV MWF [facility] Last Admin: 07/16/18 15:13 Dose: 10,000 unit Hydralazine HCl (Apresoline) 75 mg PO TID [facility] Last Admin: 07/17/18 10:31 Dose: 75 mg Ceftriaxone Sodium 1 gm/ (Sodium Chloride) 100 mls @ 100 mls/hr IVPB DAILY [facility]; Protocol Metronidazole (Flagyl) 500 mg in 100 mls @ 100 mls/hr IVPB Q8H [facility]; Protocol Last Admin: 07/17/18 05:47 Dose: 100 mls/hr Insulin Aspart (Novolog) 4 unit SC BIDAC [facility] Last Admin: 07/17/18 07:24 Dose: 4 units Insulin Glargine (Lantus) 7 unit SC QAM [facility] Last Admin: 07/17/18 10:31 Dose: 7 unit Insulin Human Regular (Novolin R) 0 unit SC ACHS [facility]; Protocol Last Admin: 07/17/18 07:24 Dose: 6 unit Losartan Potassium (Cozaar) 50 mg PO DAILY [facility] Last Admin: 07/17/18 10:31 Dose: 50 mg Megestrol Acetate (Megace) 400 mg PO DAILY [facility] Last Admin: 07/17/18 10:30 Dose: 400 mg Pantoprazole Sodium (Protonix Inj) 40 mg IVP Q12H [facility] Last Admin: 07/17/18 05:48 Dose: 40 mg Rosuvastatin Calcium (Crestor) 10 mg PO HS [facility] Last Admin: 07/16/18 22:55 Dose: 10 mg Tacrolimus (Prograf) 5 mg PO QAM [facility] Last Admin: 07/17/18 10:44 Dose: 5 mg Tacrolimus (Prograf) 5 mg PO QPM [facility] Last Admin: 07/16/18 19:00 Dose: 5 mg Vancomycin HCl (Vancocin (Oral Or Rectal Use)) 125 mg PO QID [facility]; Protocol Physical Exam - Constitutional Appears: Agitated, Confused, Cachectic, Chronically Ill - Head Exam Head Exam: ATRAUMATIC, NORMOCEPHALIC - Eye Exam Eye Exam: EOMI, PERRL - Respiratory Exam Respiratory Exam: NORMAL BREATHING PATTERN - Cardiovascular Exam Cardiovascular Exam: REGULAR RHYTHM, +S1, Systolic Murmur - GI/Abdominal Exam GI & Abdominal Exam: Hyperactive Bowel Sounds, Soft. absent: Mass, Tenderness - Rectal Exam Additional comments: dark brown stool Heme + - Extremities Exam Extremities exam: Positive for: normal inspection - Neurological Exam Neurological exam: Alert - Psychiatric Exam Psychiatric exam: Anxious - Skin Skin Exam: Dry, Warm Results - Vital Signs Recent Vital Signs: Last Vital Signs Temp 97.9 F 07/17/18 09:02 Pulse 81 07/17/18 09:02 Resp 20 07/17/18 09:02 BP 130/70 07/17/18 10:31 Pulse Ox 97 07/17/18 09:02 - Labs Result Diagrams: 07/17/18 06:29 07/17/18 06:29 Labs: Laboratory Results - last 24 hr 07/16/18 07/16/18 07/16/18 12:12 14:36 14:36 WBC RBC Hgb Hct MCV MCH MCHC RDW Plt Count MPV Neut % (Auto) Lymph % (Auto) [place] % (Auto) Eos % (Auto) Baso % (Auto) Neut # (Auto) Lymph # (Auto) [place] # (Auto) Eos # (Auto) Baso # (Auto) Neutrophils % (Manual) Lymphocytes % (Manual) Monocytes % (Manual) Platelet Estimate Hypochromasia (manual) Poikilocytosis (manual Anisocytosis (manual) Target Cells Tear Drop Cells Ovalocytes pO2 VBG pH VBG pCO2 VBG HCO3 VBG Total CO2 VBG O2 Sat (Calc) VBG Base Excess VBG Potassium Sodium Chloride Glucose Lactate Blood Gas Comments Crit Value Called To Crit Value Called By Crit Value Read Back Blood Gas Notified Time Potassium Carbon Dioxide Anion Gap BUN Creatinine Est GFR ( Amer) Est GFR (Non-Af Amer) POC Glucose (mg/dL) 203 H Random Glucose Calcium Phosphorus Magnesium % Saturation 18 L Ferritin 1320.0 Total Bilirubin AST ALT Alkaline Phosphatase Total Protein Albumin Globulin Albumin/Globulin Ratio Venous Blood Potassium Stool Leukocytes, Qual C. difficile Ag & Toxin Blood Type Antibody Screen 07/16/18 07/16/18 07/17/18 16:39 21:35 04:41 WBC RBC Hgb Hct MCV MCH MCHC RDW Plt Count MPV Neut % (Auto) Lymph % (Auto) [place] % (Auto) Eos % (Auto) Baso % (Auto) Neut # (Auto) Lymph # (Auto) [place] # (Auto) Eos # (Auto) Baso # (Auto) Neutrophils % (Manual) Lymphocytes % (Manual) Monocytes % (Manual) Platelet Estimate Hypochromasia (manual) Poikilocytosis (manual Anisocytosis (manual) Target Cells Tear Drop Cells Ovalocytes pO2 VBG pH VBG pCO2 VBG HCO3 VBG Total CO2 VBG O2 Sat (Calc) VBG Base Excess VBG Potassium Sodium Chloride Glucose Lactate Blood Gas Comments Crit Value Called To Crit Value Called By Crit Value Read Back Blood Gas Notified Time Potassium Carbon Dioxide Anion Gap BUN Creatinine Est GFR ( Amer) Est GFR (Non-Af Amer) POC Glucose (mg/dL) 167 H 310 H Random Glucose Calcium Phosphorus Magnesium % Saturation Ferritin Total Bilirubin AST ALT Alkaline Phosphatase Total Protein Albumin Globulin Albumin/Globulin Ratio Venous Blood Potassium Stool Leukocytes, Qual C. difficile Ag & Toxin Blood Type A POSITIVE Antibody Screen Negative 07/17/18 07/17/18 07/17/18 06:25 06:29 06:29 WBC 10.1 RBC 2.70 L Hgb 7.8 L Hct 23.6 L MCV 87.7 MCH 29.1 MCHC 33.2 RDW 17.2 H Plt Count 257 MPV 8.9 Neut % (Auto) 87.5 H Lymph % (Auto) 3.8 L [place] % (Auto) 7.3 Eos % (Auto) 0.6 Baso % (Auto) 0.8 Neut # (Auto) 8.9 H Lymph # (Auto) 0.4 L [place] # (Auto) 0.7 Eos # (Auto) 0.1 Baso # (Auto) 0.1 Neutrophils % (Manual) 88 H Lymphocytes % (Manual) 6 L Monocytes % (Manual) 6 Platelet Estimate Normal Hypochromasia (manual) Moderate Poikilocytosis (manual Slight Anisocytosis (manual) Slight Target Cells Slight Tear Drop Cells Slight Ovalocytes Slight pO2 15 L VBG pH 7.44 H VBG pCO2 45 VBG HCO3 27.2 VBG Total CO2 32.0 H VBG O2 Sat (Calc) 35.9 L VBG Base Excess 5.6 H VBG Potassium 4.8 Sodium 134.0 130 L Chloride 98.0 90 L Glucose 402 H* D Lactate 2.0 Blood Gas Comments Glu high Crit Value Called To Crit Value Called By Mic francis Crit Value Read Back Y Blood Gas Notified Time 639 Potassium 4.9 Carbon Dioxide 27 Anion Gap 17 BUN 33 H Creatinine 3.5 H Est GFR ( Amer) 21 Est GFR (Non-Af Amer) 18 POC Glucose (mg/dL) Random Glucose 422 H* D Calcium 9.0 Phosphorus 4.0 Magnesium 2.0 % Saturation Ferritin Total Bilirubin 2.0 H AST 50 ALT 17 L Alkaline Phosphatase 345 H Total Protein 8.3 Albumin 3.1 L Globulin 5.1 H Albumin/Globulin Ratio 0.6 L Venous Blood Potassium 4.8 Stool Leukocytes, Qual C. difficile Ag & Toxin Blood Type Antibody Screen 07/17/18 07/17/18 07:00 07:54 WBC RBC Hgb Hct MCV MCH MCHC RDW Plt Count MPV Neut % (Auto) Lymph % (Auto) [place] % (Auto) Eos % (Auto) Baso % (Auto) Neut # (Auto) Lymph # (Auto) [place] # (Auto) Eos # (Auto) Baso # (Auto) Neutrophils % (Manual) Lymphocytes % (Manual) Monocytes % (Manual) Platelet Estimate Hypochromasia (manual) Poikilocytosis (manual Anisocytosis (manual) Target Cells Tear Drop Cells Ovalocytes pO2 VBG pH VBG pCO2 VBG HCO3 VBG Total CO2 VBG O2 Sat (Calc) VBG Base Excess VBG Potassium Sodium Chloride Glucose Lactate Blood Gas Comments Crit Value Called To Crit Value Called By Crit Value Read Back Blood Gas Notified Time Potassium Carbon Dioxide Anion Gap BUN Creatinine Est GFR ( Amer) Est GFR (Non-Af Amer) POC Glucose (mg/dL) Random Glucose Calcium Phosphorus Magnesium % Saturation Ferritin Total Bilirubin AST ALT Alkaline Phosphatase Total Protein Albumin Globulin Albumin/Globulin Ratio Venous Blood Potassium Stool Leukocytes, Qual Negative C. difficile Ag & Toxin Negative Blood Type Antibody Screen Assessment & Plan (1) Rectal bleeding Assessment and Plan: Patient with blood mixed in stool this am and no evidence of drop in H/H. May be due to hemorrhoids, diverticulosis or inflammtory changes in the colon/rectum. Unsure when patient last had a colonoscopy at this time but is not medically stable for such. Will defer for overt bleeding with drop in H/H. Supportive care for now. Avoid ASA, antiplatelet meds or anticoagulants at present. Monitor for bleeding and H/H. IV PRotonix. Status: Acute (2) Anemia of chronic renal failure Status: Chronic (3) Diverticulosis Status: Chronic Priority: Medium (4) Heart transplant status Status: Chronic (5) Fatty liver Status: Chronic Priority: Low
[2018-07-17 17:35] LABS: BASO # 0.1 K/uL (0.0-0.2); BASO % 0.7 % (0.0-2.0); EOS # 0.1 K/uL (0.0-0.7); EOS % 0.5 % (0.0-4.0); HEMOGLOBIN 7.6 g/dL (12.0-18.0); LYMPH # 0.4 K/uL (1.0-4.3); LYMPH % 4.3 % (20.0-40.0); MEAN CELL VOLUME 88.9 fL (80.0-94.0); MEAN CORPUSCULAR HEMOGLOBIN 28.2 pg (27.0-31.0); MEAN CORPUSCULAR HGB CONC 31.7 g/dL (33.0-37.0); MEAN PLATELET VOLUME 9.6 fL (7.2-11.7); MONO # 0.9 K/uL (0.0-0.8); MONO % 8.8 % (0.0-10.0); NEUT # 8.6 K/uL (1.8-7.0); NEUT % 85.7 % (50.0-75.0); PLATELET COUNT 287 K/uL (130-400); RBC 2.68 Mil/uL (4.40-5.90); RED CELL DISTRIBUTION WIDTH 17.6 % (11.5-14.5)
[2018-07-17 19:32] LABS: BANDS 2 % (0-2); LYMPHOCYTE 8 % (20-40); MONOCYTE 7 % (0-10); NEUTROPHIL 83 % (50-75); TOTAL CELLS COUNTED 100
[2018-07-17 19:33] LABS: PLATELET CLUMPS PRESENT; PLATELET ESTIMATE NORMAL (NORMAL)
[2018-07-18] MEDS: metroNIDAZOLE IV 500 mg/100 ml 500 MG/100 ML BAG IVPB SCH ×3 (03:51→20:50)
[2018-07-18 07:25] LABS: HEMOGLOBIN 7.3 g/dL (12.0-18.0); MEAN CELL VOLUME 88.5 fL (80.0-94.0); MEAN CORPUSCULAR HGB CONC 32.8 g/dL (33.0-37.0); MEAN PLATELET VOLUME 9.1 fL (7.2-11.7); RBC 2.51 Mil/uL (4.40-5.90); RED CELL DISTRIBUTION WIDTH 17.4 % (11.5-14.5); WHITE BLOOD COUNT 11.3 K/uL (4.8-10.8)
[2018-07-18] MEDS: (Novolog) Insulin Aspart, Recombinant 100 u/ml 10 ml vial SC SCH ×2 (07:42→17:59)
[2018-07-18] MEDS: (Novolin R) Insulin Human Regular 100 units/ml vial SC SCH ×4 (07:43→21:40)
--- NOTE | 2018-07-18 09:35 | CP.PCM.PN ---
Subjective - Date & Time of Evaluation Date of Evaluation: 07/18/18 Time of Evaluation: 09:33 - Subjective Subjective: No overt bleeding. Hgb-7.3 Patient in dialysis at present Objective - Vital Signs/Intake and Output Vital Signs (last 24 hours): Temp Pulse Resp BP Pulse Ox 97.9 F 86 20 153/81 H 95 07/18/18 08:51 07/18/18 08:51 07/18/18 08:51 07/18/18 08:51 07/18/18 08:51 - Medications Medications: Current Medications Aspirin (Ecotrin) 81 mg PO DAILY [facility] Last Admin: 07/16/18 10:05 Dose: Not Given Calcium Acetate (Phoslo) 667 mg PO TIDAC [facility] Last Admin: 07/18/18 07:42 Dose: 667 mg Carvedilol (Coreg) 12.5 mg PO BID [facility] Last Admin: 07/17/18 17:23 Dose: 12.5 mg Clonidine HCl (Catapres) 0.2 mg PO BID [facility] Last Admin: 07/17/18 17:24 Dose: 0.2 mg Ezetimibe (Zetia) 10 mg PO HS [facility] Last Admin: 07/17/18 21:42 Dose: 10 mg Epoetin Shawn (Procrit) 10,000 unit IV MWF [facility] Last Admin: 07/16/18 15:13 Dose: 10,000 unit Hydralazine HCl (Apresoline) 75 mg PO TID [facility] Last Admin: 07/17/18 17:26 Dose: 75 mg Ceftriaxone Sodium 1 gm/ (Sodium Chloride) 100 mls @ 100 mls/hr IVPB DAILY [facility]; Protocol Last Admin: 07/17/18 11:00 Dose: 100 mls/hr Metronidazole (Flagyl) 500 mg in 100 mls @ 100 mls/hr IVPB Q8H [facility]; Protocol Last Admin: 07/18/18 03:51 Dose: 100 mls/hr Insulin Aspart (Novolog) 4 unit SC BIDAC [facility] Last Admin: 07/18/18 07:42 Dose: 4 units Insulin Glargine (Lantus) 7 unit SC QAM [facility] Last Admin: 07/17/18 10:31 Dose: 7 unit Insulin Human Regular (Novolin R) 0 unit SC ACHS [facility]; Protocol Last Admin: 07/18/18 07:43 Dose: 46 unit Losartan Potassium (Cozaar) 50 mg PO DAILY [facility] Last Admin: 07/17/18 10:31 Dose: 50 mg Megestrol Acetate (Megace) 400 mg PO DAILY [facility] Last Admin: 07/17/18 10:30 Dose: 400 mg Pantoprazole Sodium (Protonix Inj) 40 mg IVP Q12H [facility] Last Admin: 07/18/18 03:51 Dose: 40 mg Rosuvastatin Calcium (Crestor) 10 mg PO HS [facility] Last Admin: 07/17/18 21:42 Dose: 10 mg Tacrolimus (Prograf) 5 mg PO QAM [facility] Last Admin: 07/17/18 10:44 Dose: 5 mg Tacrolimus (Prograf) 5 mg PO QPM [facility] Last Admin: 07/17/18 17:26 Dose: 5 mg Vancomycin HCl (Vancocin (Oral Or Rectal Use)) 125 mg PO QID [facility]; Protocol Last Admin: 07/17/18 21:43 Dose: 125 mg - Labs Labs: 07/18/18 07:15 07/17/18 06:29 - Constitutional Appears: Confused, Chronically Ill - Head Exam Head Exam: ATRAUMATIC, NORMOCEPHALIC - Respiratory Exam Respiratory Exam: NORMAL BREATHING PATTERN - Cardiovascular Exam Cardiovascular Exam: REGULAR RHYTHM, +S1 - GI/Abdominal Exam GI & Abdominal Exam: Soft, Hypoactive Bowel Sounds. absent: Tenderness, Mass, Rebound - Extremities Exam Extremities Exam: Normal Inspection Assessment and Plan (1) Rectal bleeding Assessment & Plan: Monitor for significant bleeding. Transfuse if hgb<7. Continue Protonix IV QD Status: Acute (2) Anemia of chronic renal failure Status: Chronic (3) Diverticulosis Status: Chronic (4) Heart transplant status Status: Chronic (5) Fatty liver Status: Chronic
[2018-07-18] MEDS: (Lantus) Insulin Glargine, Recombinant SC SCH (09:45)
[2018-07-18] MEDS: VANCOMYCIN 125 MG/5 ML PO SCH ×4 (09:46→22:09)
[2018-07-18] MEDS: Megestrol Acetate 40 mg/ml Cup PO SCH (09:46)
[2018-07-18] MEDS: Epoetin Alfa 10,000 unit/ml Dialysis IV SCH (10:31)
--- NOTE | 2018-07-18 11:19 | CT ---
Date of service: 07/17/2018 PROCEDURE: CT Abdomen and Pelvis without intravenous contrast HISTORY: GI bleed COMPARISON: Chest, abdomen and pelvis CT without contrast 07/09/2018. TECHNIQUE: Helical CT of the abdomen and pelvis was performed without oral or intravenous contrast as per referring physician request. Coronal and sagittal reformats were generated.. Contrast dose: None Radiation dose: Total exam DLP = 690.23 mGy-cm. This CT exam was performed using one or more of the following dose reduction techniques: Automated exposure control, adjustment of the mA and/or kV according to patient size, and/or use of iterative reconstruction technique. FINDINGS: Lack of contrast agents limits interpretation, particularly lack of intravenous contrast. LOWER THORAX: Moderate left pleural effusion increased with minimal right pleural effusion again evident. Compression atelectasis affects left lower lobe further with underlying pneumonia not excluded. Pulmonary vascular congestive apparent. Cardiomegaly again noted. LIVER: Unremarkable. No gross lesion or ductal dilatation. GALLBLADDER AND BILE DUCTS: Contracted gallbladder now identified. Wall poorly evaluated due to contraction. No radiodense cholelithiasis in the interval. PANCREAS: Unremarkable. No gross lesion or ductal dilatation. SPLEEN: Unremarkable. ADRENALS: Unremarkable. No mass. KIDNEYS AND URETERS: Small lucency again seen representing a cyst at the midpole right kidney laterally. No obstructive uropathy bilaterally. Bilateral renal cortical atrophy reiterated. Nonspecific streaky bilateral perinephric changes reiterated VASCULATURE: Nonaneurysmal abdominal aortic calcific atherosclerotic changes are identified. BOWEL: Hiatal hernia again evident. Stomach is distended with retained food and fluid with moderately hyperdense material identified at the antrum which is nonspecific but could reflect hemorrhagic products. Clinically correlate. Fluid is seen throughout the colon. No apparent bowel obstruction. Rectal mural thickening may indicate proctitis once again. APPENDIX: Unremarkable. Normal appendix. PERITONEUM: Hazy density seen throughout the perineum as well as retroperitoneum diffusely with extraperitoneal extra abdominal fat increased in density suggestive of anasarca. LYMPH NODES: Unremarkable. No enlarged lymph nodes. BLADDER: Marked urinary bladder wall thickening is suggested in a pattern that suggests cystitis. Neoplasm not excluded. REPRODUCTIVE: Unremarkable. BONES: No acute fracture. OTHER FINDINGS: None. IMPRESSION: 1. Mildly hyperdense material is seen in the antrum suspicious for possible hemorrhagic products. Rectal mural thickening reiterated. Gastrointestinal tract tract is limited evaluation, particularly due lack of intravenous contrast. Fluid is seen throughout the large bowel. Consider follow-up nuclear GI bleeding scan. 2. Right renal cyst. 3. Consider marked cystitis or even neoplasm. 4. Abdominal findings as discussed above. 5. Increasing left pleural effusion now moderate size overall with limited right pleural effusion unchanged.
--- NOTE | 2018-07-18 14:22 | CP.PCM.PN ---
Subjective - Date & Time of Evaluation Date of Evaluation: 07/18/18 Time of Evaluation: 14:20 - Subjective Subjective: s/p dialysis now UF 2000ml s/p blood transfusion 1 u prbcs BP still elevated Objective - Vital Signs/Intake and Output Vital Signs (last 24 hours): Temp Pulse Resp BP Pulse Ox 98.3 F 86 16 171/90 H 95 07/18/18 12:50 07/18/18 12:50 07/18/18 12:50 07/18/18 12:50 07/18/18 12:50 Intake and Output: 07/18/18 07/18/18 06:59 18:59 Intake Total 325 Balance 325 - Medications Medications: Current Medications Aspirin (Ecotrin) 81 mg PO DAILY [facility] Last Admin: 07/16/18 10:05 Dose: Not Given Calcium Acetate (Phoslo) 667 mg PO TIDAC [facility] Last Admin: 07/18/18 12:30 Dose: Not Given Carvedilol (Coreg) 12.5 mg PO BID [facility] Last Admin: 07/18/18 09:45 Dose: Not Given Clonidine HCl (Catapres) 0.2 mg PO BID [facility] Last Admin: 07/18/18 09:45 Dose: Not Given Ezetimibe (Zetia) 10 mg PO HS [facility] Last Admin: 07/17/18 21:42 Dose: 10 mg Epoetin Shawn (Procrit) 10,000 unit IV MWF [facility] Last Admin: 07/18/18 10:31 Dose: 10,000 unit Hydralazine HCl (Apresoline) 75 mg PO TID [facility] Last Admin: 07/18/18 09:45 Dose: Not Given Ceftriaxone Sodium 1 gm/ (Sodium Chloride) 100 mls @ 100 mls/hr IVPB DAILY [facility]; Protocol Last Admin: 07/18/18 14:11 Dose: 100 mls/hr Metronidazole (Flagyl) 500 mg in 100 mls @ 100 mls/hr IVPB Q8H [facility]; Protocol Last Admin: 07/18/18 12:54 Dose: Not Given Insulin Aspart (Novolog) 4 unit SC BIDAC [facility] Last Admin: 07/18/18 07:42 Dose: 4 units Insulin Glargine (Lantus) 7 unit SC QAM [facility] Last Admin: 07/18/18 09:45 Dose: Not Given Insulin Human Regular (Novolin R) 0 unit SC ACHS [facility]; Protocol Last Admin: 07/18/18 14:11 Dose: 2 unit Losartan Potassium (Cozaar) 50 mg PO DAILY [facility] Last Admin: 07/18/18 09:45 Dose: Not Given Megestrol Acetate (Megace) 400 mg PO DAILY [facility] Last Admin: 07/18/18 09:46 Dose: Not Given Pantoprazole Sodium (Protonix Inj) 40 mg IVP Q12H [facility] Last Admin: 07/18/18 03:51 Dose: 40 mg Rosuvastatin Calcium (Crestor) 10 mg PO HS [facility] Last Admin: 07/17/18 21:42 Dose: 10 mg Tacrolimus (Prograf) 5 mg PO QAM [facility] Last Admin: 07/18/18 09:46 Dose: Not Given Tacrolimus (Prograf) 5 mg PO QPM [facility] Last Admin: 07/17/18 17:26 Dose: 5 mg Vancomycin HCl (Vancocin (Oral Or Rectal Use)) 125 mg PO QID [facility]; Protocol Last Admin: 07/18/18 14:10 Dose: 125 mg - Labs Labs: 07/18/18 07:15 07/17/18 06:29 - Constitutional Appears: No Acute Distress, Chronically Ill - Head Exam Head Exam: ATRAUMATIC, NORMAL INSPECTION - Eye Exam Eye Exam: EOMI, Normal appearance - Neck Exam Neck Exam: Tenderness. absent: Normal Inspection - Respiratory Exam Respiratory Exam: Clear to Ausculation Bilateral, NORMAL BREATHING PATTERN - Cardiovascular Exam Cardiovascular Exam: REGULAR RHYTHM, +S1 - GI/Abdominal Exam GI & Abdominal Exam: Soft. absent: Tenderness - Extremities Exam Extremities Exam: Normal Inspection. absent: Tenderness - Neurological Exam Neurological Exam: Awake, CN II-XII Intact - Skin Skin Exam: Dry, Warm Assessment and Plan (1) History of heart transplant Status: Acute (2) Hyperglycemia Status: Acute (3) Altered mental status Status: Acute (4) Diabetes mellitus Status: Chronic (5) End stage renal disease Status: Chronic (6) Hypercholesteremia Status: Chronic (7) Fluid overload Status: Acute - Assessment and Plan (Free Text) Plan: increase BP meds recheck Hg dialysis MWF
--- NOTE | 2018-07-18 20:43 | CP.PCM.PN ---
Subjective - Date & Time of Evaluation Date of Evaluation: 07/18/18 Time of Evaluation: 20:41 - Subjective Subjective: Patient is morning received hemodialysis. 1 unit of blood transfusion was given. Currently family at bedside. Patient at bedside. Patient is somewhat restless. He is complaining that he is not feeling well. He is not in any pain. He has poor appetite and intake was very poor today. At least a 4-5 times diarrheal episodes noted. Foul-smelling stools present. Currently patient is also receiving vancomycin, seen by maintenance team leader. CAT scan of the abdomen nonspecific. Patient also has a left pleural effusion. Will do the possible interventional radiology thoracentesis. Continue the antibiotic. Overall prognosis very poor. I spoke to the patient's family in detail. Repeat the labs tomorrow. We will follow the patient. Objective - Vital Signs/Intake and Output Vital Signs (last 24 hours): Temp Pulse Resp BP Pulse Ox 99.4 F 90 20 154/76 H 96 07/18/18 15:28 07/18/18 15:28 07/18/18 15:28 07/18/18 18:02 07/18/18 15:28 Intake and Output: 07/18/18 07/19/18 18:59 06:59 Intake Total 625 Balance 625 - Medications Medications: Current Medications Aspirin (Ecotrin) 81 mg PO DAILY [facility] Last Admin: 07/16/18 10:05 Dose: Not Given Calcium Acetate (Phoslo) 667 mg PO TIDAC [facility] Last Admin: 07/18/18 18:01 Dose: 667 mg Carvedilol (Coreg) 12.5 mg PO BID [facility] Last Admin: 07/18/18 18:02 Dose: 12.5 mg Clonidine HCl (Catapres) 0.2 mg PO BID [facility] Last Admin: 07/18/18 18:01 Dose: 0.2 mg Ezetimibe (Zetia) 10 mg PO HS [facility] Last Admin: 07/17/18 21:42 Dose: 10 mg Epoetin Shawn (Procrit) 10,000 unit IV MWF [facility] Last Admin: 07/18/18 10:31 Dose: 10,000 unit Hydralazine HCl (Apresoline) 100 mg PO TID [facility] Last Admin: 07/18/18 18:01 Dose: 100 mg Ceftriaxone Sodium 1 gm/ (Sodium Chloride) 100 mls @ 100 mls/hr IVPB DAILY [facility]; Protocol Last Admin: 07/18/18 14:11 Dose: 100 mls/hr Metronidazole (Flagyl) 500 mg in 100 mls @ 100 mls/hr IVPB Q8H [facility]; Protocol Last Admin: 07/18/18 12:54 Dose: Not Given Insulin Aspart (Novolog) 4 unit SC BIDAC [facility] Last Admin: 07/18/18 17:59 Dose: 4 units Insulin Glargine (Lantus) 7 unit SC QAM [facility] Last Admin: 07/18/18 09:45 Dose: Not Given Insulin Human Regular (Novolin R) 0 unit SC ACHS [facility]; Protocol Last Admin: 07/18/18 18:01 Dose: 2 unit Losartan Potassium (Cozaar) 50 mg PO DAILY [facility] Last Admin: 07/18/18 09:45 Dose: Not Given Megestrol Acetate (Megace) 400 mg PO DAILY [facility] Last Admin: 07/18/18 09:46 Dose: Not Given Pantoprazole Sodium (Protonix Inj) 40 mg IVP Q12H [facility] Last Admin: 07/18/18 18:00 Dose: 40 mg Rosuvastatin Calcium (Crestor) 10 mg PO HS [facility] Last Admin: 07/17/18 21:42 Dose: 10 mg Tacrolimus (Prograf) 5 mg PO QAM [facility] Last Admin: 07/18/18 09:46 Dose: Not Given Tacrolimus (Prograf) 5 mg PO QPM [facility] Last Admin: 07/18/18 18:01 Dose: 5 mg Vancomycin HCl (Vancocin (Oral Or Rectal Use)) 125 mg PO QID [facility]; Protocol Last Admin: 07/18/18 18:00 Dose: 125 mg - Labs Labs: 07/18/18 07:15 07/17/18 06:29
[2018-07-19] MEDS: metroNIDAZOLE IV 500 mg/100 ml 500 MG/100 ML BAG IVPB SCH ×3 (03:46→21:40)
[2018-07-19 06:51] LABS: HEMOGLOBIN 8.7 g/dL (12.0-18.0); MEAN CELL VOLUME 87.9 fL (80.0-94.0); MEAN CORPUSCULAR HEMOGLOBIN 29.7 pg (27.0-31.0); MEAN CORPUSCULAR HGB CONC 33.8 g/dL (33.0-37.0); MEAN PLATELET VOLUME 9.3 fL (7.2-11.7); RBC 2.93 Mil/uL (4.40-5.90); RED CELL DISTRIBUTION WIDTH 16.6 % (11.5-14.5); WHITE BLOOD COUNT 10.9 K/uL (4.8-10.8)
[2018-07-19] MEDS: (Novolog) Insulin Aspart, Recombinant 100 u/ml 10 ml vial SC SCH ×2 (09:29→18:00)
[2018-07-19] MEDS: (Novolin R) Insulin Human Regular 100 units/ml vial SC SCH ×4 (09:29→21:50)
--- NOTE | 2018-07-19 10:52 | CP.PCM.PN ---
Subjective - Date & Time of Evaluation Date of Evaluation: 07/19/18 Time of Evaluation: 10:49 - Subjective Subjective: Patient with 4-5 loose stools but no bleeding. (change of clothing witnessed for absence of blood) Given 1 u PRBC's yesterday and H/H stable. C diff - (2/5) Objective - Vital Signs/Intake and Output Vital Signs (last 24 hours): Temp Pulse Resp BP Pulse Ox 98.9 F 85 20 180/95 H 95 07/19/18 08:32 07/19/18 08:32 07/19/18 08:32 07/19/18 09:26 07/19/18 08:32 - Medications Medications: Current Medications Aspirin (Ecotrin) 81 mg PO DAILY [facility] Last Admin: 07/16/18 10:05 Dose: Not Given Calcium Acetate (Phoslo) 667 mg PO TIDAC [facility] Last Admin: 07/19/18 09:28 Dose: Not Given Carvedilol (Coreg) 12.5 mg PO BID [facility] Last Admin: 07/19/18 09:26 Dose: 12.5 mg Clonidine HCl (Catapres) 0.2 mg PO BID [facility] Last Admin: 07/19/18 09:27 Dose: 0.2 mg Ezetimibe (Zetia) 10 mg PO HS [facility] Last Admin: 07/18/18 22:09 Dose: 10 mg Epoetin Shawn (Procrit) 10,000 unit IV MWF [facility] Last Admin: 07/18/18 10:31 Dose: 10,000 unit Hydralazine HCl (Apresoline) 100 mg PO TID [facility] Last Admin: 07/19/18 09:27 Dose: 100 mg Metronidazole (Flagyl) 500 mg in 100 mls @ 100 mls/hr IVPB Q8H [facility]; Protocol Last Admin: 07/19/18 03:46 Dose: 100 mls/hr Ceftriaxone Sodium 1 gm/ (Sodium Chloride) 100 mls @ 100 mls/hr IVPB DAILY [facility]; Protocol Insulin Aspart (Novolog) 4 unit SC BIDAC [facility] Last Admin: 07/19/18 09:29 Dose: Not Given Insulin Glargine (Lantus) 7 unit SC QAM [facility] Last Admin: 07/18/18 09:45 Dose: Not Given Insulin Human Regular (Novolin R) 0 unit SC ACHS [facility]; Protocol Last Admin: 07/19/18 09:29 Dose: Not Given Losartan Potassium (Cozaar) 50 mg PO DAILY [facility] Last Admin: 07/19/18 09:30 Dose: 50 mg Megestrol Acetate (Megace) 400 mg PO DAILY [facility] Last Admin: 07/18/18 09:46 Dose: Not Given Pantoprazole Sodium (Protonix Inj) 40 mg IVP Q12H [facility] Last Admin: 07/19/18 03:42 Dose: 40 mg Rosuvastatin Calcium (Crestor) 10 mg PO HS [facility] Last Admin: 07/18/18 22:09 Dose: 10 mg Tacrolimus (Prograf) 5 mg PO QAM [facility] Last Admin: 07/18/18 09:46 Dose: Not Given Tacrolimus (Prograf) 5 mg PO QPM [facility] Last Admin: 07/18/18 18:01 Dose: 5 mg Vancomycin HCl (Vancocin (Oral Or Rectal Use)) 125 mg PO QID [facility]; Protocol Last Admin: 07/18/18 22:09 Dose: 125 mg - Labs Labs: 07/19/18 06:36 07/17/18 06:29 - Constitutional Appears: Confused, Cachectic, Chronically Ill - Eye Exam Eye Exam: EOMI, PERRL - Respiratory Exam Respiratory Exam: NORMAL BREATHING PATTERN - Cardiovascular Exam Cardiovascular Exam: REGULAR RHYTHM - GI/Abdominal Exam GI & Abdominal Exam: Soft, Hypoactive Bowel Sounds. absent: Tenderness, Mass, Rebound Assessment and Plan (1) Rectal bleeding Assessment & Plan: Monitor for further bleeding. Supportive care advised in view of overall poor medical condition and poor prognosis. Invasive work up to be considered for overt bleeding, drop in H/H, change in hemodynamics. Add Loperamide for diarrhea in absence of infections (WBC, C diff negative) Status: Acute (2) Anemia of chronic renal failure Status: Chronic (3) Diverticulosis Status: Chronic (4) Heart transplant status Status: Chronic (5) Fatty liver Status: Chronic
[2018-07-19] MEDS: Megestrol Acetate 40 mg/ml Cup PO SCH (10:53)
[2018-07-19] MEDS: (Lantus) Insulin Glargine, Recombinant SC SCH (11:05)
--- NOTE | 2018-07-19 11:07 | CP.PCM.PN ---
Subjective - Date & Time of Evaluation Date of Evaluation: 07/19/18 Time of Evaluation: 11:03 - Subjective Subjective: s/p dialysis 2/6- UF 2000ml more alert now, mental status waxing often for thoracentesis today Hg increased to 8.7 post transfusion BP still uncontrolled tolerating dialysis well Objective - Vital Signs/Intake and Output Vital Signs (last 24 hours): Temp Pulse Resp BP Pulse Ox 98.9 F 85 20 180/95 H 95 07/19/18 08:32 07/19/18 08:32 07/19/18 08:32 07/19/18 09:26 07/19/18 08:32 - Medications Medications: Current Medications Aspirin (Ecotrin) 81 mg PO DAILY [facility] Last Admin: 07/16/18 10:05 Dose: Not Given Calcium Acetate (Phoslo) 667 mg PO TIDAC [facility] Last Admin: 07/19/18 09:28 Dose: Not Given Carvedilol (Coreg) 12.5 mg PO BID [facility] Last Admin: 07/19/18 09:26 Dose: 12.5 mg Clonidine HCl (Catapres) 0.2 mg PO BID [facility] Last Admin: 07/19/18 09:27 Dose: 0.2 mg Ezetimibe (Zetia) 10 mg PO HS [facility] Last Admin: 07/18/18 22:09 Dose: 10 mg Epoetin Shawn (Procrit) 10,000 unit IV MWF [facility] Last Admin: 07/18/18 10:31 Dose: 10,000 unit Hydralazine HCl (Apresoline) 100 mg PO TID [facility] Last Admin: 07/19/18 09:27 Dose: 100 mg Metronidazole (Flagyl) 500 mg in 100 mls @ 100 mls/hr IVPB Q8H [facility]; Protocol Last Admin: 07/19/18 03:46 Dose: 100 mls/hr Ceftriaxone Sodium 1 gm/ (Sodium Chloride) 100 mls @ 100 mls/hr IVPB DAILY [facility]; Protocol Last Admin: 07/19/18 10:59 Dose: Not Given Insulin Aspart (Novolog) 4 unit SC BIDAC [facility] Last Admin: 07/19/18 09:29 Dose: Not Given Insulin Glargine (Lantus) 7 unit SC QAM [facility] Last Admin: 07/18/18 09:45 Dose: Not Given Insulin Human Regular (Novolin R) 0 unit SC ACHS [facility]; Protocol Last Admin: 07/19/18 09:29 Dose: Not Given Loperamide HCl (Imodium) 2 mg PO Q8H PRN PRN Reason: Diarrhea Losartan Potassium (Cozaar) 50 mg PO DAILY [facility] Last Admin: 07/19/18 09:30 Dose: 50 mg Megestrol Acetate (Megace) 400 mg PO DAILY [facility] Last Admin: 07/19/18 10:53 Dose: Not Given Pantoprazole Sodium (Protonix Ec Tab) 40 mg PO DAILY [facility] Rosuvastatin Calcium (Crestor) 10 mg PO HS [facility] Last Admin: 07/18/18 22:09 Dose: 10 mg Tacrolimus (Prograf) 5 mg PO QAM [facility] Last Admin: 07/18/18 09:46 Dose: Not Given Tacrolimus (Prograf) 5 mg PO QPM [facility] Last Admin: 07/18/18 18:01 Dose: 5 mg Vancomycin HCl (Vancocin (Oral Or Rectal Use)) 125 mg PO QID [facility]; Protocol Last Admin: 07/18/18 22:09 Dose: 125 mg - Labs Labs: 07/19/18 06:36 07/17/18 06:29 - Constitutional Appears: No Acute Distress, Confused, Cachectic, Chronically Ill - Head Exam Head Exam: ATRAUMATIC, NORMAL INSPECTION - Eye Exam Eye Exam: EOMI, Normal appearance - Neck Exam Neck Exam: Normal Inspection. absent: Tenderness - Respiratory Exam Respiratory Exam: Clear to Ausculation Bilateral, NORMAL BREATHING PATTERN - Cardiovascular Exam Cardiovascular Exam: REGULAR RHYTHM, +S1 - GI/Abdominal Exam GI & Abdominal Exam: Soft. absent: Tenderness - Extremities Exam Extremities Exam: Normal Inspection. absent: Tenderness - Neurological Exam Neurological Exam: Altered, Awake, CN II-XII Intact - Skin Skin Exam: Dry. absent: Warm Assessment and Plan (1) History of heart transplant Status: Acute (2) Hyperglycemia Status: Acute (3) Altered mental status Status: Acute (4) Diabetes mellitus Status: Chronic (5) End stage renal disease Status: Chronic (6) Hypercholesteremia Status: Chronic (7) Fluid overload Status: Acute - Assessment and Plan (Free Text) Plan: dialysis MWF with adequate UF increase BP med dosage thoracentesis pending
[2018-07-19] MEDS: VANCOMYCIN 125 MG/5 ML PO SCH ×4 (11:08→21:49)
--- NOTE | 2018-07-19 14:19 | RAD ---
Date of service: 07/19/2018 HISTORY: pleural effusion COMPARISON: Portable chest 07/13/2018. FINDINGS: LUNGS: Retrocardiac opacity persists with air bronchograms suggestive of consolidation. Borderline medial right basilar consolidation. PLEURA: Left pleural effusion unchanged. Mild right pleural effusion appears to be developing. No pneumothorax bilaterally. CARDIOVASCULAR: Calcific atherosclerotic changes are seen related to the thoracic aorta. Cardiomegaly stable. Borderline pulmonary vascular congestion. Post CABG changes reiterated. No pulmonary vascular congestion. OSSEOUS STRUCTURES: No significant abnormalities. VISUALIZED UPPER ABDOMEN: Normal. OTHER FINDINGS: None. IMPRESSION: Persistent left basilar opacity suspicious for consolidation. Left pleural effusion unchanged. Minimal right pleural effusion developing. Underlying CHF not excluded. Clinically correlate further.
[2018-07-19] MEDS ORDERED: Lidocaine Hydrochloride 10 ML INJ ONE (14:37)
--- NOTE | 2018-07-19 14:48 | PCM.IRPREO ---
Pre Procedure Note - History Proposed Procedure: left thoracentesis Pre-Op Diagnosis: Left pleural effusion - Pre Procedure Were any radiologic studies performed in the last 12 months: Yes List of radiologic studies performed: CTAP Was medical management performed in the past 24 months: Not Applicable Clinical indication for the procedure: SOB Have risks and benefits been explained to the patient: Yes Risks and benefits been explained to the patient: Explained to the patients Have alternatives to surgery explained to the patient as applicable: Yes - Allergies Allergies: Allergies meropenem Allergy (Severe, Verified 07/09/18 12:07) SWELLING GETTING RESTLESS morphine Allergy (Severe, Verified 07/09/18 12:07) ANGIOEDEMA - Physical Exam Vital Signs: Vital Signs 07/19/18 07/19/18 07/19/18 08:32 09:18 09:26 Temperature 98.9 F Pulse Rate 85 Respiratory 20 Rate Blood Pressure 184/93 H 180/95 H 180/95 H O2 Sat by Pulse 95 Oximetry 07/19/18 13:25 Temperature Pulse Rate 78 Respiratory Rate Blood Pressure 169/86 H O2 Sat by Pulse Oximetry Mental Status: Confused Neuro: Other - Impression Pt. Evaluated Today:Candidate for Anesthesia & Procedure: Inital US demonstrated complex septated fluid not amenable to drainage. Thoracentesis not performed.
--- NOTE | 2018-07-19 16:28 | RAD ---
Date of service: 07/19/2018 HISTORY: Left thoracentesis COMPARISON: Portable chest 07/19/2018 8:48 a.m.. FINDINGS: LUNGS: Will change in retrocardiac atelectasis or infiltrate with limited right basilar patchy atelectasis favored over infiltrate. PLEURA: Limited improvement in left pleural effusion. Trace right pleural effusion evident. No pneumothorax bilaterally. CARDIOVASCULAR: Calcific atherosclerotic changes are seen related to the thoracic aorta. Stable cardiomegaly. Mild pulmonary vascular congestion again evident. OSSEOUS STRUCTURES: Prior median sternotomy again evident. VISUALIZED UPPER ABDOMEN: Normal. OTHER FINDINGS: None. IMPRESSION: Diminished left pleural effusion. No pneumothorax bilaterally. Mild pulmonary vascular congestion and left greater than right basilar airspace disease again evident. Stable cardiomegaly.
[2018-07-20] MEDS: metroNIDAZOLE IV 500 mg/100 ml 500 MG/100 ML BAG IVPB SCH (04:33)
[2018-07-20] MEDS: (Novolin R) Insulin Human Regular 100 units/ml vial SC SCH ×4 (08:18→21:54)
[2018-07-20] MEDS: (Novolog) Insulin Aspart, Recombinant 100 u/ml 10 ml vial SC SCH ×2 (08:19→16:00)
[2018-07-20] MEDS: VANCOMYCIN 125 MG/5 ML PO SCH ×4 (11:00→21:55)
[2018-07-20] MEDS: Megestrol Acetate 40 mg/ml Cup PO SCH (11:00)
[2018-07-20] MEDS: Pantoprazole 40 mg EC Tab PO SCH (11:00)
[2018-07-20] MEDS: (Lantus) Insulin Glargine, Recombinant SC SCH (11:00)
--- NOTE | 2018-07-20 13:07 | CP.PCM.PN ---
Subjective - Date & Time of Evaluation Date of Evaluation: 07/20/18 Time of Evaluation: 13:05 - Subjective Subjective: thoracentesis not done eating better BP better but still labile, stable dialysis 07/19 Objective - Vital Signs/Intake and Output Vital Signs (last 24 hours): Temp Pulse Resp BP Pulse Ox 97.5 F L 87 20 173/78 H 97 07/20/18 07:00 07/20/18 07:00 07/20/18 07:00 07/20/18 07:00 07/20/18 07:00 - Medications Medications: Current Medications Aspirin (Ecotrin) 81 mg PO DAILY [facility] Last Admin: 07/16/18 10:05 Dose: Not Given Calcium Acetate (Phoslo) 667 mg PO TIDAC [facility] Last Admin: 07/20/18 11:00 Dose: Not Given Carvedilol (Coreg) 25 mg PO BID [facility] Last Admin: 07/20/18 11:00 Dose: Not Given Clonidine HCl (Catapres) 0.2 mg PO BID [facility] Last Admin: 07/20/18 11:00 Dose: Not Given Ezetimibe (Zetia) 10 mg PO HS [facility] Last Admin: 07/19/18 21:49 Dose: 10 mg Epoetin Shawn (Procrit) 10,000 unit IV MWF [facility] Last Admin: 07/18/18 10:31 Dose: 10,000 unit Hydralazine HCl (Apresoline) 100 mg PO TID [facility] Last Admin: 07/20/18 11:00 Dose: Not Given Ceftriaxone Sodium 1 gm/ (Sodium Chloride) 100 mls @ 100 mls/hr IVPB DAILY [facility]; Protocol Last Admin: 07/20/18 11:00 Dose: Not Given Insulin Aspart (Novolog) 4 unit SC BIDAC [facility] Last Admin: 07/20/18 08:19 Dose: 4 units Insulin Glargine (Lantus) 7 unit SC QAM [facility] Last Admin: 07/20/18 11:00 Dose: Not Given Insulin Human Regular (Novolin R) 0 unit SC ACHS [facility]; Protocol Last Admin: 07/20/18 12:33 Dose: 5 unit Loperamide HCl (Imodium) 2 mg PO Q8H PRN PRN Reason: Diarrhea Losartan Potassium (Cozaar) 50 mg PO DAILY [facility] Last Admin: 07/20/18 11:00 Dose: Not Given Megestrol Acetate (Megace) 400 mg PO DAILY [facility] Last Admin: 07/20/18 11:00 Dose: Not Given Pantoprazole Sodium (Protonix Ec Tab) 40 mg PO DAILY [facility] Last Admin: 07/20/18 11:00 Dose: Not Given Rosuvastatin Calcium (Crestor) 10 mg PO HS [facility] Last Admin: 07/19/18 21:49 Dose: 10 mg Tacrolimus (Prograf) 5 mg PO QAM [facility] Last Admin: 07/20/18 11:00 Dose: Not Given Tacrolimus (Prograf) 5 mg PO QPM [facility] Last Admin: 07/19/18 18:10 Dose: 5 mg Vancomycin HCl (Vancocin (Oral Or Rectal Use)) 125 mg PO QID [facility]; Protocol Last Admin: 07/20/18 11:00 Dose: Not Given - Labs Labs: 07/19/18 06:36 07/17/18 06:29 - Constitutional Appears: No Acute Distress, Chronically Ill - Head Exam Head Exam: ATRAUMATIC, NORMAL INSPECTION - Eye Exam Eye Exam: EOMI, Normal appearance - Neck Exam Neck Exam: Normal Inspection. absent: Tenderness - Respiratory Exam Respiratory Exam: Clear to Ausculation Bilateral, NORMAL BREATHING PATTERN - Cardiovascular Exam Cardiovascular Exam: REGULAR RHYTHM, +S1 - GI/Abdominal Exam GI & Abdominal Exam: Soft. absent: Tenderness - Extremities Exam Extremities Exam: Normal Inspection. absent: Tenderness - Neurological Exam Neurological Exam: Awake, CN II-XII Intact - Skin Skin Exam: Dry, Warm Assessment and Plan (1) History of heart transplant Status: Acute (2) Hyperglycemia Status: Acute (3) Altered mental status Status: Acute (4) Diabetes mellitus Status: Chronic (5) End stage renal disease Status: Chronic (6) Hypercholesteremia Status: Chronic (7) Fluid overload Status: Acute - Assessment and Plan (Free Text) Plan: increase UF goal with dialysis same EPO monitor BP
[2018-07-20] MEDS: Epoetin Alfa 10,000 unit/ml Dialysis IV SCH (16:01)
--- NOTE | 2018-07-20 17:40 | CARD ---
APPROVED REPORT Date of service: 07/09/2018 EKG Measurement Heart [id number] <Conclusion> Normal sinus rhythm ST & T wave abnormality, consider anterior ischemia Prolonged QT Abnormal ECG
--- NOTE | 2018-07-20 21:41 | CP.PCM.PN ---
Subjective - Date & Time of Evaluation Date of Evaluation: 07/20/18 Time of Evaluation: 21:39 - Subjective Subjective: No bleeding. Diarrhea reported less. No H/H reported today Objective - Vital Signs/Intake and Output Vital Signs (last 24 hours): Temp Pulse Resp BP Pulse Ox 98.0 F 85 20 184/95 H 100 07/20/18 18:00 07/20/18 18:00 07/20/18 18:00 07/20/18 20:02 07/20/18 18:00 Intake and Output: 07/20/18 07/21/18 18:59 06:59 Intake Total 150 Balance 150 - Medications Medications: Current Medications Aspirin (Ecotrin) 81 mg PO DAILY [facility] Last Admin: 07/16/18 10:05 Dose: Not Given Calcium Acetate (Phoslo) 667 mg PO TIDAC [facility] Last Admin: 07/20/18 17:00 Dose: Not Given Carvedilol (Coreg) 25 mg PO BID [facility] Last Admin: 07/20/18 20:02 Dose: 25 mg Clonidine HCl (Catapres) 0.2 mg PO BID [facility] Last Admin: 07/20/18 17:00 Dose: 0.2 mg Ezetimibe (Zetia) 10 mg PO HS [facility] Last Admin: 07/19/18 21:49 Dose: 10 mg Epoetin Shawn (Procrit) 10,000 unit IV MWF [facility] Last Admin: 07/20/18 16:01 Dose: 10,000 unit Hydralazine HCl (Apresoline) 100 mg PO TID [facility] Last Admin: 07/20/18 19:00 Dose: 100 mg Ceftriaxone Sodium 1 gm/ (Sodium Chloride) 100 mls @ 100 mls/hr IVPB DAILY [facility]; Protocol Last Admin: 07/20/18 11:00 Dose: Not Given Insulin Aspart (Novolog) 4 unit SC BIDAC [facility] Last Admin: 07/20/18 16:00 Dose: Not Given Insulin Glargine (Lantus) 7 unit SC QAM [facility] Last Admin: 07/20/18 11:00 Dose: Not Given Insulin Human Regular (Novolin R) 0 unit SC ACHS [facility]; Protocol Last Admin: 07/20/18 16:00 Dose: Not Given Loperamide HCl (Imodium) 2 mg PO Q8H PRN PRN Reason: Diarrhea Losartan Potassium (Cozaar) 50 mg PO DAILY [facility] Last Admin: 07/20/18 11:00 Dose: Not Given Megestrol Acetate (Megace) 400 mg PO DAILY [facility] Last Admin: 07/20/18 11:00 Dose: Not Given Pantoprazole Sodium (Protonix Ec Tab) 40 mg PO DAILY [facility] Last Admin: 07/20/18 11:00 Dose: Not Given Rosuvastatin Calcium (Crestor) 10 mg PO HS [facility] Last Admin: 07/19/18 21:49 Dose: 10 mg Tacrolimus (Prograf) 5 mg PO QAM [facility] Last Admin: 07/20/18 11:00 Dose: Not Given Tacrolimus (Prograf) 5 mg PO QPM [facility] Last Admin: 07/20/18 19:00 Dose: 5 mg Vancomycin HCl (Vancocin (Oral Or Rectal Use)) 125 mg PO QID [facility]; Protocol Last Admin: 07/20/18 19:00 Dose: 125 mg - Labs Labs: 07/19/18 06:36 07/17/18 06:29 - Constitutional Appears: No Acute Distress, Cachectic, Chronically Ill - Respiratory Exam Respiratory Exam: Decreased Breath Sounds - Cardiovascular Exam Cardiovascular Exam: REGULAR RHYTHM, +S1 - GI/Abdominal Exam GI & Abdominal Exam: Soft, Hyperactive Bowel Sounds Additional comments: non tender, no masses or rebound. mildly hyperactive bowel sounds - Extremities Exam Extremities Exam: Pedal Edema Assessment and Plan (1) Rectal bleeding Assessment & Plan: No overt bleeding. Monitor and repeat CBC Stool studies ordered but none reported as of yet. Supportive care. Prognosis poor. Status: Acute (2) Anemia of chronic renal failure Status: Chronic (3) Diverticulosis Status: Chronic (4) Heart transplant status Status: Chronic (5) Fatty liver Status: Chronic
[2018-07-21] MEDS ORDERED: (Novolog) Insulin Aspart, Recombinant 100 u/ml 10 ml vial SC ONE (02:29)
[2018-07-21 08:13] LABS: HEMOGLOBIN 8.3 g/dL (12.0-18.0); MEAN CELL VOLUME 88.5 fL (80.0-94.0); MEAN CORPUSCULAR HEMOGLOBIN 29.3 pg (27.0-31.0); MEAN CORPUSCULAR HGB CONC 33.1 g/dL (33.0-37.0); MEAN PLATELET VOLUME 9.1 fL (7.2-11.7); RBC 2.81 Mil/uL (4.40-5.90); RED CELL DISTRIBUTION WIDTH 16.4 % (11.5-14.5); WHITE BLOOD COUNT 9.2 K/uL (4.8-10.8)
[2018-07-21] MEDS: (Novolin R) Insulin Human Regular 100 units/ml vial SC SCH ×4 (08:24→21:27)
[2018-07-21] MEDS: (Novolog) Insulin Aspart, Recombinant 100 u/ml 10 ml vial SC SCH ×2 (08:24→17:24)
[2018-07-21] MEDS: Megestrol Acetate 40 mg/ml Cup PO SCH (10:32)
[2018-07-21] MEDS: Pantoprazole 40 mg EC Tab PO SCH (10:32)
[2018-07-21] MEDS: (Lantus) Insulin Glargine, Recombinant SC SCH (10:33)
[2018-07-21] MEDS: VANCOMYCIN 125 MG/5 ML PO SCH ×4 (10:35→21:42)
--- NOTE | 2018-07-21 10:45 | CP.PCM.PN ---
Subjective - Date & Time of Evaluation Date of Evaluation: 07/21/18 Time of Evaluation: 10:43 - Subjective Subjective: No current bleeding H/H stable Objective - Vital Signs/Intake and Output Vital Signs (last 24 hours): Temp Pulse Resp BP Pulse Ox 98.1 F 86 18 179/90 H 96 07/21/18 04:41 07/21/18 08:47 07/21/18 08:47 07/21/18 10:32 07/21/18 08:47 Intake and Output: 07/21/18 07/21/18 06:59 18:59 Intake Total 240 Output Total 0 Balance 240 - Medications Medications: Current Medications Aspirin (Ecotrin) 81 mg PO DAILY [facility] Last Admin: 07/16/18 10:05 Dose: Not Given Calcium Acetate (Phoslo) 667 mg PO TIDAC [facility] Last Admin: 07/21/18 08:23 Dose: 667 mg Carvedilol (Coreg) 25 mg PO BID [facility] Last Admin: 07/21/18 10:32 Dose: 25 mg Clonidine HCl (Catapres) 0.2 mg PO BID [facility] Last Admin: 07/21/18 10:31 Dose: 0.2 mg Ezetimibe (Zetia) 10 mg PO HS [facility] Last Admin: 07/20/18 22:42 Dose: 10 mg Epoetin Shawn (Procrit) 10,000 unit IV MWF [facility] Last Admin: 07/20/18 16:01 Dose: 10,000 unit Hydralazine HCl (Apresoline) 100 mg PO TID [facility] Last Admin: 07/21/18 10:32 Dose: 100 mg Ceftriaxone Sodium 1 gm/ (Sodium Chloride) 100 mls @ 100 mls/hr IVPB DAILY [facility]; Protocol Last Admin: 07/21/18 10:30 Dose: 100 mls/hr Insulin Aspart (Novolog) 4 unit SC BIDAC [facility] Last Admin: 07/21/18 08:24 Dose: 4 units Insulin Glargine (Lantus) 7 unit SC QAM [facility] Last Admin: 07/21/18 10:33 Dose: 7 unit Insulin Human Regular (Novolin R) 0 unit SC ACHS [facility]; Protocol Last Admin: 07/21/18 08:24 Dose: 4 unit Loperamide HCl (Imodium) 2 mg PO Q8H PRN PRN Reason: Diarrhea Losartan Potassium (Cozaar) 50 mg PO DAILY [facility] Last Admin: 07/21/18 10:32 Dose: 50 mg Megestrol Acetate (Megace) 400 mg PO DAILY [facility] Last Admin: 07/21/18 10:32 Dose: 400 mg Pantoprazole Sodium (Protonix Ec Tab) 40 mg PO DAILY [facility] Last Admin: 07/21/18 10:32 Dose: 40 mg Rosuvastatin Calcium (Crestor) 10 mg PO HS [facility] Last Admin: 07/20/18 21:55 Dose: 10 mg Tacrolimus (Prograf) 5 mg PO QAM [facility] Last Admin: 07/21/18 10:32 Dose: 5 mg Tacrolimus (Prograf) 5 mg PO QPM [facility] Last Admin: 07/20/18 19:00 Dose: 5 mg Vancomycin HCl (Vancocin (Oral Or Rectal Use)) 125 mg PO QID [facility]; Protocol Last Admin: 07/21/18 10:35 Dose: 125 mg - Labs Labs: 07/21/18 07:55 07/17/18 06:29 - Constitutional Appears: No Acute Distress, Cachectic, Chronically Ill - Respiratory Exam Respiratory Exam: Decreased Breath Sounds - Cardiovascular Exam Cardiovascular Exam: REGULAR RHYTHM - GI/Abdominal Exam GI & Abdominal Exam: Soft, Normal Bowel Sounds. absent: Tenderness Assessment and Plan (1) Rectal bleeding Assessment & Plan: No further bleeding. Awaiting stool studies as ordered\ Supportive care Will follow as needed. Status: Acute (2) Anemia of chronic renal failure Status: Chronic (3) Diverticulosis Status: Chronic (4) Heart transplant status Status: Chronic (5) Fatty liver Status: Chronic
--- NOTE | 2018-07-21 10:53 | CP.PCM.PN ---
Subjective - Date & Time of Evaluation Date of Evaluation: 07/21/18 Time of Evaluation: 10:50 - Subjective Subjective: Notes reviewed Comfortable in bed No new complaints No diarrhea this am No bleeding reported Tolerating dialysis well 10 point ros negative other than fatigue and weakness Objective - Vital Signs/Intake and Output Vital Signs (last 24 hours): Temp Pulse Resp BP Pulse Ox 98.1 F 86 18 179/90 H 96 07/21/18 04:41 07/21/18 08:47 07/21/18 08:47 07/21/18 10:32 07/21/18 08:47 Intake and Output: 07/21/18 07/21/18 06:59 18:59 Intake Total 240 Output Total 0 Balance 240 - Medications Medications: Current Medications Aspirin (Ecotrin) 81 mg PO DAILY [facility] Last Admin: 07/16/18 10:05 Dose: Not Given Calcium Acetate (Phoslo) 667 mg PO TIDAC [facility] Last Admin: 07/21/18 08:23 Dose: 667 mg Carvedilol (Coreg) 25 mg PO BID [facility] Last Admin: 07/21/18 10:32 Dose: 25 mg Clonidine HCl (Catapres) 0.2 mg PO BID [facility] Last Admin: 07/21/18 10:31 Dose: 0.2 mg Ezetimibe (Zetia) 10 mg PO HS [facility] Last Admin: 07/20/18 22:42 Dose: 10 mg Epoetin Shawn (Procrit) 10,000 unit IV MWF [facility] Last Admin: 07/20/18 16:01 Dose: 10,000 unit Hydralazine HCl (Apresoline) 100 mg PO TID [facility] Last Admin: 07/21/18 10:32 Dose: 100 mg Ceftriaxone Sodium 1 gm/ (Sodium Chloride) 100 mls @ 100 mls/hr IVPB DAILY [facility]; Protocol Last Admin: 07/21/18 10:30 Dose: 100 mls/hr Insulin Aspart (Novolog) 4 unit SC BIDAC [facility] Last Admin: 07/21/18 08:24 Dose: 4 units Insulin Glargine (Lantus) 7 unit SC QAM [facility] Last Admin: 07/21/18 10:33 Dose: 7 unit Insulin Human Regular (Novolin R) 0 unit SC ACHS [facility]; Protocol Last Admin: 07/21/18 08:24 Dose: 4 unit Loperamide HCl (Imodium) 2 mg PO Q8H PRN PRN Reason: Diarrhea Losartan Potassium (Cozaar) 50 mg PO DAILY [facility] Last Admin: 07/21/18 10:32 Dose: 50 mg Megestrol Acetate (Megace) 400 mg PO DAILY [facility] Last Admin: 07/21/18 10:32 Dose: 400 mg Pantoprazole Sodium (Protonix Ec Tab) 40 mg PO DAILY [facility] Last Admin: 07/21/18 10:32 Dose: 40 mg Rosuvastatin Calcium (Crestor) 10 mg PO HS [facility] Last Admin: 07/20/18 21:55 Dose: 10 mg Tacrolimus (Prograf) 5 mg PO QAM [facility] Last Admin: 07/21/18 10:32 Dose: 5 mg Tacrolimus (Prograf) 5 mg PO QPM [facility] Last Admin: 07/20/18 19:00 Dose: 5 mg Vancomycin HCl (Vancocin (Oral Or Rectal Use)) 125 mg PO QID [facility]; Protocol Last Admin: 07/21/18 10:35 Dose: 125 mg - Labs Labs: 07/21/18 07:55 07/17/18 06:29 - Constitutional Appears: Non-toxic, Chronically Ill - Head Exam Head Exam: ATRAUMATIC, NORMAL INSPECTION - Eye Exam Eye Exam: EOMI, Normal appearance - ENT Exam ENT Exam: Mucous Membranes Moist, Normal Exam - Neck Exam Neck Exam: absent: Lymphadenopathy, Thyromegaly - Respiratory Exam Respiratory Exam: NORMAL BREATHING PATTERN. absent: Rhonchi, Wheezes - Cardiovascular Exam Cardiovascular Exam: +S1, +S2. absent: Rubs - GI/Abdominal Exam GI & Abdominal Exam: Soft, Normal Bowel Sounds - Extremities Exam Extremities Exam: absent: Joint Swelling, Tenderness - Back Exam Back Exam: absent: rash noted, tenderness - Neurological Exam Neurological Exam: Alert, Awake - Skin Skin Exam: Dry, Intact Assessment and Plan (1) History of heart transplant Status: Acute (2) Rectal bleeding Status: Acute (3) Anemia Status: Acute (4) ESRD (end stage renal disease) Status: Acute (5) HTN (hypertension) Status: Acute (6) Pleural effusion Status: Acute - Assessment and Plan (Free Text) Assessment: Maintain dialysis schedule Next treatment 07/23 Bp meds increased - monitor response IR note reviewed - thoracentesis not possible, consider thoracic evaluation Continue current care / pt as tolerated
[2018-07-22] MEDS: (Novolin R) Insulin Human Regular 100 units/ml vial SC SCH ×4 (07:48→21:12)
[2018-07-22] MEDS: (Novolog) Insulin Aspart, Recombinant 100 u/ml 10 ml vial SC SCH ×2 (07:49→17:33)
[2018-07-22] MEDS: Megestrol Acetate 40 mg/ml Cup PO SCH (10:14)
[2018-07-22] MEDS: Pantoprazole 40 mg EC Tab PO SCH (10:14)
[2018-07-22] MEDS: (Lantus) Insulin Glargine, Recombinant SC SCH (10:14)
[2018-07-22] MEDS: VANCOMYCIN 125 MG/5 ML PO SCH ×4 (10:14→21:13)
--- NOTE | 2018-07-22 11:41 | CP.PCM.PN ---
Subjective - Date & Time of Evaluation Date of Evaluation: 07/22/18 Time of Evaluation: 11:40 - Subjective Subjective: No bleeding. Patient sleeping in bed Objective - Vital Signs/Intake and Output Vital Signs (last 24 hours): Temp Pulse Resp BP Pulse Ox 97.9 F 110 H 20 121/68 100 07/22/18 08:39 07/22/18 08:39 07/22/18 08:39 07/22/18 10:15 07/22/18 08:39 Intake and Output: 07/22/18 07/22/18 06:59 18:59 Intake Total 490 Balance 490 - Medications Medications: Current Medications Aspirin (Ecotrin) 81 mg PO DAILY [facility] Last Admin: 07/16/18 10:05 Dose: Not Given Calcium Acetate (Phoslo) 667 mg PO TIDAC [facility] Last Admin: 07/22/18 07:48 Dose: 667 mg Carvedilol (Coreg) 25 mg PO BID [facility] Last Admin: 07/22/18 10:15 Dose: 25 mg Clonidine HCl (Catapres) 0.2 mg PO BID [facility] Last Admin: 07/22/18 10:15 Dose: 0.2 mg Ezetimibe (Zetia) 10 mg PO HS [facility] Last Admin: 07/21/18 21:41 Dose: 10 mg Epoetin Shawn (Procrit) 10,000 unit IV MWF [facility] Last Admin: 07/20/18 16:01 Dose: 10,000 unit Hydralazine HCl (Apresoline) 100 mg PO TID [facility] Last Admin: 07/22/18 10:15 Dose: 100 mg Ceftriaxone Sodium 1 gm/ (Sodium Chloride) 100 mls @ 100 mls/hr IVPB DAILY [facility]; Protocol Last Admin: 07/22/18 10:14 Dose: 100 mls/hr Insulin Aspart (Novolog) 4 unit SC BIDAC [facility] Last Admin: 07/22/18 07:49 Dose: 4 units Insulin Glargine (Lantus) 7 unit SC QAM [facility] Last Admin: 07/22/18 10:14 Dose: 7 unit Insulin Human Regular (Novolin R) 0 unit SC ACHS [facility]; Protocol Last Admin: 07/22/18 07:48 Dose: 6 unit Loperamide HCl (Imodium) 2 mg PO Q8H PRN PRN Reason: Diarrhea Losartan Potassium (Cozaar) 50 mg PO DAILY [facility] Last Admin: 07/22/18 10:14 Dose: 50 mg Megestrol Acetate (Megace) 400 mg PO DAILY [facility] Last Admin: 07/22/18 10:14 Dose: 400 mg Pantoprazole Sodium (Protonix Ec Tab) 40 mg PO DAILY [facility] Last Admin: 07/22/18 10:14 Dose: 40 mg Rosuvastatin Calcium (Crestor) 10 mg PO HS [facility] Last Admin: 07/21/18 21:41 Dose: 10 mg Tacrolimus (Prograf) 5 mg PO QAM [facility] Last Admin: 07/22/18 10:15 Dose: 5 mg Tacrolimus (Prograf) 5 mg PO QPM [facility] Last Admin: 07/21/18 17:27 Dose: 5 mg Vancomycin HCl (Vancocin (Oral Or Rectal Use)) 125 mg PO QID [facility]; Protocol Last Admin: 07/22/18 10:14 Dose: 125 mg - Labs Labs: 07/21/18 07:55 07/17/18 06:29 - Constitutional Appears: No Acute Distress, Cachectic, Chronically Ill - Eye Exam Eye Exam: EOMI, PERRL - Respiratory Exam Respiratory Exam: NORMAL BREATHING PATTERN - Cardiovascular Exam Cardiovascular Exam: REGULAR RHYTHM - GI/Abdominal Exam GI & Abdominal Exam: Soft, Normal Bowel Sounds. absent: Tenderness Assessment and Plan (1) Rectal bleeding Assessment & Plan: Monitor for further bleeding. Stable for the past several days. No further work up planned at this time. Will follow with you as needed. Status: Acute (2) Anemia of chronic renal failure Status: Chronic (3) Diverticulosis Status: Chronic (4) Heart transplant status Status: Chronic (5) Fatty liver Status: Chronic
[2018-07-23] MEDS: (Novolin R) Insulin Human Regular 100 units/ml vial SC SCH ×3 (07:46→17:30)
[2018-07-23] MEDS: (Novolog) Insulin Aspart, Recombinant 100 u/ml 10 ml vial SC SCH ×2 (07:47→17:34)
[2018-07-23 07:49] LABS: BASO # 0.1 K/uL (0.0-0.2); BASO % 1.3 % (0.0-2.0); EOS # 0.1 K/uL (0.0-0.7); EOS % 1.5 % (0.0-4.0); HEMOGLOBIN 8.6 g/dL (12.0-18.0); LYMPH # 0.4 K/uL (1.0-4.3); LYMPH % 5.1 % (20.0-40.0); MEAN CELL VOLUME 89.3 fL (80.0-94.0); MEAN CORPUSCULAR HGB CONC 33.6 g/dL (33.0-37.0); MEAN PLATELET VOLUME 9.3 fL (7.2-11.7); MONO # 0.6 K/uL (0.0-0.8); MONO % 7.5 % (0.0-10.0); NEUT # 7.1 K/uL (1.8-7.0); NEUT % 84.6 % (50.0-75.0); PLATELET COUNT 327 K/uL (130-400); RBC 2.86 Mil/uL (4.40-5.90); RED CELL DISTRIBUTION WIDTH 17.5 % (11.5-14.5); WHITE BLOOD COUNT 8.3 K/uL (4.8-10.8)
[2018-07-23 08:15] LABS: ALB/GLOB RATIO 0.6 (1.0-2.1); CALCIUM 9.1 mg/dl (8.6-10.4)
--- NOTE | 2018-07-23 10:06 | US ---
Limited left min thorax ultrasound HISTORY: Left pleural effusion. COMPARISON: X-ray dated 07/19/2018 TECHNIQUE: Limited left min thorax ultrasound was performed. FINDINGS: Left pleural effusion. Adjacent lung consolidation. Impression: Limited study. Left pleural effusion. Adjacent lung consolidation.
[2018-07-23] MEDS: Epoetin Alfa 10,000 unit/ml Dialysis IV SCH (10:12)
[2018-07-23 10:40] LABS: ANISOCYTOSIS SLIGHT; BANDS 4 % (0-2); EOSINOPHIL 3 % (0-4); LYMPHOCYTE 6 % (20-40); MONOCYTE 6 % (0-10); NEUTROPHIL 81 % (50-75); PLATELET ESTIMATE NORMAL (NORMAL); POIKILOCYTOSIS SLIGHT; TOTAL CELLS COUNTED 100
[2018-07-23 10:41] LABS: LARGE PLATELETS PRESENT; TARGET CELLS SLIGHT
[2018-07-23] MEDS: Megestrol Acetate 40 mg/ml Cup PO SCH (10:44)
[2018-07-23] MEDS: Pantoprazole 40 mg EC Tab PO SCH (10:44)
[2018-07-23] MEDS: (Lantus) Insulin Glargine, Recombinant SC SCH (10:44)
--- NOTE | 2018-07-23 12:28 | CP.PCM.PN ---
Subjective - Date & Time of Evaluation Date of Evaluation: 07/23/18 Time of Evaluation: 12:25 - Subjective Subjective: seen at dialysis BP still uncontrolled to UF 3400ml sleepy, mental status about same Objective - Vital Signs/Intake and Output Vital Signs (last 24 hours): Temp Pulse Resp BP Pulse Ox 98.2 F 82 21 184/99 H 96 07/23/18 09:20 07/23/18 09:20 07/23/18 09:20 07/23/18 12:20 07/23/18 09:20 Intake and Output: 07/23/18 07/23/18 06:59 18:59 Intake Total 370 Balance 370 - Medications Medications: Current Medications Aspirin (Ecotrin) 81 mg PO DAILY [facility] Last Admin: 07/16/18 10:05 Dose: Not Given Calcium Acetate (Phoslo) 667 mg PO TIDAC [facility] Last Admin: 07/23/18 07:47 Dose: Not Given Carvedilol (Coreg) 25 mg PO BID [facility] Last Admin: 07/23/18 10:43 Dose: Not Given Clonidine HCl (Catapres) 0.2 mg PO BID [facility] Last Admin: 07/23/18 10:43 Dose: Not Given Ezetimibe (Zetia) 10 mg PO HS [facility] Last Admin: 07/22/18 21:13 Dose: 10 mg Epoetin Shawn (Procrit) 10,000 unit IV MWF [facility] Last Admin: 07/23/18 10:12 Dose: 10,000 unit Hydralazine HCl (Apresoline) 100 mg PO TID [facility] Last Admin: 07/23/18 10:43 Dose: Not Given Ceftriaxone Sodium 1 gm/ (Sodium Chloride) 100 mls @ 100 mls/hr IVPB DAILY [facility]; Protocol Last Admin: 07/23/18 10:44 Dose: Not Given Insulin Aspart (Novolog) 4 unit SC BIDAC [facility] Last Admin: 07/23/18 07:47 Dose: 4 units Insulin Glargine (Lantus) 7 unit SC QAM [facility] Last Admin: 07/23/18 10:44 Dose: Not Given Insulin Human Regular (Novolin R) 0 unit SC ACHS [facility]; Protocol Last Admin: 07/23/18 07:46 Dose: 5 unit Loperamide HCl (Imodium) 2 mg PO Q8H PRN PRN Reason: Diarrhea Losartan Potassium (Cozaar) 50 mg PO DAILY [facility] Last Admin: 07/23/18 10:45 Dose: Not Given Megestrol Acetate (Megace) 400 mg PO DAILY [facility] Last Admin: 07/23/18 10:44 Dose: Not Given Pantoprazole Sodium (Protonix Ec Tab) 40 mg PO DAILY [facility] Last Admin: 07/23/18 10:44 Dose: Not Given Rosuvastatin Calcium (Crestor) 10 mg PO HS [facility] Last Admin: 07/22/18 21:13 Dose: 10 mg Tacrolimus (Prograf) 5 mg PO QAM [facility] Last Admin: 07/23/18 10:44 Dose: Not Given Tacrolimus (Prograf) 5 mg PO QPM [facility] Last Admin: 07/22/18 17:32 Dose: 5 mg - Labs Labs: 07/23/18 07:37 07/23/18 07:37 - Constitutional Appears: No Acute Distress, Chronically Ill - Head Exam Head Exam: ATRAUMATIC, NORMAL INSPECTION - Eye Exam Eye Exam: EOMI, Normal appearance - Neck Exam Neck Exam: Normal Inspection. absent: Tenderness - Respiratory Exam Respiratory Exam: Clear to Ausculation Bilateral, NORMAL BREATHING PATTERN - Cardiovascular Exam Cardiovascular Exam: REGULAR RHYTHM, +S1 - GI/Abdominal Exam GI & Abdominal Exam: Soft. absent: Tenderness - Extremities Exam Extremities Exam: Normal Inspection. absent: Tenderness - Neurological Exam Neurological Exam: Altered - Skin Skin Exam: Dry, Warm Assessment and Plan (1) History of heart transplant Status: Acute (2) Hyperglycemia Status: Acute (3) Altered mental status Status: Acute (4) Diabetes mellitus Status: Chronic (5) End stage renal disease Status: Chronic (6) Hypercholesteremia Status: Chronic (7) Fluid overload Status: Acute - Assessment and Plan (Free Text) Plan: aggressive UF goal Increase BP meds monitor mental status check labs
--- NOTE | 2018-07-23 13:09 | RAD ---
Date of service: 07/22/2018 HISTORY: sob COMPARISON: Chest radiograph dated 07/19/2018. FINDINGS: LUNGS: Pulmonary vascular congestion. Bibasilar atelectasis. Bibasilar infiltrates not excluded. PLEURA: Small bilateral pleural effusions. No appreciable pneumothorax. CARDIOVASCULAR: Prior sternotomy with sternal wires and surgical clips in place. Aortic atherosclerotic calcifications. Cardiomediastinal silhouette stably enlarged. OSSEOUS STRUCTURES: Unchanged. VISUALIZED UPPER ABDOMEN: Normal. OTHER FINDINGS: None. IMPRESSION: Grossly similar pulmonary vascular congestion and small bilateral pleural effusions with bibasilar infiltrates not excluded.
--- NOTE | 2018-07-23 16:02 | CP.PCM.PN ---
Subjective - Date & Time of Evaluation Date of Evaluation: 07/23/18 Time of Evaluation: 16:00 - Subjective Subjective: No bleeding H/H are stable Patient is sleeping Objective - Vital Signs/Intake and Output Vital Signs (last 24 hours): Temp Pulse Resp BP Pulse Ox 98.2 F 78 21 103/38 L 96 07/23/18 12:50 07/23/18 12:50 07/23/18 12:50 07/23/18 12:50 07/23/18 09:20 Intake and Output: 07/23/18 07/23/18 06:59 18:59 Intake Total 370 250 Balance 370 250 - Medications Medications: Current Medications Aspirin (Ecotrin) 81 mg PO DAILY [facility] Last Admin: 07/16/18 10:05 Dose: Not Given Calcium Acetate (Phoslo) 667 mg PO TIDAC [facility] Last Admin: 07/23/18 12:30 Dose: Not Given Carvedilol (Coreg) 25 mg PO BID [facility] Last Admin: 07/23/18 10:43 Dose: Not Given Clonidine HCl (Catapres) 0.2 mg PO TID [facility] Last Admin: 07/23/18 13:24 Dose: 0.2 mg Ezetimibe (Zetia) 10 mg PO HS [facility] Last Admin: 07/22/18 21:13 Dose: 10 mg Epoetin Shawn (Procrit) 10,000 unit IV MWF [facility] Last Admin: 07/23/18 10:12 Dose: 10,000 unit Hydralazine HCl (Apresoline) 100 mg PO TID [facility] Last Admin: 07/23/18 13:23 Dose: 100 mg Ceftriaxone Sodium 1 gm/ (Sodium Chloride) 100 mls @ 100 mls/hr IVPB DAILY [facility]; Protocol Last Admin: 07/23/18 13:25 Dose: 100 mls/hr Insulin Aspart (Novolog) 4 unit SC BIDAC [facility] Last Admin: 07/23/18 07:47 Dose: 4 units Insulin Glargine (Lantus) 7 unit SC QAM [facility] Last Admin: 07/23/18 10:44 Dose: Not Given Insulin Human Regular (Novolin R) 0 unit SC ACHS [facility]; Protocol Last Admin: 07/23/18 13:24 Dose: 2 unit Loperamide HCl (Imodium) 2 mg PO Q8H PRN PRN Reason: Diarrhea Losartan Potassium (Cozaar) 100 mg PO DAILY [facility] Last Admin: 07/23/18 13:23 Dose: 100 mg Megestrol Acetate (Megace) 400 mg PO DAILY [facility] Last Admin: 07/23/18 10:44 Dose: Not Given Pantoprazole Sodium (Protonix Ec Tab) 40 mg PO DAILY [facility] Last Admin: 07/23/18 10:44 Dose: Not Given Rosuvastatin Calcium (Crestor) 10 mg PO HS [facility] Last Admin: 07/22/18 21:13 Dose: 10 mg Tacrolimus (Prograf) 5 mg PO QAM [facility] Last Admin: 07/23/18 10:44 Dose: Not Given Tacrolimus (Prograf) 5 mg PO QPM [facility] Last Admin: 07/22/18 17:32 Dose: 5 mg - Labs Labs: 07/23/18 07:37 07/23/18 07:37 - Constitutional Appears: Cachectic, Chronically Ill - Respiratory Exam Respiratory Exam: Decreased Breath Sounds - Cardiovascular Exam Cardiovascular Exam: REGULAR RHYTHM - GI/Abdominal Exam GI & Abdominal Exam: Soft, Hypoactive Bowel Sounds. absent: Tenderness Assessment and Plan (1) Rectal bleeding Assessment & Plan: No further bleeding and H/H remain stable. Will sign off at this time. Recall as needed. Thank you. Status: Resolved (2) Anemia of chronic renal failure Status: Chronic (3) Diverticulosis Status: Chronic (4) Heart transplant status Status: Chronic (5) Fatty liver Status: Chronic
--- NOTE | 2018-07-23 20:35 | CP.PCM.PN ---
Subjective - Date & Time of Evaluation Date of Evaluation: 07/23/18 Time of Evaluation: 20:33 - Subjective Subjective: The patient this morning had a hemodialysis Now he is able to sit up. He was able to eat. Less shortness of breath noted. Yesterday chest x-ray showing evidence of diffuse CHF pattern. After the dialysis he is feeling some better. On examination: Vital signs otherwise stable. Chest good air entry. Wheezing noted. Abdomen soft extremities no pedal edema I spoke to the patient's currently on antibiotic. Patient's does not want him to go to the rehab. Possibly will discharge him to home with home physical therapy. Patient is a 63-year-old male with a history of heart transplant, end-stage renal disease on dialysis on immunosuppressive treatment Admitted with a recurrent pulmonary edema Possible pneumonia Sepsis. Currently improving. We will continue the current treatment Objective - Vital Signs/Intake and Output Vital Signs (last 24 hours): Temp Pulse Resp BP Pulse Ox 99.3 F 84 22 133/69 98 07/23/18 16:00 07/23/18 16:00 07/23/18 16:00 07/23/18 17:35 07/23/18 16:00 Intake and Output: 07/23/18 07/24/18 18:59 06:59 Intake Total 250 Balance 250 - Medications Medications: Current Medications Aspirin (Ecotrin) 81 mg PO DAILY [facility] Last Admin: 07/16/18 10:05 Dose: Not Given Calcium Acetate (Phoslo) 667 mg PO TIDAC [facility] Last Admin: 07/23/18 17:36 Dose: 667 mg Carvedilol (Coreg) 25 mg PO BID [facility] Last Admin: 07/23/18 17:35 Dose: 25 mg Clonidine HCl (Catapres) 0.2 mg PO TID [facility] Last Admin: 07/23/18 17:38 Dose: 0.2 mg Ezetimibe (Zetia) 10 mg PO HS [facility] Last Admin: 07/22/18 21:13 Dose: 10 mg Epoetin Shawn (Procrit) 10,000 unit IV MWF [facility] Last Admin: 07/23/18 10:12 Dose: 10,000 unit Hydralazine HCl (Apresoline) 100 mg PO TID [facility] Last Admin: 07/23/18 17:39 Dose: 100 mg Ceftriaxone Sodium 1 gm/ (Sodium Chloride) 100 mls @ 100 mls/hr IVPB DAILY [facility]; Protocol Last Admin: 07/23/18 13:25 Dose: 100 mls/hr Insulin Aspart (Novolog) 4 unit SC BIDAC [facility] Last Admin: 07/23/18 17:34 Dose: 4 units Insulin Glargine (Lantus) 7 unit SC QAM [facility] Last Admin: 07/23/18 10:44 Dose: Not Given Insulin Human Regular (Novolin R) 0 unit SC ACHS [facility]; Protocol Last Admin: 07/23/18 17:30 Dose: 2 unit Loperamide HCl (Imodium) 2 mg PO Q8H PRN PRN Reason: Diarrhea Losartan Potassium (Cozaar) 100 mg PO DAILY [facility] Last Admin: 07/23/18 13:23 Dose: 100 mg Megestrol Acetate (Megace) 400 mg PO DAILY [facility] Last Admin: 07/23/18 10:44 Dose: Not Given Pantoprazole Sodium (Protonix Ec Tab) 40 mg PO DAILY [facility] Last Admin: 07/23/18 10:44 Dose: Not Given Rosuvastatin Calcium (Crestor) 10 mg PO HS [facility] Last Admin: 07/22/18 21:13 Dose: 10 mg Tacrolimus (Prograf) 5 mg PO QAM [facility] Last Admin: 07/23/18 10:44 Dose: Not Given Tacrolimus (Prograf) 5 mg PO QPM [facility] Last Admin: 07/23/18 17:36 Dose: 5 mg - Labs Labs: 07/23/18 07:37 07/23/18 07:37
[2018-07-24] MEDS: (Novolin R) Insulin Human Regular 100 units/ml vial SC SCH ×5 (07:52→21:49)
[2018-07-24] MEDS: (Novolog) Insulin Aspart, Recombinant 100 u/ml 10 ml vial SC SCH ×2 (08:56→17:57)
[2018-07-24] MEDS: Pantoprazole 40 mg EC Tab PO SCH (09:01)
[2018-07-24] MEDS: (Lantus) Insulin Glargine, Recombinant SC SCH (09:04)
[2018-07-24] MEDS: Megestrol Acetate 40 mg/ml Cup PO SCH (09:04)
--- NOTE | 2018-07-24 18:15 | CP.PCM.PN ---
Subjective - Date & Time of Evaluation Date of Evaluation: 07/24/18 Time of Evaluation: 18:13 - Subjective Subjective: Patient received hemodialysis yesterday. Today he is feeling much better. He has a less shortness of breath. No swelling noted in the legs. He denies any chest pain, no shortness of breath noted at this time. Vital signs stable. Chest good air entry minimal expiratory wheezing noted nontender abdomen Labs reviewed We will get the repeat labs tomorrow and chest x-ray in the morning. He will be getting the hemodialysis tomorrow. We will also give 1 dose of vancomycin during the dialysis in the morning. No diarrhea noted. Patient is a 63-year-old male with history of diabetes hypertension end-stage renal disease history of heart transplant on immunosuppressive treatment. Admitted with the sepsis, diarrhea, improving. Most likely nosocomial infection, and antibiotic associated diarrhea. Stable at this time. After the dialysis we decide about the possible discharge plan Objective - Vital Signs/Intake and Output Vital Signs (last 24 hours): Temp Pulse Resp BP Pulse Ox 98.4 F 85 20 158/73 H 97 07/24/18 08:48 07/24/18 08:48 07/24/18 08:48 07/24/18 17:53 07/24/18 08:48 Intake and Output: 07/24/18 07/24/18 06:59 18:59 Intake Total 120 Balance 120 - Medications Medications: Current Medications Aspirin (Ecotrin) 81 mg PO DAILY [facility] Last Admin: 07/16/18 10:05 Dose: Not Given Calcium Acetate (Phoslo) 667 mg PO TIDAC [facility] Last Admin: 07/24/18 17:53 Dose: 667 mg Carvedilol (Coreg) 25 mg PO BID [facility] Last Admin: 07/24/18 17:53 Dose: 25 mg Clonidine HCl (Catapres) 0.2 mg PO TID [facility] Last Admin: 07/24/18 17:54 Dose: 0.2 mg Ezetimibe (Zetia) 10 mg PO HS [facility] Last Admin: 07/23/18 22:40 Dose: 10 mg Epoetin Shawn (Procrit) 10,000 unit IV MWF [facility] Last Admin: 07/23/18 10:12 Dose: 10,000 unit Hydralazine HCl (Apresoline) 100 mg PO TID [facility] Last Admin: 07/24/18 17:54 Dose: 100 mg Insulin Aspart (Novolog) 4 unit SC BIDAC [facility] Last Admin: 07/24/18 17:57 Dose: 4 units Insulin Glargine (Lantus) 7 unit SC QAM [facility] Last Admin: 07/24/18 09:04 Dose: 7 unit Insulin Human Regular (Novolin R) 0 unit SC ACHS [facility]; Protocol Last Admin: 07/24/18 17:57 Dose: 4 unit Loperamide HCl (Imodium) 2 mg PO Q8H PRN PRN Reason: Diarrhea Losartan Potassium (Cozaar) 100 mg PO DAILY [facility] Last Admin: 07/24/18 09:03 Dose: 100 mg Megestrol Acetate (Megace) 400 mg PO DAILY [facility] Last Admin: 07/24/18 09:04 Dose: 400 mg Pantoprazole Sodium (Protonix Ec Tab) 40 mg PO DAILY [facility] Last Admin: 07/24/18 09:01 Dose: 40 mg Rosuvastatin Calcium (Crestor) 10 mg PO HS [facility] Last Admin: 07/23/18 22:41 Dose: 10 mg Tacrolimus (Prograf) 5 mg PO QAM [facility] Last Admin: 07/24/18 09:00 Dose: 5 mg Tacrolimus (Prograf) 5 mg PO QPM [facility] Last Admin: 07/24/18 17:53 Dose: 5 mg - Labs Labs: 07/23/18 07:37 07/23/18 07:37
[2018-07-25 07:34] LABS: BASO # 0.1 K/uL (0.0-0.2); BASO % 0.9 % (0.0-2.0); EOS # 0.1 K/uL (0.0-0.7); EOS % 1.1 % (0.0-4.0); HEMOGLOBIN 8.4 g/dL (12.0-18.0); LYMPH # 0.6 K/uL (1.0-4.3); LYMPH % 6.5 % (20.0-40.0); MEAN CORPUSCULAR HEMOGLOBIN 28.8 pg (27.0-31.0); MEAN CORPUSCULAR HGB CONC 32.4 g/dL (33.0-37.0); MONO # 0.8 K/uL (0.0-0.8); MONO % 9.2 % (0.0-10.0); NEUT # 7.4 K/uL (1.8-7.0); NEUT % 82.3 % (50.0-75.0); PLATELET COUNT 329 K/uL (130-400)
[2018-07-25 08:20] LABS: ALB/GLOB RATIO 0.6 (1.0-2.1); ALBUMIN 3.1 g/dL (3.5-5.0); CALCIUM 8.9 mg/dl (8.6-10.4)
[2018-07-25] MEDS: (Novolog) Insulin Aspart, Recombinant 100 u/ml 10 ml vial SC SCH ×2 (08:33→17:16)
[2018-07-25] MEDS: (Novolin R) Insulin Human Regular 100 units/ml vial SC SCH ×4 (08:33→21:07)
[2018-07-25] MEDS: (Lantus) Insulin Glargine, Recombinant SC SCH (09:00)
[2018-07-25 10:44] LABS: ANISOCYTOSIS SLIGHT; HYPOCHROMIC SLIGHT; LYMPHOCYTE 4 % (20-40); MONOCYTE 6 % (0-10); NEUTROPHIL 90 % (50-75); PLATELET ESTIMATE NORMAL (NORMAL); POLYCHROMIC SLIGHT; TOTAL CELLS COUNTED 100
[2018-07-25] MEDS: Pantoprazole 40 mg EC Tab PO SCH (10:50)
[2018-07-25] MEDS: Megestrol Acetate 40 mg/ml Cup PO SCH (10:50)
[2018-07-25] MEDS: Epoetin Alfa 10,000 unit/ml Dialysis IV SCH (11:25)
--- NOTE | 2018-07-25 12:41 | RAD ---
HISTORY: pna COMPARISON: Chest x-ray performed 07/22/18 TECHNIQUE: Chest, one view. FINDINGS: LUNGS: Moderate bilateral pleural effusions and associated consolidations. Pulmonary venous congestion. No definite pneumothorax. Please note that chest x-ray has limited sensitivity for the detection of pulmonary masses. CARDIOVASCULAR: Median sternotomy wires. Cardiomegaly. No significant atherosclerotic calcification present. OSSEOUS STRUCTURES: Degenerative changes. Osseous demineralization. High-riding humeral heads may be seen in the setting of chronic rotator cuff injuries. VISUALIZED UPPER ABDOMEN: Unremarkable. OTHER FINDINGS: None. IMPRESSION: Moderate bilateral pleural effusions and associated consolidations. Mild pulmonary venous congestion. Cardiomegaly.
--- NOTE | 2018-07-25 13:57 | CP.PCM.PN ---
Subjective - Date & Time of Evaluation Date of Evaluation: 07/25/18 Time of Evaluation: 13:54 - Subjective Subjective: on HD 3 kg uf some post HD hypotension pt with lethargy, baseline cannot obtain ROS due to above Objective - Vital Signs/Intake and Output Vital Signs (last 24 hours): Temp Pulse Resp BP Pulse Ox 97.8 F 85 21 85/56 L 99 07/25/18 13:04 07/25/18 13:04 07/25/18 13:04 07/25/18 13:04 07/25/18 13:04 - Medications Medications: Current Medications Aspirin (Ecotrin) 81 mg PO DAILY [facility] Last Admin: 07/25/18 10:49 Dose: Not Given Calcium Acetate (Phoslo) 667 mg PO TIDAC [facility] Last Admin: 07/25/18 13:46 Dose: 667 mg Carvedilol (Coreg) 25 mg PO BID [facility] Last Admin: 07/25/18 10:49 Dose: Not Given Clonidine HCl (Catapres) 0.2 mg PO TID [facility] Last Admin: 07/25/18 13:46 Dose: 0.2 mg Ezetimibe (Zetia) 10 mg PO HS [facility] Last Admin: 07/24/18 21:35 Dose: 10 mg Epoetin Shawn (Procrit) 10,000 unit IV MWF [facility] Last Admin: 07/25/18 11:25 Dose: 10,000 unit Hydralazine HCl (Apresoline) 100 mg PO TID [facility] Last Admin: 07/25/18 13:46 Dose: 100 mg Insulin Aspart (Novolog) 4 unit SC BIDAC [facility] Last Admin: 07/25/18 08:33 Dose: 4 units Insulin Glargine (Lantus) 7 unit SC QAM [facility] Last Admin: 07/25/18 09:00 Dose: Not Given Insulin Human Regular (Novolin R) 0 unit SC ACHS [facility]; Protocol Last Admin: 07/25/18 11:48 Dose: Not Given Loperamide HCl (Imodium) 2 mg PO Q8H PRN PRN Reason: Diarrhea Losartan Potassium (Cozaar) 100 mg PO DAILY [facility] Last Admin: 07/25/18 10:49 Dose: Not Given Megestrol Acetate (Megace) 400 mg PO DAILY [facility] Last Admin: 07/25/18 10:50 Dose: Not Given Pantoprazole Sodium (Protonix Ec Tab) 40 mg PO DAILY [facility] Last Admin: 07/25/18 10:50 Dose: Not Given Rosuvastatin Calcium (Crestor) 10 mg PO HS [facility] Last Admin: 07/24/18 21:35 Dose: 10 mg Tacrolimus (Prograf) 5 mg PO QAM [facility] Last Admin: 07/25/18 09:05 Dose: Not Given Tacrolimus (Prograf) 5 mg PO QPM [facility] Last Admin: 07/24/18 17:53 Dose: 5 mg - Labs Labs: 07/25/18 07:09 07/25/18 07:09 - Constitutional Appears: Confused, Chronically Ill - Head Exam Head Exam: ATRAUMATIC, NORMAL INSPECTION - Eye Exam Eye Exam: EOMI - ENT Exam ENT Exam: Mucous Membranes Moist - Respiratory Exam Respiratory Exam: Clear to Ausculation Bilateral, NORMAL BREATHING PATTERN - GI/Abdominal Exam GI & Abdominal Exam: Distended, Soft. absent: Tenderness - Extremities Exam Extremities Exam: absent: Pedal Edema - Neurological Exam Neurological Exam: Alert. absent: Oriented x3 Assessment and Plan - Assessment and Plan (Free Text) Assessment: esrd heart transplant failure to thrive diabetes htn consider reducing goal on next HD, if still here discharge planning
--- NOTE | 2018-07-25 21:12 | CP.PCM.PN ---
Subjective - Date & Time of Evaluation Date of Evaluation: 07/25/18 Time of Evaluation: 21:10 - Subjective Subjective: Patient today received hemodialysis. He is feeling extremely weak and tired. Patient has no fever at this time. No chest pain. But able to eat slightly. No abdominal pain On examination: Vital signs are stable. Chest good air entry regular heart sounds noted. Patient has a left leg contractures. Left lung atelectatic changes noted Assessment and recommendation: 63-year-old male with multiple medical history admitted with the fluid overload. Sepsis. Atelectatic changes of the left lung. Aspiration pneumonia. Patient on and off receiving vancomycin. I spoke to the patient's , family refusing for rehab. He will be discharged home with a home PT after the next hemodialysis. Objective - Vital Signs/Intake and Output Vital Signs (last 24 hours): Temp Pulse Resp BP Pulse Ox 97.1 F L 88 20 134/65 95 07/25/18 15:51 07/25/18 18:51 07/25/18 15:51 07/25/18 18:51 07/25/18 15:51 - Medications Medications: Current Medications Aspirin (Ecotrin) 81 mg PO DAILY [facility] Last Admin: 07/25/18 10:49 Dose: Not Given Calcium Acetate (Phoslo) 667 mg PO TIDAC [facility] Last Admin: 07/25/18 17:16 Dose: 667 mg Carvedilol (Coreg) 25 mg PO BID [facility] Last Admin: 07/25/18 17:18 Dose: 25 mg Clonidine HCl (Catapres) 0.2 mg PO TID [facility] Last Admin: 07/25/18 18:51 Dose: 0.2 mg Ezetimibe (Zetia) 10 mg PO HS [facility] Last Admin: 07/24/18 21:35 Dose: 10 mg Epoetin Shawn (Procrit) 10,000 unit IV MWF [facility] Last Admin: 07/25/18 11:25 Dose: 10,000 unit Hydralazine HCl (Apresoline) 100 mg PO TID [facility] Last Admin: 07/25/18 17:18 Dose: 100 mg Insulin Aspart (Novolog) 4 unit SC BIDAC [facility] Last Admin: 07/25/18 17:16 Dose: 4 units Insulin Glargine (Lantus) 7 unit SC QAM [facility] Last Admin: 07/25/18 09:00 Dose: Not Given Insulin Human Regular (Novolin R) 0 unit SC ACHS [facility]; Protocol Last Admin: 07/25/18 21:07 Dose: Not Given Loperamide HCl (Imodium) 2 mg PO Q8H PRN PRN Reason: Diarrhea Losartan Potassium (Cozaar) 100 mg PO DAILY [facility] Last Admin: 07/25/18 10:49 Dose: Not Given Megestrol Acetate (Megace) 400 mg PO DAILY [facility] Last Admin: 07/25/18 10:50 Dose: Not Given Pantoprazole Sodium (Protonix Ec Tab) 40 mg PO DAILY [facility] Last Admin: 07/25/18 10:50 Dose: Not Given Rosuvastatin Calcium (Crestor) 10 mg PO HS [facility] Last Admin: 07/24/18 21:35 Dose: 10 mg Tacrolimus (Prograf) 5 mg PO QAM [facility] Last Admin: 07/25/18 09:05 Dose: Not Given Tacrolimus (Prograf) 5 mg PO QPM [facility] Last Admin: 07/25/18 17:16 Dose: 5 mg - Labs Labs: 07/25/18 07:09 07/25/18 07:09
[2018-07-26] MEDS: (Novolin R) Insulin Human Regular 100 units/ml vial SC SCH ×5 (06:38→22:33)
[2018-07-26] MEDS: (Novolog) Insulin Aspart, Recombinant 100 u/ml 10 ml vial SC SCH ×2 (06:38→16:38)
[2018-07-26] MEDS: Megestrol Acetate 40 mg/ml Cup PO SCH (09:16)
[2018-07-26] MEDS: Pantoprazole 40 mg EC Tab PO SCH (09:16)
[2018-07-26] MEDS: (Lantus) Insulin Glargine, Recombinant SC SCH (12:31)
--- NOTE | 2018-07-26 14:40 | CP.PCM.PN ---
Subjective - Date & Time of Evaluation Date of Evaluation: 07/26/18 Time of Evaluation: 14:37 - Subjective Subjective: in bed, comfortable no SOB BP better Had HD yesterday ROS- as per HPI, other than that 10 point ROS negative Objective - Vital Signs/Intake and Output Vital Signs (last 24 hours): Temp Pulse Resp BP Pulse Ox 98.0 F 81 20 142/82 100 07/26/18 07:05 07/26/18 07:05 07/26/18 07:05 07/26/18 09:16 07/26/18 07:05 - Medications Medications: Current Medications Aspirin (Ecotrin) 81 mg PO DAILY [facility] Last Admin: 07/26/18 09:15 Dose: 81 mg Calcium Acetate (Phoslo) 667 mg PO TIDAC [facility] Last Admin: 07/26/18 12:36 Dose: 667 mg Carvedilol (Coreg) 25 mg PO BID [facility] Last Admin: 07/26/18 09:16 Dose: 25 mg Clonidine HCl (Catapres) 0.2 mg PO TID [facility] Last Admin: 07/26/18 14:31 Dose: 0.2 mg Ezetimibe (Zetia) 10 mg PO HS [facility] Last Admin: 07/25/18 21:35 Dose: 10 mg Epoetin Shawn (Procrit) 10,000 unit IV MWF [facility] Last Admin: 07/25/18 11:25 Dose: 10,000 unit Hydralazine HCl (Apresoline) 100 mg PO TID [facility] Last Admin: 07/26/18 14:30 Dose: 100 mg Insulin Aspart (Novolog) 4 unit SC BIDAC [facility] Last Admin: 07/26/18 06:38 Dose: 4 units Insulin Glargine (Lantus) 7 unit SC QAM [facility] Last Admin: 07/26/18 12:31 Dose: 7 unit Insulin Human Regular (Novolin R) 0 unit SC ACHS [facility]; Protocol Last Admin: 07/26/18 12:31 Dose: 10 u Loperamide HCl (Imodium) 2 mg PO Q8H PRN PRN Reason: Diarrhea Losartan Potassium (Cozaar) 100 mg PO DAILY [facility] Last Admin: 07/26/18 09:16 Dose: 100 mg Megestrol Acetate (Megace) 400 mg PO DAILY [facility] Last Admin: 07/26/18 09:16 Dose: 400 mg Pantoprazole Sodium (Protonix Ec Tab) 40 mg PO DAILY [facility] Last Admin: 07/26/18 09:16 Dose: 40 mg Rosuvastatin Calcium (Crestor) 10 mg PO HS [facility] Last Admin: 07/25/18 21:35 Dose: 10 mg Tacrolimus (Prograf) 5 mg PO QAM [facility] Last Admin: 07/26/18 09:15 Dose: 5 mg Tacrolimus (Prograf) 5 mg PO QPM [facility] Last Admin: 07/25/18 17:16 Dose: 5 mg - Labs Labs: 07/25/18 07:09 07/25/18 07:09 - Constitutional Appears: Cachectic, Chronically Ill - Head Exam Head Exam: ATRAUMATIC, NORMOCEPHALIC - Eye Exam Eye Exam: EOMI, PERRL - ENT Exam ENT Exam: Mucous Membranes Moist - Neck Exam Neck Exam: Full ROM - Respiratory Exam Respiratory Exam: Clear to Ausculation Bilateral. absent: Rhonchi, Wheezes - Cardiovascular Exam Cardiovascular Exam: REGULAR RHYTHM, +S1, +S2 - GI/Abdominal Exam GI & Abdominal Exam: Soft. absent: Tenderness - Extremities Exam Extremities Exam: Full ROM. absent: Pedal Edema - Neurological Exam Neurological Exam: Alert, Awake - Psychiatric Exam Psychiatric exam: Flat Affect - Skin Skin Exam: Dry, Warm Assessment and Plan (1) ESRD on hemodialysis Status: Acute (2) History of heart transplant Status: Acute (3) Anemia of chronic renal failure Status: Chronic (4) CHF (congestive heart failure) Status: Acute (5) HTN (hypertension) Status: Acute - Assessment and Plan (Free Text) Plan: maintain HD MWF next HD tomorrow nutritional supplements supportive care maintain prograf for immunosupression
--- NOTE | 2018-07-26 20:20 | CP.PCM.PN ---
Subjective - Date & Time of Evaluation Date of Evaluation: 07/26/18 Time of Evaluation: 20:19 - Subjective Subjective: Patient is morning having increasing discomfort. Also he was feeling increasingly sleepy. But he was following the commands unable to eat. Low-grade fever again noted. Chest good air entry Regular heart sounds noted Abdominal tenderness negative. Patient has leg contractures. Assessment and recommendation: 63-year-old male with sepsis. History of renal failure. End-stage renal disease on dialysis. Patient has a heart disease in the status post heart transplant and immunosuppressive treatment. Overall prognosis is very poor. I recommended for therapy and a home exercise advised rehab, but family is refusing. We will get the dialysis tomorrow. After the dialysis if the patient is stable will be discharging home. Home physical therapy advised Objective - Vital Signs/Intake and Output Vital Signs (last 24 hours): Temp Pulse Resp BP Pulse Ox 98 F 80 20 155/67 H 93 L 07/26/18 15:00 07/26/18 15:00 07/26/18 15:00 07/26/18 17:42 07/26/18 15:00 - Medications Medications: Current Medications Aspirin (Ecotrin) 81 mg PO DAILY [facility] Last Admin: 07/26/18 09:15 Dose: 81 mg Calcium Acetate (Phoslo) 667 mg PO TIDAC [facility] Last Admin: 07/26/18 16:37 Dose: 667 mg Carvedilol (Coreg) 25 mg PO BID [facility] Last Admin: 07/26/18 17:42 Dose: 25 mg Clonidine HCl (Catapres) 0.2 mg PO TID [facility] Last Admin: 07/26/18 17:43 Dose: 0.2 mg Ezetimibe (Zetia) 10 mg PO HS [facility] Last Admin: 07/25/18 21:35 Dose: 10 mg Epoetin Shawn (Procrit) 10,000 unit IV MWF [facility] Last Admin: 07/25/18 11:25 Dose: 10,000 unit Hydralazine HCl (Apresoline) 100 mg PO TID [facility] Last Admin: 07/26/18 17:43 Dose: 100 mg Insulin Aspart (Novolog) 4 unit SC BIDAC [facility] Last Admin: 07/26/18 16:38 Dose: 4 units Insulin Glargine (Lantus) 7 unit SC QAM [facility] Last Admin: 07/26/18 12:31 Dose: 7 unit Insulin Human Regular (Novolin R) 0 unit SC ACHS [facility]; Protocol Last Admin: 07/26/18 16:38 Dose: 10 u Loperamide HCl (Imodium) 2 mg PO Q8H PRN PRN Reason: Diarrhea Losartan Potassium (Cozaar) 100 mg PO DAILY [facility] Last Admin: 07/26/18 09:16 Dose: 100 mg Megestrol Acetate (Megace) 400 mg PO DAILY [facility] Last Admin: 07/26/18 09:16 Dose: 400 mg Pantoprazole Sodium (Protonix Ec Tab) 40 mg PO DAILY [facility] Last Admin: 07/26/18 09:16 Dose: 40 mg Rosuvastatin Calcium (Crestor) 10 mg PO HS [facility] Last Admin: 07/25/18 21:35 Dose: 10 mg Tacrolimus (Prograf) 5 mg PO QAM [facility] Last Admin: 07/26/18 09:15 Dose: 5 mg Tacrolimus (Prograf) 5 mg PO QPM [facility] Last Admin: 07/26/18 17:44 Dose: 5 mg - Labs Labs: 07/25/18 07:09 07/25/18 07:09
[2018-07-27] MEDS: (Novolog) Insulin Aspart, Recombinant 100 u/ml 10 ml vial SC SCH ×2 (08:02→18:05)
[2018-07-27] MEDS: (Novolin R) Insulin Human Regular 100 units/ml vial SC SCH ×3 (08:02→18:04)
[2018-07-27] MEDS: Pantoprazole 40 mg EC Tab PO SCH (09:52)
[2018-07-27] MEDS: Megestrol Acetate 40 mg/ml Cup PO SCH (09:52)
[2018-07-27] MEDS: Epoetin Alfa 10,000 unit/ml Dialysis IV SCH (12:48)
[2018-07-27] MEDS: (Lantus) Insulin Glargine, Recombinant SC SCH (14:36)
--- NOTE | 2018-07-27 15:27 | CP.PCM.PN ---
Subjective - Date & Time of Evaluation Date of Evaluation: 07/27/18 Time of Evaluation: 15:24 - Subjective Subjective: pt seen and examined had HD earlier at bedside no distress per , eats very little ROS- unable to obtain as pt sleepy and does not answer questions Objective - Vital Signs/Intake and Output Vital Signs (last 24 hours): Temp Pulse Resp BP Pulse Ox 97.5 F L 79 16 140/71 96 07/27/18 13:15 07/27/18 13:15 07/27/18 13:15 07/27/18 13:15 07/27/18 13:15 Intake and Output: 07/27/18 07/27/18 06:59 18:59 Intake Total 320 Balance 320 - Medications Medications: Current Medications Aspirin (Ecotrin) 81 mg PO DAILY [facility] Last Admin: 07/27/18 09:51 Dose: Not Given Calcium Acetate (Phoslo) 667 mg PO TIDAC [facility] Last Admin: 07/27/18 08:06 Dose: 667 mg Carvedilol (Coreg) 25 mg PO BID [facility] Last Admin: 07/27/18 09:47 Dose: Not Given Clonidine HCl (Catapres) 0.2 mg PO TID [facility] Last Admin: 07/27/18 14:35 Dose: 0.2 mg Ezetimibe (Zetia) 10 mg PO HS [facility] Last Admin: 07/26/18 22:32 Dose: 10 mg Epoetin Shawn (Procrit) 10,000 unit IV MWF [facility] Last Admin: 07/27/18 12:48 Dose: 10,000 unit Hydralazine HCl (Apresoline) 100 mg PO TID [facility] Last Admin: 07/27/18 14:35 Dose: 100 mg Insulin Aspart (Novolog) 4 unit SC BIDAC [facility] Last Admin: 07/27/18 08:02 Dose: 4 units Insulin Glargine (Lantus) 7 unit SC QAM [facility] Last Admin: 07/27/18 14:36 Dose: Not Given Insulin Human Regular (Novolin R) 0 unit SC ACHS [facility]; Protocol Last Admin: 07/27/18 14:35 Dose: Not Given Loperamide HCl (Imodium) 2 mg PO Q8H PRN PRN Reason: Diarrhea Losartan Potassium (Cozaar) 100 mg PO DAILY [facility] Last Admin: 07/27/18 09:47 Dose: Not Given Megestrol Acetate (Megace) 400 mg PO DAILY [facility] Last Admin: 07/27/18 09:52 Dose: Not Given Pantoprazole Sodium (Protonix Ec Tab) 40 mg PO DAILY [facility] Last Admin: 07/27/18 09:52 Dose: Not Given Rosuvastatin Calcium (Crestor) 10 mg PO HS [facility] Last Admin: 07/26/18 22:33 Dose: 10 mg Tacrolimus (Prograf) 5 mg PO QAM [facility] Last Admin: 07/26/18 09:15 Dose: 5 mg Tacrolimus (Prograf) 5 mg PO QPM [facility] Last Admin: 07/26/18 17:44 Dose: 5 mg - Labs Labs: 07/25/18 07:09 07/25/18 07:09 - Constitutional Appears: Cachectic, Chronically Ill - Head Exam Head Exam: ATRAUMATIC, NORMOCEPHALIC - Eye Exam Eye Exam: EOMI, PERRL - ENT Exam ENT Exam: Mucous Membranes Moist - Neck Exam Neck Exam: absent: Lymphadenopathy - Respiratory Exam Respiratory Exam: Clear to Ausculation Bilateral. absent: Rhonchi, Wheezes - Cardiovascular Exam Cardiovascular Exam: REGULAR RHYTHM, +S1, +S2 - GI/Abdominal Exam GI & Abdominal Exam: Soft. absent: Distended, Tenderness - Extremities Exam Extremities Exam: absent: Joint Swelling, Pedal Edema - Neurological Exam Neurological Exam: Awake. absent: Alert, Oriented x3 - Psychiatric Exam Psychiatric exam: Depressed. absent: Normal Affect - Skin Skin Exam: Normal Color, Warm Assessment and Plan (1) ESRD on hemodialysis Status: Acute (2) History of heart transplant Status: Acute (3) Anemia of chronic renal failure Status: Chronic (4) CHF (congestive heart failure) Status: Acute (5) HTN (hypertension) Status: Acute - Assessment and Plan (Free Text) Plan: HD today, maintain MWF schedule Bp was elevated this morning, better now discussed with regarding feeding tube she refuses
[2018-07-27 18:05] VITALS: BP 148/56
[2018-07-27 20:18] VITALS: PULSE 84; RESP 20; TEMP 98.8; O2SAT 100
--- NOTE | 2018-07-27 21:54 | CP.PCM.DIS ---
Provider - Provider Date of Admission: 07/09/18 15:56 Attending physician: Lauren Rodas MD Consults: 07/09/18 15:10 Physician Consult Stat Comment: esrd on hd Consulting Provider: Zane Pulido Consulting Physician: Zane Pulido Reason for Consult: needing dialysis Additional Comments: spoken with 07/17/18 13:56 Gastroenterology Consult Stat Comment: GI bleed - As per Arcadio, switch to Dr. Day Consulting Provider: Pedro Day Consulting Physician: Pedro Day Reason for Consult: GI bleed - As per Arcadio, switch to Dr. Day 07/26/18 17:08 Wound Care [Nursing Referral for Wound Care] Routine Comment: L hip has dark brown skin with area of pink skin Physician Instructions: Reason For Exam: L hip has pink area of skin suspecting of wound Time Spent in preparation of Discharge (in minutes): 45 Hospital Course - Lab Results Lab Results: Micro Results 07/17/18 07:00 Stool Stool Culture - Final NO SALMONELLA, SHIGELLA OR CAMPYLOBACTER ISOLATED. 07/17/18 07:00 Stool Ova and Parasite Concentrate Exam - Final 07/09/18 12:30 Blood Blood Culture - Final NO GROWTH AFTER 5 DAYS 07/09/18 12:30 Blood Gram Stain - Final TEST NOT PERFORMED 07/09/18 13:04 Blood Blood Culture - Final NO GROWTH AFTER 5 DAYS 07/09/18 13:04 Blood Gram Stain - Final TEST NOT PERFORMED Most Recent Lab Values WBC 9.0 K/uL (4.8-10.8) 07/25/18 07:09 RBC 2.90 Mil/uL (4.40-5.90) L 07/25/18 07:09 Hgb 8.4 g/dL (12.0-18.0) L 07/25/18 07:09 Hct 25.8 % (35.0-51.0) L 07/25/18 07:09 MCV 89.0 fL (80.0-94.0) 07/25/18 07:09 MCH 28.8 pg (27.0-31.0) 07/25/18 07:09 MCHC 32.4 g/dL (33.0-37.0) L 07/25/18 07:09 RDW 18.0 % (11.5-14.5) H 07/25/18 07:09 Plt Count 329 K/uL (130-400) 07/25/18 07:09 MPV 9.0 fL (7.2-11.7) 07/25/18 07:09 Neut % (Auto) 82.3 % (50.0-75.0) H 07/25/18 07:09 Lymph % (Auto) 6.5 % (20.0-40.0) L 07/25/18 07:09 Gilmer % (Auto) 9.2 % (0.0-10.0) 07/25/18 07:09 Eos % (Auto) 1.1 % (0.0-4.0) 07/25/18 07:09 Baso % (Auto) 0.9 % (0.0-2.0) 07/25/18 07:09 Neut # (Auto) 7.4 K/uL (1.8-7.0) H 07/25/18 07:09 Lymph # (Auto) 0.6 K/uL (1.0-4.3) L 07/25/18 07:09 Gilmer # (Auto) 0.8 K/uL (0.0-0.8) 07/25/18 07:09 Eos # (Auto) 0.1 K/uL (0.0-0.7) 07/25/18 07:09 Baso # (Auto) 0.1 K/uL (0.0-0.2) 07/25/18 07:09 Neutrophils % (Manual) 90 % (50-75) H 07/25/18 07:09 Band Neutrophils % 4 % (0-2) H 07/23/18 07:37 Lymphocytes % (Manual) 4 % (20-40) L 07/25/18 07:09 Monocytes % (Manual) 6 % (0-10) 07/25/18 07:09 Eosinophils % (Manual) 3 % (0-4) 07/23/18 07:37 Platelet Estimate Normal (NORMAL) 07/25/18 07:09 Plt Clumps, EDTA Present 07/17/18 17:19 Large Platelets Present 07/23/18 07:37 Giant Platelets Present 07/09/18 13:04 Polychromasia Slight 07/25/18 07:09 Hypochromasia (manual) Slight 07/25/18 07:09 Poikilocytosis (manual Slight 07/23/18 07:37 Anisocytosis (manual) Slight 07/25/18 07:09 Target Cells Slight 07/23/18 07:37 Tear Drop Cells Slight 07/17/18 06:29 Ovalocytes Slight 07/17/18 06:29 Kaleigh Cells Slight 07/16/18 08:04 Acanthocytes (Spur) Slight 07/09/18 13:04 pO2 15 mm/Hg (30-55) L 07/17/18 06:25 VBG pH 7.44 (7.32-7.43) H 07/17/18 06:25 VBG pCO2 45 mmHg (40-60) 07/17/18 06:25 VBG HCO3 27.2 mmol/L 07/17/18 06:25 VBG Total CO2 32.0 mmol/L (22-28) H 07/17/18 06:25 VBG O2 Sat (Calc) 35.9 % (40-65) L 07/17/18 06:25 VBG Base Excess 5.6 mmol/L (0.0-2.0) H 07/17/18 06:25 VBG Potassium 4.8 mmol/L (3.6-5.2) 07/17/18 06:25 Sodium 134.0 mmol/l (132-148) 07/17/18 06:25 Chloride 98.0 mmol/L (98-107) 07/17/18 06:25 Glucose 402 mg/dl (75-110) H* D 07/17/18 06:25 Lactate 2.0 mmol/L (0.7-2.1) 07/17/18 06:25 Blood Gas Comments Glu high 07/17/18 06:25 Crit Value Called To 07/17/18 06:25 Crit Value Called By Mic francis 07/17/18 06:25 Crit Value Read Back Y 07/17/18 06:25 Blood Gas Notified Time 639 07/17/18 06:25 Sodium 132 mmol/L (132-148) 07/25/18 07:09 Potassium 5.4 mmol/L (3.6-5.2) H 07/25/18 07:09 Chloride 95 mmol/L (98-107) L 07/25/18 07:09 Carbon Dioxide 27 mmol/L (22-30) 07/25/18 07:09 Anion Gap 16 (10-20) 07/25/18 07:09 BUN 36 mg/dL (9-20) H 07/25/18 07:09 Creatinine 5.2 mg/dL (0.8-1.5) H 07/25/18 07:09 Est GFR ( Amer) 14 07/25/18 07:09 Est GFR (Non-Af Amer) 11 07/25/18 07:09 POC Glucose (mg/dL) 160 mg/dL (65-110) H 07/27/18 11:44 Random Glucose 256 mg/dL (75-110) H D 07/25/18 07:09 Calcium 8.9 mg/dl (8.6-10.4) 07/25/18 07:09 Phosphorus 4.7 mg/dL (2.5-4.5) H 07/25/18 07:09 Magnesium 2.0 mg/dL (1.6-2.3) 07/25/18 07:09 % Saturation 19 (20-55) L 07/24/18 20:22 Ferritin 1480.0 ng/mL 07/19/18 06:36 Total Bilirubin 1.0 mg/dL (0.2-1.3) 07/25/18 07:09 AST 61 U/L (17-59) H D 07/25/18 07:09 ALT 20 U/L (21-72) L 07/25/18 07:09 Alkaline Phosphatase 220 U/L (38-126) H 07/25/18 07:09 Ammonia 11 umol/L (9-33) D 07/11/18 11:34 Total Creatine Kinase 73 U/L (55-170) 07/09/18 13:04 CK-MB (Mass) 0.49 ng/mL (0.0-3.38) 07/09/18 13:04 Total Protein 8.6 g/dL (6.3-8.3) H 07/25/18 07:09 Albumin 3.1 g/dL (3.5-5.0) L 07/25/18 07:09 Globulin 5.5 gm/dL (2.2-3.9) H 07/25/18 07:09 Albumin/Globulin Ratio 0.6 (1.0-2.1) L 07/25/18 07:09 Venous Blood Potassium 4.8 mmol/L (3.6-5.2) 07/17/18 06:25 Stool Occult Blood Positive (NEGATIVE) H 07/27/18 04:30 Stool Leukocytes, Qual Negative (NEGATIVE) 07/17/18 07:54 C. difficile Ag & Toxin Negative (NEGATIVE) 07/17/18 07:00 Influenza Typ A,B (EIA) Negative for flu a/b (NEGATIVE) 07/09/18 14:32 Blood Type A POSITIVE 07/17/18 04:41 Antibody Screen Negative 07/17/18 04:41 - Hospital Course Hospital Course: Chief complaint: Not feeling well. , Patient was sent from the dialysis center because patient was not looking good HPI: Patient is a 63-year-old male with a history of heart transplant on immunosuppressive treatment end-stage renal disease on dialysis and diabetes. This morning he was about to get dressed and go to the dialysis Center further hemodialysis. Patient was in the dialysis center, but he was not looking good, patient was sent to the emergency room. In the emergency room patient was having fever. He was also not feeling well. Lethargic. In the emergency room patient was given antibiotic. Nephrology consultation was called. Patient will be getting the hemodialysis. Patient did not have any nausea vomiting. But complaining of weakness, leg weakness, poor appetite. Past medical history: Heart, transplant on immunosuppressive treatment, end-stage renal disease on dialysis, hypertension, diabetes, hypercholesterolemia, urinary tract infection. Allergy: No known drug allergy but imepenem causes AMS Personal history: Nonsmoker nonalcoholic disabled Family history noncontributory. Review of systems: Currently having some headache, complaining of episodes of hiccups, abdominal pain, shortness of breath and cough noted, bilateral leg swelling On examination: HEENT PERRLA, neck supple No thyromegaly was noted and no cervical adenopathy noted Bilateral wheezing and rales noted CVS regular heart sound, no murmur Abdomen soft and no organomegaly Bilateral edema noted [employer] alert awake oriented x3 no functional neurological deficit. CXR: bilateral effusion noted Elevated WBC noted Neutrophilia noted. Assessment and recommendation: 61-year-old male with history of heart transplant, immunosuppressive treatment, end-stage renal disease on dialysis, hypertension, diabetes, peripheral vascular disease, pedal edema, and urinary tract infection. Possibly admitted with the sepsis. Pneumonia likely. We will start the patient on vancomycin, Zosyn. Patient has a worsening bilateral pleural effusion. Suggested renal consultation for possible effective dialysis. Patient may need a thoracentesis. Stenosis is poor. Glucose control. We will follow the patient Septic workup. DVT GI prophylaxis Course in the hospital: Patient was initially admitted to the hospital with acute altered mental status. And severe sepsis and possible pneumonia. He started on intravenous IV antibiotic. Vancomycin. He was also getting his hemodialysis on a scheduled hemodialysis. In between patient developed episodes of worsening shortness of breath. He was also having difficult time in breathing. Interventional radiology evaluation was called in to do the thoracentesis. But it was unsuccessful. Aggressive hemodialysis continued. Patient received vancomycin, Zosyn. He started feeling better. I advised the family regarding the subacute rehab evaluation, but family refused. Patient got dialysis today. He will be discharged home after the hemodialysis. His medications will be continued. Final diagnosis: Acute decompensated heart failure. Patient also has a history of fluid overload secondary to hemodialysis and renal failure. Aspiration pneumonia. Sepsis. End-stage renal disease on dialysis. History of heart transplant on immunosuppressive treatment. Diabetes. Poorly controlled will continue the current treatment and will follow the patient Discharge Exam - Head Exam Head Exam: ATRAUMATIC, NORMOCEPHALIC Discharge Plan - Follow Up Plan Condition: STABLE Disposition: HOME/ ROUTINE Instructions: Dialysis Diet , Heart Failure, Adult (DC), Pneumonia, Adult (DC), Pleural Effusion (DC), End Stage Kidney Disease (DC) Referrals: Lauren Rodas MD [Staff Provider] -
== END 2018-07-27 20:17 | disposition home or self-care (01) | DRG 871 ==
LOC: C.ER 11:17 → C.9E 15:56 → C.6T 07-10 13:40
PROVIDERS: ADMIT Internal Medicine; ATTEND Internal Medicine
PROC: 5A1D70Z Performance of Urinary Filtration, Intermittent, Less than 6 Hours Per Day (ICD-10-PCS; 2018-07-09)
PROC: 5A1D70Z Performance of Urinary Filtration, Intermittent, Less than 6 Hours Per Day (ICD-10-PCS; 2018-07-11)
PROC: 5A1D70Z Performance of Urinary Filtration, Intermittent, Less than 6 Hours Per Day (ICD-10-PCS; 2018-07-13)
PROC: 5A1D70Z Performance of Urinary Filtration, Intermittent, Less than 6 Hours Per Day (ICD-10-PCS; 2018-07-16)
PROC: 5A1D70Z Performance of Urinary Filtration, Intermittent, Less than 6 Hours Per Day (ICD-10-PCS; 2018-07-18)
PROC: 0W9B3ZZ Drainage of Left Pleural Cavity, Percutaneous Approach (ICD-10-PCS; principal; 2018-07-19)
PROC: 5A1D70Z Performance of Urinary Filtration, Intermittent, Less than 6 Hours Per Day (ICD-10-PCS; 2018-07-20)
PROC: 5A1D70Z Performance of Urinary Filtration, Intermittent, Less than 6 Hours Per Day (ICD-10-PCS; 2018-07-23)
PROC: 5A1D70Z Performance of Urinary Filtration, Intermittent, Less than 6 Hours Per Day (ICD-10-PCS; 2018-07-25)
PROC: 5A1D70Z Performance of Urinary Filtration, Intermittent, Less than 6 Hours Per Day (ICD-10-PCS; 2018-07-27)
DX: A41.9 Sepsis, unspecified organism (principal); G93.41 Metabolic encephalopathy; J69.0 Pneumonitis due to inhalation of food and vomit; N18.6 End stage renal disease; I13.2 Hypertensive heart and chronic kidney disease with heart failure and with stage 5 chronic kidney disease, or end stage renal disease; I25.811 Atherosclerosis of native coronary artery of transplanted heart without angina pectoris; I42.9 Cardiomyopathy, unspecified; J90 Pleural effusion, not elsewhere classified; K52.1 Toxic gastroenteritis and colitis; K92.1 Melena; D63.1 Anemia in chronic kidney disease; E11.22 Type 2 diabetes mellitus with diabetic chronic kidney disease; E11.65 Type 2 diabetes mellitus with hyperglycemia; E78.5 Hyperlipidemia, unspecified; F03.90 Unspecified dementia, unspecified severity, without behavioral disturbance, psychotic disturbance, mood disturbance, and anxiety; I50.9 Heart failure, unspecified; K21.9 Gastro-esophageal reflux disease without esophagitis; K57.90 Diverticulosis of intestine, part unspecified, without perforation or abscess without bleeding; R62.7 Adult failure to thrive; R65.20 Severe sepsis without septic shock; Z99.2 Dependence on renal dialysis